=== PATIENT | male | born 1940 | race Caucasian/White ===

== ENCOUNTER 2017-01-19 12:24 | Inpatient (IN) | payer MEDICARE, OTHER ==
[~2017-01-19] VITALS: Ht 180.3 cm; Wt 94.8 kg
[2017-01-19 12:27] VITALS: BP 190/78; PULSE 112; RESP 24; TEMP 97.6; O2SAT 96
[2017-01-19 14:33] LABS: AUTOMATED NEUTROPHIL # 5.9 TH/MM3 (1.8-7.7); BASOPHIL % 0.1 % (0.0-2.0); EOSINOPHIL % 0.1 % (0.0-4.0); HEMATOCRIT 40.2 % (39.0-51.0); LYMPH % 6.2 % (9.0-44.0); LYMPHOCYTE # 0.4 TH/MM3 (1.0-4.8); MEAN CELL VOLUME 90.2 FL (80.0-100.0); MEAN CORPUSCULAR HEMOGLOBIN 30.4 PG (27.0-34.0); MEAN CORPUSCULAR HGB CONC 33.7 % (32.0-36.0); MONO % 5.5 % (0.0-8.0); NEUT % 88.1 % (16.0-70.0); PLATELET COUNT 93 TH/MM3 (150-450); RED BLOOD COUNT 4.45 MIL/MM3 (4.50-5.90); RED CELL DISTRIBUTION WIDTH 16.6 % (11.6-17.2); WHITE BLOOD COUNT 6.7 TH/MM3 (4.0-11.0)
[2017-01-19 14:35] LABS: HEMO FLAGS AUTO DIFF
[2017-01-19 14:37] LABS: INTERNATIONAL NORMALIZED RATIO 1.7 RATIO; PROTHROMBIN TIME - PATIENT 19.4 SEC (9.8-11.6)
[2017-01-19 14:54] LABS: ALT (GPT) 75 U/L (12-78); ANION GAP 11 MEQ/L (5-15); AST (GOT) 18 U/L (15-37); BICARBONATE 23.5 MEQ/L (21.0-32.0); BLOOD UREA NITROGEN 69 MG/DL (7-18); CHLORIDE 105 MEQ/L (98-107); GLOMERULAR FILTRATION RATE 44 ML/MIN (>89); POTASSIUM 4.8 MEQ/L (3.5-5.1); SODIUM (NA) 139 MEQ/L (136-145)
[2017-01-19 14:55] LABS: ALKALINE PHOSPHATASE 88 U/L (45-117); TOTAL BILIRUBIN ADULT 0.3 MG/DL (0.2-1.0)
--- NOTE | 2017-01-19 15:17 | PD ---
HPI Chief Complaint: Skin Problem Time Seen by Provider: 15:01 Travel History International Travel<30 days: No Contact w/Intl Traveler<30days: No Traveled to known affect area: No History of Present Illness HPI H/O COPD/AFIB FOR WHICH HE IS ON COUMADIN. PCP IS DR DALAL. DENIES ANY ALLERGIES. PATIENT WAS SEEN BY DR DALAL AND RECC TO COME TO ED FOR IV ABX AND ADMISSION. PATIENT STATES HE HAS HAD 4-5 DAYS OF DANIEL LE SWELLING, DISCOLORATION TO SKIN REDDISH HUE, WEEPING CLEAR LIQUID WELL, WHICH ENDS SOAKING HIS SOCKS AND PANTS, NOT IMPROVING AND HAS NOT BEEN ON ABX RECENTLY EITHER. PFSH Past Medical History Hx Anticoagulant Therapy: Yes (WARAFIN) Cardiovascular Problems: Yes (A-FIB) Respiratory: Yes (COPD W/02 AT NIGHT) Social History Tobacco Use: Yes Allergies-Medications (Allergen,Severity, Reaction): Coded Allergies: No Known Allergies (Unverified , 01/19/17) Reported Meds & Prescriptions Reported Meds & Active Scripts Active Reported Spiriva Handihaler (Tiotropium Inh) 18 Mcg Cap 18 Mcg INH DAILY 1 capsule = 18 mcg Flomax (Tamsulosin HCl) 0.4 Mg Cap 0.4 Mg PO HS Diltiazem CD 24 HR 120 Mg Caper 120 Mg PO DAILY Amiodarone (Amiodarone HCl) 200 Mg Tab 200 Mg PO DAILY Coumadin (Warfarin) 3 Mg Tab 3 Mg PO DAILY [place] (Hydrocodone-Acetaminophen) 10-325 Mg Tab 1 Tab PO TID PRN Morphine ER (Morphine Sulfate) 30 Mg Tab 30 Mg PO Q8H Dexamethasone 4 Mg Tab 4 Mg PO DAILY Advair Diskus Inh (Fluticasone-Salmeterol Inh) 250-50 Mcg/Blist Aer 1 Puff INH BID Rinse mouth after use. Potassium Chloride ER (Potassium Chloride) 10 Meq Cap 10 Meq PO BID Lasix (Furosemide) 40 Mg Tab 40 Mg PO BID Review of Systems Except as stated in HPI: all other systems reviewed are Neg Cardiovascular: Positive: Edema Skin: Positive Rash Physical Exam Narrative GENERAL: SKIN: Extremities HAVE 3+ PITTING EDEMA, WEEPING CLEAR EXUDATE BELOW THE KNEE, SKIN IS ERYTHEMATOUS W/O BLEBS, NOT WARM TO TOUCH, NO STREAKING, NO LAD PROXIMALLY HEAD: Atraumatic. Normocephalic. EYES: Pupils equal and round. No scleral icterus. No injection or drainage. ENT: No nasal bleeding or discharge. Mucous membranes pink and moist. NECK: Trachea midline. No JVD. CARDIOVASCULAR: Regular rate and rhythm. RESPIRATORY: No accessory muscle use. Clear to auscultation. Breath sounds equal bilaterally. GASTROINTESTINAL: Abdomen soft, non-tender, nondistended. Hepatic and splenic margins not palpable. MUSCULOSKELETAL: .. No obvious deformities. NEUROLOGICAL: Awake and alert. No obvious cranial nerve deficits. Motor grossly within normal limits. Five out of 5 muscle strength in the arms and legs. Normal speech. PSYCHIATRIC: Appropriate mood and affect; insight and judgment normal. Data Data Last Documented VS Vital Signs Date Time Temp Pulse Resp B/P Pulse Ox O2 Delivery O2 Flow Rate FiO2 01/19/17 12:27 97.6 112 24 190/78 96 Room Air Orders Complete Blood Count With Diff (01/19/17 13:29) Comprehensive Metabolic Panel (01/19/17 13:29) Blood Culture (01/19/17 13:29) Prothrombin Time / Inr (Pt) (01/19/17 13:29) Wound Culture And Gram Stain (01/19/17 15:24) Piperacil-Tazo 4.5 Gm Premix (Zosyn 4.5 (01/19/17 15:24) Admit Order (Ed Use Only) (01/19/17 15:39) Labs Laboratory Tests Test 01/19/17 13:02 White Blood Count 6.7 TH/MM3 Red Blood Count 4.45 MIL/MM3 Hemoglobin 13.5 GM/DL Hematocrit 40.2 % Mean Corpuscular Volume 90.2 FL Mean Corpuscular Hemoglobin 30.4 PG Mean Corpuscular Hemoglobin 33.7 % Concent Red Cell Distribution Width 16.6 % Platelet Count 93 TH/MM3 Mean Platelet Volume 8.1 FL Neutrophils (%) (Auto) 88.1 % Lymphocytes (%) (Auto) 6.2 % Monocytes (%) (Auto) 5.5 % Eosinophils (%) (Auto) 0.1 % Basophils (%) (Auto) 0.1 % Neutrophils # (Auto) 5.9 TH/MM3 Lymphocytes # (Auto) 0.4 TH/MM3 Monocytes # (Auto) 0.4 TH/MM3 Eosinophils # (Auto) 0.0 TH/MM3 Basophils # (Auto) 0.0 TH/MM3 CBC Comment AUTO DIFF Differential Total Cells 100 Counted Neutrophils % (Manual) 77 % Band Neutrophils % 7 % Lymphocytes % 8 % Monocytes % 1 % Neutrophils # (Manual) 6.1 TH/MM3 Metamyelocytes 3 % Myelocytes 4 % Nucleated Red Blood Cells 1 /100 WBC Differential Comment FINAL DIFF MANUAL Platelet Estimate LOW Platelet Morphology Comment NORMAL Red Cell Morphology Comment NORMAL Prothrombin Time 19.4 SEC Prothromb Time International 1.7 RATIO Ratio Sodium Level 139 MEQ/L Potassium Level 4.8 MEQ/L Chloride Level 105 MEQ/L Carbon Dioxide Level 23.5 MEQ/L Anion Gap 11 MEQ/L Blood Urea Nitrogen 69 MG/DL Creatinine 1.56 MG/DL Estimat Glomerular Filtration 44 ML/MIN Rate Random Glucose 180 MG/DL Calcium Level 9.4 MG/DL Total Bilirubin 0.3 MG/DL Aspartate Amino Transf 18 U/L (AST/SGOT) Alanine Aminotransferase 75 U/L (ALT/SGPT) Alkaline Phosphatase 88 U/L Total Protein 6.8 GM/DL Albumin 2.0 GM/DL [facility] Medical Decision Making Medical Screen Exam Complete: Yes Emergency Medical Condition: Yes Medical Record Reviewed: Yes Differential Diagnosis CELLULITIS V DVT VS PERIPHERAL EDEMA WITH SUPERIMPOSED CELLULITIS Narrative Course UPON EVALUATION FOUND TO HAVE CELLULITIC CHANGES TO EXTREMITIES WITHOUT OVERT CHF/LIVER CIRRHOSIS HOWEVER RECENT DIABETIC DIAGNOSIS MAKES THIS HIGH RISK FOR WORSENING DEEPER INFECTION Diagnosis Primary Impression: BILATERAL LE PERIPHERAL EDEMA WITH SUPERIMPOSED CELLULITIS Admitting Information Admitting Physician Requests: Observation Gopal Hernandez MD Jan 19, 2017 15:17
[2017-01-19] MEDS ORDERED: VANCOMYCIN INJ 1,000 MG in SODIUM CHLOR 0.9% 250 ML INJ 250 ML IV STA (15:24)
[2017-01-19] MEDS ORDERED: PIPERACIL-TAZO 4.5 GM PREMIX 100 ML IV STA (15:24)
[2017-01-19 15:43] LABS: BANDS 7 % (0-6); CORRECTED NUCLEATED RBC 1 /100 WBC (0-0); METAMYELOCYTES 3 % (0-1); MYELOCYTES 4 % (0-0); NEUTROPHIL # MANUAL DIFF 6.1 TH/MM3 (1.8-7.7); POLYS (SEG NEUTROPHILS) 77 % (16-70); WBC DIFF SAMPLE 100
[2017-01-19 15:44] LABS: PLATELET ESTIMATE SMEAR LOW (NORMAL); PLATELET MORPHOLOGY NORMAL (NORMAL); SCAN/DIFF FINAL DIFF MANUAL
[2017-01-19] MEDS ORDERED: BISACODYL 10 MG SUPP RECTAL PRN (16:15)
[2017-01-19] MEDS ORDERED: ONDANSETRON HCL 4 MG/2 ML VIAL IVP PRN (16:15)
[2017-01-19] MEDS ORDERED: LACTULOSE SYRUP 20 GM/30 ML CUP PO PRN (16:15)
[2017-01-19] MEDS ORDERED: SODIUM CHLORIDE 0.9% FLUSH 10 ML FLUSH IV FLUSH PRN (16:15)
[2017-01-19] MEDS ORDERED: MAGNESIUM HYDROXIDE SUSP 30 ML CUP PO PRN (16:15)
[2017-01-19] MEDS ORDERED: SENNOSIDES 8.6 MG TAB PO PRN (16:15)
[2017-01-19] MEDS ORDERED: NALOXONE HCL 0.4 MG/ML AMP IV PRN (16:15)
[2017-01-19] MEDS ORDERED: ACETAMINOPHEN 325 MG TAB PO PRN (16:15)
[2017-01-19] MEDS ORDERED: LORazepam 0.5 MG TAB PO PRN (16:30)
[2017-01-19] MEDS ORDERED: Vancomycin Consult Pharmacy 1 EA OTHER SCH (16:30)
[2017-01-19] MEDS ORDERED: DEXTROSE 50% IN WATER 50 ML VIAL(D50) IV PRN (16:30)
[2017-01-19] MEDS ORDERED: cloNIDine HCL 0.1 MG TAB PO PRN (16:30)
[2017-01-19] MEDS ORDERED: GLUCAGON 1 MG/ML VIAL OTHER PRN (16:30)
[2017-01-19 17:19] VITALS: BP 141/77; PULSE 94; RESP 18; O2SAT 95
[2017-01-19] MEDS ORDERED: MORP1TAB25 PO (17:51)
[2017-01-19] MEDS ORDERED: POTA10CA PO (17:51)
[2017-01-19] MEDS ORDERED: AMIO200T PO (17:51)
[2017-01-19] MEDS ORDERED: SPIRCAP INH (17:51)
[2017-01-19] MEDS ORDERED: DILT-60 PO (17:51)
[2017-01-19] MEDS ORDERED: FURO1TAB60 PO (17:51)
[2017-01-19] MEDS ORDERED: ADVA250A INH (17:51)
[2017-01-19] MEDS ORDERED: DEXA4TAB PO (17:51)
[2017-01-19] MEDS ORDERED: HYDR-3366 PO (17:51)
[2017-01-19] MEDS ORDERED: COUM3TAB PO (17:51)
[2017-01-19] MEDS ORDERED: TAMS5CAP PO (17:51)
[2017-01-19] MEDS: PANTOPRAZOLE SODIUM 40 MG VIAL IV PUSH SCH (18:00)
[2017-01-19] MEDS: WARFARIN SOD 4 MG TAB PO SCH (18:00)
[2017-01-19] MEDS: ZOLPIDEM TARTRATE 5 MG TAB PO PRN (19:35)
[2017-01-19] MEDS: ACETAMINOPHEN/HYDROcodone 325 MG/5 MG TAB PO PRN (19:35)
[2017-01-19 20:00] VITALS: BP 129/59; PULSE 78; RESP 18; TEMP 96.5
[2017-01-19] MEDS: HEPARIN SODIUM - SQ 10,000 UNITS/ML VIAL SQ SCH (20:45)
[2017-01-19] MEDS: DOCUSATE SODIUM 50 MG/SENNA 8.6 MG TAB PO SCH (20:45)
[2017-01-19] MEDS: SODIUM CHLORIDE 0.9% FLUSH 10 ML FLUSH IV FLUSH SCH (20:46)
[2017-01-19] MEDS: VANCOMYCIN 1,500 MG/NS 500 ML IV SCH ×2 (20:46)
[2017-01-19] MEDS: INSULIN ASPART SUPPLEMENTAL SCALE SQ SCH (20:53)
[2017-01-19 23:02] VITALS: BP 116/60; PULSE 76; RESP 19; TEMP 96.3; O2SAT 94
[2017-01-19] MEDS: PIPERACIL-TAZO 2.25 GM PREMIX 50 ML IV SCH (23:31)
[2017-01-20] MEDS: ACETAMINOPHEN/HYDROcodone 325 MG/5 MG TAB PO PRN ×2 (03:06→10:07)
[2017-01-20] MEDS: PIPERACIL-TAZO 2.25 GM PREMIX 50 ML IV SCH ×3 (04:59→17:54)
[2017-01-20] MEDS: INSULIN ASPART SUPPLEMENTAL SCALE SQ SCH ×4 (06:32→21:00)
[2017-01-20 07:30] LABS: AUTOMATED NEUTROPHIL # 4.8 TH/MM3 (1.8-7.7); BASOPHIL % 0.3 % (0.0-2.0); EOSINOPHIL % 0.6 % (0.0-4.0); LYMPHOCYTE # 0.9 TH/MM3 (1.0-4.8); MEAN CELL VOLUME 90.3 FL (80.0-100.0); MEAN CORPUSCULAR HEMOGLOBIN 29.5 PG (27.0-34.0); MEAN CORPUSCULAR HGB CONC 32.6 % (32.0-36.0); NEUT % 79.1 % (16.0-70.0); PLATELET COUNT 91 TH/MM3 (150-450); RED BLOOD COUNT 3.99 MIL/MM3 (4.50-5.90); RED CELL DISTRIBUTION WIDTH 16.5 % (11.6-17.2); WHITE BLOOD COUNT 6.1 TH/MM3 (4.0-11.0)
[2017-01-20 07:32] LABS: INTERNATIONAL NORMALIZED RATIO 1.7 RATIO; PROTHROMBIN TIME - PATIENT 19.5 SEC (9.8-11.6)
[2017-01-20 07:40] LABS: HEMO FLAGS AUTO DIFF
[2017-01-20 08:26] LABS: BICARBONATE 22.1 MEQ/L (21.0-32.0); POTASSIUM 4.2 MEQ/L (3.5-5.1)
[2017-01-20 09:32] LABS: BANDS 2 % (0-6); METAMYELOCYTES 1 % (0-1); NEUTROPHIL # MANUAL DIFF 5.1 TH/MM3 (1.8-7.7); PLATELET ESTIMATE SMEAR LOW (NORMAL); PLATELET MORPHOLOGY NORMAL (NORMAL); POLYS (SEG NEUTROPHILS) 81 % (16-70); SCAN/DIFF FINAL DIFF MANUAL; WBC DIFF SAMPLE 100
[2017-01-20] MEDS: HEPARIN SODIUM - SQ 10,000 UNITS/ML VIAL SQ SCH ×2 (10:08→21:23)
[2017-01-20] MEDS: SODIUM CHLORIDE 0.9% FLUSH 10 ML FLUSH IV FLUSH SCH ×2 (10:08→21:20)
[2017-01-20] MEDS: DOCUSATE SODIUM 50 MG/SENNA 8.6 MG TAB PO SCH ×2 (10:08→21:00)
[2017-01-20 10:19] VITALS: BP 141/67; PULSE 77; RESP 20; TEMP 97.5; O2SAT 95
[2017-01-20 12:59] VITALS: BP 132/63; PULSE 78; RESP 18; TEMP 97.7; O2SAT 95
[2017-01-20] MEDS: BUDESONIDE-FORMOTEROL 160/4.5 MCG INHALER INH SCH ×2 (15:00→22:00)
[2017-01-20] MEDS: AMIODARONE 200 MG TAB PO SCH (15:27)
[2017-01-20] MEDS: DILTIAZEM-CD 120 MG CAP ER PO SCH (15:27)
--- NOTE | 2017-01-20 15:45 | MH ---
cc: FREDERIC DALAL DATE OF ADMISSION: 01/19/2017 CHIEF COMPLAINT Cellulitis the left lower extremity HISTORY OF PRESENT ILLNESS Frederic Tripathi is a 76-year-old male. Came into my office yesterday for routine follow-up. Came in with his and she pointed out redness and edema in his left lower extremity. He had striking of severe cellulitis in his entire left lower extremity from the knee down. There is weeping and open ulcerations. He had dripage and drainage from some open areas and was unable to wear shoes. He was in the office wearing socks. There is slight stasis changes in the right lower extremity. States he had been feeling ill recently and well. We were monitoring his INRs and he had previously been and floor Hospital last year with cellulitis the legs as well. It is obvious he needed admission and I instructed him to go to [place] emergency room. I was thus called for admission. I spoke with Dr. Carroll de la cruz and he gave him IV Zosyn and IV vancomycin and initiated blood cultures and initial sepsis workup. Wound cultures were obtained. The patient states that he is feeling a bit better. He has paced complained of shortness of breath. He has that he had been very short of breath of the past months and had to sleep in a chair and his legs been dangling at all hours. We recently got him home oxygen use at night but overnight oximetry. PAST MEDICAL HISTORY 1. As atrial fibrillation on warfarin 2. Chronic obstructive pulmonary disease. 3. renal failure. 4. hyperkalemia 5. hypertension. PAST SURGICAL HISTORY None reported. 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 No illicit drug usage, social beverages. 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 Otherwise he lives at home has lots of family caretakers. ALLERGIES NO KNOWN DRUG ALLERGIES HOME MEDICATIONS: 1. Warfarin 2. Flomax 3. Amiodarone 4. Spiriva 5. Diltiazem CD 120 mg daily 6. Advair 250. 7. Lasix 40 b.i.d. 8. [place] 10 mg p.r.n. 9. Morphine ER 30 q.8 h 10. Potassium chloride 10 mEq b.i.d. LABORATORY FINDINGS: Labs hemoglobin 11.7, WBCs normal, platelets are 91, creatinine 1.56 now 1.42, glucose 180, INR 1.7. IMAGING STUDIES None. PHYSICAL EXAMINATION: VITAL SIGNS: Temperature 97.7, pulse 78, respirations 18, blood pressure is 132/68, pulse 95, respirations 18. GENERAL: Looks much older than 76 years of age. She is for L he is laying flat. HEAD, EYES, EARS, NOSE, AND THROAT: Oropharynx is clear. Carotids are clear. No JVD. Normocephalic, atraumatic. CHEST: Slight cough, otherwise clear. Distant breath sounds. No wheezes, rales, crackles or coughing. CARDIOVASCULAR SYSTEM: Regular rate and rhythm. No murmurs, rubs, clicks or gallops. ABDOMEN: Abdomen is obese, nontender, soft, normoactive bowel sounds. EXTREMITIES: He has bilateral venous stasis changes with his ankles and severe cellulitis of the left lower extremity extending from the left patella down to his toes. Pulses are faint bilaterally and DP and PT arteries. There is weakening an open areas in the left lower extremity. There is 3+ edema in the left lower extremity and 2+ in the right lower extremity. ASSESSMENT: 1. Severe cellulitis of left lower extremity. 2. Peripheral arterial disease. 3. Venous stasis dermatitis. 4. Atrial fibrillation. 5. Diabetes. 6. Urgent hypertension. 7. Chronic kidney disease, stage 3. 8. Urgent hypertension. 9. Chronic kidney disease stage III 10. Acute kidney injury 11. Anemia of chronic disease. PLAN 1. IV vancomycin dosed per pharmacy 2. IV Zosyn 3. Warfarin, dose per pharmacy. 4. Follow up INR 5. Heparin 5000 units subcu q.12 h 6. Ativan for severe anxiety. He becomes very agitated. 7. Blood cultures. 8. Wound cultures. 9. Sliding scale insulin 10. Physical therapy. 11. Wound care consult 12. Nasal cannula O2. 13. Restarting the Amiodarone, start Lasix IV. Will monitor for acute kidney injury worsening. 14. Observation admission. Frederic Dalal MD RP/shabbir /1:18 PM 3:11 PM
[2017-01-20 16:33] VITALS: BP 139/64; PULSE 88; RESP 18; TEMP 97.7; O2SAT 95
[2017-01-20] MEDS: WARFARIN SOD 4 MG TAB PO SCH (17:54)
[2017-01-20] MEDS: PANTOPRAZOLE SODIUM 40 MG VIAL IV PUSH SCH (17:55)
[2017-01-20] MEDS: FUROSEMIDE 40 MG/4 ML VIAL IV PUSH SCH (17:55)
[2017-01-20 18:14] LABS: HEMOGLOBIN A1a 1.1 %; HEMOGLOBIN A1b 2.8 %; HEMOGLOBIN Ao 79.4 %; HEMOGLOBIN LA1C 2.6 %; HEMOGLOBIN P3 7.8 %
--- NOTE | 2017-01-20 18:53 | PD.ID.CON ---
History of Present Illness Service ID Consult Requested By Dr Reddy Reason for Consult BLE cellulitis Primary Care Physician Frederic Reddy MD Diagnoses: History of Present Illness 76 yo M with chronic BLE demea and recurrent BLE cellulitis in thelast 2 years, plus recent diagnosis of DM presents with 5 days of worsening redness and tenderness of BLE more prominent on LLE with redness streaks up to the proin He has some weeping from the lower legs denies fever, chills Review of Systems Except as stated in HPI: all other systems reviewed are Neg Past Family Social History Allergies: Coded Allergies: No Known Allergies (Unverified , 01/19/17) Past Medical History afib COPD CKD DM skin CA LLE Past Surgical History skin ca LLE Active Ordered Medications Medications where reviewed in EMR Antibiotics Include: zosyn vancomycin Family History reviewed Non-Contributory. Social History quit Tobacco 2 yrs ago quit ETOH. 15 days ago No Illicit Drugs. Physical Exam Vital Signs Vital Signs Date Time Temp Pulse Resp B/P Pulse Ox O2 Delivery O2 Flow Rate FiO2 01/20/17 16:33 97.7 88 18 139/64 95 01/20/17 12:59 97.7 78 18 132/63 95 01/20/17 10:19 97.5 77 20 141/67 95 01/20/17 10:10 21 01/19/17 23:02 96.3 76 19 116/60 94 01/19/17 20:00 96.5 78 18 129/59 01/19/17 19:31 21 Physical Exam GCONSTITUTIONAL/GENERAL: This is an obese elderly patient, in no apparent distress. TUBES/LINES/DRAINS: SKIN: No jaundice, rashes, or lesions. Ecchymoses on upper extremities. No wounds seen anteriorly. Skin temperature appropriate. Not diaphoretic. HEAD: Atraumatic. Normocephalic. EYES: Pupils equal and round and reactive. Extraocular motions intact. No scleral icterus. No injection or drainage. Fundi not examined. ENT: Hearing grossly normal. Nose without bleeding or purulent drainage. Throat without visible erythema, exudates, masses, or lesions. Edentulous NECK: Trachea midline. Supple, nontender. No palpable thyroid enlargement or nodularity. CARDIOVASCULAR: Regular rate and rhythm without murmurs, gallops, or rubs. No JVD. Peripheral pulses symmetric. RESPIRATORY/CHEST: Symmetric, unlabored respirations. Clear to auscultation. Breath sounds equal bilaterally. No wheezes, rales, or rhonchi. GASTROINTESTINAL: Abdomen soft, non-tender, nondistended. No hepato-splenomegaly , or palpable masses. No guarding. Bowel sounds present. GENITOURINARY: Without palpable bladder distension. MUSCULOSKELETAL: Extremities without clubbing, cyanosis, BLE edema with prominent tree bark fischer + erythema, tenderness + violacios lympahngitic streaks to L thigh + multiple excoriations + actimic keratosis b/l feet onychomycosis athlete feet LYMPHATICS: No palpable cervical inguinal or supraclavicular adenopathy. NEUROLOGICAL: Awake and alert. Motor and sensory grossly within normal limits. Follows commands. Clear speech . Moves all extremities. PSYCHIATRIC: No obvious anxiety/depression. no apparent hallucinations or other psychotic thought process. Laboratory Laboratory Tests Test 01/20/17 06:53 White Blood Count 6.1 Red Blood Count 3.99 Hemoglobin 11.7 Hematocrit 36.0 Mean Corpuscular Volume 90.3 Mean Corpuscular Hemoglobin 29.5 Mean Corpuscular Hemoglobin 32.6 Concent Red Cell Distribution Width 16.5 Platelet Count 91 Mean Platelet Volume 7.6 Neutrophils (%) (Auto) 79.1 Lymphocytes (%) (Auto) 15.0 Monocytes (%) (Auto) 5.0 Eosinophils (%) (Auto) 0.6 Basophils (%) (Auto) 0.3 Neutrophils # (Auto) 4.8 Lymphocytes # (Auto) 0.9 Monocytes # (Auto) 0.3 Eosinophils # (Auto) 0.0 Basophils # (Auto) 0.0 CBC Comment AUTO DIFF Differential Total Cells 100 Counted Neutrophils % (Manual) 81 Band Neutrophils % 2 Lymphocytes % 15 Monocytes % 1 Neutrophils # (Manual) 5.1 Metamyelocytes 1 Differential Comment FINAL DIFF MANUAL Platelet Estimate LOW Platelet Morphology Comment NORMAL Red Cell Morphology Comment NORMAL Prothrombin Time 19.5 Prothromb Time International 1.7 Ratio Sodium Level 139 Potassium Level 4.2 Chloride Level 106 Carbon Dioxide Level 22.1 Anion Gap 11 Blood Urea Nitrogen 68 Creatinine 1.42 Estimat Glomerular Filtration 49 Rate Random Glucose 122 Hemoglobin A1c 7.3 Calcium Level 8.6 Date/Time Procedure Status Source Growth 01/19/17 16:15 Gram Stain - Final Resulted Wound Leg 01/19/17 16:15 Wound Culture - Preliminary Resulted Staphylococcus Aureus Gram Negative Sebastian 01/19/17 13:50 Aerobic Blood Culture - Preliminary Resulted Blood Peripheral NO GROWTH IN 1 DAY 01/19/17 13:50 Anaerobic Blood Culture - Preliminary Resulted Blood Peripheral NO GROWTH IN 1 DAY Result Diagram: 01/20/17 0653 01/20/17 0653 Assessment and Plan Assessment and Plan BLE chronic edema BLE edema, chronic venostasis LLE skin cancer DM Onychomycosis cont curretn abx - fu wound clx anticipate dc soon on oral abx antifungal creams to b/l feet control edema keep BLE elevated Discussed Condition With pt and spouse at b/s Mary Rubi MD Jan 20, 2017 18:53
[2017-01-20 19:59] VITALS: BP 135/63; PULSE 97; RESP 20; TEMP 98.3; O2SAT 94
[2017-01-20 20:00] VITALS: O2SAT 96
[2017-01-20] MEDS: VANCOMYCIN 1,500 MG/NS 500 ML IV SCH ×2 (21:19)
[2017-01-20] MEDS: TAMSULOSIN HCL 0.4 MG CAP PO SCH (21:21)
[2017-01-20] MEDS: POTASSIUM CHLORIDE 10 MEQ CAP PO SCH (21:21)
[2017-01-20] MEDS: CLOTRIMAZOLE 1% CREAM 15 GM TOPICAL SCH (22:00)
[2017-01-21 00:31] VITALS: BP 127/65; PULSE 20; RESP 20; TEMP 99; O2SAT 92
[2017-01-21] MEDS: PIPERACIL-TAZO 2.25 GM PREMIX 50 ML IV SCH ×4 (00:54→16:52)
[2017-01-21] MEDS: ACETAMINOPHEN/HYDROcodone 325 MG/5 MG TAB PO PRN ×3 (01:18→20:52)
[2017-01-21 03:28] VITALS: BP 106/59; PULSE 94; RESP 20; TEMP 99.1; O2SAT 92
[2017-01-21] MEDS: CLOTRIMAZOLE 1% CREAM 15 GM TOPICAL SCH ×3 (05:13→22:23)
[2017-01-21 05:55] LABS: AUTOMATED NEUTROPHIL # 5.6 TH/MM3 (1.8-7.7); BASOPHIL % 0.3 % (0.0-2.0); EOSINOPHIL # 0.1 TH/MM3 (0-0.4); EOSINOPHIL % 0.9 % (0.0-4.0); HEMATOCRIT 37.4 % (39.0-51.0); LYMPH % 14.2 % (9.0-44.0); MEAN CELL VOLUME 89.3 FL (80.0-100.0); MEAN CORPUSCULAR HGB CONC 33.6 % (32.0-36.0); MONO % 2.5 % (0.0-8.0); NEUT % 82.1 % (16.0-70.0); PLATELET COUNT 91 TH/MM3 (150-450); RED BLOOD COUNT 4.19 MIL/MM3 (4.50-5.90); RED CELL DISTRIBUTION WIDTH 16.7 % (11.6-17.2); WHITE BLOOD COUNT 6.8 TH/MM3 (4.0-11.0)
[2017-01-21 05:59] LABS: HEMO FLAGS AUTO DIFF
[2017-01-21 06:03] LABS: INTERNATIONAL NORMALIZED RATIO 1.4 RATIO; PROTHROMBIN TIME - PATIENT 15.4 SEC (9.8-11.6)
[2017-01-21] MEDS: INSULIN ASPART SUPPLEMENTAL SCALE SQ SCH ×4 (06:30→21:00)
[2017-01-21 07:05] LABS: BICARBONATE 23.1 MEQ/L (21.0-32.0); POTASSIUM 3.4 MEQ/L (3.5-5.1)
[2017-01-21 07:45] VITALS: BP 120/59; PULSE 93; RESP 18; TEMP 98.7; O2SAT 93
[2017-01-21 08:24] LABS: BANDS 7 % (0-6); METAMYELOCYTES 5 % (0-1); NEUTROPHIL # MANUAL DIFF 6.2 TH/MM3 (1.8-7.7); POLYS (SEG NEUTROPHILS) 79 % (16-70); WBC DIFF SAMPLE 100
[2017-01-21 08:25] LABS: PLATELET ESTIMATE SMEAR LOW (NORMAL); PLATELET MORPHOLOGY NORMAL (NORMAL)
[2017-01-21 08:26] LABS: SCAN/DIFF FINAL DIFF MANUAL
--- NOTE | 2017-01-21 09:04 | HHI.FPPN ---
Subjective Remarks pt reports unable to sit up or get OOB c/o leg pain c/o weakness lethargic d/w RN Objective Vitals Vital Signs Date Time Temp Pulse Resp B/P Pulse Ox O2 Delivery O2 Flow Rate FiO2 01/21/17 07:45 98.7 93 18 120/59 93 01/21/17 03:28 99.1 94 20 106/59 92 01/21/17 00:31 99.0 20 20 127/65 92 01/20/17 20:00 96 01/20/17 19:59 98.3 97 20 135/63 94 01/20/17 16:33 97.7 88 18 139/64 95 01/20/17 12:59 97.7 78 18 132/63 95 01/20/17 10:19 97.5 77 20 141/67 95 01/20/17 10:10 21 I/O 01/20/17 01/20/17 01/20/17 01/21/17 01/21/17 01/21/17 07:00 15:00 23:00 07:00 15:00 23:00 Intake Total 550 ml Balance 550 ml Intake IV Total 550 ml # Voids 2 # Bowel Movements 1 Result Diagram: 01/21/17 0544 01/21/17 0544 Objective Remarks GENERAL: SKIN: Warm and dry. severe cellulitis and stasis BLE's to upper legs HEAD: Atraumatic. Normocephalic. EYES: Pupils equal and round. No scleral icterus. No injection or drainage. ENT: No nasal bleeding or discharge. Mucous membranes pink and moist. NECK: Trachea midline. No JVD. CARDIOVASCULAR: Regular rate and rhythm. RESPIRATORY: No accessory muscle use. Clear to auscultation. Breath sounds equal bilaterally. GASTROINTESTINAL: Abdomen soft, non-tender, nondistended. Hepatic and splenic margins not palpable. MUSCULOSKELETAL: Extremities without clubbing, cyanosis, or edema. No obvious deformities. NEUROLOGICAL: Awake and alert. No obvious cranial nerve deficits. Motor grossly within normal limits. 2 out of 5 muscle strength in the arms and legs. Normal speech. PSYCHIATRIC: Appropriate mood and affect; insight and judgment normal. Medications and IVs Current Medications Medications (Trade) Dose Ordered Sig/Lucas Route Start Time Stop Time Status Last Admin (NS Flush) 2 ml UNSCH PRN IV FLUSH 01/19/17 16:15 (NS Flush) 2 ml BID IV FLUSH 01/19/17 21:00 01/20/17 21:20 (Tylenol) 650 mg Q4H PRN PO 01/19/17 16:15 (Zofran Inj) 4 mg Q6H PRN IVP 01/19/17 16:15 (Ambien) 5 mg HS PRN PO 01/19/17 16:15 01/19/17 19:35 (Heparin Inj) 5,000 units Q12H SQ 01/19/17 21:00 01/20/17 21:23 (Narcan Inj) 0.4 mg UNSCH PRN IV 01/19/17 16:15 (Maira-Colace) 1 tab BID PO 01/19/17 21:00 01/20/17 10:08 (Milk Of Magnesia Liq) 30 ml Q12H PRN PO 01/19/17 16:15 (Senokot) 17.2 mg Q12H PRN PO 01/19/17 16:15 (Dulcolax Supp) 10 mg DAILY PRN RECTAL 01/19/17 16:15 (Lactulose Liq) 30 ml DAILY PRN PO 01/19/17 16:15 (D50w (Vial) Inj) 50 ml UNSCH PRN IV 01/19/17 16:30 Glucagon 1 mg 1 mg UNSCH PRN OTHER 01/19/17 16:30 (Coumadin Consult Pharmacy) 0 ml @ 0 mls/hr UNSCH OTHER 01/19/17 16:30 ([place] 5-325 Mg) 1 tab Q4H PRN PO 01/19/17 16:30 01/21/17 01:18 (Ativan) 0.5 mg Q8H PRN PO 01/19/17 16:30 (Catapres) 0.1 mg Q6H PRN PO 01/19/17 16:30 Pantoprazole Sodium 40 mg 40 mg Q24H IV PUSH 01/19/17 18:00 01/20/17 17:55 Pharmacy Profile Note 0 ml @ 0 mls/hr UNSCH OTHER 01/19/17 16:30 Piperacillin Sod/ Tazobactam Sod 50 ml @ 100 mls/hr Q6H IV 01/19/17 23:00 01/21/17 05:13 (Vancomycin Inj/ NS 500 ml Inj) 515 ml @ 257.5 mls/ hr Q24H IV 01/19/17 20:00 01/20/17 21:19 Miscellaneous Information SPECIFIC LAB TO BE ... ONCE ONCE .XX 01/22/17 19:45 01/22/17 19:46 (Lasix Inj) 40 mg BID@09,18 IV PUSH 01/20/17 18:00 01/20/17 17:55 (Cordarone) 200 mg DAILY PO 01/20/17 14:30 01/20/17 15:27 (Cardizem Cd) 120 mg DAILY PO 01/20/17 14:30 01/20/17 15:27 (KCl) 10 meq BID PO 01/20/17 21:00 01/20/17 21:21 (Flomax) 0.4 mg HS PO 01/20/17 21:00 01/20/17 21:21 (Spiriva Inh) 18 mcg DAILY INH 01/21/17 09:00 (Symbicort 160-4.5 Inh) 2 puff BID INH 01/20/17 15:00 01/20/17 22:00 (Lotrimin 1% Cream) 1 applic Q8HR TOPICAL 01/20/17 22:00 01/21/17 05:13 (Coumadin) 5 mg DAILY@16 PO 01/22/17 16:00 (Coumadin) 6 mg ONCE PO 01/21/17 16:00 01/21/17 23:59 A/P Assessment and Plan ASSESSMENT: 1. Severe cellulitis of left lower extremity. 2. Peripheral arterial disease. 3. Venous stasis dermatitis. 4. Atrial fibrillation. 5. Diabetes. 6. Urgent hypertension. 7. Hypokalemia 8. Urgent hypertension. 9. Chronic kidney disease stage III 10. Acute kidney injury 11. Anemia of chronic disease. PLAN 1. IV vancomycin dosed per pharmacy 2. IV Zosyn 3. Warfarin, dose per pharmacy. 4. Follow up INR 5. Heparin 5000 units subcu q.12 h 6. Ativan for severe anxiety. He becomes very agitated. 7. Blood cultures. 8. Wound cultures. 9. Sliding scale insulin 10. Physical therapy. 11. Wound care consult 12. Nasal cannula O2. 13. po Amiodarone, 14. Lasix IV. Will monitor for acute kidney injury 15. Start glipizide bid 16. Consult DM educator 17. PT has been obs for two MN, pt requires more iv abx inpt, DM education as new dx, and to get OOB. see orders. Will need HHC. Frederic Reddy MD Jan 21, 2017 09:04
[2017-01-21] MEDS ORDERED: POTASSIUM CHLORIDE 20 MEQ CONTROLLED RELEASE TAB PO ONE (09:30)
[2017-01-21] MEDS: SODIUM CHLORIDE 0.9% FLUSH 10 ML FLUSH IV FLUSH SCH ×2 (10:03→22:17)
[2017-01-21] MEDS: POTASSIUM CHLORIDE 10 MEQ CAP PO SCH ×2 (10:04→21:00)
[2017-01-21] MEDS: AMIODARONE 200 MG TAB PO SCH (10:05)
[2017-01-21] MEDS: DOCUSATE SODIUM 50 MG/SENNA 8.6 MG TAB PO SCH ×2 (10:05→22:16)
[2017-01-21] MEDS: DILTIAZEM-CD 120 MG CAP ER PO SCH (10:05)
[2017-01-21] MEDS: FUROSEMIDE 40 MG/4 ML VIAL IV PUSH SCH ×2 (10:06→16:52)
[2017-01-21] MEDS: TIOTROPIUM BROMIDE 18 MCG INH INH SCH (10:07)
[2017-01-21] MEDS: BUDESONIDE-FORMOTEROL 160/4.5 MCG INHALER INH SCH ×2 (10:07→22:23)
[2017-01-21] MEDS: HEPARIN SODIUM - SQ 10,000 UNITS/ML VIAL SQ SCH ×2 (10:07→22:21)
[2017-01-21 11:18] VITALS: BP 138/73; PULSE 103; RESP 20; TEMP 98.3; O2SAT 92
[2017-01-21 16:00] VITALS: BP 121/60; PULSE 82; RESP 16; TEMP 97.5; O2SAT 92
[2017-01-21] MEDS ORDERED: WARFARIN SOD 6 MG TAB PO SCH (16:00)
--- NOTE | 2017-01-21 16:45 | PD.WCN.NOT ---
Wound Consult Description: Bilateral lower extremities Communicated with: RN Emeli CDU and Doctor Barry Recommendation: Please cleanse wounds to BLE with normal saline or wound cleanser and pat dry and cover wounds with Optifoam AG non adhesive secure dressings with ABD pads, rolled gauze and tape. Please change dressing every 2 days or PRN if saturated or dislodged. Elevate BLE with pillows when patient is sitting or laying in bed. Will need out patient wound care management Additional Information: Patient seen in CDU G pod for evaluation of wounds to L Lower extremity. Patient noted with bilateral lower extremities open to air and on ultasorb pads. Bilateral lower legs noted with hard non pitting edema with hemosiderin staining, erythema, and dry scaly skin. Bilateral pedal pulses are palpable within normal limits.Patient states, "My legs just started swelling and turning red and then the skin opened up"Patient noted with diffuse shallow ulcers to L medial, posterior calf and R posterior calf. Wounds are 100% pink with moderate active serous drainage, that is without odor. Wound culture positive from wound on L leg for Staph and Enterobacter.Cleansed wounds with normal saline and applied Optfoam AG non adhesive over wounds and secured with rolled gauze and tape. Ellie Alcaraz [facility] Jan 21, 2017 16:45
[2017-01-21] MEDS: PANTOPRAZOLE SODIUM 40 MG VIAL IV PUSH SCH (16:52)
[2017-01-21] MEDS: glipiZIDE 5 MG TAB PO SCH (16:52)
[2017-01-21 20:00] VITALS: BP 116/56; PULSE 88; RESP 18; TEMP 97.2; O2SAT 96
[2017-01-21] MEDS: VANCOMYCIN 1,500 MG/NS 500 ML IV SCH ×2 (20:00)
[2017-01-21] MEDS: cefTRIAXone INJ 2,000 MG in SODIUM CHLORIDE 0.9% INJ 100 ML IV SCH (22:15)
[2017-01-21] MEDS: ZOLPIDEM TARTRATE 5 MG TAB PO PRN (22:16)
[2017-01-21] MEDS: TAMSULOSIN HCL 0.4 MG CAP PO SCH (22:16)
[2017-01-22] VITALS: BP_SYST 103; BP_SYST 124; BP_DIAS 58; BP_DIAS 66; PULSE 84; PULSE 96; RESP 16; RESP 18; TEMP 97.7; TEMP 98.4; O2SAT 92; O2SAT 95
[2017-01-22] MEDS: PIPERACIL-TAZO 2.25 GM PREMIX 50 ML IV SCH ×5 (01:27→22:17)
[2017-01-22] MEDS: INSULIN ASPART SUPPLEMENTAL SCALE SQ SCH ×4 (05:40→21:00)
[2017-01-22] MEDS: ACETAMINOPHEN/HYDROcodone 325 MG/5 MG TAB PO PRN ×3 (06:02→22:18)
[2017-01-22] MEDS: CLOTRIMAZOLE 1% CREAM 15 GM TOPICAL SCH ×3 (06:08→20:56)
[2017-01-22 08:00] VITALS: BP 120/59; PULSE 85; RESP 20; TEMP 96.3; O2SAT 91
[2017-01-22] MEDS: AMIODARONE 200 MG TAB PO SCH (09:00)
[2017-01-22] MEDS: DILTIAZEM-CD 120 MG CAP ER PO SCH (10:45)
[2017-01-22] MEDS: FUROSEMIDE 40 MG/4 ML VIAL IV PUSH SCH ×2 (10:46→17:22)
[2017-01-22] MEDS: HEPARIN SODIUM - SQ 10,000 UNITS/ML VIAL SQ SCH ×2 (10:46→20:55)
[2017-01-22] MEDS: glipiZIDE 5 MG TAB PO SCH ×2 (10:47→17:23)
[2017-01-22] MEDS: BUDESONIDE-FORMOTEROL 160/4.5 MCG INHALER INH SCH ×2 (10:48→20:54)
[2017-01-22] MEDS: TIOTROPIUM BROMIDE 18 MCG INH INH SCH (10:48)
[2017-01-22] MEDS: POTASSIUM CHLORIDE 10 MEQ CAP PO SCH ×2 (10:51→20:55)
[2017-01-22] MEDS: DOCUSATE SODIUM 50 MG/SENNA 8.6 MG TAB PO SCH ×2 (10:52→20:55)
[2017-01-22] MEDS: SODIUM CHLORIDE 0.9% FLUSH 10 ML FLUSH IV FLUSH SCH ×2 (10:57→20:55)
--- NOTE | 2017-01-22 11:50 | HHI.PR ---
Subjective Remarks Patient is a history is okay. Denies any chest pain, shortness of breath, nausea or vomiting. at bedside and both state that the redness has much improved since admission. They also state that swelling in the lower extremities has also improved however this is still present. Objective Vitals Vital Signs Date Time Temp Pulse Resp B/P Pulse Ox O2 Delivery O2 Flow Rate FiO2 01/22/17 08:00 96.3 85 20 120/59 91 01/22/17 08:00 96.3 85 20 120/59 91 01/22/17 00:00 97.7 84 18 124/58 92 01/22/17 00:00 98.4 96 16 103/66 95 01/21/17 20:00 97.2 88 18 116/56 96 01/21/17 16:00 97.5 82 16 121/60 92 I/O 01/21/17 01/21/17 01/21/17 01/22/17 01/22/17 01/22/17 06:59 14:59 22:59 06:59 14:59 22:59 Intake Total 550 ml 1220 ml 220 ml Output Total 1150 ml 300 ml Balance 550 ml 70 ml -80 ml Intake Oral 720 ml 120 ml IV Total 550 ml 500 ml 100 ml Output Urine Total 1150 ml 300 ml # Voids 1 Result Diagram: 01/21/1744 01/21/1744 Objective Remarks SKIN: Warm and dry. severe cellulitis and stasis BLE's, erythema now down to the chins bilaterally. HEAD: Atraumatic. Normocephalic. EYES: EOMI ENT: Mucous membranes pink and moist. NECK: Trachea midline. No JVD. CARDIOVASCULAR: Regular rate and rhythm. RESPIRATORY: No accessory muscle use. Clear to auscultation. Breath sounds equal bilaterally. GASTROINTESTINAL: Abdomen soft, non-tender, nondistended. MUSCULOSKELETAL: Extremities trace edema. No obvious deformities. NEUROLOGICAL: Awake and alert. No obvious cranial nerve deficits. able to lift lower extremities against gravity. Normal speech. PSYCHIATRIC: Appropriate mood and affect; insight and judgment normal. A/P Assessment and Plan ASSESSMENT: 1. Severe cellulitis of left lower extremity. 2. Peripheral arterial disease. 3. Venous stasis dermatitis. 4. Atrial fibrillation. 5. Diabetes. 6. Urgent hypertension. 7. Hypokalemia 8. Urgent hypertension. 9. Chronic kidney disease stage III 10. Acute kidney injury 11. Anemia of chronic disease. PLAN 1. continue IV vancomycin dosed per pharmacy and IV zosyn. ID following. Awaiting final recs from ID 2. on Warfarin, dose per pharmacy. Follow up INR 3. on Heparin 5000 units subcu q.12 h, d/c once INR therapeutic 4. Ativan for severe anxiety. He becomes very agitated. 5. Blood cultures neg x 3 days. 6. Wound cultures growing staph aureus and enterobacter cloacae. Wound care following. Recs are to cleanse wounds to BLE with normal saline or wound cleanser and pat dry and cover wounds with Optifoam AG non adhesive secure dressings with ABD pads, rolled gauze and tape. Please change dressing every 2 days or PRN if saturated or dislodged. Elevate BLE with pillows when patient is sitting or laying in bed. Will need out patient wound care management 7. on Sliding scale insulin, monitor BS. was started on glipizide. DM educator consulted. 8. continue Physical therapy. 9. continue po amiodarone. 10.on Lasix IV. Cr. 1.41 yesterday, improving since admission, repeat BMP in AM. Will continue to monitor Cr levels. Discharge Planning still on IV abx. Appreciate recs from ID. Erythema much improved per pt and but still present. Awaiting final recs from ID pt will home health care for wound care and home PT. Jeni Lazo MD Jan 22, 2017 11:50
[2017-01-22 12:00] VITALS: BP 118/56; PULSE 90; RESP 20; TEMP 98.6; O2SAT 92
[2017-01-22 16:00] VITALS: BP 117/55; PULSE 84; RESP 20; TEMP 97; O2SAT 94
[2017-01-22] MEDS: PANTOPRAZOLE SODIUM 40 MG VIAL IV PUSH SCH (17:21)
[2017-01-22] MEDS: WARFARIN SOD 5 MG TAB PO SCH (17:23)
--- NOTE | 2017-01-22 18:22 | HHI.IDPN ---
Subjective Subjective Remarks pt states less BLE edema , less pain no fever tolarates abx OK Antibiotics CFTX Allergies: Coded Allergies: No Known Allergies (Unverified , 01/19/17) Objective . Vital Signs Date Time Temp Pulse Resp B/P Pulse Ox O2 Delivery O2 Flow Rate FiO2 01/22/17 16:00 97.0 84 20 117/55 94 01/22/17 12:00 98.6 90 20 118/56 92 01/22/17 08:00 96.3 85 20 120/59 91 01/22/17 08:00 96.3 85 20 120/59 91 01/22/17 00:00 97.7 84 18 124/58 92 01/22/17 00:00 98.4 96 16 103/66 95 01/21/17 20:00 97.2 88 18 116/56 96 01/21/17 01/21/17 01/22/17 15:00 23:00 07:00 Intake Total 1220 ml 220 ml Output Total 1150 ml 300 ml Balance 70 ml -80 ml Intake Oral 720 ml 120 ml IV Total 500 ml 100 ml Output Urine Total 1150 ml 300 ml # Voids 1 . Laboratory Tests Test 01/21/17 05:44 White Blood Count 6.8 TH/MM3 Red Blood Count 4.19 MIL/MM3 Hemoglobin 12.5 GM/DL Hematocrit 37.4 % Mean Corpuscular Volume 89.3 FL Mean Corpuscular Hemoglobin 30.0 PG Mean Corpuscular Hemoglobin 33.6 % Concent Red Cell Distribution Width 16.7 % Platelet Count 91 TH/MM3 Mean Platelet Volume 8.0 FL Neutrophils (%) (Auto) 82.1 % Lymphocytes (%) (Auto) 14.2 % Monocytes (%) (Auto) 2.5 % Eosinophils (%) (Auto) 0.9 % Basophils (%) (Auto) 0.3 % Neutrophils # (Auto) 5.6 TH/MM3 Lymphocytes # (Auto) 1.0 TH/MM3 Monocytes # (Auto) 0.2 TH/MM3 Eosinophils # (Auto) 0.1 TH/MM3 Basophils # (Auto) 0.0 TH/MM3 CBC Comment AUTO DIFF Differential Total Cells 100 Counted Neutrophils % (Manual) 79 % Band Neutrophils % 7 % Lymphocytes % 7 % Monocytes % 2 % Neutrophils # (Manual) 6.2 TH/MM3 Metamyelocytes 5 % Differential Comment FINAL DIFF MANUAL Platelet Estimate LOW Platelet Morphology Comment NORMAL Laboratory Tests Test 01/21/17 05:44 Sodium Level 141 MEQ/L Potassium Level 3.4 MEQ/L Chloride Level 108 MEQ/L Carbon Dioxide Level 23.1 MEQ/L Anion Gap 10 MEQ/L Blood Urea Nitrogen 52 MG/DL Creatinine 1.41 MG/DL Estimat Glomerular Filtration 49 ML/MIN Rate Random Glucose 97 MG/DL Calcium Level 8.3 MG/DL Physical Exam GCONSTITUTIONAL/GENERAL: This is an obese elderly patient, in no apparent distress. TUBES/LINES/DRAINS: SKIN: No jaundice, rashes, or lesions. CARDIOVASCULAR: Regular rate and rhythm without murmurs, gallops, or rubs. RESPIRATORY/CHEST: Symmetric, unlabored respirations. Clear to auscultation. GASTROINTESTINAL: Abdomen soft, non-tender, nondistended. Bowel sounds present. MUSCULOSKELETAL: Extremities without clubbing, cyanosis, BLE edema with prominent tree bark fischer, nearly compltely resolved edema Dressings in place (were just put on) NEUROLOGICAL: Awake and alert. Non focal PSYCHIATRIC: calm and cooperative Assessment & Plan Remarks BLE chronic edema BLE edema, chronic venostasis LLE skin cancer DM Onychomycosis cont CFTX for now - fu wound clx anticipate dc soon cont antifungal creams to b/l feet control edema keep BLE elevated Mary Rubi MD Jan 22, 2017 18:22
[2017-01-22] MEDS ORDERED: PHARMACY ORDERED LAB ONE (19:45)
[2017-01-22 20:00] VITALS: BP 104/67; PULSE 96; RESP 18; TEMP 99.6; O2SAT 92
[2017-01-22] MEDS: cefTRIAXone INJ 2,000 MG in SODIUM CHLORIDE 0.9% INJ 100 ML IV SCH (20:54)
[2017-01-22] MEDS: TAMSULOSIN HCL 0.4 MG CAP PO SCH (20:55)
[2017-01-22] MEDS: VANCOMYCIN 1,500 MG/NS 500 ML IV SCH ×2 (22:16)
[2017-01-22] MEDS: ZOLPIDEM TARTRATE 5 MG TAB PO PRN (22:18)
[2017-01-23] VITALS (7 sets, daily range): BP systolic 113–140; BP diastolic 57–67; PULSE 71–101; RESP 16–20; TEMP 96.7–100.4; O2SAT 91–96
[2017-01-23] MEDS: CLOTRIMAZOLE 1% CREAM 15 GM TOPICAL SCH ×3 (04:14→09:26)
[2017-01-23] MEDS: PIPERACIL-TAZO 2.25 GM PREMIX 50 ML IV SCH ×2 (04:14→11:04)
[2017-01-23] MEDS: INSULIN ASPART SUPPLEMENTAL SCALE SQ SCH ×4 (05:04→21:00)
[2017-01-23] MEDS: DILTIAZEM-CD 120 MG CAP ER PO SCH (08:57)
[2017-01-23] MEDS: POTASSIUM CHLORIDE 10 MEQ CAP PO SCH ×2 (08:59→21:50)
[2017-01-23] MEDS: DOCUSATE SODIUM 50 MG/SENNA 8.6 MG TAB PO SCH ×2 (09:00→21:00)
[2017-01-23] MEDS: HEPARIN SODIUM - SQ 10,000 UNITS/ML VIAL SQ SCH ×2 (09:01→21:51)
[2017-01-23] MEDS: glipiZIDE 5 MG TAB PO SCH ×2 (09:02→17:00)
[2017-01-23] MEDS: SODIUM CHLORIDE 0.9% FLUSH 10 ML FLUSH IV FLUSH SCH ×3 (09:11→17:22)
[2017-01-23] MEDS: FUROSEMIDE 40 MG/4 ML VIAL IV PUSH SCH ×2 (09:18→17:25)
[2017-01-23] MEDS: TIOTROPIUM BROMIDE 18 MCG INH INH SCH (09:19)
[2017-01-23] MEDS: BUDESONIDE-FORMOTEROL 160/4.5 MCG INHALER INH SCH ×2 (09:19→21:51)
[2017-01-23] MEDS: AMIODARONE 200 MG TAB PO SCH (11:03)
[2017-01-23] MEDS: ACETAMINOPHEN/HYDROcodone 325 MG/5 MG TAB PO PRN ×2 (11:15→21:50)
--- NOTE | 2017-01-23 11:17 | HHI.PR ---
Subjective Remarks Patient tells me that he feels that the redness and swelling on his lower extremities have improved. He complains of some mild shortness of breath post ambulation. Denies any nausea or vomiting or chest pain Objective Vitals Vital Signs Date Time Temp Pulse Resp B/P Pulse Ox O2 Delivery O2 Flow Rate FiO2 01/23/17 08:00 100.4 101 16 140/65 92 01/23/17 00:00 99.6 96 20 116/57 91 01/22/17 20:00 99.6 96 18 104/67 92 01/22/17 16:00 97.0 84 20 117/55 94 01/22/17 12:00 98.6 90 20 118/56 92 I/O 01/22/17 01/22/17 01/22/17 01/23/17 01/23/17 01/23/17 07:00 15:00 23:00 07:00 15:00 23:00 Intake Total 220 ml 50 ml 240 ml 240 ml Output Total 300 ml 400 ml 175 ml Balance -80 ml 50 ml -160 ml 65 ml Intake Oral 120 ml 240 ml 240 ml IV Total 100 ml 50 ml Output Urine Total 300 ml 400 ml 175 ml # Voids 3 Result Diagram: 01/21/17 0544 01/21/1744 Objective Remarks SKIN: Warm and dry. cellulitis and stasis BLE's, however much improved HEAD: Atraumatic. Normocephalic. EYES: EOMI ENT: Mucous membranes pink and moist. NECK: Trachea midline. No JVD. CARDIOVASCULAR: Regular rate and rhythm. RESPIRATORY: No accessory muscle use. Clear to auscultation. Breath sounds equal bilaterally. GASTROINTESTINAL: Abdomen soft, non-tender, nondistended. MUSCULOSKELETAL: Extremities trace edema. No obvious deformities. NEUROLOGICAL: Awake and alert. No obvious cranial nerve deficits. able to lift lower extremities against gravity. Normal speech. PSYCHIATRIC: Appropriate mood and affect; insight and judgment normal. A/P Assessment and Plan ASSESSMENT: 1. Severe cellulitis of left lower extremity. 2. Peripheral arterial disease. 3. Venous stasis dermatitis. 4. Atrial fibrillation. 5. Diabetes. 6. Urgent hypertension. 7. Hypokalemia 8. Urgent hypertension. 9. Chronic kidney disease stage III 10. Acute kidney injury 11. Anemia of chronic disease. PLAN 1. continue IV vancomycin dosed per pharmacy and IV rocephin per ID. cont CFTX for now. fu wound clx. cont antifungal creams to b/l feet. control edema. keep BLE elevated. appreciate input from ID 2. on Warfarin, dose per pharmacy. Follow up INR 3. on Heparin 5000 units subcu q.12 h, d/c once INR therapeutic 4. Ativan for severe anxiety. He becomes very agitated. 5. Blood cultures neg x 3 days. 6. Wound cultures growing staph aureus and enterobacter cloacae. Wound care following. Recs are to cleanse wounds to BLE with normal saline or wound cleanser and pat dry and cover wounds with Optifoam AG non adhesive secure dressings with ABD pads, rolled gauze and tape. Please change dressing every 2 days or PRN if saturated or dislodged. Elevate BLE with pillows when patient is sitting or laying in bed. Will need out patient wound care management 7. on Sliding scale insulin, monitor BS. on glipizide. DM educator consulted. 8. continue Physical therapy. 9. continue po amiodarone. 10.on Lasix IV. Cr. 1.41 yesterday, improving since admission, repeat BMP in AM. Will continue to monitor Cr levels. Discharge Planning still on IV abx. Awaiting final recs from ID pt will home health care for wound care and home PT. Jeni Lazo MD Jan 23, 2017 11:16
[2017-01-23] MEDS: RESP: ALBUTEROL 2.5 MG/IPRATROPIUM 0.5 MG NEB (PRN) NEB ×3 (11:38→21:16)
--- NOTE | 2017-01-23 15:15 | HHI.PR ---
Addendum to Inpatient Note Additional Information dw microlab: Enterobacter isolate is R to Am/clav (Agmentin) and cefuroxim (Ceftin) leaving the pt with no oral options to transition to o/p Only option will be to complete tx with Rocephin 2 gm IV daily thru Feb 02 via midline Mary Rubi MD Jan 23, 2017 15:15
[2017-01-23] MEDS: WARFARIN SOD 5 MG TAB PO SCH (16:10)
[2017-01-23 17:05] LABS: AUTOMATED NEUTROPHIL # 6.1 TH/MM3 (1.8-7.7); BASOPHIL % 0.2 % (0.0-2.0); EOSINOPHIL % 0.4 % (0.0-4.0); HEMATOCRIT 31.4 % (39.0-51.0); LYMPH % 8.9 % (9.0-44.0); LYMPHOCYTE # 0.6 TH/MM3 (1.0-4.8); MEAN CELL VOLUME 88.6 FL (80.0-100.0); MEAN CORPUSCULAR HEMOGLOBIN 30.3 PG (27.0-34.0); MEAN CORPUSCULAR HGB CONC 34.2 % (32.0-36.0); MONO % 1.6 % (0.0-8.0); NEUT % 88.9 % (16.0-70.0); PLATELET COUNT 104 TH/MM3 (150-450); RED BLOOD COUNT 3.55 MIL/MM3 (4.50-5.90); RED CELL DISTRIBUTION WIDTH 16.8 % (11.6-17.2); WHITE BLOOD COUNT 6.9 TH/MM3 (4.0-11.0)
[2017-01-23 17:07] LABS: HEMO FLAGS AUTO DIFF
[2017-01-23] MEDS: PANTOPRAZOLE SODIUM 40 MG VIAL IV PUSH SCH (17:23)
[2017-01-23 17:24] LABS: BICARBONATE 24.9 MEQ/L (21.0-32.0)
[2017-01-23 17:37] LABS: BANDS 7 % (0-6); MYELOCYTES 1 % (0-0); NEUTROPHIL # MANUAL DIFF 6.1 TH/MM3 (1.8-7.7); PLATELET ESTIMATE SMEAR LOW (NORMAL); PLATELET MORPHOLOGY NORMAL (NORMAL); POLYS (SEG NEUTROPHILS) 81 % (16-70); SCAN/DIFF FINAL DIFF MANUAL; WBC DIFF SAMPLE 100
[2017-01-23] MEDS: cefTRIAXone INJ 2,000 MG in SODIUM CHLORIDE 0.9% INJ 100 ML IV SCH (21:50)
[2017-01-23] MEDS: TAMSULOSIN HCL 0.4 MG CAP PO SCH (21:50)
[2017-01-23] MEDS: ZOLPIDEM TARTRATE 5 MG TAB PO PRN (23:09)
[2017-01-24] VITALS (8 sets, daily range): BP systolic 111–122; BP diastolic 56–59; PULSE 91–94; RESP 17–22; TEMP 98.5–100.5; O2SAT 92–94
[2017-01-24 05:06] LABS: BASOPHIL % 0.3 % (0.0-2.0); EOSINOPHIL % 0.7 % (0.0-4.0); HEMATOCRIT 33.7 % (39.0-51.0); LYMPH % 11.8 % (9.0-44.0); LYMPHOCYTE # 0.7 TH/MM3 (1.0-4.8); MEAN CELL VOLUME 89.8 FL (80.0-100.0); MEAN CORPUSCULAR HEMOGLOBIN 29.4 PG (27.0-34.0); MEAN CORPUSCULAR HGB CONC 32.7 % (32.0-36.0); MONO % 1.8 % (0.0-8.0); NEUT % 85.4 % (16.0-70.0); PLATELET COUNT 117 TH/MM3 (150-450); RED BLOOD COUNT 3.75 MIL/MM3 (4.50-5.90); RED CELL DISTRIBUTION WIDTH 16.8 % (11.6-17.2); WHITE BLOOD COUNT 5.8 TH/MM3 (4.0-11.0)
[2017-01-24 05:13] LABS: HEMO FLAGS AUTO DIFF
[2017-01-24 05:20] LABS: INTERNATIONAL NORMALIZED RATIO 1.9 RATIO; PROTHROMBIN TIME - PATIENT 22.1 SEC (9.8-11.6)
[2017-01-24] MEDS: INSULIN ASPART SUPPLEMENTAL SCALE SQ SCH ×4 (05:23→21:00)
[2017-01-24] MEDS: ACETAMINOPHEN/HYDROcodone 325 MG/5 MG TAB PO PRN ×2 (05:24→19:00)
[2017-01-24] MEDS: CLOTRIMAZOLE 1% CREAM 15 GM TOPICAL SCH ×3 (05:24→21:26)
[2017-01-24 05:25] LABS: BICARBONATE 24.6 MEQ/L (21.0-32.0); POTASSIUM 3.2 MEQ/L (3.5-5.1)
--- NOTE | 2017-01-24 07:49 | HHI.FPPN ---
Subjective Remarks SPIKING FEVERS C/O COUGH AND SPUTUM C/O WEAKNESS C/O UNABLE TO GET UP D/W RN Objective Vitals Vital Signs Date Time Temp Pulse Resp B/P Pulse Ox O2 Delivery O2 Flow Rate FiO2 01/24/17 04:00 99.7 01/24/17 00:00 100.2 93 20 111/59 93 01/23/17 21:17 93 Nasal Cannula 3.00 01/23/17 20:00 100.0 96 20 138/67 96 01/23/17 16:00 97.9 71 16 114/57 92 01/23/17 12:00 96.7 85 16 113/65 91 01/23/17 11:40 94 21 01/23/17 08:00 100.4 101 16 140/65 92 I/O 01/23/17 01/23/17 01/23/17 01/24/17 01/24/17 01/24/17 07:00 15:00 23:00 07:00 15:00 23:00 Intake Total 240 ml 450 ml 410 ml 240 ml Output Total 175 ml 1200 ml 1175 ml 250 ml Balance 65 ml -750 ml -765 ml -10 ml Intake Oral 240 ml 400 ml 360 ml 240 ml IV Total 50 ml 50 ml 0 ml Output Urine Total 175 ml 1200 ml 1175 ml 250 ml # Bowel Movements 1 1 Result Diagram: 01/24/1744301/24/17443 Objective Remarks GENERAL: SKIN: Warm and dry. severe cellulitis and stasis BLE's to upper legs HEAD: Atraumatic. Normocephalic. EYES: Pupils equal and round. No scleral icterus. No injection or drainage. ENT: No nasal bleeding or discharge. Mucous membranes pink and moist. NECK: Trachea midline. No JVD. CARDIOVASCULAR: Regular rate and rhythm. RESPIRATORY: No accessory muscle use. Clear to auscultation. Breath sounds equal bilaterally. GASTROINTESTINAL: Abdomen soft, non-tender, nondistended. Hepatic and splenic margins not palpable. MUSCULOSKELETAL: Extremities without clubbing, cyanosis, or edema. No obvious deformities. NEUROLOGICAL: Awake and alert. No obvious cranial nerve deficits. Motor grossly within normal limits. 2 out of 5 muscle strength in the arms and legs. Normal speech. PSYCHIATRIC: Appropriate mood and affect; insight and judgment normal. Medications and IVs Current Medications Medications (Trade) Dose Ordered Sig/Lucas Route Start Time Stop Time Status Last Admin (NS Flush) 2 ml UNSCH PRN IV FLUSH 01/19/17 16:15 (NS Flush) 2 ml BID IV FLUSH 01/19/17 21:00 01/23/17 17:22 (Tylenol) 650 mg Q4H PRN PO 01/19/17 16:15 (Zofran Inj) 4 mg Q6H PRN IVP 01/19/17 16:15 (Ambien) 5 mg HS PRN PO 01/19/17 16:15 01/23/17 23:09 (Heparin Inj) 5,000 units Q12H SQ 01/19/17 21:00 01/24/17 08:21 (Narcan Inj) 0.4 mg UNSCH PRN IV 01/19/17 16:15 (Maira-Colace) 1 tab BID PO 01/19/17 21:00 01/23/17 09:00 (Milk Of Magnesia Liq) 30 ml Q12H PRN PO 01/19/17 16:15 (Senokot) 17.2 mg Q12H PRN PO 01/19/17 16:15 (Dulcolax Supp) 10 mg DAILY PRN RECTAL 01/19/17 16:15 (Lactulose Liq) 30 ml DAILY PRN PO 01/19/17 16:15 (D50w (Vial) Inj) 50 ml UNSCH PRN IV 01/19/17 16:30 Glucagon 1 mg 1 mg UNSCH PRN OTHER 01/19/17 16:30 (Coumadin Consult Pharmacy) 0 ml @ 0 mls/hr UNSCH OTHER 01/19/17 16:30 ([place] 5-325 Mg) 1 tab Q4H PRN PO 01/19/17 16:30 01/24/17 05:24 (Ativan) 0.5 mg Q8H PRN PO 01/19/17 16:30 (Catapres) 0.1 mg Q6H PRN PO 01/19/17 16:30 (Protonix Inj) 40 mg Q24H IV PUSH 01/19/17 18:00 01/23/17 17:23 (Cordarone) 200 mg DAILY PO 01/20/17 14:30 01/24/17 08:21 (Cardizem Cd) 120 mg DAILY PO 01/20/17 14:30 01/24/17 08:21 (KCl) 10 meq BID PO 01/20/17 21:00 01/24/17 08:21 (Flomax) 0.4 mg HS PO 01/20/17 21:00 01/23/17 21:50 (Spiriva Inh) 18 mcg DAILY INH 01/21/17 09:00 01/24/17 08:22 (Symbicort 160-4.5 Inh) 2 puff BID INH 01/20/17 15:00 01/24/17 08:21 (Lotrimin 1% Cream) 1 applic Q8HR TOPICAL 01/20/17 22:00 01/24/17 05:24 (Coumadin) 5 mg DAILY@16 PO 01/22/17 16:00 01/23/17 16:10 Glipizide 5 mg 5 mg BID@08,17 PO 01/21/17 17:00 01/24/17 08:21 (Rocephin Inj/NS Inj) 100 ml @ 200 mls/hr Q24H IV 01/21/17 20:00 01/23/17 21:50 (Lasix Inj) 40 mg DAILY IV PUSH 01/24/17 09:00 01/24/17 08:21 A/P Assessment and Plan ASSESSMENT: 1. Severe cellulitis of left lower extremity. 2. Peripheral arterial disease. Venous stasis dermatitis. 3. PNA, FEVER 4. Atrial fibrillation. 5. Diabetes. 6. Urgent hypertension. 7. Hypokalemia 8. Urgent hypertension. 9. Chronic kidney disease stage III 10. Acute kidney injury 11. Anemia of chronic disease. PLAN- cxr Start IV azithro Rocephin 2 gm IV daily thru Feb 02 via midline INCREASE KCL Warfarin, dose per pharmacy. Follow up INR Heparin 5000 units subcu q.12 h Ativan for severe anxiety. He becomes very agitated. Blood cultures. Wound cultures. Sliding scale insulin Physical therapy. Wound care consult Nasal cannula O2. po Amiodarone, Lasix IV. Will monitor for acute kidney injury glipizide bid Consult DM educator Frederic Reddy MD Jan 24, 2017 07:49
[2017-01-24 07:57] LABS: BANDS 2 % (0-6); METAMYELOCYTES 2 % (0-1); NEUTROPHIL # MANUAL DIFF 5.2 TH/MM3 (1.8-7.7); POLYS (SEG NEUTROPHILS) 86 % (16-70); WBC DIFF SAMPLE 100
[2017-01-24 07:58] LABS: PLATELET ESTIMATE SMEAR LOW (NORMAL); PLATELET MORPHOLOGY NORMAL (NORMAL); SCAN/DIFF FINAL DIFF MANUAL
[2017-01-24] MEDS: DOCUSATE SODIUM 50 MG/SENNA 8.6 MG TAB PO SCH ×2 (08:20→20:31)
[2017-01-24] MEDS: DILTIAZEM-CD 120 MG CAP ER PO SCH (08:21)
[2017-01-24] MEDS: glipiZIDE 5 MG TAB PO SCH ×2 (08:21→16:22)
[2017-01-24] MEDS: POTASSIUM CHLORIDE 10 MEQ CAP PO SCH ×2 (08:21→20:31)
[2017-01-24] MEDS: BUDESONIDE-FORMOTEROL 160/4.5 MCG INHALER INH SCH ×2 (08:21→20:34)
[2017-01-24] MEDS: HEPARIN SODIUM - SQ 10,000 UNITS/ML VIAL SQ SCH ×2 (08:21→20:32)
[2017-01-24] MEDS: AMIODARONE 200 MG TAB PO SCH (08:21)
[2017-01-24] MEDS: FUROSEMIDE 40 MG/4 ML VIAL IV PUSH SCH (08:21)
[2017-01-24] MEDS: TIOTROPIUM BROMIDE 18 MCG INH INH SCH (08:22)
[2017-01-24] MEDS: AZITHROMYCIN INJ 500 MG in SODIUM CHLOR 0.9% 250 ML INJ 250 ML IV SCH (12:16)
[2017-01-24] MEDS: RESP: ALBUTEROL 2.5 MG/IPRATROPIUM 0.5 MG NEB (PRN) NEB ×2 (12:27→20:24)
--- NOTE | 2017-01-24 16:20 | RADRPT ---
EXAM DATE/TIME: 01/24/2017 14:30 [place] COMPARISON: No previous studies available for comparison. INDICATIONS : Cough, short of breath. MEDICAL HISTORY : Chronic obstructive pulmonary disease. diabetes, atrial fibrillation SURGICAL HISTORY : None. ENCOUNTER: Initial ACUITY: 1 day PAIN SCORE: 0/10 LOCATION: Bilateral chest FINDINGS: There is slight cardiomegaly and perivascular pulmonary edema. Focal consolidation is not seen. There are atherosclerotic calcifications of the aorta due to chronic atherosclerotic disease. CONCLUSION: Slight CHF. K. Justus Sifuentes MD on January 24, 2017 at 16:17 Board Certified Radiologist. This report was verified electronically.
[2017-01-24] MEDS: WARFARIN SOD 5 MG TAB PO SCH (16:23)
[2017-01-24] MEDS: PANTOPRAZOLE SODIUM 40 MG VIAL IV PUSH SCH (16:23)
[2017-01-24] MEDS: TAMSULOSIN HCL 0.4 MG CAP PO SCH (20:31)
[2017-01-24] MEDS: ZOLPIDEM TARTRATE 5 MG TAB PO PRN (20:31)
[2017-01-24] MEDS: cefTRIAXone INJ 2,000 MG in SODIUM CHLORIDE 0.9% INJ 100 ML IV SCH (20:32)
[2017-01-24] MEDS: SODIUM CHLORIDE 0.9% FLUSH 10 ML FLUSH IV FLUSH SCH (20:34)
[2017-01-25] VITALS: BP 136/62; PULSE 92; RESP 22; TEMP 99.7; O2SAT 93
[2017-01-25] MEDS: CLOTRIMAZOLE 1% CREAM 15 GM TOPICAL SCH ×2 (04:48→14:00)
[2017-01-25 05:48] LABS: PROTHROMBIN TIME - PATIENT 22.3 SEC (9.8-11.6)
[2017-01-25 06:00] LABS: BICARBONATE 21.7 MEQ/L (21.0-32.0); POTASSIUM 3.3 MEQ/L (3.5-5.1)
[2017-01-25] MEDS: INSULIN ASPART SUPPLEMENTAL SCALE SQ SCH ×3 (06:04→16:00)
[2017-01-25 06:21] LABS: AUTOMATED NEUTROPHIL # 4.2 TH/MM3 (1.8-7.7); BASOPHIL % 0.2 % (0.0-2.0); EOSINOPHIL % 0.6 % (0.0-4.0); HEMATOCRIT 32.3 % (39.0-51.0); LYMPH % 11.2 % (9.0-44.0); LYMPHOCYTE # 0.5 TH/MM3 (1.0-4.8); MEAN CELL VOLUME 89.9 FL (80.0-100.0); MEAN CORPUSCULAR HEMOGLOBIN 29.9 PG (27.0-34.0); MEAN CORPUSCULAR HGB CONC 33.3 % (32.0-36.0); MONO % 2.9 % (0.0-8.0); NEUT % 85.1 % (16.0-70.0); PLATELET COUNT 133 TH/MM3 (150-450); RED BLOOD COUNT 3.59 MIL/MM3 (4.50-5.90); WHITE BLOOD COUNT 4.9 TH/MM3 (4.0-11.0)
[2017-01-25 06:48] LABS: HEMO FLAGS AUTO DIFF
[2017-01-25 07:28] LABS: BANDS 6 % (0-6); NEUTROPHIL # MANUAL DIFF 4.1 TH/MM3 (1.8-7.7); POLYS (SEG NEUTROPHILS) 78 % (16-70); WBC DIFF SAMPLE 100
[2017-01-25 07:29] LABS: OVALOCYTES 1+ (NORMAL); PLATELET ESTIMATE SMEAR LOW (NORMAL); PLATELET MORPHOLOGY NORMAL (NORMAL); SCAN/DIFF FINAL DIFF MANUAL
[2017-01-25 08:00] VITALS: BP 125/62; PULSE 101; RESP 18; TEMP 100.5; O2SAT 93
[2017-01-25] MEDS: glipiZIDE 5 MG TAB PO SCH (08:00)
[2017-01-25] MEDS: FUROSEMIDE 40 MG/4 ML VIAL IV PUSH SCH (08:19)
[2017-01-25] MEDS: ACETAMINOPHEN/HYDROcodone 325 MG/5 MG TAB PO PRN ×2 (08:19→16:40)
[2017-01-25] MEDS: POTASSIUM CHLORIDE 10 MEQ CAP PO SCH (08:19)
[2017-01-25] MEDS: SODIUM CHLORIDE 0.9% FLUSH 10 ML FLUSH IV FLUSH SCH (08:20)
[2017-01-25] MEDS: DOCUSATE SODIUM 50 MG/SENNA 8.6 MG TAB PO SCH (08:20)
[2017-01-25] MEDS: AMIODARONE 200 MG TAB PO SCH (08:20)
[2017-01-25] MEDS: DILTIAZEM-CD 120 MG CAP ER PO SCH (08:20)
[2017-01-25] MEDS: BUDESONIDE-FORMOTEROL 160/4.5 MCG INHALER INH SCH (08:21)
[2017-01-25] MEDS: HEPARIN SODIUM - SQ 10,000 UNITS/ML VIAL SQ SCH (08:21)
[2017-01-25] MEDS: TIOTROPIUM BROMIDE 18 MCG INH INH SCH (08:22)
[2017-01-25] MEDS: RESP: ALBUTEROL 2.5 MG/IPRATROPIUM 0.5 MG NEB (PRN) NEB ×2 (10:12→16:21)
[2017-01-25 10:26] VITALS: O2SAT 92
[2017-01-25] MEDS ORDERED: CEFT2INJ2 IV (10:54)
[2017-01-25] MEDS ORDERED: SPIR25TA PO (10:56)
[2017-01-25] MEDS ORDERED: WARF4TAB51 PO (10:57)
--- NOTE | 2017-01-25 10:59 | HHI.DCPOC ---
Discharge Care Plan Your Health Problems Are: Skin Breakdown Inflammation Leg Swelling Bleeding Tendency Goals to Promote Your Health * To prevent worsening of your condition and complications * To maintain your health at the optimal level Directions to Meet Your Goals Take your medications as prescribed Follow your dietary instruction Follow activity as directed Keep your appointments as scheduled Take your immunizations and boosters as scheduled If your symptoms worsen call your PCP, if no PCP go to Urgent Care Center or Emergency Room Smoking is Dangerous to Your Health. Avoid second hand smoke Call the 24-hour hour crisis hotline for domestic abuse at Frederic Reddy MD Jan 25, 2017 10:59
--- NOTE | 2017-01-25 11:01 | HHI.DS ---
Discharge Summary Admission Date Jan 21, 2017 at 09:08 Discharge Date: Jan 25, 2017 Admitting Diagnosis DANIEL LEG EDEMA WITH SUPERIMPOSED CELLULITIS CBC/BMP: 01/25/17 0525 01/25/17 0525 Significant Findings Laboratory Tests Test 01/23/17 01/24/17 01/25/17 15:56 04:44 05:25 Red Blood Count 3.55 MIL/MM3 3.75 MIL/MM3 3.59 MIL/MM3 (4.50-5.90) (4.50-5.90) (4.50-5.90) Hemoglobin 10.7 GM/DL 11.0 GM/DL 10.7 GM/DL (13.0-17.0) (13.0-17.0) (13.0-17.0) Hematocrit 31.4 % 33.7 % 32.3 % (39.0-51.0) (39.0-51.0) (39.0-51.0) Platelet Count 104 TH/MM3 117 TH/MM3 133 TH/MM3 (150-450) (150-450) (150-450) Neutrophils (%) (Auto) 88.9 % 85.4 % 85.1 % (16.0-70.0) (16.0-70.0) (16.0-70.0) Lymphocytes (%) (Auto) 8.9 % (9.0-44.0) Lymphocytes # (Auto) 0.6 TH/MM3 0.7 TH/MM3 0.5 TH/MM3 (1.0-4.8) (1.0-4.8) (1.0-4.8) Neutrophils % (Manual) 81 % (16-70) 86 % (16-70) 78 % (16-70) Band Neutrophils % 7 % (0-6) Myelocytes 1 % (0-0) Platelet Estimate LOW (NORMAL) LOW (NORMAL) LOW (NORMAL) Potassium Level 3.0 MEQ/L 3.2 MEQ/L 3.3 MEQ/L (3.5-5.1) (3.5-5.1) (3.5-5.1) Blood Urea Nitrogen 32 MG/DL (7-18) 32 MG/DL (7-18) 26 MG/DL (7-18) Creatinine 1.59 MG/DL 1.41 MG/DL 1.31 MG/DL (0.60-1.30) (0.60-1.30) (0.60-1.30) Estimat Glomerular Filtration 43 ML/MIN (>89) 49 ML/MIN (>89) 53 ML/MIN (>89) Rate Calcium Level 7.7 MG/DL 8.0 MG/DL 8.0 MG/DL (8.5-10.1) (8.5-10.1) (8.5-10.1) Metamyelocytes 2 % (0-1) Prothrombin Time 22.1 SEC 22.3 SEC (9.8-11.6) (9.8-11.6) Ovalocytes 1+ (NORMAL) Random Glucose 111 MG/DL (74-106) Imaging Last 72 hours Impressions Chest X-Ray 01/24/17 0000 Signed Impressions: Service Date/Time: Tuesday, January 24, 2017 14:30 - CONCLUSION: Slight CHF. K. Justus Sifuentes MD PE at Discharge GENERAL: SKIN: Warm and dry. HEAD: Atraumatic. Normocephalic. EYES: Pupils equal and round. No scleral icterus. No injection or drainage. ENT: No nasal bleeding or discharge. Mucous membranes pink and moist. NECK: Trachea midline. No JVD. CARDIOVASCULAR: Regular rate and rhythm. RESPIRATORY: No accessory muscle use. Clear to auscultation. Breath sounds equal bilaterally. GASTROINTESTINAL: Abdomen soft, non-tender, nondistended. Hepatic and splenic margins not palpable. MUSCULOSKELETAL: Extremities without clubbing, cyanosis, or edema. No obvious deformities. NEUROLOGICAL: Awake and alert. No obvious cranial nerve deficits. Motor grossly within normal limits. Five out of 5 muscle strength in the arms and legs. Normal speech. PSYCHIATRIC: Appropriate mood and affect; insight and judgment normal. Hospital Course 76 y cm, admit with - 1. Severe cellulitis of left lower extremity. 2. Peripheral arterial disease. Venous stasis dermatitis. 3. PNA, FEVER 4. Atrial fibrillation. 5. Diabetes. 6. Urgent hypertension. 7. Hypokalemia 8. Urgent hypertension. 9. Chronic kidney disease stage III 10. Acute kidney injury 11. Anemia of chronic disease. PLAN- Rocephin 2 gm IV daily thru Feb 02 via midline INCREASE KCL Warfarin, dose per pharmacy. Follow up INR Heparin 5000 units subcu q.12 h Ativan for severe anxiety. He becomes very agitated. Blood cultures. Wound cultures. Sliding scale insulin Physical therapy. Wound care consult Nasal cannula O2. po Amiodarone, Lasix IV. Will monitor for acute kidney injury glipizide bid Consult DM educator dc now if can get iv access Discharge Disposition: Disch w/ Home Health Serv Discharge Instructions DIET: Follow Instructions for: Diabetic Diet Activities you can perform: Regular-No Restrictions Follow up Referrals: PCP Follow-up - 2-3 Days New Medications: Ceftriaxone Inj (Ceftriaxone Inj) 2 Gm/50 Ml Bagp 2 GM IV Q24H Infection Days 7 Ref 0 BAG Spironolactone (Spironolactone) 25 Mg Tab 25 MG PO BIDPC JER[place] Days 90 Ref 5 TAB Warfarin (Warfarin) 2 Mg Tab 2 MG PO DAILY Blood Clot Prevention #30 Ref 11 TAB Continued Medications: Amiodarone (Amiodarone) 200 Mg Tab 200 MG PO DAILY Regulate Heart Beat #30 Ref 0 TAB Diltiazem CD 24 HR (Diltiazem CD 24 HR) 120 Mg Caper 120 MG PO DAILY #30 Ref 0 CAP Fluticasone-Salmeterol Inh (Advair Diskus Inh) 250-50 Mcg/Blist Aer 1 PUFF INH BID Rinse mouth after use. #1 Ref 0 INHALER Furosemide (Lasix) 40 Mg Tab 40 MG PO BID #60 Ref 0 TAB Hydrocodone-Acetaminophen ([place]) 10-325 Mg Tab 1 TAB PO TID PRN PAIN Ref 0 TAB Morphine ER (Morphine ER) 30 Mg Tab 30 MG PO Q8H Pain Management Ref 0 TAB Potassium Chloride ER (Potassium Chloride ER) 10 Meq Cap 10 MEQ PO BID Electrolyte Replacement #60 Ref 0 CAP Tamsulosin (Flomax) 0.4 Mg Cap 0.4 MG PO HS Manage Prostate Problems #30 Ref 0 CAP Tiotropium Inh (Spiriva Handihaler) 18 Mcg Cap 18 MCG INH DAILY 1 capsule = 18 mcg COPD #30 Ref 0 CAP Discontinued Medications: Dexamethasone (Dexamethasone) 4 Mg Tab 4 MG PO DAILY #30 Ref 0 TAB Warfarin (Coumadin) 3 Mg Tab 3 MG PO DAILY Prevent Blood Clot #30 Ref 0 TAB Frederic Reddy MD Jan 25, 2017 11:01
--- NOTE | 2017-01-25 11:07 | HHI.FF ---
Face to Face Verification Diagnosis: (1) Cellulitis and abscess of lower extremity (2) Chronic nonmalignant pain (3) DM (diabetes mellitus) Physical Therapy Order: Evaluate and Treat, Improve ambulation, Strength and gait training Home Health Nursing Order: Medical education Diabetic education CHF education Oxygen administration education Medication education-adverse effect Wound care and dressing changes Nursing assessment with vital signs IV medication administration Telehealth Home Health Aide Order: To Assist In: Bathing and personal care, relationship banker and meal prep Book Shelver Order: To Evaluate: Living conditions/environment, Support services Order: To Provide: Long range planning, Community services I have seen patient Frederic Castle Jr Bhumi on 01/25/17. My clinical findings support the need for the requested home health care services because: Ltd mobility - disease progression Patient has SOB Deconditioned w/ increased weakness Med compliance is questionable Limited ability to care for self Need for psychosocial assistance Impaired cognition/judgement High risk of falls Infection w/ risk of complications Injectable med education/admin I certify that my clinical findings support that this patient is homebound because: Impaired cognitive ability/safety Hx COPD- exertion dyspnea/weakness Unsteady gait/balance Unsafe to leave home unassisted Need for psychosocial assistance [id number] bed/chair Unable to use public transportation Poor cardiac reserve check INR EVERY 3 DAYS WHILE ON ABX Frederic Reddy MD Jan 25, 2017 11:06
[2017-01-25] MEDS: AZITHROMYCIN INJ 500 MG in SODIUM CHLOR 0.9% 250 ML INJ 250 ML IV SCH (11:22)
[2017-01-25 12:00] VITALS: BP 100/55; PULSE 98; RESP 17; TEMP 99.5; O2SAT 92
[2017-01-25] MEDS ORDERED: OXYGENDME NAS.CANULA (12:33)
[2017-01-25] MEDS ORDERED: OXYGENTANK NAS.CANULA (12:34)
--- NOTE | 2017-01-25 13:30 | HHI.FF ---
Infusion Therapy Location of Infusion Therapy: Home Health Care IV Infusion Order Patient Information Patient Weight 94.8 kg Diagnosis: Coded Allergies: No Known Allergies (Unverified , 01/19/17) Administer Medication Ceftriaxone 2 grams IV q 24 hours Stop Treatment: Feb 02, 2017 Additional Information Venous access: Other Additional Instructions [x] Peripheral flush and dressing changes per protocol [x] Implanted port and central line analyst: * Implanted port: 10 ml Normal Saline followed by 5 ml Heparin 100 units/ml Heparin flush after each use and monthly to maintain. [] May leave port accessed during therapy. [] May leave peripheral site accessed for duration of therapy. [x] If patient has SOB or respiratory distress, check oxygen saturation. If less than 90% or clinical signs of respiratory distress, administer oxygen at 2 L/min. via nasal cannula and notify physician. [x] Anaphylaxis/Reaction orders: * Stop infusion. * Keep IV line open with saline flush. * Notify physician. * Monitor vital signs every 15 minutes until symptoms resolve. * Check Oxygen saturation; Oxygen at 2 L/min. via nasal cannula if less than 90% or clinical signs of respiratory distress. * Administer diphenhydramine (Benadryl) 25 mg IV STAT, (unless patient has received as pre-med). May repeat once, if necessary. * Solu-Cortef 250 mg IVP over 30-60 seconds, use 100 mg vials for each dissolution. * Epinephrine (1mg/1 ml) 0.3 mg subcutaneously or IVP now with any signs of respiratory distress. * Check with physician for new additional pre-med orders if patient is re- challenged or re-treated. [x] May remove PICC line when treatment complete, after confirming with Physician. [x] If the patient is admitted to the hospital, the ED, or transferred via [facility] , complete transfer form including medication reconciliation order sheet. Laboratory Tests Weekly Labs: Garry Hutchins MD Jan 25, 2017 13:30
--- NOTE | 2017-01-25 13:40 | HHI.IDPN ---
Note Infectious Disease Note ID coverage for Dr. Rubi. Notes reviewed. patient feels okay. Low grade fever. No complaints. Antibiotics Ceftriaxone. Allergies: Coded Allergies: No Known Allergies (Unverified , 01/19/17) Objective . Vital Signs Date Time Temp Pulse Resp B/P Pulse Ox O2 Delivery O2 Flow Rate FiO2 01/25/17 12:00 99.5 98 17 100/55 92 01/25/17 10:26 92 Venturi Mask 6.00 35 01/25/17 08:00 100.5 101 18 125/62 93 01/25/17 00:00 99.7 92 22 136/62 93 01/24/17 20:25 92 Nasal Cannula 3.00 01/24/17 20:00 98.5 91 22 116/57 93 01/24/17 20:00 22 01/24/17 16:00 100.5 94 17 115/56 92 Laboratory Tests Test 01/23/17 01/24/17 01/25/17 15:56 04:44 05:25 White Blood Count 6.9 TH/MM3 5.8 TH/MM3 4.9 TH/MM3 Red Blood Count 3.55 MIL/MM3 3.75 MIL/MM3 3.59 MIL/MM3 Hemoglobin 10.7 GM/DL 11.0 GM/DL 10.7 GM/DL Hematocrit 31.4 % 33.7 % 32.3 % Mean Corpuscular Volume 88.6 FL 89.8 FL 89.9 FL Mean Corpuscular Hemoglobin 30.3 PG 29.4 PG 29.9 PG Mean Corpuscular Hemoglobin 34.2 % 32.7 % 33.3 % Concent Red Cell Distribution Width 16.8 % 16.8 % 17.0 % Platelet Count 104 TH/MM3 117 TH/MM3 133 TH/MM3 Mean Platelet Volume 7.5 FL 7.0 FL 7.0 FL Neutrophils (%) (Auto) 88.9 % 85.4 % 85.1 % Lymphocytes (%) (Auto) 8.9 % 11.8 % 11.2 % Monocytes (%) (Auto) 1.6 % 1.8 % 2.9 % Eosinophils (%) (Auto) 0.4 % 0.7 % 0.6 % Basophils (%) (Auto) 0.2 % 0.3 % 0.2 % Neutrophils # (Auto) 6.1 TH/MM3 5.0 TH/MM3 4.2 TH/MM3 Lymphocytes # (Auto) 0.6 TH/MM3 0.7 TH/MM3 0.5 TH/MM3 Monocytes # (Auto) 0.1 TH/MM3 0.1 TH/MM3 0.1 TH/MM3 Eosinophils # (Auto) 0.0 TH/MM3 0.0 TH/MM3 0.0 TH/MM3 Basophils # (Auto) 0.0 TH/MM3 0.0 TH/MM3 0.0 TH/MM3 CBC Comment AUTO DIFF AUTO DIFF AUTO DIFF Differential Total Cells 100 100 100 Counted Neutrophils % (Manual) 81 % 86 % 78 % Band Neutrophils % 7 % 2 % 6 % Lymphocytes % 10 % 10 % 13 % Monocytes % 1 % 3 % Neutrophils # (Manual) 6.1 TH/MM3 5.2 TH/MM3 4.1 TH/MM3 Myelocytes 1 % Differential Comment FINAL DIFF FINAL DIFF FINAL DIFF MANUAL MANUAL MANUAL Platelet Estimate LOW LOW LOW Platelet Morphology Comment NORMAL NORMAL NORMAL Metamyelocytes 2 % Red Cell Morphology Comment NORMAL Ovalocytes 1+ Laboratory Tests Test 01/23/17 01/24/17 01/25/17 15:56 04:44 05:25 Sodium Level 140 MEQ/L 140 MEQ/L 136 MEQ/L Potassium Level 3.0 MEQ/L 3.2 MEQ/L 3.3 MEQ/L Chloride Level 106 MEQ/L 104 MEQ/L 102 MEQ/L Carbon Dioxide Level 24.9 MEQ/L 24.6 MEQ/L 21.7 MEQ/L Anion Gap 9 MEQ/L 11 MEQ/L 12 MEQ/L Blood Urea Nitrogen 32 MG/DL 32 MG/DL 26 MG/DL Creatinine 1.59 MG/DL 1.41 MG/DL 1.31 MG/DL Estimat Glomerular Filtration 43 ML/MIN 49 ML/MIN 53 ML/MIN Rate Random Glucose 81 MG/DL 74 MG/DL 111 MG/DL Calcium Level 7.7 MG/DL 8.0 MG/DL 8.0 MG/DL Microbiology Date/Time Procedure Status Source Growth 01/23/17 15:56 Aerobic Blood Culture - Preliminary Resulted Blood Peripheral NO GROWTH IN 2 DAYS 01/23/17 15:56 Anaerobic Blood Culture - Preliminary Resulted Blood Peripheral NO GROWTH IN 2 DAYS 01/23/17 16:10 Aerobic Blood Culture - Preliminary Resulted Blood Peripheral NO GROWTH IN 2 DAYS 01/23/17 16:10 Anaerobic Blood Culture - Preliminary Resulted Blood Peripheral NO GROWTH IN 2 DAYS GENERAL: Alert and oriented. SKIN: No diffuse rash. HEENT: No icterus. LUNGS: Clear. CARDIAC: Nl S1S2. No murmur. EXTREMITIES: Bilateral tibia erythema and edema. Flaky skin. Assessment & Plan Remarks BLE cellulitis. BLE edema, chronic venostasis LLE skin cancer DM Onychomycosis Continue IV Ceftriaxone until 02/02/[address] Rubi's previous note. Orders written for discharge. Midline ordered for antibiotic. Okay to discharge from ID standpoint. Garry Trujillo MD Jan 25, 2017 13:40
[2017-01-25] MEDS ORDERED: BLOO-54 (14:35)
[2017-01-25] MEDS ORDERED: BLOOD GLUCOSE T1 TES ×2 (14:36→14:37)
[2017-01-25] MEDS ORDERED: LANCETS1 MI1 (14:41)
[2017-01-25 16:00] VITALS: BP 125/65; PULSE 98; RESP 20; TEMP 100.2; O2SAT 92
[2017-01-25] MEDS: PANTOPRAZOLE SODIUM 40 MG VIAL IV PUSH SCH (16:40)
[2017-01-25] MEDS: WARFARIN SOD 5 MG TAB PO SCH (16:40)
[2017-01-25] MEDS ORDERED: PHARMACY ORDERED LAB ONE (19:45)
== END 2017-01-25 18:48 | disposition home health service (06) | DRG 602 ==
LOC: NEPC 12:24 → NEDA 15:43 → NEPGCP 19:07 → OBSVTOIN 01-21 09:08 → N07B 01-21 15:09 → UNDODISIN 01-21 15:44
PROVIDERS: ADMIT Family Medicine; ATTEND Family Medicine
PROC: 05H533Z Insertion of Infusion Device into Right Subclavian Vein, Percutaneous Approach (ICD-10-PCS; principal; 2017-01-25)
PROC: B546ZZA Ultrasonography of Right Subclavian Vein, Guidance (ICD-10-PCS; 2017-01-25)
DX: L03.116 Cellulitis of left lower limb (principal); B95.61 Methicillin susceptible Staphylococcus aureus infection as the cause of diseases classified elsewhere; B96.89 Other specified bacterial agents as the cause of diseases classified elsewhere; J18.9 Pneumonia, unspecified organism; N17.9 Acute kidney failure, unspecified; E11.22 Type 2 diabetes mellitus with diabetic chronic kidney disease; I48.91 Unspecified atrial fibrillation; J44.0 Chronic obstructive pulmonary disease with (acute) lower respiratory infection; I87.2 Venous insufficiency (chronic) (peripheral); I73.9 Peripheral vascular disease, unspecified; D63.8 Anemia in other chronic diseases classified elsewhere; I12.9 Hypertensive chronic kidney disease with stage 1 through stage 4 chronic kidney disease, or unspecified chronic kidney disease; N18.3 Chronic kidney disease, stage 3 (moderate); B35.1 Tinea unguium; E87.6 Hypokalemia; Z79.01 Long term (current) use of anticoagulants; Z87.891 Personal history of nicotine dependence; Z77.22 Contact with and (suspected) exposure to environmental tobacco smoke (acute) (chronic); F41.9 Anxiety disorder, unspecified; R60.0 Localized edema; C44.90 Unspecified malignant neoplasm of skin, unspecified
CPT/HCPCS: 36569; 71020; 76937; 80048; 80053; 80202; 82948; 83036; 85007; 85027; 85610; 86403; 87040; 87070; 87077; 87147; 87186; 87205; 94620; 94640; 94664; C9113; G0378; G8987-GP; G8988-GP; J0456; J0696; J1644; J1815; J1940; J2543; J3370; J7040; J7050

== ENCOUNTER 2017-02-16 11:21 | Inpatient (IN) | payer MEDICARE, OTHER ==
[2017-02-16] VITALS (7 sets, daily range): BP systolic 115–157; BP diastolic 62–87; PULSE 82–124; RESP 18–22; TEMP 97.6–98.2; O2SAT 4–96
[~2017-02-16 11:21] MED LIST: ADVA250A INH; AMIO200T PO; BLOO-54; BLOOD GLUCOSE T1 TES; CEFT2INJ2 IV; DILT-60 PO; FURO1TAB60 PO; HYDR-3366 PO; LANCETS1 MI1; MORP1TAB25 PO; OXYGENDME NAS.CANULA; OXYGENTANK NAS.CANULA; POTA10CA PO; SPIR25TA PO; SPIRCAP INH; TAMS5CAP PO; WARF4TAB51 PO
[2017-02-16] MEDS ORDERED: SODIUM CHLORID 0.9% 500 ML INJ 500 ML IV ONE (12:15)
[2017-02-16] MEDS ORDERED: SODIUM CHLORIDE 0.9% FLUSH 10 ML FLUSH IVF PRN (12:15)
--- NOTE | 2017-02-16 12:16 | PD ---
HPI Chief Complaint: Respiratory Symptoms Time Seen by Provider: 11:50 Travel History International Travel<30 days: No Contact w/Intl Traveler<30days: No History of Present Illness HPI 76-year-old male presents to the emergency department for evaluation of generalized weakness, shortness of breath. Patient states he has been weak since being discharged here on January 25, 2017. He states however, this has been worsening over the past week. He states he has fallen at least 6 times. He denies hitting his head, but is not completely sure. He has been on warfarin. 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 fib, diabetes, hypertension, hypokalemia, CKD, anemia. He also reports thrush that he is currently being treated with nystatin for. He states he is unable to hear drink for several days. He denies any headache. He reports shortness of breath, no chest pain. No abdominal pain. No nausea, vomiting, diarrhea. No blood in his stool. Patient is on 2.5 liters O2 nasal cannula at home. PFSH Past Medical History Hx Anticoagulant Therapy: Yes (WARAFIN) Asthma: No Autoimmune Disease: No Blood Disorders: No Heart Rhythm Problems: No Cancer: Yes (skin cancer) Cardiovascular Problems: Yes High Cholesterol: No Chemotherapy: No Chest Pain: No Congestive Heart Failure: No COPD: Yes (wears O2 at home) Diabetes: Yes Diminished Hearing: No Endocrine: Yes Genitourinary: No Immune Disorder: No Musculoskeletal: No Neurologic: No Psychiatric: No Reproductive: No Respiratory: Yes (COPD W/02 AT NIGHT) Radiation Therapy: No Sleep Apnea: Yes Thyroid Disease: No Past Surgical History Abdominal Surgery: No AICD: No Arteriovenous Shunt: No Cardiac Surgery: No Ear Surgery: No Endocrine Surgery: No Eye Surgery: No Genitourinary Surgery: No Gynecologic Surgery: No Insulin Pump: No Joint Replacement: No Oral Surgery: No Pacemaker: No Social History Alcohol Use: No Tobacco Use: Yes Substance Use: No Allergies-Medications (Allergen,Severity, Reaction): Coded Allergies: No Known Allergies (Unverified , 01/19/17) Reported Meds & Prescriptions Reported Meds & Active Scripts Active Lancets 1 Mis Mis 1 Ea .ROUTE DIRECTED Blood Glucose Test Strips Strips Strip 1 Ea .ROUTE DIRECTED Blood Glucose Test Strips Strips Strip 1 Ea .ROUTE DIRECTED Blood Glucose Monitor (Blood-Glucose Meter) 1 Each Kit Bottle Oxygen tank (Oxygen) 1 Ea Tank 2 Liter LITA.CANULA CONTINUOUS Oxygen Concentrator Portable Gaseous 2 L/min via Nasal Cannula Continuous For 99 months Oxygen (O2) Device 2 Liter LITA.CANULA CONTINUOUS Oxygen Concentrator Portable Gaseous 2 L/min via Nasal Canula Continuous For 99 months Warfarin 2 Mg Tab 2 Mg PO DAILY Spironolactone 25 Mg Tab 25 Mg PO BIDPC 90 Days Ceftriaxone Inj (Ceftriaxone Sodium/Dextrose) 2 Gm/50 Ml Bagp 2 Gm IV Q24H 7 Days Reported Spiriva Handihaler (Tiotropium Inh) 18 Mcg Cap 18 Mcg INH DAILY 1 capsule = 18 mcg Flomax (Tamsulosin HCl) 0.4 Mg Cap 0.4 Mg PO HS Diltiazem CD 24 HR 120 Mg Caper 120 Mg PO DAILY Amiodarone (Amiodarone HCl) 200 Mg Tab 200 Mg PO DAILY Grover (Hydrocodone-Acetaminophen) 10-325 Mg Tab 1 Tab PO TID PRN Morphine ER (Morphine Sulfate) 30 Mg Tab 30 Mg PO Q8H Advair Diskus Inh (Fluticasone-Salmeterol Inh) 250-50 Mcg/Blist Aer 1 Puff INH BID Rinse mouth after use. Potassium Chloride ER (Potassium Chloride) 10 Meq Cap 10 Meq PO BID Lasix (Furosemide) 40 Mg Tab 40 Mg PO BID Review of Systems Except as stated in HPI: all other systems reviewed are Neg Physical Exam Narrative GENERAL: Well-nourished, well-developed male patient, afebrile. SKIN: Focused skin assessment warm/dry. HEAD: Normocephalic. Atraumatic. EYES: No scleral icterus. No injection or drainage. NECK: Supple, trachea midline. No JVD or lymphadenopathy. CARDIOVASCULAR: Regular rate and rhythm without murmurs, gallops, or rubs. RESPIRATORY: Breath sounds equal bilaterally. No accessory muscle use. Lungs sounds with diffuse rhonchi and wheezing throughout. GASTROINTESTINAL: Abdomen soft, non-tender, nondistended. MUSCULOSKELETAL: No cyanosis, or edema. BACK: Nontender without obvious deformity. No CVA tenderness. Data Data Last Documented VS Vital Signs Date Time Temp Pulse Resp B/P (MAP) Pulse Ox O2 Delivery O2 Flow Rate FiO2 02/16/17 13:40 92 18 115/84 (94) 93 Nasal Cannula 3.00 02/16/17 12:26 98.2 Orders Orders Electrocardiogram (02/16/17 ) Electrocardiogram (02/16/17 12:06) Complete Blood Count With Diff (02/16/17 12:06) Comprehensive Metabolic Panel (02/16/17 12:06) Magnesium (Mg) (02/16/17 12:06) B-Type Natriuretic Peptide (02/16/17 12:06) Ckmb (Isoenzyme) Profile (02/16/17 12:06) Troponin I (02/16/17 12:06) Act Partial Throm Time (Ptt) (02/16/17 12:06) Prothrombin Time / Inr (Pt) (02/16/17 12:06) Urinalysis - C+S If Indicated (02/16/17 12:06) Chest, Single Ap (02/16/17 12:06) Ct Brain W/O Iv Contrast(Rout) (02/16/17 12:06) Ecg Monitoring (02/16/17 12:06) Iv Access Insert/Monitor (02/16/17 12:06) Oximetry (02/16/17 12:06) Sodium Chloride 0.9% Flush (Ns Flush) (02/16/17 12:15) Sodium Chlorid 0.9% 500 Ml Inj (Ns 500 M (02/16/17 12:15) Albuterol-Ipratropium Neb (Duoneb Neb) (02/16/17 12:15) Blood Culture (02/16/17 13:56) Lactic Acid Sepsis Protocol (02/16/17 13:56) Ceftriaxone Inj (Rocephin Inj) (02/16/17 14:00) Azithromycin Inj (Zithromax Inj) (02/16/17 14:00) Insulin Human Regular Inj (Novolin R Inj (02/16/17 14:30) Dextrose 50% In Vanesa (Vial) Inj (D50w (Vi (02/16/17 14:30) Sodium Bicarbonate 8.4% Inj (Sodium Bica (02/16/17 14:30) Calcium Gluconate Inj (Calcium Gluconate (02/16/17 14:30) Admit Order (Ed Use Only) (02/16/17 14:52) Labs Laboratory Tests Test 02/16/17 12:05 02/16/17 13:20 White Blood Count 12.8 TH/MM3 Red Blood Count 4.83 MIL/MM3 Hemoglobin 14.0 GM/DL Hematocrit 43.6 % Mean Corpuscular Volume 90.3 FL Mean Corpuscular Hemoglobin 29.0 PG Mean Corpuscular Hemoglobin Concent 32.1 % Red Cell Distribution Width 18.4 % Platelet Count 152 TH/MM3 Mean Platelet Volume 8.4 FL Neutrophils (%) (Auto) 90.2 % Lymphocytes (%) (Auto) 5.2 % Monocytes (%) (Auto) 4.4 % Eosinophils (%) (Auto) 0.0 % Basophils (%) (Auto) 0.2 % Neutrophils # (Auto) 11.5 TH/MM3 Lymphocytes # (Auto) 0.7 TH/MM3 Monocytes # (Auto) 0.6 TH/MM3 Eosinophils # (Auto) 0.0 TH/MM3 Basophils # (Auto) 0.0 TH/MM3 CBC Comment AUTO DIFF Differential Total Cells Counted 100 Neutrophils % (Manual) 78 % Band Neutrophils % 10 % Lymphocytes % 5 % Monocytes % 4 % Neutrophils # (Manual) 11.6 TH/MM3 Myelocytes 3 % Differential Comment FINAL DIFF MANUAL Toxic Granulation 1+ Platelet Estimate NORMAL Platelet Morphology Comment NORMAL Prothrombin Time 34.2 SEC Prothromb Time International Ratio 3.0 RATIO Activated Partial Thromboplast Time 46.0 SEC Blood Urea Nitrogen 120 MG/DL Creatinine 2.24 MG/DL Random Glucose 138 MG/DL Total Protein 7.2 GM/DL Albumin 2.6 GM/DL Calcium Level 9.6 MG/DL Magnesium Level 3.1 MG/DL Alkaline Phosphatase 80 U/L Aspartate Amino Transf (AST/SGOT) 23 U/L Alanine Aminotransferase (ALT/SGPT) 48 U/L Total Bilirubin 0.9 MG/DL Sodium Level 133 MEQ/L Potassium Level 6.0 MEQ/L Chloride Level 99 MEQ/L Carbon Dioxide Level 18.5 MEQ/L Anion Gap 16 MEQ/L Estimat Glomerular Filtration Rate 29 ML/MIN Total Creatine Kinase 47 U/L Troponin I 0.02 NG/ML B-Type Natriuretic Peptide 60 PG/ML Urine Color YELLOW Urine Turbidity CLEAR Urine pH 5.0 Urine Specific [place] 1.016 Urine Protein NEG mg/dL Urine Glucose (UA) NEG mg/dL Urine Ketones NEG mg/dL Urine Occult Blood NEG Urine Nitrite NEG Urine Bilirubin NEG Urine Urobilinogen LESS THAN 2.0 MG/DL Urine Leukocyte Esterase NEG Urine RBC LESS THAN 1 /hpf Urine WBC LESS THAN 1 /hpf Urine Mucus FEW /lpf Microscopic Urinalysis Comment CULT NOT INDICATED MDM Medical Decision Making Medical Screen Exam Complete: Yes Emergency Medical Condition: Yes Medical Record Reviewed: Yes Interpretation(s) Last Impressions Head CT 02/16/17 1206 Signed Impressions: Service Date/Time: Thursday, February 16, 2017 12:57 - CONCLUSION: 1. Atrophy and white matter disease. 2. Right mastoid opacification. Jimbo Hays MD Chest X-Ray 02/16/17 1206 Signed Impressions: Service Date/Time: Thursday, February 16, 2017 12:44 - CONCLUSION: Left basilar atelectasis versus mild airspace disease. Jimbo Hays MD Differential Diagnosis Electrolyte abnormality versus dehydration versus pneumonia versus sepsis versus COPD exacerbation Narrative Course 76-year-old male presents to the emergency department for evaluation of worsening weakness, shortness of breath. He states he has fallen over 6 times in the past 3 weeks. EKG, CBC, CMP, magnesium, BNP, CK, troponin, PTT, PT/INR, UA are ordered and pending. Chest x-ray, CT of the brain are ordered and pending. Patient is given normal saline 500 mL bolus, DuoNeb 3. EKG shows sinus rhythm, heart rate 92. CBC shows leukocytosis 12.8, neutrophilia 90.2, band neutrophils of 10. CMP shows hyper-kalemia 6.0, anion gap of 16, BUN 120, creatinine 2.24, glucose 138. Magnesium is 3.1. BNP is 60. CK is 47. Troponin is 0.02. PTT is 46.0. PT/INR is 34.2/3.0. UA is negative for acute infection. Chest x-ray shows left basilar atelectasis versus mild airspace disease. CT of the brain shows atrophy and white matter disease, right mastoid opacification. Blood cultures 2 lactic acid are ordered and pending. Patient is given Rocephin 1 g IV, azithromycin 500 mg IV. Patient is given calcium gluconate 1 g IV, sodium bicarbonate 50 mEq IV, dextrose 50 ML's IV, 10 units of regular insulin IV for hyperkalemia. Dr. Reddy is paged for admission. Dr. Reddy accepted admission. Diagnosis Primary Impression: Pneumonia Qualified Codes: J18.1 - Lobar pneumonia, unspecified organism Additional Impressions: Acute kidney injury Hyperkalemia Admitting Information Admitting Physician Requests: Admit Melodie Neri Feb 16, 2017 12:15
--- NOTE | 2017-02-16 13:15 | RADRPT ---
EXAM DATE/TIME: 02/16/2017 12:44 [facility] COMPARISON: CHEST PA & LAT, January 24, 2017, 14:30. INDICATIONS : Short of breath and weak for two weeks. MEDICAL HISTORY : Chronic obstructive pulmonary disease. diabetes, atrial fibrillation SURGICAL HISTORY : None. ENCOUNTER: Initial ACUITY: 2 weeks PAIN SCORE: 0/10 LOCATION: Bilateral chest FINDINGS: There is atelectasis versus patchy left lower lobe airspace disease. Mild hyperinflation, cardiomegal y and aortic calcification. Osseous structures are intact. CONCLUSION: Left basilar atelectasis versus mild airspace disease. Jimbo Hays MD on February 16, 2017 at 13:13 Board Certified Radiologist. This report was verified electronically.
--- NOTE | 2017-02-16 13:16 | RADRPT ---
EXAM DATE/TIME: 02/16/2017 12:57 [facility] COMPARISON: No previous studies available for comparison. INDICATIONS : Weakness RADIATION DOSE: 69.25 CTDIvol (mGy) MEDICAL HISTORY : Hypertension. Chronic obstructive pulmonary disease. Diabetes mellitus type 1. SURGICAL HISTORY : None. ENCOUNTER: Initial ACUITY: 1 day PAIN SCALE: 0/10 LOCATION: cranial TECHNIQUE: Multiple contiguous axial images were obtained of the head. Using automated exposure control and adj ustment of the mA and/or kV according to patient size, radiation dose was kept as low as reasonably a chievable to obtain optimal diagnostic quality images. DICOM format image data is available electro nically for review and comparison. FINDINGS: There is opacification of the right mastoid air cells. Prominent internal carotid artery calcificatio ns are noted bilaterally. No fractures are seen. No signs of intracranial hemorrhage or mass. There i s mild atrophy and aren't confluent decreased density in the bilateral periventricular white matter a nd centrum semiovale, most likely on the basis of chronic microvascular ischemic disease. CONCLUSION: 1. Atrophy and white matter disease. 2. Right mastoid opacification. Jimbo Hays MD on February 16, 2017 at 13:14 Board Certified Radiologist. This report was verified electronically.
[2017-02-16 13:19] LABS: AUTOMATED NEUTROPHIL # 11.5 TH/MM3 (1.8-7.7); BASOPHIL % 0.2 % (0.0-2.0); HEMATOCRIT 43.6 % (39.0-51.0); LYMPH % 5.2 % (9.0-44.0); LYMPHOCYTE # 0.7 TH/MM3 (1.0-4.8); MEAN CELL VOLUME 90.3 FL (80.0-100.0); MEAN CORPUSCULAR HGB CONC 32.1 % (32.0-36.0); MONO % 4.4 % (0.0-8.0); NEUT % 90.2 % (16.0-70.0); PLATELET COUNT 152 TH/MM3 (150-450); RED BLOOD COUNT 4.83 MIL/MM3 (4.50-5.90); RED CELL DISTRIBUTION WIDTH 18.4 % (11.6-17.2); WHITE BLOOD COUNT 12.8 TH/MM3 (4.0-11.0)
[2017-02-16] MEDS: RESP: ALBUTEROL 2.5 MG/IPRATROPIUM 0.5 MG NEB (SCH) INH ×2 (13:20→13:21)
[2017-02-16 13:21] LABS: HEMO FLAGS AUTO DIFF
[2017-02-16 13:23] LABS: PROTHROMBIN TIME - PATIENT 34.2 SEC (9.8-11.6)
[2017-02-16 13:51] LABS: ALKALINE PHOSPHATASE 80 U/L (45-117); ALT (GPT) 48 U/L (12-78); ANION GAP 16 MEQ/L (5-15); AST (GOT) 23 U/L (15-37); BICARBONATE 18.5 MEQ/L (21.0-32.0); CHLORIDE 99 MEQ/L (98-107); GLOMERULAR FILTRATION RATE 29 ML/MIN (>89); MAGNESIUM 3.1 MG/DL (1.5-2.5); SODIUM (NA) 133 MEQ/L (136-145); TOTAL BILIRUBIN ADULT 0.9 MG/DL (0.2-1.0)
[2017-02-16 13:52] LABS: BLOOD UREA NITROGEN 120 MG/DL (7-18); CREATINE KINASE 47 U/L (39-308)
[2017-02-16 13:55] LABS: BANDS 10 % (0-6); MYELOCYTES 3 % (0-0); NEUTROPHIL # MANUAL DIFF 11.6 TH/MM3 (1.8-7.7); PLATELET ESTIMATE SMEAR NORMAL (NORMAL); PLATELET MORPHOLOGY NORMAL (NORMAL); POLYS (SEG NEUTROPHILS) 78 % (16-70); SCAN/DIFF FINAL DIFF MANUAL; TOXIC GRANULATION 1+ (NORMAL); WBC DIFF SAMPLE 100
[2017-02-16] MEDS ORDERED: cefTRIAXone INJ 1,000 MG in SODIUM CHLORIDE 0.9% INJ 100 ML IV ONE (14:00)
[2017-02-16] MEDS ORDERED: AZITHROMYCIN INJ 500 MG in SODIUM CHLOR 0.9% 250 ML INJ 250 ML IV ONE (14:00)
[2017-02-16 14:08] LABS: BLOOD, URINE NEG (NEG); COMMENT (UR) CULT NOT INDICATED; CULTURE IF INDICATED CULT NOT INDICATED; GLUCOSE,URINE NEG (NEG); KETONE, URINE NEG (NEG); MUCUS URINE FEW /lpf (OCC); NITRITE,URINE NEG (NEG); URINE COLOR YELLOW (YELLW/STRAW)
[2017-02-16] MEDS ORDERED: DEXTROSE 50% IN WATER 50 ML VIAL(D50) IV PUSH ONE (14:30)
[2017-02-16] MEDS ORDERED: INSULIN HUMAN REGULAR 1,000 UNITS/10 ML VIAL IV PUSH ONE (14:30)
[2017-02-16] MEDS ORDERED: CALCIUM GLUCONATE INJ 1 GM in SODIUM CHLORIDE 0.9% INJ 100 ML IV ONE (14:30)
[2017-02-16] MEDS ORDERED: SODIUM BICARBONATE 8.4% SOLN 50 MEQ/50 ML VIAL SLOW IVP ONE (14:30)
[2017-02-16] MEDS ORDERED: BISACODYL 10 MG SUPP RECTAL PRN (16:15)
[2017-02-16] MEDS ORDERED: ONDANSETRON HCL 4 MG/2 ML VIAL IVP PRN (16:15)
[2017-02-16] MEDS ORDERED: SODIUM CHLORIDE 0.9% FLUSH 10 ML FLUSH IV FLUSH PRN (16:15)
[2017-02-16] MEDS ORDERED: ZOLPIDEM TARTRATE 5 MG TAB PO PRN (16:15)
[2017-02-16] MEDS ORDERED: MAGNESIUM HYDROXIDE SUSP 30 ML CUP PO PRN (16:15)
[2017-02-16] MEDS ORDERED: NALOXONE HCL 0.4 MG/ML AMP IV PRN (16:15)
[2017-02-16] MEDS ORDERED: ACETAMINOPHEN 325 MG TAB PO PRN (16:15)
[2017-02-16] MEDS ORDERED: LACTULOSE SYRUP 20 GM/30 ML CUP PO PRN (16:15)
[2017-02-16] MEDS ORDERED: SENNOSIDES 8.6 MG TAB PO PRN (16:15)
[2017-02-16] MEDS ORDERED: cefTRIAXone INJ 1,000 MG in SODIUM CHLORIDE 0.9% INJ 100 ML IV SCH (16:30)
[2017-02-16] MEDS ORDERED: LORazepam 0.5 MG TAB PO PRN (16:30)
[2017-02-16] MEDS ORDERED: cloNIDine HCL 0.1 MG TAB PO PRN (16:30)
[2017-02-16] MEDS ORDERED: AZITHROMYCIN INJ 500 MG in SODIUM CHLOR 0.9% 250 ML INJ 250 ML IV SCH (16:30)
[2017-02-16] MEDS ORDERED: SODIUM BICARBONATE 8.4% INJ 50 MEQ/50 ML SYR IV PUSH ONE (17:00)
[2017-02-16] MEDS ORDERED: DEXTROSE 50% IN WATER 50 ML SYRINGE IV ONE (17:00)
[2017-02-16 17:51] LABS: LACTIC ACID GHOST NOT REPORTABLE
[2017-02-16] MEDS ORDERED: RESP: ALBUTEROL 2.5 MG/3 ML NEB (PRN) NEB (18:15)
[2017-02-16] MEDS ORDERED: LEVOFLOXACIN 250 MG PREMIX INJ 50 ML IV SCH (18:15)
[2017-02-16] MEDS ORDERED: LEVOFLOXACIN 500 MG PREMIX INJ 100 ML IV ONE (20:00)
[2017-02-16] MEDS: RESP: ALBUTEROL 2.5 MG/IPRATROPIUM 0.5 MG NEB (SCH) NEB (20:32)
[2017-02-16] MEDS: DOCUSATE SODIUM 50 MG/SENNA 8.6 MG TAB PO SCH (21:15)
[2017-02-16] MEDS: TAMSULOSIN HCL 0.4 MG CAP PO SCH (21:16)
[2017-02-16] MEDS: ACETAMINOPHEN/HYDROcodone 325 MG/5 MG TAB PO PRN (21:17)
[2017-02-16] MEDS: BUDESONIDE-FORMOTEROL 160/4.5 MCG INHALER INH SCH (21:18)
[2017-02-16] MEDS: SODIUM CHLORIDE 0.9% FLUSH 10 ML FLUSH IV FLUSH SCH (21:18)
[2017-02-16] MEDS: SODIUM CHLOR 0.9% 1000 ML INJ 1,000 ML IV SCH (21:22)
[2017-02-16] MEDS ORDERED: Vancomycin Consult Pharmacy 1 EA OTHER SCH (21:45)
[2017-02-16] MEDS ORDERED: SODIUM CHLOR 0.9% 250 ML INJ 250 ML IV ONE (22:00)
[2017-02-16] MEDS: PANTOPRAZOLE SODIUM 40 MG VIAL IV PUSH SCH (22:11)
[2017-02-16] MEDS: methylPREDNISolone SOD SUCC 40 MG/1 ML VIAL IV PUSH SCH (22:11)
[2017-02-16] MEDS ORDERED: VANCOMYCIN INJ 2,300 MG in SODIUM CHLORID 0.9% 500 ML INJ 500 ML IV ONE (22:30)
[2017-02-17] VITALS (8 sets, daily range): BP systolic 122–131; BP diastolic 63–74; PULSE 82–88; RESP 17–22; TEMP 97.2–97.9; O2SAT 3–95
[2017-02-17] MEDS: SODIUM CHLOR 0.9% 1000 ML INJ 1,000 ML IV SCH ×2 (06:03→12:54)
[2017-02-17 07:46] LABS: AUTOMATED NEUTROPHIL # 6.8 TH/MM3 (1.8-7.7); BASOPHIL % 0.1 % (0.0-2.0); HEMATOCRIT 34.8 % (39.0-51.0); LYMPH % 4.4 % (9.0-44.0); LYMPHOCYTE # 0.3 TH/MM3 (1.0-4.8); MEAN CELL VOLUME 89.7 FL (80.0-100.0); MEAN CORPUSCULAR HEMOGLOBIN 29.8 PG (27.0-34.0); MEAN CORPUSCULAR HGB CONC 33.3 % (32.0-36.0); MONO % 2.6 % (0.0-8.0); NEUT % 92.9 % (16.0-70.0); PLATELET COUNT 77 TH/MM3 (150-450); RED BLOOD COUNT 3.88 MIL/MM3 (4.50-5.90); WHITE BLOOD COUNT 7.3 TH/MM3 (4.0-11.0)
[2017-02-17 07:49] LABS: INTERNATIONAL NORMALIZED RATIO 3.1 RATIO; PROTHROMBIN TIME - PATIENT 35.6 SEC (9.8-11.6)
--- NOTE | 2017-02-17 07:55 | MB ---
cc: Lorenzo DURAN DATE OF CONSULTATION 02/16/2017 HISTORY Mr. Tripathi is a 76-year-old white male with multiple chronic lung problems including COPD oxygen-dependent, diabetes, hypertension, renal insufficiency, atrial fibrillation, peripheral vascular disease who was here in December and discharged early January with similar problems. Cellulitis has been an ongoing problem. He is followed by Dr. Reddy as an outpatient, but lives at home with his grandson and basically tries to manage his own affairs. 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 Apparently has not been taking food or fluids well either. The patient's chief complaint is weakness. He is basically chair or bed bound, fallen several times when he tries to ambulate since his discharge two weeks ago. PAST MEDICAL HISTORY Extensive past medical history includin. Atrial fibrillation 2. COPD 3. Chronic renal insufficiency 4. Hypertension 5. No known history of ischemic heart disease. PAST SURGICAL HISTORY No significant prior surgeries. HABITS He did smoke for 50 years, although he quit two or three years ago. Also used to drink fairly heavily, has not drunk any alcohol in 15 years. SOCIAL HISTORY He lives with his grandson. Continues to frequent his bar although no longer drinking or smoking himself. REVIEW OF SYSTEMS Other than that noted above, he has had no hemoptysis. No purulent sputum. No chest pain, chronic problem with edema in his legs. No vomiting or change in bowel habits. PHYSICAL EXAMINATION An elderly white male, comfortable at rest on nasal cannula at 3 liters sat 93-95%. He is afebrile. His pulse is 90 irregular, respirations are 18-22, blood pressure 115/84. NECK: Neck veins are flat. No adenopathy in the neck. CHEST: Some minimal scattered congestion. No wheezing, irregular rhythm. No harsh murmur. ABDOMEN: Soft. Minimal edema in the legs, but chronic stasis changes with mild erythema. Chest x-ray reveals a patchy medial left basilar infiltrate. Blood cultures are pending. White counts 12.8, hemoglobin is 14, INR is 3, BUN is 120 with a creatinine of 2.24. Mr. Tripathi has known underlying obstructive lung disease, also generally debilitated and obviously with significant renal insufficiency and a prerenal component at this point, probably accounts for his weakness and falls. New patchy infiltrate at the left base could certainly be pneumonia. He has been in the hospital within the last month, so this would certainly be considered possibly hospital-acquired. We will continue him on cefepime and Levaquin for broad-spectrum coverage, try to collect a sputum culture and await the cultures of his blood. Place him on aerosol therapy and give him a short course of IV corticosteroids for the known underlying COPD. Continue his oxygen, monitor his saturations. In light of the readmission, the patient might benefit from consideration of halfway facility on discharge. Further diagnostic and/or therapeutic intervention will depend on his ongoing clinical course. R. MD GITA Costa/CHAMP /6:04 PM /7:46 AM
[2017-02-17] MEDS: RESP: ALBUTEROL 2.5 MG/IPRATROPIUM 0.5 MG NEB (SCH) NEB ×3 (08:15→16:22)
[2017-02-17 08:19] LABS: POTASSIUM 4.9 MEQ/L (3.5-5.1)
--- NOTE | 2017-02-17 08:42 | EKG ---
Date Performed: 02/16/2017 Time Performed: 11:34:43 PTAGE: 76 years EKG: NORMAL Sinus rhythm POSSIBLE LEFT ATRIAL ENLARGEMENT LEFT ANTERIOR FASCICULAR BLOCK NONSPECIFIC T-WAVE ABNORMALITY ABNOR MAL ECG NO PREVIOUS TRACING DOCTOR: Pieter Wong Interpretating Date/Time 02/17/2017 08:40:50
[2017-02-17] MEDS: DILTIAZEM-CD 120 MG CAP ER PO SCH (08:43)
[2017-02-17] MEDS: AMIODARONE 200 MG TAB PO SCH (08:43)
[2017-02-17] MEDS: DOCUSATE SODIUM 50 MG/SENNA 8.6 MG TAB PO SCH ×2 (08:43→22:30)
[2017-02-17] MEDS: CEFEPIME INJ 1,000 MG in SODIUM CHLORIDE 0.9% INJ 100 ML IV SCH (08:44)
[2017-02-17] MEDS: BUDESONIDE-FORMOTEROL 160/4.5 MCG INHALER INH SCH ×2 (08:44→22:31)
[2017-02-17] MEDS: methylPREDNISolone SOD SUCC 40 MG/1 ML VIAL IV PUSH SCH (08:44)
[2017-02-17] MEDS: SODIUM CHLORIDE 0.9% FLUSH 10 ML FLUSH IV FLUSH SCH ×2 (08:45→22:31)
[2017-02-17] MEDS: ACETAMINOPHEN/HYDROcodone 325 MG/5 MG TAB PO PRN ×4 (08:47→22:24)
[2017-02-17 08:57] LABS: HEMO FLAGS AUTO DIFF
[2017-02-17 09:00] LABS: BANDS 4 % (0-6); METAMYELOCYTES 1 % (0-1); NEUTROPHIL # MANUAL DIFF 7.1 TH/MM3 (1.8-7.7); POLYS (SEG NEUTROPHILS) 92 % (16-70); WBC DIFF SAMPLE 100
[2017-02-17] MEDS ORDERED: WARFARIN SOD 2 MG TAB PO SCH (09:00)
[2017-02-17 09:01] LABS: PLATELET ESTIMATE SMEAR LOW (NORMAL); PLATELET MORPHOLOGY NORMAL (NORMAL); SCAN/DIFF FINAL DIFF MANUAL
--- NOTE | 2017-02-17 10:23 | MH ---
cc: FREDERIC DALAL MD DATE OF ADMISSION 02/16/2017 CHIEF COMPLAINT Weakness HISTORY OF PRESENT ILLNESS Frederic Tripathi is a 76-year-old male who has had a generalized decline over the past six months. He recently had been admitted here with cellulitis of the legs and severe edema. He went home with physical therapy. He had been participating at home, however, just became generally weak. He states he was trying to stay hydrated. He presented to the emergency room after calling my office with complaints of weakness and skin tears. We instructed him to go to [facility] emergency room. In the emergency room, it was felt that he may have pneumonia or sepsis. Sepsis workup was initiated. In the emergency room, he was given Rocephin and azithromycin for his pneumonia and suspected sepsis. He was given calcium gluconate and sodium bicarbonate, dextrose and insulin for hyperkalemia. He was subsequently admitted to the medical floor. His lactic acid level has subsequently come back high. The patient states that he is feeling a little bit better with the IV fluids. He states he was confused and now he is doing better. PAST MEDICAL HISTORY 1. Coronary artery disease 2. COPD 3. Sleep apnea 4. Cellulitis of the legs 5. Peripheral joule disease 6. Atrial fibrillation 7. Diabetes 8. Hypertension 9. Hypokalemia 10. Chronic kidney disease stage III 11. Anemia of chronic disease PAST SURGICAL HISTORY None FAMILY HISTORY States his mother and father had no significant illnesses. He thinks his father had heart disease. REVIEW OF SYSTEMS Weakness, shortness of breath, cough and cellulitis of the legs. Negative 14-point review of systems otherwise. HOME MEDICATIONS 1. Diltiazem 2. Advair 3. Lasix 4. Elma 5. Morphine ER 30 q8h 6. Potassium chloride 10 b.i.d. 7. Tiotropium 8. Flomax 9. Warfarin 2 mg 10. Spironolactone 25 mg 11. Rocephin for 7 days after discharge last 23 days ago. PHYSICAL EXAMINATION VITAL SIGNS: Temperature 97.6, pulse 88, respirations 22, blood pressure 127/74, pulse 93, respirations 18. GENERAL: He is an alert elder male. He is frail and cachectic he looks much weaker than usual. HEENT: Oropharynx is clear. NECK: Carotids are clear. No JVD. Neck is supple. No lymphadenopathy. CHEST: A slight basilar rhonchi, dry weak cough. CARDIOVASCULAR: Regular rate and rhythm. No murmurs, rubs, clicks or gallops. ABDOMEN: Soft and nontender. No rebound or guarding. Normoactive bowel sounds. EXTREMITIES: Trace edema in the feet, has less edema than usual. He has venostasis changes bilaterally and old skin tears on the leg since and cellulitis on the bilateral ankles circumferentially. ASSESSMENT 1. Sepsis 2. Pneumonia 3. COPD 4. Bilateral cellulitis of the legs. 5. Hyperkalemia with a history of hypokalemia 6. Acute kidney injury 7. Diabetes with recent A1c of 7.3 8. Hypermagnesemia 9. A. Fib 10. Hypertension 11. Chronic pain syndrome 12. Anemia of chronic disease PLAN 1. Blood cultures x2 2. Repeat lactic acid level this morning. 3. IV fluids with monitoring for fluid overload. 4. Hold spironolactone 5. Hold potassium 6. Hold Lasix 7. INR daily with pharmacy to help manage Coumadin. 8. Azithromycin IV 9. Cefepime 1000 mg IV daily 10. Flomax 11. Protonix 40 IV for GI prophylaxis 12. A.m. CBC and BMP 13. Inpatient admission for sepsis, IV fluids and IV antibiotics. The patient would obviously without inpatient admission. He wants to get stronger and go to rehab center in [facility]. 14. Physical therapy 15. Telemetry Frederic Dalal MD RP/CHAMP /7:39 AM /10:05 AM
[2017-02-17] MEDS ORDERED: WARFARIN SOD 1 MG TAB PO SCH (16:00)
[2017-02-17] MEDS: PANTOPRAZOLE SODIUM 40 MG VIAL IV PUSH SCH (18:01)
[2017-02-17] MEDS: TAMSULOSIN HCL 0.4 MG CAP PO SCH ×2 (22:24→22:30)
[2017-02-17] MEDS: LEVOFLOXACIN/DEXTROSE 250 MG/50 ML IV SCH ×2 (22:24→22:30)
[2017-02-18] VITALS (8 sets, daily range): BP systolic 127–149; BP diastolic 64–74; PULSE 77–90; RESP 17–20; TEMP 97.2–98.6; O2SAT 86–95
[2017-02-18] MEDS: VANCOMYCIN 1,500 MG/NS 500 ML IV SCH ×4 (01:38→18:39)
[2017-02-18] MEDS: ACETAMINOPHEN/HYDROcodone 325 MG/5 MG TAB PO PRN ×2 (03:48→20:32)
--- NOTE | 2017-02-18 08:38 | HHI.FPPN ---
Subjective Remarks C/O COUGH C/O WEAKNESS C/O UNABLE TO SIT UP D/W RN Objective Vitals Vital Signs Date Time Temp Pulse Resp B/P (MAP) Pulse Ox O2 Delivery O2 Flow Rate FiO2 02/18/17 05:05 97.3 81 20 143/70 (94) 90 02/18/17 00:15 97.2 83 18 148/65 (92) 91 02/17/17 20:52 97.6 83 18 129/65 (86) 93 02/17/17 16:51 97.5 82 17 131/63 (85) 92 02/17/17 12:48 97.2 85 17 125/67 (86) 93 02/17/17 08:41 97.4 85 17 128/65 (86) 92 I/O 02/17/17 02/17/17 02/17/17 02/18/17 02/18/17 02/18/17 07:00 15:00 23:00 07:00 15:00 23:00 Intake Total 773 ml 761 ml Output Total 300 ml 400 ml Balance 773 ml -300 ml 761 ml -400 ml Intake IV Total 773 ml 761 ml Output Urine Total 300 ml 400 ml Result Diagram: 02/17/1771902/17/17719 Objective Remarks GENERAL: SKIN: Warm and dry. HEAD: Atraumatic. Normocephalic. EYES: Pupils equal and round. No scleral icterus. No injection or drainage. ENT: No nasal bleeding or discharge. Mucous membranes pink and moist. NECK: Trachea midline. No JVD. CARDIOVASCULAR: Regular rate and rhythm. RESPIRATORY: B R/R. Breath sounds equal bilaterally. GASTROINTESTINAL: Abdomen soft, non-tender, nondistended. Hepatic and splenic margins not palpable. MUSCULOSKELETAL: Extremities without clubbing, cyanosis, or edema. No obvious deformities. NEUROLOGICAL: Awake and alert. No obvious cranial nerve deficits. Motor grossly within normal limits. Five out of 5 muscle strength in the arms and legs. Normal speech. PSYCHIATRIC: Appropriate mood and affect; insight and judgment normal. Medications and IVs Current Medications Medications (Trade) Dose Ordered Sig/Lucas Route Start Time Stop Time Status Last Admin (Cordarone) 200 mg DAILY PO 02/17/17 09:00 02/17/17 08:43 (Cardizem Cd) 120 mg DAILY PO 02/17/17 09:00 02/17/17 08:43 (Flomax) 0.4 mg HS PO 02/16/17 21:00 02/17/17 22:30 (Symbicort 160-4.5 Inh) 2 puff BID INH 02/16/17 21:00 02/17/17 22:31 Sodium Chloride 1,000 ml @ 42 mls/hr [id number] IV 02/16/17 18:00 02/17/17 12:54 (NS Flush) 2 ml UNSCH PRN IV FLUSH 02/16/17 16:15 (NS Flush) 2 ml BID IV FLUSH 02/16/17 21:00 02/17/17 22:31 (Tylenol) 650 mg Q4H PRN PO 02/16/17 16:15 (Zofran Inj) 4 mg Q6H PRN IVP 02/16/17 16:15 (Ambien) 5 mg HS PRN PO 02/16/17 16:15 (Narcan Inj) 0.4 mg UNSCH PRN IV 02/16/17 16:15 (Maira-Colace) 1 tab BID PO 02/16/17 21:00 02/17/17 22:30 (Milk Of Magnesia Liq) 30 ml Q12H PRN PO 02/16/17 16:15 (Senokot) 17.2 mg Q12H PRN PO 02/16/17 16:15 (Dulcolax Supp) 10 mg DAILY PRN RECTAL 02/16/17 16:15 (Lactulose Liq) 30 ml DAILY PRN PO 02/16/17 16:15 ([place] 5-325 Mg) 1 tab Q4H PRN PO 02/16/17 16:30 02/18/17 03:48 (Duoneb Neb) 1 ampule QID NEB NEB 02/16/17 20:00 02/17/17 16:22 (Ativan) 0.5 mg Q8H PRN PO 02/16/17 16:30 (Catapres) 0.1 mg Q6H PRN PO 02/16/17 16:30 Pharmacy Profile Note 0 ml @ 0 mls/hr UNSCH OTHER 02/16/17 16:30 (Protonix Inj) 40 mg Q24H IV PUSH 02/16/17 18:00 02/17/17 18:01 Cefepime HCl 1000 mg/Sodium Chloride 100 ml @ 200 mls/hr DAILY IV 02/17/17 09:00 02/17/17 08:44 (SoluMEDROL INJ) 40 mg DAILY IV PUSH 02/16/17 19:15 02/17/17 08:44 (Albuterol Neb) 2.5 mg Q6HR NEB PRN NEB 02/16/17 18:15 Levofloxacin/ Dextrose 50 ml @ 50 mls/hr Q24H IV 02/17/17 20:00 02/17/17 22:30 Pharmacy Profile Note ml @ 0 mls/hr UNSCH OTHER 02/16/17 21:45 Vancomycin HCl 1500 mg/Sodium Chloride 515 ml @ 257.5 mls/ hr Q18H IV 02/18/17 00:00 02/18/17 01:38 Miscellaneous Information SPECIFIC LAB TO BE DRAWN:VANCOMYCIN TROUGH DATE TO... ONCE ONCE .XX 02/19/17 11:45 02/19/17 11:46 A/P Assessment and Plan ASSESSMENT 1. Sepsis 2. Pneumonia 3. COPD 4. Bilateral cellulitis of the legs. 5. Hyperkalemia with a history of hypokalemia 6. Acute kidney injury 7. Diabetes with recent A1c of 7.3 8. Hypermagnesemia 9. A. Fib 10. Hypertension 11. Chronic pain syndrome 12. Anemia of chronic disease PLAN- iv ABX. Blood cultures x2 IV fluids with monitoring for fluid overload. Hold spironolactone Hold potassium Hold Lasix INR daily with pharmacy to help manage Coumadin. Protonix 40 IV for GI prophylaxis A.m. CBC and BMP Physical therapy Telemetry Discharge planning: DC to [facility] when stable. Frederic Reddy MD Feb 18, 2017 08:38
[2017-02-18] MEDS ORDERED: DEXTROSE 50% IN WATER 50 ML VIAL(D50) IV PRN (08:45)
[2017-02-18] MEDS ORDERED: GLUCAGON 1 MG/ML VIAL OTHER PRN (08:45)
[2017-02-18] MEDS: SODIUM CHLORIDE 0.9% FLUSH 10 ML FLUSH IV FLUSH SCH ×2 (09:00→21:00)
[2017-02-18] MEDS: DOCUSATE SODIUM 50 MG/SENNA 8.6 MG TAB PO SCH ×2 (09:00→21:00)
[2017-02-18] MEDS: RESP: ALBUTEROL 2.5 MG/IPRATROPIUM 0.5 MG NEB (SCH) NEB ×4 (09:51→22:19)
[2017-02-18 10:04] LABS: INTERNATIONAL NORMALIZED RATIO 2.5 RATIO; PROTHROMBIN TIME - PATIENT 28.4 SEC (9.8-11.6)
[2017-02-18] MEDS: BUDESONIDE-FORMOTEROL 160/4.5 MCG INHALER INH SCH ×2 (10:06→20:33)
[2017-02-18] MEDS: CEFEPIME INJ 1,000 MG in SODIUM CHLORIDE 0.9% INJ 100 ML IV SCH (10:07)
[2017-02-18 10:08] LABS: AUTOMATED NEUTROPHIL # 9.7 TH/MM3 (1.8-7.7); BASOPHIL % 0.1 % (0.0-2.0); HEMATOCRIT 34.4 % (39.0-51.0); LYMPH % 5.1 % (9.0-44.0); LYMPHOCYTE # 0.5 TH/MM3 (1.0-4.8); MEAN CELL VOLUME 90.4 FL (80.0-100.0); MEAN CORPUSCULAR HEMOGLOBIN 29.1 PG (27.0-34.0); MEAN CORPUSCULAR HGB CONC 32.2 % (32.0-36.0); MONO % 3.8 % (0.0-8.0); PLATELET COUNT 84 TH/MM3 (150-450); RED CELL DISTRIBUTION WIDTH 18.8 % (11.6-17.2); WHITE BLOOD COUNT 10.7 TH/MM3 (4.0-11.0)
[2017-02-18] MEDS: methylPREDNISolone SOD SUCC 40 MG/1 ML VIAL IV PUSH SCH ×3 (10:13→22:46)
[2017-02-18] MEDS: AMIODARONE 200 MG TAB PO SCH (10:19)
[2017-02-18] MEDS: DILTIAZEM-CD 120 MG CAP ER PO SCH (10:19)
[2017-02-18] MEDS: SODIUM CHLOR 0.9% 1000 ML INJ 1,000 ML IV SCH (10:22)
[2017-02-18 10:24] LABS: HEMO FLAGS AUTO DIFF
[2017-02-18 10:46] LABS: POTASSIUM 4.5 MEQ/L (3.5-5.1)
[2017-02-18] MEDS: INSULIN ASPART SUPPLEMENTAL SCALE SQ SCH ×3 (11:00→22:48)
[2017-02-18 11:49] LABS: BANDS 5 % (0-6); METAMYELOCYTES 3 % (0-1); MYELOCYTES 1 % (0-0); NEUTROPHIL # MANUAL DIFF 10.2 TH/MM3 (1.8-7.7); POLYS (SEG NEUTROPHILS) 85 % (16-70); PROMYELOCYTES 1 % (0-0); WBC DIFF SAMPLE 100
[2017-02-18 11:51] LABS: PLATELET ESTIMATE SMEAR LOW (NORMAL); PLATELET MORPHOLOGY NORMAL (NORMAL); SCAN/DIFF FINAL DIFF MANUAL
--- NOTE | 2017-02-18 15:55 | RADRPT ---
EXAM DATE/TIME: 02/18/2017 15:19 [facility] COMPARISON: CHEST SINGLE AP, February 16, 2017, 12:44. INDICATIONS : Shortness of breath. MEDICAL HISTORY : Hypertension. Chronic obstructive pulmonary disease. Diabetes mellitus type I. SURGICAL HISTORY : None. ENCOUNTER: Subsequent ACUITY: 1 year PAIN SCORE: 0/10 LOCATION: Bilateral chest FINDINGS: Portable AP view of the chest demonstrates a normal-sized cardiac silhouette with calcification of th e aorta. There is stable interstitial prominence. No effusion, consolidation, or pneumothorax identif ied. Bones and soft tissues demonstrate no acute finding. CONCLUSION: No acute cardiopulmonary abnormality is identified. Vickey Vuong MD on February 18, 2017 at 15:53 Board Certified Radiologist. This report was verified electronically.
[2017-02-18] MEDS: WARFARIN SOD 1 MG TAB PO SCH ×2 (16:00→18:46)
[2017-02-18] MEDS: DEXT 5%-NACL 0.45% 1000 ML INJ 1,000 ML IV SCH (18:37)
[2017-02-18] MEDS: PANTOPRAZOLE SODIUM 40 MG VIAL IV PUSH SCH (18:40)
[2017-02-18 18:47] LABS: BLOOD GAS BASE EXCESS -5.1 mmol/L (-2-2); BLOOD GAS CARBOXYHEMOGLOBIN 1.1 % (0-4); BLOOD GAS HCO3 18 mmol/L (22-26); BLOOD GAS METHEMOGLOBIN 0.7 % (0-2); BLOOD GAS O2 HGB SATURATION 92 % (90-100); BLOOD GAS OXYGEN CONTENT 14.8 Vol % (12.0-20.0); BLOOD GAS PCO2 26 mmHg (38-42); BLOOD GAS PO2 65 mmHG (61-120); BLOOD GAS TOTAL HGB 11.5 G/DL (12.0-16.0); TEMP CORR TO 98.6
[2017-02-18 18:48] LABS: CRITICAL VALUE NO; DRAW SITE RT RADIAL; FIO2 50 %; LITER FLOW 10 L/M; NUMBER OF ARTERIAL PUNCTURES 1; OXYGEN DEVICE SIMPLE MASK; STAT YES; ULNAR PULSE PRESENT
[2017-02-18] MEDS: TAMSULOSIN HCL 0.4 MG CAP PO SCH (20:32)
[2017-02-18] MEDS: LEVOFLOXACIN/DEXTROSE 250 MG/50 ML IV SCH (20:36)
[2017-02-19] VITALS (10 sets, daily range): BP systolic 126–144; BP diastolic 63–74; PULSE 72–90; RESP 17–18; TEMP 97.5–98.4; O2SAT 87–93
[2017-02-19] MEDS: ACETAMINOPHEN/HYDROcodone 325 MG/5 MG TAB PO PRN ×4 (03:05→20:12)
[2017-02-19] MEDS: methylPREDNISolone SOD SUCC 40 MG/1 ML VIAL IV PUSH SCH ×3 (06:47→22:24)
[2017-02-19] MEDS: INSULIN ASPART SUPPLEMENTAL SCALE SQ SCH ×4 (06:48→22:33)
[2017-02-19 08:37] LABS: INTERNATIONAL NORMALIZED RATIO 1.7 RATIO; PROTHROMBIN TIME - PATIENT 19.4 SEC (9.8-11.6)
[2017-02-19 08:50] LABS: AUTOMATED NEUTROPHIL # 10.9 TH/MM3 (1.8-7.7); BASOPHIL % 0.1 % (0.0-2.0); HEMATOCRIT 34.1 % (39.0-51.0); LYMPH % 3.6 % (9.0-44.0); LYMPHOCYTE # 0.4 TH/MM3 (1.0-4.8); MEAN CELL VOLUME 90.4 FL (80.0-100.0); MEAN CORPUSCULAR HEMOGLOBIN 29.5 PG (27.0-34.0); MEAN CORPUSCULAR HGB CONC 32.7 % (32.0-36.0); MONO % 2.9 % (0.0-8.0); NEUT % 93.4 % (16.0-70.0); PLATELET COUNT 71 TH/MM3 (150-450); RED BLOOD COUNT 3.77 MIL/MM3 (4.50-5.90); RED CELL DISTRIBUTION WIDTH 18.7 % (11.6-17.2); WHITE BLOOD COUNT 11.6 TH/MM3 (4.0-11.0)
[2017-02-19 08:53] LABS: HEMO FLAGS AUTO DIFF
[2017-02-19 08:57] LABS: BICARBONATE 19.3 MEQ/L (21.0-32.0); POTASSIUM 4.3 MEQ/L (3.5-5.1)
[2017-02-19] MEDS: DOCUSATE SODIUM 50 MG/SENNA 8.6 MG TAB PO SCH ×2 (09:00→22:24)
[2017-02-19] MEDS: BUDESONIDE-FORMOTEROL 160/4.5 MCG INHALER INH SCH ×2 (09:00→22:23)
[2017-02-19] MEDS: SODIUM CHLORIDE 0.9% FLUSH 10 ML FLUSH IV FLUSH SCH ×2 (09:00→22:23)
[2017-02-19] MEDS: RESP: ALBUTEROL 2.5 MG/IPRATROPIUM 0.5 MG NEB (SCH) NEB ×4 (09:40→22:58)
[2017-02-19] MEDS: DILTIAZEM-CD 120 MG CAP ER PO SCH (10:19)
[2017-02-19] MEDS: AMIODARONE 200 MG TAB PO SCH (10:19)
[2017-02-19] MEDS: CEFEPIME INJ 1,000 MG in SODIUM CHLORIDE 0.9% INJ 100 ML IV SCH (10:26)
[2017-02-19 10:44] LABS: BANDS 13 % (0-6); MYELOCYTES 4 % (0-0); NEUTROPHIL # MANUAL DIFF 10.3 TH/MM3 (1.8-7.7); POLYS (SEG NEUTROPHILS) 72 % (16-70); WBC DIFF SAMPLE 100
[2017-02-19 10:45] LABS: PLATELET ESTIMATE SMEAR LOW (NORMAL); PLATELET MORPHOLOGY NORMAL (NORMAL); SCAN/DIFF FINAL DIFF MANUAL
[2017-02-19] MEDS ORDERED: PHARMACY ORDERED LAB ONE (11:45)
[2017-02-19] MEDS: VANCOMYCIN 1,500 MG/NS 500 ML IV SCH ×2 (13:31)
[2017-02-19] MEDS: DEXT 5%-NACL 0.45% 1000 ML INJ 1,000 ML IV SCH (16:00)
[2017-02-19] MEDS ORDERED: WARFARIN SOD 2 MG TAB PO SCH (16:00)
--- NOTE | 2017-02-19 16:54 | HHI.PR ---
Subjective Remarks patient feeling better no difficulty expectorating- minimal sputum no nausea or vomiting or diarrhea Objective Vitals Vital Signs Date Time Temp Pulse Resp B/P (MAP) Pulse Ox O2 Delivery O2 Flow Rate FiO2 02/19/17 16:00 97.7 74 17 142/74 (96) 87 02/19/17 12:00 97.9 81 17 134/63 (86) 90 02/19/17 09:42 92 Simple Mask 6.00 02/19/17 08:00 97.5 80 17 126/71 (89) 93 02/19/17 05:55 98.3 90 18 144/71 (95) 92 02/19/17 01:27 98.4 90 18 129/69 (89) 92 02/18/17 23:00 92 Venturi Mask 6.00 02/18/17 22:20 93 Simple Mask 8.00 02/18/17 20:56 98.6 90 19 129/74 (92) 95 I/O 02/18/17 02/18/17 02/18/17 02/19/17 02/19/17 02/19/17 07:00 15:00 23:00 07:00 15:00 23:00 Output Total 400 ml 825 ml 200 ml Balance -400 ml -825 ml -200 ml Output Urine Total 400 ml 200 ml Stool Total 825 ml # Voids 2 # Bowel Movements 0 0 Result Diagram: 02/19/17 0741 02/19/17 0741 Imaging Last Impressions Chest X-Ray 02/18/17 0000 Signed Impressions: Service Date/Time: Saturday, February 18, 2017 15:19 - CONCLUSION: No acute cardiopulmonary abnormality is identified. Vickey Vuong MD Head CT 02/16/17 1206 Signed Impressions: Service Date/Time: Thursday, February 16, 2017 12:57 - CONCLUSION: 1. Atrophy and white matter disease. 2. Right mastoid opacification. Jimbo Hays MD Objective Remarks awake and alert, on 2 LNC anicteric no rales or wheezes, decreased breath sounds regular rhythm abdomen soft, nontender, ecchymoses from heparin shots lower extremities erythema improved right more than left neuro exam- non focal A/P Assessment and Plan 76 years old male with known history of COPD- 02 requiring admitted for Sepsis secondary to Pneumonia/ Cellulitis both LE - on IV antibitoics- on Vancomycin + po Levaquin today 02/19 Acute respiratory failure on top of chronic -background of COPd 02 dependent - on steroids- decreased to IV q 8- gradual taper Hyperkalemia- resolved Acute kidney injury- resolved. BMP normal. on gentle hydration Diabetes with recent A1c of 7.3 -good readings- on Solumedrol. FF BS Hypermagnesemia- corrected history of A. Fib- in sinus on telemetry. continue on Cordarone, CCB, Coumadin. FF INR Hypertension- good readings Chronic pain syndrome History of Anemia of chronic disease- H and H good Acute Thrombocytopenia- platelet trending down. Monitor. for signs of bleeding. recheck CBC Physical therapy Telemetry Discharge planning: SNF when stable Dilma Lambert MD Feb 19, 2017 16:54
[2017-02-19] MEDS: PANTOPRAZOLE SODIUM 40 MG VIAL IV PUSH SCH (17:16)
[2017-02-19] MEDS: TAMSULOSIN HCL 0.4 MG CAP PO SCH (22:24)
[2017-02-20] VITALS (10 sets, daily range): BP systolic 134–174; BP diastolic 60–79; PULSE 75–94; RESP 16–20; TEMP 97–97.8; O2SAT 80–92
[2017-02-20] MEDS: methylPREDNISolone SOD SUCC 40 MG/1 ML VIAL IV PUSH SCH ×3 (06:02→22:00)
[2017-02-20] MEDS: VANCOMYCIN INJ 1,250 MG in SODIUM CHLOR 0.9% 250 ML INJ 250 ML IV SCH (06:02)
[2017-02-20] MEDS: ACETAMINOPHEN/HYDROcodone 325 MG/5 MG TAB PO PRN ×3 (06:03→20:53)
[2017-02-20] MEDS: INSULIN ASPART SUPPLEMENTAL SCALE SQ SCH ×4 (06:17→21:30)
[2017-02-20] MEDS: BUDESONIDE-FORMOTEROL 160/4.5 MCG INHALER INH SCH ×2 (09:00→20:52)
[2017-02-20] MEDS: SODIUM CHLORIDE 0.9% FLUSH 10 ML FLUSH IV FLUSH SCH ×2 (09:00→20:53)
[2017-02-20] MEDS: DOCUSATE SODIUM 50 MG/SENNA 8.6 MG TAB PO SCH ×2 (10:05→20:53)
[2017-02-20] MEDS: LEVOFLOXACIN 500 MG TAB PO SCH (10:05)
[2017-02-20] MEDS: AMIODARONE 200 MG TAB PO SCH (10:05)
[2017-02-20] MEDS: DILTIAZEM-CD 120 MG CAP ER PO SCH (10:05)
[2017-02-20] MEDS: RESP: ALBUTEROL 2.5 MG/IPRATROPIUM 0.5 MG NEB (SCH) NEB ×3 (10:12→17:28)
--- NOTE | 2017-02-20 10:28 | HHI.PR ---
Subjective Remarks clinically doing "great" no diarrhea, no cough Sats better on lower NC Objective Vitals Vital Signs Date Time Temp Pulse Resp B/P (MAP) Pulse Ox O2 Delivery O2 Flow Rate FiO2 02/20/17 10:13 80 Nasal Cannula 3.00 02/20/17 08:00 97.6 75 16 174/79 (110) 91 02/20/17 04:00 97.8 76 18 143/71 (95) 90 02/20/17 00:00 97.5 78 18 134/60 (84) 92 02/19/17 22:59 92 Nasal Cannula 4.00 02/19/17 22:00 78 02/19/17 20:00 92 Nasal Cannula 3.00 02/19/17 20:00 97.5 72 18 138/65 (89) 91 02/19/17 16:00 97.7 74 17 142/74 (96) 87 02/19/17 12:00 97.9 81 17 134/63 (86) 90 I/O 02/19/17 02/19/17 02/19/17 02/20/17 02/20/17 02/20/17 07:00 15:00 23:00 07:00 15:00 23:00 Output Total 225 ml Balance -225 ml Output Urine Total 225 ml # Voids 2 # Bowel Movements 0 Result Diagram: 02/19/17 0741 02/19/17 0741 Imaging Last Impressions Chest X-Ray 02/18/17 0000 Signed Impressions: Service Date/Time: Saturday, February 18, 2017 15:19 - CONCLUSION: No acute cardiopulmonary abnormality is identified. Vickey Vuong MD Head CT 02/16/17 1206 Signed Impressions: Service Date/Time: Thursday, February 16, 2017 12:57 - CONCLUSION: 1. Atrophy and white matter disease. 2. Right mastoid opacification. Jimbo Hays MD Objective Remarks awake and alert, on 2 LNC anicteric no rales or wheezes, decreased breath sounds regular rhythm abdomen soft, nontender, ecchymoses from heparin shots extremities right LE- mild erythema, dry superficial open wound medial aspect of the leg- improved left lower leg0 erythema resolved neuro exam- non focal A/P Assessment and Plan 76 years old male with known history of COPD- 02 requiring admitted for Sepsis secondary to Pneumonia/ Cellulitis both LE - on IV antibitoics- on Vancomycin + po Levaquin today 02/19 Acute respiratory failure on top of chronic -background of COPd 02 dependent - on steroids- decreased to IV q 8- gradual taper/ Dr. Belkys thomas Hyperkalemia- resolved Acute kidney injury- resolved. BMP normal. on gentle hydration Diabetes Mellitus with recent A1c of 7.3 -good readings- on Solumedrol. FF BS Hypermagnesemia- corrected history of A. Fib- in sinus on telemetry. continue on Cordarone, CCB, Coumadin. FF INR. check today Hypertension- good readings Chronic pain syndrome History of Anemia of chronic disease- H and H good Acute Thrombocytopenia- platelet trending down. Monitor. for signs of bleeding. recheck CBC today Physical therapy daily Discharge planning: SNF Dilma Capps MD Feb 20, 2017 10:28
[2017-02-20 11:42] LABS: AUTOMATED NEUTROPHIL # 10.6 TH/MM3 (1.8-7.7); BASOPHIL % 0.1 % (0.0-2.0); HEMATOCRIT 33.8 % (39.0-51.0); LYMPH % 4.1 % (9.0-44.0); LYMPHOCYTE # 0.5 TH/MM3 (1.0-4.8); MEAN CORPUSCULAR HEMOGLOBIN 29.6 PG (27.0-34.0); MEAN CORPUSCULAR HGB CONC 32.6 % (32.0-36.0); NEUT % 93.8 % (16.0-70.0); PLATELET COUNT 63 TH/MM3 (150-450); RED BLOOD COUNT 3.71 MIL/MM3 (4.50-5.90); RED CELL DISTRIBUTION WIDTH 18.9 % (11.6-17.2); WHITE BLOOD COUNT 11.3 TH/MM3 (4.0-11.0)
[2017-02-20 11:45] LABS: INTERNATIONAL NORMALIZED RATIO 1.5 RATIO; PROTHROMBIN TIME - PATIENT 17.3 SEC (9.8-11.6)
[2017-02-20 12:03] LABS: HEMO FLAGS AUTO DIFF
[2017-02-20 12:12] LABS: BICARBONATE 17.6 MEQ/L (21.0-32.0); POTASSIUM 4.2 MEQ/L (3.5-5.1)
[2017-02-20 13:12] LABS: BANDS 3 % (0-6); METAMYELOCYTES 3 % (0-1); POLYS (SEG NEUTROPHILS) 81 % (16-70); WBC DIFF SAMPLE 100
[2017-02-20 13:13] LABS: MYELOCYTES 4 % (0-0); NEUTROPHIL # MANUAL DIFF 10.4 TH/MM3 (1.8-7.7); PROMYELOCYTES 1 % (0-0)
[2017-02-20 13:14] LABS: SCAN/DIFF FINAL DIFF MANUAL
[2017-02-20] MEDS ORDERED: WARFARIN SOD 5 MG TAB PO ONE (16:00)
[2017-02-20] MEDS: PANTOPRAZOLE SODIUM 40 MG VIAL IV PUSH SCH (17:24)
[2017-02-20] MEDS: DEXT 5%-NACL 0.45% 1000 ML INJ 1,000 ML IV SCH (20:52)
[2017-02-20] MEDS: TAMSULOSIN HCL 0.4 MG CAP PO SCH (20:53)
[2017-02-21] VITALS: BP 135/71; PULSE 83; RESP 20; TEMP 97.2; O2SAT 91
[2017-02-21] MEDS: VANCOMYCIN INJ 1,250 MG in SODIUM CHLOR 0.9% 250 ML INJ 250 ML IV SCH (00:08)
[2017-02-21 04:00] VITALS: BP 135/74; PULSE 87; RESP 20; TEMP 99.5; O2SAT 90
[2017-02-21] MEDS: ACETAMINOPHEN/HYDROcodone 325 MG/5 MG TAB PO PRN ×3 (05:15→16:37)
[2017-02-21] MEDS: methylPREDNISolone SOD SUCC 40 MG/1 ML VIAL IV PUSH SCH ×2 (05:16→13:26)
[2017-02-21] MEDS: INSULIN ASPART SUPPLEMENTAL SCALE SQ SCH ×2 (06:18→11:00)
--- NOTE | 2017-02-21 07:10 | HHI.FPPN ---
Objective Vitals Vital Signs Date Time Temp Pulse Resp B/P (MAP) Pulse Ox O2 Delivery O2 Flow Rate FiO2 02/20/17 21:08 92 Nasal Cannula 5.00 02/20/17 20:18 97.5 80 20 135/65 (88) 91 02/20/17 20:00 80 02/20/17 20:00 91 Nasal Cannula 4.00 02/20/17 16:00 97.0 88 17 141/74 (96) 91 02/20/17 16:00 91 Nasal Cannula 4.00 02/20/17 12:00 97.8 94 17 149/64 (92) 89 02/20/17 10:13 80 Nasal Cannula 3.00 02/20/17 08:00 97.6 75 16 174/79 (110) 91 I/O 02/20/17 02/20/17 02/20/17 02/21/17 02/21/17 02/21/17 07:00 15:00 23:00 07:00 15:00 23:00 Output Total 225 ml Balance -225 ml Output Urine Total 225 ml # Voids 2 # Bowel Movements 0 Result Diagram: 02/20/17 1030 02/20/17 1039 Objective Remarks GENERAL: SKIN: Warm and dry. HEAD: Atraumatic. Normocephalic. EYES: Pupils equal and round. No scleral icterus. No injection or drainage. ENT: No nasal bleeding or discharge. Mucous membranes pink and moist. NECK: Trachea midline. No JVD. CARDIOVASCULAR: Regular rate and rhythm. RESPIRATORY: B R/R. Breath sounds equal bilaterally. GASTROINTESTINAL: Abdomen soft, non-tender, nondistended. Hepatic and splenic margins not palpable. MUSCULOSKELETAL: Extremities without clubbing, cyanosis, or edema. No obvious deformities. NEUROLOGICAL: Awake and alert. No obvious cranial nerve deficits. Motor grossly within normal limits. Five out of 5 muscle strength in the arms and legs. Normal speech. PSYCHIATRIC: Appropriate mood and affect; insight and judgment normal. A/P Assessment and Plan ASSESSMENT 1. Sepsis 2. Pneumonia 3. COPD 4. Bilateral cellulitis of the legs. 5. Hyperkalemia with a history of hypokalemia 6. Acute kidney injury 7. Diabetes with recent A1c of 7.3 8. Hypermagnesemia 9. A. Fib 10. Hypertension 11. Chronic pain syndrome 12. Anemia of chronic disease PLAN- iv ABX. Blood cultures x2 IV fluids with monitoring for fluid overload. Hold spironolactone Hold potassium Hold Lasix INR daily with pharmacy to help manage Coumadin. Protonix 40 IV for GI prophylaxis A.m. CBC and BMP Physical therapy Telemetry Discharge planning: DC to [facility] when stable. Frederic Reddy MD Feb 21, 2017 07:10
--- NOTE | 2017-02-21 08:22 | HHI.DS ---
Discharge Summary Admission Date Feb 16, 2017 at 14:54 Discharge Date: Feb 21, 2017 Admitting Diagnosis hyperkalemia, pneumonia Procedures Current Medications Medications (Trade) Dose Ordered Sig/Lucas Route Start Time Stop Time Status Last Admin (Cordarone) 200 mg DAILY PO 02/17/17 09:00 02/20/17 10:05 (Cardizem Cd) 120 mg DAILY PO 02/17/17 09:00 02/20/17 10:05 (Flomax) 0.4 mg HS PO 02/16/17 21:00 02/20/17 20:53 (Symbicort 160-4.5 Inh) 2 puff BID INH 02/16/17 21:00 02/20/17 20:52 (NS Flush) 2 ml UNSCH PRN IV FLUSH 02/16/17 16:15 02/19/17 06:48 (NS Flush) 2 ml BID IV FLUSH 02/16/17 21:00 02/20/17 20:53 (Tylenol) 650 mg Q4H PRN PO 02/16/17 16:15 (Zofran Inj) 4 mg Q6H PRN IVP 02/16/17 16:15 (Ambien) 5 mg HS PRN PO 02/16/17 16:15 (Narcan Inj) 0.4 mg UNSCH PRN IV 02/16/17 16:15 (Maira-Colace) 1 tab BID PO 02/16/17 21:00 02/20/17 20:53 (Milk Of Magnesia Liq) 30 ml Q12H PRN PO 02/16/17 16:15 (Senokot) 17.2 mg Q12H PRN PO 02/16/17 16:15 (Dulcolax Supp) 10 mg DAILY PRN RECTAL 02/16/17 16:15 (Lactulose Liq) 30 ml DAILY PRN PO 02/16/17 16:15 ([place] 5-325 Mg) 1 tab Q4H PRN PO 02/16/17 16:30 02/21/17 05:15 (Ativan) 0.5 mg Q8H PRN PO 02/16/17 16:30 02/19/17 22:24 (Catapres) 0.1 mg Q6H PRN PO 02/16/17 16:30 Pharmacy Profile Note 0 ml @ 0 mls/hr UNSCH OTHER 8/23/17 16:30 (Protonix Inj) 40 mg Q24H IV PUSH 02/16/17 18:00 02/20/17 17:24 (Albuterol Neb) 2.5 mg Q6HR NEB PRN NEB 02/16/17 18:15 02/20/17 21:06 Pharmacy Profile Note ml @ 0 mls/hr UNSCH OTHER 02/16/17 21:45 (D50w (Vial) Inj) 50 ml UNSCH PRN IV 02/18/17 08:45 (Glucagon Inj) 1 mg UNSCH PRN OTHER 02/18/17 08:45 (NovoLOG SUPPLEMENTAL SCALE) 1 ACHS SLIDING SCALE SQ 02/18/17 11:00 02/21/17 06:18 (SoluMEDROL INJ) 40 mg Q8HR IV PUSH 02/18/17 15:15 02/21/17 05:16 Dextrose/Sodium Chloride 1,000 ml @ 30 mls/hr Q24H IV 02/18/17 16:00 02/20/17 20:52 (Levaquin) 500 mg DAILY PO 02/20/17 09:00 02/20/17 10:05 Vancomycin HCl 1250 mg/Sodium Chloride 262.5 ml @ 250 mls/hr Q18H IV 02/20/17 06:00 02/21/17 00:08 Miscellaneous Information SPECIFIC LAB TO BE MARLENY... ONCE ONCE .XX 02/21/17 17:45 02/21/17 17:46 CBC/BMP: 02/20/17 1030 02/20/17 1039 Significant Findings Laboratory Tests Test 02/18/17 08:56 02/18/17 17:02 02/19/17 07:41 02/19/17 13:10 Red Blood Count 3.80 MIL/MM3 (4.50-5.90) 3.77 MIL/MM3 (4.50-5.90) Hemoglobin 11.1 GM/DL (13.0-17.0) 11.1 GM/DL (13.0-17.0) Hematocrit 34.4 % (39.0-51.0) 34.1 % (39.0-51.0) Red Cell Distribution Width 18.8 % (11.6-17.2) 18.7 % (11.6-17.2) Platelet Count 84 TH/MM3 (150-450) 71 TH/MM3 (150-450) Neutrophils (%) (Auto) 91.0 % (16.0-70.0) 93.4 % (16.0-70.0) Lymphocytes (%) (Auto) 5.1 % (9.0-44.0) 3.6 % (9.0-44.0) Neutrophils # (Auto) 9.7 TH/MM3 (1.8-7.7) 10.9 TH/MM3 (1.8-7.7) Lymphocytes # (Auto) 0.5 TH/MM3 (1.0-4.8) 0.4 TH/MM3 (1.0-4.8) Neutrophils % (Manual) 85 % (16-70) 72 % (16-70) Lymphocytes % 1 % (9-44) 6 % (9-44) Neutrophils # (Manual) 10.2 TH/MM3 (1.8-7.7) 10.3 TH/MM3 (1.8-7.7) Metamyelocytes 3 % (0-1) Myelocytes 1 % (0-0) 4 % (0-0) Promyelocytes 1 % (0-0) Platelet Estimate LOW (NORMAL) LOW (NORMAL) Prothrombin Time 28.4 SEC (9.8-11.6) 19.4 SEC (9.8-11.6) Blood Urea Nitrogen 50 MG/DL (7-18) 39 MG/DL (7-18) Random Glucose 125 MG/DL (74-106) 171 MG/DL (74-106) Calcium Level 8.4 MG/DL (8.5-10.1) 8.0 MG/DL (8.5-10.1) Chloride Level 109 MEQ/L (98-107) 112 MEQ/L (98-107) Carbon Dioxide Level 20.0 MEQ/L (21.0-32.0) 19.3 MEQ/L (21.0-32.0) Estimat Glomerular Filtration Rate 65 ML/MIN (>89) 88 ML/MIN (>89) Blood Gas HCO3 18 mmol/L (22-26) Blood Gas Base Excess -5.1 mmol/L (-2-2) Arterial Blood pH 7.46 (7.380-7.420) Arterial Blood Partial Pressure CO2 26 mmHg (38-42) Blood Gas Hemoglobin 11.5 G/DL (12.0-16.0) White Blood Count 11.6 TH/MM3 (4.0-11.0) Band Neutrophils % 13 % (0-6) Vancomycin Level Trough 21.5 MCG/ML (5.0-10.0) Test 02/20/17 10:30 02/20/17 10:39 White Blood Count 11.3 TH/MM3 (4.0-11.0) Red Blood Count 3.71 MIL/MM3 (4.50-5.90) Hemoglobin 11.0 GM/DL (13.0-17.0) Hematocrit 33.8 % (39.0-51.0) Red Cell Distribution Width 18.9 % (11.6-17.2) Platelet Count 63 TH/MM3 (150-450) Neutrophils (%) (Auto) 93.8 % (16.0-70.0) Lymphocytes (%) (Auto) 4.1 % (9.0-44.0) Neutrophils # (Auto) 10.6 TH/MM3 (1.8-7.7) Lymphocytes # (Auto) 0.5 TH/MM3 (1.0-4.8) Neutrophils % (Manual) 81 % (16-70) Lymphocytes % 5 % (9-44) Neutrophils # (Manual) 10.4 TH/MM3 (1.8-7.7) Metamyelocytes 3 % (0-1) Myelocytes 4 % (0-0) Promyelocytes 1 % (0-0) Prothrombin Time 17.3 SEC (9.8-11.6) Blood Urea Nitrogen 31 MG/DL (7-18) Random Glucose 312 MG/DL (74-106) Calcium Level 8.0 MG/DL (8.5-10.1) Chloride Level 108 MEQ/L (98-107) Carbon Dioxide Level 17.6 MEQ/L (21.0-32.0) PE at Discharge GENERAL: SKIN: Warm and dry. HEAD: Atraumatic. Normocephalic. EYES: Pupils equal and round. No scleral icterus. No injection or drainage. ENT: No nasal bleeding or discharge. Mucous membranes pink and moist. NECK: Trachea midline. No JVD. CARDIOVASCULAR: Regular rate and rhythm. RESPIRATORY: No accessory muscle use. Clear to auscultation. Breath sounds equal bilaterally. GASTROINTESTINAL: Abdomen soft, non-tender, nondistended. Hepatic and splenic margins not palpable. MUSCULOSKELETAL: Extremities without clubbing, cyanosis, or edema. No obvious deformities. NEUROLOGICAL: Awake and alert. No obvious cranial nerve deficits. Motor grossly within normal limits. Five out of 5 muscle strength in the arms and legs. Normal speech. PSYCHIATRIC: Appropriate mood and affect; insight and judgment normal. Hospital Course 76 years old male with known history of COPD- 02 requiring admitted for Sepsis secondary to Pneumonia/ Cellulitis both LE - on IV antibitoics- on Vancomycin + po Levaquin Acute respiratory failure on top of chronic -background of COPd 02 dependent - on steroids Hyperkalemia- resolved Acute kidney injury- resolved. BMP normal. Diabetes Mellitus with recent A1c of 7.3 -good readings- on Solumedrol. FF BS Hypermagnesemia- corrected history of A. Fib- in sinus on telemetry. continue on Cordarone, CCB, Coumadin. FF INR. Hypertension- good readings Chronic pain syndrome History of Anemia of chronic disease- H and H good Acute Thrombocytopenia- platelet trending down. Monitor. for signs of bleeding. recheck CBC today Physical therapy daily Discharge planning: SNF Discharge Disposition: Discharge to SNF Discharge Instructions DIET: Follow Instructions for: Diabetic Diet Activities you can perform: Regular-No Restrictions Follow up Referrals: PCP Follow-up - 2-[address] DALAL New Medications: Acetaminophen (Eq Acetaminophen) 325 Mg Tab 650 MG PO Q4H PRN for TEMP > 100.4 for 30 Days, TAB Albuterol Neb (Albuterol Neb) 2.5 Mg/3 Ml Neb 2.5 MG NEB Q6HR NEB PRN for SHORTNESS OF BREATH for 60 Days, NEBULE Hydrocodone-Acetaminophen (Hydrocodone-Acetaminophen) 5-325 mg Tab 1 TAB PO Q4H PRN for PAIN GREATER THAN 5, #120 TAB Levofloxacin (Levaquin) 500 Mg Tablet 500 MG PO DAILY for pna for 3 Days, TAB Lorazepam (Ativan) 0.5 Mg Tab 0.5 MG PO Q8H PRN for SEVERE ANXIETY OR AGITATION, #20 TAB 5 Refills Zolpidem (Ambien) 5 Mg Tab 5 MG PO HS PRN for INSOMNIA, #30 TAB 5 Refills Continued Medications: Amiodarone (Amiodarone) 200 Mg Tab 200 MG PO DAILY for Regulate Heart Beat, #30 TAB 0 Refills Diltiazem CD 24 HR (Diltiazem CD 24 HR) 120 Mg Caper 120 MG PO DAILY, #30 CAP 0 Refills Fluticasone-Salmeterol Inh (Advair Diskus Inh) 250-50 Mcg/Blist Aer 1 PUFF INH BID, #1 INHALER 0 Refills Rinse mouth after use. Tamsulosin (Flomax) 0.4 Mg Cap 0.4 MG PO HS for Manage Prostate Problems, #30 CAP 0 Refills Tiotropium Inh (Spiriva Handihaler) 18 Mcg Cap 18 MCG INH DAILY for COPD, #30 CAP 0 Refills 1 capsule = 18 mcg Warfarin (Warfarin) 2 Mg Tab 2 MG PO DAILY for Blood Clot Prevention, #30 TAB 11 Refills Discontinued Medications: Ceftriaxone Inj (Ceftriaxone Inj) 2 Gm/50 Ml Bagp 2 GM IV Q24H for Infection for 7 Days, BAG 0 Refills Furosemide (Lasix) 40 Mg Tab 40 MG PO BID, #60 TAB 0 Refills Hydrocodone-Acetaminophen ([place]) 10-325 Mg Tab 1 TAB PO TID PRN for PAIN, TAB 0 Refills Morphine ER (Morphine ER) 30 Mg Tab 30 MG PO Q8H for Pain Management, TAB 0 Refills Potassium Chloride ER (Potassium Chloride ER) 10 Meq Cap 10 MEQ PO BID for Electrolyte Replacement, #60 CAP 0 Refills Spironolactone (Spironolactone) 25 Mg Tab 25 MG PO BIDPC for JERMAIN for 90 Days, TAB 5 Refills Frederic Dalal MD Feb 21, 2017 08:22
[2017-02-21] MEDS ORDERED: LORA-392 PO (08:30)
[2017-02-21] MEDS ORDERED: LEVA500T20 PO (08:30)
[2017-02-21] MEDS ORDERED: HYDR-3516 PO (08:30)
[2017-02-21] MEDS ORDERED: AMBI5TAB PO (08:30)
[2017-02-21] MEDS ORDERED: ACET1TAB86 PO (08:30)
[2017-02-21] MEDS ORDERED: ALBU0.08 NEB (08:30)
--- NOTE | 2017-02-21 08:32 | HHI.DCPOC ---
Discharge Care Plan Diagnosis: (1) Cellulitis and abscess of lower extremity (2) COPD (chronic obstructive pulmonary disease) (3) DM (diabetes mellitus) (4) Hyperkalemia (5) Pneumonia (6) Acute kidney injury Goals to Promote Your Health * To prevent worsening of your condition and complications * To maintain your health at the optimal level Directions to Meet Your Goals Take your medications as prescribed Follow your dietary instruction Follow activity as directed Keep your appointments as scheduled Take your immunizations and boosters as scheduled If your symptoms worsen call your PCP, if no PCP go to Urgent Care Center or Emergency Room Smoking is Dangerous to Your Health. Avoid second hand smoke Call the 24-hour hour crisis hotline for domestic abuse at Frederic Reddy MD Feb 21, 2017 08:32
[2017-02-21 08:45] VITALS: BP 139/74; PULSE 91; RESP 18; TEMP 97.3; O2SAT 91
[2017-02-21] MEDS: DOCUSATE SODIUM 50 MG/SENNA 8.6 MG TAB PO SCH (10:02)
[2017-02-21] MEDS: LEVOFLOXACIN 500 MG TAB PO SCH (10:02)
[2017-02-21] MEDS: DILTIAZEM-CD 120 MG CAP ER PO SCH (10:02)
[2017-02-21] MEDS: AMIODARONE 200 MG TAB PO SCH (10:02)
[2017-02-21] MEDS: SODIUM CHLORIDE 0.9% FLUSH 10 ML FLUSH IV FLUSH SCH (10:03)
[2017-02-21] MEDS: BUDESONIDE-FORMOTEROL 160/4.5 MCG INHALER INH SCH (10:05)
[2017-02-21 10:16] VITALS: O2SAT 89
[2017-02-21 12:22] VITALS: BP 126/78; PULSE 94; RESP 18; TEMP 97.2; O2SAT 91
[2017-02-21 16:36] VITALS: BP 140/84; PULSE 104; RESP 20; TEMP 97.3; O2SAT 90
[2017-02-21] MEDS ORDERED: PHARMACY ORDERED LAB ONE (17:45)
== END 2017-02-21 17:24 | DRG 871 ==
LOC: NEPE 11:21 → NEDA 14:54 → N05B 18:35
PROVIDERS: ADMIT Family Medicine; ATTEND Family Medicine
DX: A41.9 Sepsis, unspecified organism (principal); J44.0 Chronic obstructive pulmonary disease with (acute) lower respiratory infection; J18.9 Pneumonia, unspecified organism; J96.20 Acute and chronic respiratory failure, unspecified whether with hypoxia or hypercapnia; N17.9 Acute kidney failure, unspecified; D69.6 Thrombocytopenia, unspecified; Z99.81 Dependence on supplemental oxygen; L03.115 Cellulitis of right lower limb; L03.116 Cellulitis of left lower limb; E87.5 Hyperkalemia; E83.41 Hypermagnesemia; I48.91 Unspecified atrial fibrillation; D63.8 Anemia in other chronic diseases classified elsewhere; G89.4 Chronic pain syndrome; B37.9 Candidiasis, unspecified; I25.10 Atherosclerotic heart disease of native coronary artery without angina pectoris; G47.30 Sleep apnea, unspecified; I12.9 Hypertensive chronic kidney disease with stage 1 through stage 4 chronic kidney disease, or unspecified chronic kidney disease; N18.3 Chronic kidney disease, stage 3 (moderate); E11.9 Type 2 diabetes mellitus without complications; I73.9 Peripheral vascular disease, unspecified; Z87.891 Personal history of nicotine dependence
CPT/HCPCS: 36600; 70450; 71010; 76937; 80048; 80053; 80202; 81001; 82550; 82805; 82948; 83605; 83735; 83880; 84132; 84484; 85007; 85027; 85610; 85730; 87040; 93005; 94640; 94664; 96360; C9113; J0456; J0610; J0692; J0696; J1815; J1956; J2920; J3370; J7030; J7040; J7050; J7613

== ENCOUNTER 2017-02-25 07:15 | Inpatient (IN) | payer MEDICARE, OTHER ==
[~2017-02-25] VITALS: Ht 180.3 cm; Wt 90.2 kg
[2017-02-25] VITALS (23 sets, daily range): BP systolic 103–133; BP diastolic 58–78; PULSE 83–140; RESP 15–36; TEMP 97.4–98.3; O2SAT 75–100
[~2017-02-25 07:15] MED LIST changes: +ACET1TAB86 PO; +ALBU0.08 NEB; +AMBI5TAB PO; -CEFT2INJ2 IV; -FURO1TAB60 PO; -HYDR-3366 PO; +HYDR-3516 PO; +LEVA500T20 PO; +LORA-392 PO; -MORP1TAB25 PO; -POTA10CA PO; -SPIR25TA PO
[2017-02-25] MEDS ORDERED: IOHEXOL 350 MG/ML 10 ML VIAL (for RAD DIAG) IVCONTRAST ONE (07:16)
--- NOTE | 2017-02-25 07:31 | PD ---
HPI Chief Complaint: SOB Time Seen by Provider: 07:19 Travel History International Travel<30 days: No Contact w/Intl Traveler<30days: No Traveled to known affect area: No History of Present Illness HPI 2 day h/o sob, not alleviated by home nebs. pt is unable to give much hx due to resp distress....BROUGHT IN BY EMS WITH ALBUTEROL NEBS ONLY NO STEROIDS AND FOUND TO BE 70'S PULSE OX ON ARRIVAL PER EMS... per REVIEW OF CHART pcp: dr shelley oconnor pmhx: PER FAMILY AT BEDSIDE ALSO H/O "CANCER BEHIND LEFT EYE" BUT LACKED ANY FURTHER HISTORY 1. Coronary artery disease 2. COPD 3. Sleep apnea 4. Cellulitis of the legs 5. PVD?? 6. Atrial fibrillation 7. Diabetes 8. Hypertension 9. Hypokalemia 10. Chronic kidney disease stage III 11. Anemia of chronic disease PFSH Past Medical History Hx Anticoagulant Therapy: Yes (WARAFIN) Asthma: No Autoimmune Disease: No Blood Disorders: No Heart Rhythm Problems: No Cancer: Yes (skin cancer) Cardiovascular Problems: Yes High Cholesterol: No Chemotherapy: No Chest Pain: No Congestive Heart Failure: No COPD: Yes (wears O2 at home) Diabetes: Yes Diminished Hearing: No Endocrine: Yes Gastrointestinal Disorders: No Genitourinary: No Hypertension: Yes Immune Disorder: No Implanted Vascular Access Dvce: No Musculoskeletal: No Neurologic: No Psychiatric: No Reproductive: No Respiratory: Yes (COPD W/02 AT NIGHT) Radiation Therapy: No Sleep Apnea: Yes Thyroid Disease: No Past Surgical History Abdominal Surgery: No AICD: No Arteriovenous Shunt: No Cardiac Surgery: No Ear Surgery: No Endocrine Surgery: No Eye Surgery: No Genitourinary Surgery: No Gynecologic Surgery: No Insulin Pump: No Joint Replacement: No Neurologic Surgery: No Oral Surgery: No Pacemaker: No Other Surgery: Yes Social History Alcohol Use: No Tobacco Use: Yes Substance Use: No Allergies-Medications (Allergen,Severity, Reaction): Coded Allergies: No Known Allergies (Unverified , 01/19/17) Reported Meds & Prescriptions Reported Meds & Active Scripts Active Ambien (Zolpidem Tartrate) 5 Mg Tab 5 Mg PO HS PRN Ativan (Lorazepam) 0.5 Mg Tab 0.5 Mg PO Q8H PRN Eq Acetaminophen (Acetaminophen) 325 Mg Tab 650 Mg PO Q4H PRN 30 Days Hydrocodone-Acetaminophen 5-325 mg Tab 1 Tab PO Q4H PRN Albuterol Neb (Albuterol Sulfate) 2.5 Mg/3 Ml Neb 2.5 Mg NEB Q6HR NEB PRN 60 Days Levaquin (Levofloxacin) 500 Mg Tablet 500 Mg PO DAILY 3 Days Lancets 1 Mis Mis 1 Ea .ROUTE DIRECTED Blood Glucose Test Strips Strips Strip 1 Ea .ROUTE DIRECTED Blood Glucose Test Strips Strips Strip 1 Ea .ROUTE DIRECTED Blood Glucose Monitor (Blood-Glucose Meter) 1 Each Kit Bottle Oxygen tank (Oxygen) 1 Ea Tank 2 Liter LITA.CANULA CONTINUOUS Oxygen Concentrator Portable Gaseous 2 L/min via Nasal Cannula Continuous For 99 months Oxygen (O2) Device 2 Liter LITA.CANULA CONTINUOUS Oxygen Concentrator Portable Gaseous 2 L/min via Nasal Canula Continuous For 99 months Warfarin 2 Mg Tab 2 Mg PO DAILY Reported Spiriva Handihaler (Tiotropium Inh) 18 Mcg Cap 18 Mcg INH DAILY 1 capsule = 18 mcg Flomax (Tamsulosin HCl) 0.4 Mg Cap 0.4 Mg PO HS Diltiazem CD 24 HR 120 Mg Caper 120 Mg PO DAILY Amiodarone (Amiodarone HCl) 200 Mg Tab 200 Mg PO DAILY Advair Diskus Inh (Fluticasone-Salmeterol Inh) 250-50 Mcg/Blist Aer 1 Puff INH BID Rinse mouth after use. Review of Systems Except as stated in HPI: all other systems reviewed are Neg Respiratory: Positive: Cough, Shortness of Breath Physical Exam Narrative GENERAL: RESP DISTRESS WITH ZERO WORD DYSPNEA, TRIPOD, 80 PULSE OX ON NC ( UPGRADED TO BIPAP), HOWEVER IS ABLE TO FOLLOW COMMANDS SKIN: Warm and dry. HEAD: Atraumatic. Normocephalic. EYES: Pupils equal and round. No scleral icterus. No injection or drainage. ENT: No nasal bleeding or discharge. Mucous membranes pink and moist. NECK: Trachea midline. No JVD. CARDIOVASCULAR: TACHY HR AROUND 120'S AND IRRegular rhythm. RESPIRATORY: accessory muscle use (ABD AND NECK STRAP MUSCLES). DECREASED VOLUME DANIEL, WHEEZING DANIEL GASTROINTESTINAL: Abdomen soft, non-tender, nondistended. Hepatic and splenic margins not palpable. MUSCULOSKELETAL: Extremities without clubbing, cyanosis, or edema. No obvious deformities. NEUROLOGICAL: Awake and alert. No obvious cranial nerve deficits. Motor grossly within normal limits. Five out of 5 muscle strength in the arms and legs. Normal speech. PSYCHIATRIC: Appropriate mood and affect; insight and judgment normal. Data Data Last Documented VS Vital Signs Date Time Temp Pulse Resp B/P (MAP) Pulse Ox O2 Delivery O2 Flow Rate FiO2 02/25/17 09:00 106 25 115/65 (82) 98 BiPAP 50 02/25/17 08:06 15.00 02/25/17 07:20 97.7 Orders Orders Electrocardiogram (02/25/17 07:31) Complete Blood Count With Diff (02/25/17 07:31) Comprehensive Metabolic Panel (02/25/17 07:31) Chest, Single Ap (02/25/17 07:31) Ecg Monitoring (02/25/17 07:31) Iv Access Insert/Monitor (02/25/17 07:31) Oximetry (02/25/17 07:31) Oxygen Administration (02/25/17 07:31) Methylprednisolone So Succ Inj (Solumedr (02/25/17 07:45) Albuterol Neb (Albuterol Neb) (02/25/17 07:45) Magnesium Sulfate 1 Gm Premix (Magnesium (02/25/17 07:45) B-Type Natriuretic Peptide (02/25/17 07:31) Act Partial Throm Time (Ptt) (02/25/17 07:31) Prothrombin Time / Inr (Pt) (02/25/17 07:31) Ckmb (Isoenzyme) Profile (02/25/17 07:31) Troponin I (02/25/17 07:31) Arterial Blood Gas (Abg) (02/25/17 07:31) Urinalysis - C+S If Indicated (02/25/17 07:31) Influenzae A/B Antigen (02/25/17 07:31) Blood Culture (02/25/17 07:31) Ct Pulmonary Angiogram (02/25/17 07:31) Urinary Catheter Insert/Apply (02/25/17 07:31) Resp Bipap / Cpap Non Invas Vt (02/25/17 07:31) Lactic Acid Sepsis Protocol (02/25/17 07:41) Piperacil-Tazo 4.5 Gm Premix (Zosyn 4.5 (02/25/17 07:40) Azithromycin Inj (Zithromax Inj) (02/25/17 07:40) Tobramycin Inj (Nebcin Inj) (02/25/17 07:40) Iohexol 350 Inj (Omnipaque 350 Inj) (02/25/17 07:16) Urine Culture (02/25/17 07:44) Admit To Inpatient (02/25/17 ) Vital Signs (Adult) Q4H (02/25/17 09:02) Activity Oob With Assistance (02/25/17 09:02) Bedside Glucose BENNY.AC&HS (02/25/17 09:02) Biochemistry Professor / Telemetry .CONTINUOUS (02/25/17 09:02) Sodium Chloride 0.9% Flush (Ns Flush) (02/25/17 09:15) Sodium Chloride 0.9% Flush (Ns Flush) (02/25/17 21:00) Acetaminophen (Tylenol) (02/25/17 09:15) Ondansetron Inj (Zofran Inj) (02/25/17 09:15) Basic Metabolic Panel (Bmp) (02/26/17 06:00) Complete Blood Count With Diff (02/26/17 06:00) Resp Oxygen Lita C Titrat 1-4 L (02/25/17 ) Pt Request For Service (02/25/17 09:02) Ot Request For Service (02/25/17 09:02) Speech Therapy Consult-Eval/Tx (02/25/17 09:02) Case Management Consult (02/25/17 09:02) Zolpidem (Ambien) (02/25/17 09:15) Heparin Inj (Heparin Inj) (02/25/17 09:15) Scd Bilateral/Knee High BENNY.BID (02/25/17 09:02) Armin Bilateral/Knee High BENNY.QSHIFT (02/25/17 09:09) Naloxone Inj (Narcan Inj) (02/25/17 09:15) Docusate Sodium-Senna (Maira-Colace) (02/25/17 21:00) Magnesium Hydroxide Liq (Milk Of Magnesi (02/25/17 09:15) Sennosides (Senokot) (02/25/17 09:15) Bisacodyl Supp (Dulcolax Supp) (02/25/17 09:15) Lactulose Liq (Lactulose Liq) (02/25/17 09:15) Inpatient Certification (02/25/17 ) Albuterol Neb (Albuterol Neb) (02/25/17 09:15) Amiodarone (Cordarone) (02/26/17 09:00) Diltiazem Cd (Cardizem Cd) (02/26/17 09:00) Acetamin-Hydrocod 325-5 Mg ([place] 5-325 (02/25/17 09:15) Lorazepam (Ativan) (02/25/17 09:15) Tamsulosin (Flomax) (02/25/17 21:00) Warfarin (Coumadin) (02/26/17 16:00) Admit Order (Ed Use Only) (02/25/17 09:08) Labs Laboratory Tests Test 02/25/17 07:35 02/25/17 07:41 02/25/17 07:44 02/25/17 08:45 Blood Urea Nitrogen 44 MG/DL Creatinine 1.26 MG/DL Random Glucose 186 MG/DL Total Protein 6.5 GM/DL Albumin 1.9 GM/DL Calcium Level 9.1 MG/DL Alkaline Phosphatase 104 U/L Aspartate Amino Transf (AST/SGOT) 17 U/L Alanine Aminotransferase (ALT/SGPT) 47 U/L Total Bilirubin 0.6 MG/DL Sodium Level 141 MEQ/L Potassium Level 4.3 MEQ/L Chloride Level 107 MEQ/L Carbon Dioxide Level 19.5 MEQ/L Anion Gap 15 MEQ/L Estimat Glomerular Filtration Rate 56 ML/MIN Total Creatine Kinase 48 U/L Troponin I 0.03 NG/ML B-Type Natriuretic Peptide 34 PG/ML White Blood Count 12.8 TH/MM3 Red Blood Count 4.38 MIL/MM3 Hemoglobin 13.1 GM/DL Hematocrit 39.9 % Mean Corpuscular Volume 90.9 FL Mean Corpuscular Hemoglobin 29.9 PG Mean Corpuscular Hemoglobin Concent 32.8 % Red Cell Distribution Width 20.6 % Platelet Count 87 TH/MM3 Mean Platelet Volume 8.3 FL Neutrophils (%) (Auto) 95.9 % Lymphocytes (%) (Auto) 2.6 % Monocytes (%) (Auto) 1.4 % Eosinophils (%) (Auto) 0.0 % Basophils (%) (Auto) 0.1 % Neutrophils # (Auto) 12.3 TH/MM3 Lymphocytes # (Auto) 0.3 TH/MM3 Monocytes # (Auto) 0.2 TH/MM3 Eosinophils # (Auto) 0.0 TH/MM3 Basophils # (Auto) 0.0 TH/MM3 CBC Comment AUTO DIFF Differential Comment AUTO DIFF CONFIRMED Platelet Estimate LOW Platelet Morphology Comment NORMAL Prothrombin Time 39.3 SEC Prothromb Time International Ratio 3.4 RATIO Activated Partial Thromboplast Time 49.5 SEC Urine Color YELLOW Urine Turbidity HAZY Urine pH 5.5 Urine Specific [place] 1.020 Urine Protein 30 mg/dL Urine Glucose (UA) NEG mg/dL Urine Ketones NEG mg/dL Urine Occult Blood LARGE Urine Nitrite NEG Urine Bilirubin NEG Urine Urobilinogen LESS THAN 2.0 MG/DL Urine Leukocyte Esterase SMALL Urine RBC /hpf Urine WBC 17 /hpf Urine Squamous Epithelial Cells <1 /hpf Urine Bacteria OCC /hpf Urine Hyaline Casts 6 /lpf Urine Granular Casts 4 /lpf Urine Mucus FEW /lpf Microscopic Urinalysis Comment CULTURE INDICATED Lactic Acid Level 3.7 mmol/L Blood Gas Puncture Site RT RADIAL Blood Gas Patient Temperature 98.6 Blood Gas HCO3 16 mmol/L Blood Gas Base Excess -6.8 mmol/L Blood Gas Oxygen Saturation 95 % Arterial Blood pH 7.48 Arterial Blood Partial Pressure CO2 22 mmHg Arterial Blood Partial Pressure O2 85 mmHG Arterial Blood Oxygen Content 19.0 Vol % Arterial Blood Carboxyhemoglobin 1.1 % Arterial Blood Methemoglobin 0.8 % Blood Gas Hemoglobin 14.2 G/DL Oxygen Delivery Device BIPAP Blood Gas Ventilator Setting EPAP 5 IPAP 12 Blood Gas Inspired Oxygen 50 % [facility] Medical Decision Making Medical Screen Exam Complete: Yes Emergency Medical Condition: Yes Medical Record Reviewed: Yes Interpretation(s) HEAVY MOTION ARTIFACT...SINUS TACH 118, NO STEMI PATTERN, NONSPEC STT CHANGES NOTED Differential Diagnosis PNA V COPD EXAC V HYPOXEMIA V SEPSIS Narrative Course patient recieved aggressive respiratory assistance with bipap, which greatly improved hypoxemia, additionally based on new infiltrate finding, iv abx for hcap was given since recent d/c and return from [place]. steroids and nebs given as well. patient stabilized and will admit to dr rosa Critical Care Narrative CRITICAL CARE NOTE: With evaluation of the patient, labs, EKG, receipt of radiologic studies, administration of medications, reevaluation the patient and discussion of the patient with the admitting physicians, the total critical care time was [60] minutes. Time to perform other separately billable procedures was not included in the critical care time. Diagnosis Primary Impression: Acute respiratory failure with hypoxemia Admitting Information Admitting Physician Requests: Admit Gopal Hernandez MD Feb 25, 2017 07:31
[2017-02-25] MEDS ORDERED: TOBRAMYCIN INJ 100 MG in SODIUM CHLORIDE 0.9% INJ 100 ML IV STA (07:40)
[2017-02-25] MEDS ORDERED: PIPERACIL-TAZO 4.5 GM PREMIX 100 ML IV STA (07:40)
[2017-02-25] MEDS ORDERED: AZITHROMYCIN INJ 500 MG in SODIUM CHLOR 0.9% 250 ML INJ 250 ML IV STA (07:40)
[2017-02-25] MEDS ORDERED: methylPREDNISolone SOD SUCC 125 MG/2 ML VIAL IVP ONE (07:45)
[2017-02-25] MEDS ORDERED: MAGNESIUM SULFATE 1 GM PREMIX 100 ML IV ONE (07:45)
[2017-02-25 07:56] LABS: AUTOMATED NEUTROPHIL # 12.3 TH/MM3 (1.8-7.7); BASOPHIL % 0.1 % (0.0-2.0); HEMATOCRIT 39.9 % (39.0-51.0); LYMPH % 2.6 % (9.0-44.0); LYMPHOCYTE # 0.3 TH/MM3 (1.0-4.8); MEAN CELL VOLUME 90.9 FL (80.0-100.0); MEAN CORPUSCULAR HEMOGLOBIN 29.9 PG (27.0-34.0); MEAN CORPUSCULAR HGB CONC 32.8 % (32.0-36.0); MONO % 1.4 % (0.0-8.0); NEUT % 95.9 % (16.0-70.0); PLATELET COUNT 87 TH/MM3 (150-450); RED BLOOD COUNT 4.38 MIL/MM3 (4.50-5.90); RED CELL DISTRIBUTION WIDTH 20.6 % (11.6-17.2); WHITE BLOOD COUNT 12.8 TH/MM3 (4.0-11.0)
[2017-02-25 08:00] LABS: HEMO FLAGS AUTO DIFF
[2017-02-25] MEDS: RESP: ALBUTEROL 2.5 MG/3 ML NEB (SCH) INH ×3 (08:00→08:27)
--- NOTE | 2017-02-25 08:07 | RADRPT ---
EXAM DATE/TIME: 02/25/2017 07:41 [facility] COMPARISON: CHEST SINGLE AP, February 18, 2017, 15:19. INDICATIONS : Chest pain and shortness of breath. MEDICAL HISTORY : Hypertension. Chronic obstructive pulmonary disease. Diabetes mellitus type SURGICAL HISTORY : ENCOUNTER: Initial ACUITY: 1 day PAIN SCORE: 6/10 LOCATION: Bilateral upper chest FINDINGS: A single portable frontal view the chest shows mild interstitial prominence to the right upper lobe n ear the apex. This is a new finding. Remaining lungs are clear. No intra-alveolar infiltrates. No eff usions. The heart is normal in size. Aorta is calcified and somewhat tortuous. CONCLUSION: Mild interstitial prominence to the right apex which is a new finding. Exact etiology is uncertain. T his would be an atypical appearance for pulmonary edema. A localized interstitial pneumonitis could h ave this appearance. Dennis Gupta Jr., MD on February 25, 2017 at 7:58 Board Certified Radiologist. This report was verified electronically.
[2017-02-25 08:08] LABS: APTT (PATIENT) 49.5 SEC (24.3-30.1); INTERNATIONAL NORMALIZED RATIO 3.4 RATIO; PROTHROMBIN TIME - PATIENT 39.3 SEC (9.8-11.6)
[2017-02-25 08:10] LABS: BACTERIA, URINE OCC /hpf; BLOOD, URINE LARGE (NEG); GLUCOSE,URINE NEG (NEG); GRANULAR CAST, URINE 4 /lpf; HYALINE CAST, URINE 6 /lpf (RARE); KETONE, URINE NEG (NEG); MUCUS URINE FEW /lpf (OCC); NITRITE,URINE NEG (NEG); PH, URINE 5.5 (5.0-8.5); SQUAMOUS EPITHELIAL CELL URINE <1 /hpf (0-5); URINE COLOR YELLOW (YELLW/STRAW)
[2017-02-25 08:13] LABS: COMMENT (UR) CULTURE INDICATED; CULTURE IF INDICATED CULTURE INDICATED
[2017-02-25 08:15] LABS: ALT (GPT) 47 U/L (12-78); AST (GOT) 17 U/L (15-37); BICARBONATE 19.5 MEQ/L (21.0-32.0); BLOOD UREA NITROGEN 44 MG/DL (7-18); GLOMERULAR FILTRATION RATE 56 ML/MIN (>89)
--- NOTE | 2017-02-25 08:27 | RADRPT ---
EXAM DATE/TIME: 02/25/2017 08:08 [facility] COMPARISON: CHEST SINGLE AP, February 18, 2017, 15:19. INDICATIONS : Short of breath IV CONTRAST: 73 cc Omnipaque 350 (iohexol) IV RADIATION DOSE: 23.21 CTDIvol (mGy) MEDICAL HISTORY : Hypertension. Chronic obstructive pulmonary disease. Diabetes mellitus type 2. SURGICAL HISTORY : None. ENCOUNTER: Initial ACUITY: 2 days PAIN SCALE: 0/10 LOCATION: n/a TECHNIQUE: Volumetric scanning of the chest was performed using a pulmonary embolism protocol MIP images were re constructed. Using automated exposure control and adjustment of the mA and/or kV according to patien t size, radiation dose was kept as low as reasonably achievable to obtain optimal diagnostic quality images. DICOM format image data is available electronically for review and comparison. Follow-up recommendations for detected pulmonary nodules are based at a minimum on nodule size and pa tient risk factors according to Fleischner Society Guidelines. FINDINGS: The study is degraded by breathing motion artifact. PULMONARY ARTERIES: The central pulmonary emboli are without filling defects. No pulmonary embolus appreciated. The more peripheral branches are limited in their evaluation due to the motion artifact. LUNGS: Diffuse interstitial infiltrates are observed throughout the lungs bilaterally but more pronounced wi thin the upper lobes. No intra-alveolar opacities are seen. No appreciable bronchiectasis. PLEURAE: There is no pleural thickening or pleural effusion. MEDIASTINUM: The heart is mildly enlarged with tiny pericardial effusion. Coronary artery atherosclerotic calcific ations noted. Aorta is normal in caliber although with calcified atherosclerotic plaque. Pulmonary ar teries are normal in caliber. No adenopathy. MUSCULOSKELETAL: Within normal limits for patient age. MISCELLANEOUS: The visualized upper abdominal organs demonstrate no acute abnormality. CONCLUSION: 1. Study degraded by breathing motion artifact. These were the best obtainable images. 2. No pulmonary embolus observed within the more central pulmonary arteries. Peripheral pulmonary art eries are limited in their evaluation due to the breathing motion artifact. 3. Diffuse interstitial infiltrates more pronounced within the upper lobes. Differential diagnostic c onsiderations are quite broad at this point. The more common etiologies include usual interstitial pn eumonitis as well as hypersensitivity pneumonitis. Dennis Gupta Jr., MD on February 25, 2017 at 8:15 Board Certified Radiologist. This report was verified electronically.
[2017-02-25 08:52] LABS: PLATELET ESTIMATE SMEAR LOW (NORMAL); PLATELET MORPHOLOGY NORMAL (NORMAL); SCAN/DIFF AUTO DIFF CONFIRMED
[2017-02-25 08:53] LABS: ALKALINE PHOSPHATASE 104 U/L (45-117); ANION GAP 15 MEQ/L (5-15); TOTAL BILIRUBIN ADULT 0.6 MG/DL (0.2-1.0)
[2017-02-25 08:57] LABS: CHLORIDE 107 MEQ/L (98-107); POTASSIUM 4.3 MEQ/L (3.5-5.1); SODIUM (NA) 141 MEQ/L (136-145)
[2017-02-25 08:58] LABS: BLOOD GAS BASE EXCESS -6.8 mmol/L (-2-2); BLOOD GAS CARBOXYHEMOGLOBIN 1.1 % (0-4); BLOOD GAS HCO3 16 mmol/L (22-26); BLOOD GAS METHEMOGLOBIN 0.8 % (0-2); BLOOD GAS O2 HGB SATURATION 95 % (90-100); BLOOD GAS PCO2 22 mmHg (38-42); BLOOD GAS PO2 85 mmHG (61-120); BLOOD GAS TOTAL HGB 14.2 G/DL (12.0-16.0); TEMP CORR TO 98.6
[2017-02-25 08:59] LABS: DRAW SITE RT RADIAL; FIO2 50 %; NUMBER OF ARTERIAL PUNCTURES 1; OXYGEN DEVICE BIPAP; STAT YES; ULNAR PULSE PRESENT; VENT SETTINGS EPAP 5 IPAP 12
[2017-02-25 09:01] LABS: CREATINE KINASE 48 U/L (39-308)
[2017-02-25] MEDS ORDERED: Vancomycin Consult Pharmacy 1 EA OTHER SCH (09:15)
[2017-02-25] MEDS ORDERED: BISACODYL 10 MG SUPP RECTAL PRN (09:15)
[2017-02-25] MEDS ORDERED: NALOXONE HCL 0.4 MG/ML AMP IV PRN (09:15)
[2017-02-25] MEDS ORDERED: MAGNESIUM HYDROXIDE SUSP 30 ML CUP PO PRN (09:15)
[2017-02-25] MEDS ORDERED: LACTULOSE SYRUP 20 GM/30 ML CUP PO PRN (09:15)
[2017-02-25] MEDS ORDERED: SENNOSIDES 8.6 MG TAB PO PRN (09:15)
[2017-02-25] MEDS ORDERED: HEPARIN SODIUM - SQ 10,000 UNITS/ML VIAL SQ SCH (09:15)
[2017-02-25] MEDS ORDERED: ONDANSETRON HCL 4 MG/2 ML VIAL IVP PRN (09:15)
[2017-02-25] MEDS ORDERED: ACETAMINOPHEN 325 MG TAB PO PRN (09:15)
[2017-02-25] MEDS ORDERED: hydrALAZINE HCL 20 MG/ML VIAL IV PUSH PRN (09:15)
[2017-02-25 09:48] LABS: LACTIC ACID GHOST NOT REPORTABLE
[2017-02-25] MEDS: DEXT 5%-NACL 0.45% 1000 ML INJ 1,000 ML IV SCH (10:45)
[2017-02-25] MEDS: ACETAMINOPHEN/HYDROcodone 325 MG/5 MG TAB PO PRN ×2 (10:46→15:44)
[2017-02-25] MEDS: PANTOPRAZOLE SODIUM 40 MG VIAL IV PUSH SCH (10:46)
[2017-02-25] MEDS ORDERED: VANCOMYCIN INJ 2,000 MG in SODIUM CHLORID 0.9% 500 ML INJ 500 ML IV ONE (11:00)
[2017-02-25] MEDS: RESP: ALBUTEROL 2.5 MG/IPRATROPIUM 0.5 MG NEB (SCH) NEB ×3 (12:04→22:38)
--- NOTE | 2017-02-25 13:26 | OTSOAPIP ---
ATTEMPTED OCCUPATIONAL THERAPY EVALUATION, HOWEVER PATIENT JUST ADMITTED AND ON BIPAP. NURSING REQUESTS TO DEFER. PATIENT BEING TRANSFERRED TO INTENSIVE MEDICAL UNIT. WILL FOLLOW UP WITH PATIENT NEXT DAY. Therapist: Kylee Santana, OTR/L Signature on file
--- NOTE | 2017-02-25 13:44 | MH ---
cc: FREDERIC DALAL MD DATE OF ADMISSION: 02/25/2017 CHIEF COMPLAINT Respiratory failure. HISTORY OF PRESENT ILLNESS Frederic Tripathi is a 77-year-old male recently discharged to [facility] nursing [facility]. He had recently been discharged here from [facility] post successful treatment of pneumonia, congestive heart failure and chronic obstructive pulmonary disease. He presented to the nursing home [facility] and began experiencing shortness of breath and coughing. An IV was placed. The nurse practitioner from another doctor there evaluated the patient and started him on IV with steroid treatment Lasix and am unsure if they started him on antibiotics. The medical artist began seen the patient. Dr. Mendes evaluated it was on his way to evaluate the patient last night. I was called this morning by the nursing home admissions director there for an update and they subsequently send the patient back to [facility] emergency room. The patient was seen in the emergency room and I have discussed it with Dr. Carroll de la cruz in the emergency room physician. He send the patient for a CT scan of the chest was started and does not. There is motion artifact no PE, however, diffuse interstitial infiltrates more pronounced within the upper lobes, likely interstitial pneumonitis or hypersensitivity pneumonitis. The chest x-ray Shows a new findings of the right apex might appears to be localized interstitial pneumonitis. The patient was given Zosyn and azithromycin in the emergency room. He was started on BiPap as his O2 was reported to be in the 70s. O2 is come up nicely on BiPap to 100%. He is then placed on a non-rebreather. His pulses remained elevated. Conference with the patient and his family. They are wanting aggressive treatment. The patient states he is feeling a bit better. LABORATORY DATA WBCs 12.8, platelets 87, INR 3.4, creatinine 1.26, glucose 186, lactic acid 3.7, albumin 1.9. Urinalysis shows large blood, occasional bacteria. On ABG bicarb is low, pH 7.48, pCO2 is 22. PAST MEDICAL HISTORY: 1. Coronary artery disease. 2. Chronic obstructive pulmonary disease 3. Hyperkalemia 4. Sepsis. 5. Recurrent cellulitis the legs including venostasis dermatitis of the legs. 6. Respiratory failure. 7. Home O2 usage. 8. Diabetes. 9. Atrial fibrillation 10. Hypertension 11. Chronic pain syndrome 12. Anemia of chronic disease. 13. Thrombocytopenia. PAST SURGICAL HISTORY None. FAMILY HISTORY Mother and father with no significant illnesses. He recalls. REVIEW OF SYSTEMS Review of systems, shortness of breath, weakness, hypoxia. Negative 14-point review of systems except as above. MEDICATIONS 1. Coumadin 2 mg daily next is. 2. Amiodarone 200 mg daily next is. 3. Albuterol p.r.n. 4. Diltiazem CD 5. Lasix. 6. Flomax 7. Ambien. 8. Ativan as needed 9. Levaquin 10. 17/01. 11. Spiriva 12. Advair 250 b.i.d. PHYSICAL EXAMINATION: VITAL SIGNS: Temperature 97.7, pulse 119, respirations 27, blood pressure 120/76, pulse ox 94% on non-rebreather. IN GENERAL: He is an alert male in obvious distress he is on BiPap. Speaks in two to three word sentences at best. CHEST: Distant breath sounds. He is tachypneic and has rhonchi to the apices and a congested cough. CARDIOVASCULAR SYSTEM: He is tachycardiac and regular. No murmurs. ABDOMEN: Abdomen is obese, distended. Normoactive bowel sounds. Nontender. EXTREMITIES: Trace edema in the feet and stasis changes in the legs. There is no is active cellulitis. NEUROLOGIC: A and O times three. He is in distress and moves all his extremities, 2/5 weakness in all extremities. Cranial nerves are grossly intact. Sensation is intact bilaterally. ASSESSMENT: Respiratory failure. Sepsis Health care associated pneumonia, likely due to aspiration and COPD. Lactic acidosis COPD Sleep apnea Atrial fibrillation Chronic kidney disease stage III Diabetes Hypertension. History of hyperkalemia and hypokalemia recurrently. Chronic pain syndrome. Anemia of chronic disease Thrombocytopenia PLAN: 1. BiPap 2. Check EKG 3. IV Zosyn 4. IV vancomycin 5. D5 one half-normal saline at 70 mls per hour and monitor for fluid overload. 6. Amiodarone 200 mg p.o. daily 7. Lasix 40 IV b.i.d. 8. Coumadin dose per pharmacy and I will currently hold as he is coumadin toxic. 9. Ativan by mouth as needed. 10. Solu-Medrol 125 mg IV q.6 h 11. Protonix 40 mg IV daily for GI prophylaxis 12. Blood cultures 13. Urine culture 14. Telemetry 15. SCDs 16. TEDs 17. Physical therapy 18. Occupational therapy 19. Speech therapy 20. Inpatient admission for respiratory failure and sepsis with lactic acidosis. 21. The patient would have if he stayed in the nursing home facility much longer. 22. The patient will need to return to nursing home facility upon discharge or appears he would need palliative care with possible Hospice. Frederic Dalal MD RP/shabbir /9:18 AM /1:06 PM
[2017-02-25] MEDS ORDERED: methylPREDNISolone SOD SUCC 125 MG/2 ML VIAL IV PUSH SCH (14:00)
[2017-02-25] MEDS ORDERED: PIPERACIL-TAZO 3.375 GM PREMIX 50 ML IV SCH (15:00)
[2017-02-25] MEDS ORDERED: CHLORHEXIDINE GLUCONATE 2 % 1 PACK (2 CLOTHS)(extra cloths) TOPICAL PRN (17:00)
[2017-02-25] MEDS: FUROSEMIDE 40 MG/4 ML VIAL IV PUSH SCH (18:13)
--- NOTE | 2017-02-25 20:26 | EKG ---
Date Performed: 02/25/2017 Time Performed: 07:29:42 PTAGE: 77 years EKG: SIGNIFICANT BASELINE ARTIFACT PROBABLE SINUS TACHYCARDIA VS AFIB PREMATURE COMPLEXES BORDER LINE LEFT AXIS DEVIATION NONSPECIFIC T-WAVE ABNORMALITY ABNORMAL RHYTHM ECG Compared to the PREVIOUS TRACING , previously normal Sinus rhythm DOCTOR: Mart Mckeon Interpretating Date/Time 02/25/2017 20:25:05
--- NOTE | 2017-02-25 20:38 | PD.ID.CON ---
History of Present Illness Service ID Consult Requested By Reason for Consult Evaluation and Mment of Sepsis possible HCAP pneumonia. Primary Care Physician Frederic Reddy MD Diagnoses: History of Present Illness Mr. Tripathi is a 76 y/o CM with past medical history significant for diabetes type 2, COPD, pneumonia with recent admission for PNA and discharged to a detention facility [facility]. Patient's past medical history is also significant for recurrent cellulitis and has been seen by infectious disease as recently as in December 2016 and was discharged with a PICC line and ceftriaxone IV. Thereafter, the patient was admitted to the hospital for pneumonia and congestive heart failure and possibly COPD exacerbation. He presented to the detention facility and began experiencing shortness of breath and coughing. Patient was started on IV antibiotics as well as steroid treatments and Lasix while at the residential and many continued to deteriorate he was sent to the [facility] emergency department. In the emergency department chest x-ray was done which showed possible pneumonitis and therefore a CT scan was done which did not show any PE but there were diffuse interstitial pneumonitis or hypersensitivity pneumonitis on CT scan. Sepsis workup initiated and empiric antibiotics after blood cultures were obtained. At the time of my evaluation patient is in the [facility] appears to be very sick and is currently on BiPAP mode. He is unable to take his BiPAP off as he gets really short of breath. No fevers. He is currently not on any vasopressors. His urine output is okay. WBCs 12.8, platelets 87, INR 3.4, creatinine 1.26, glucose 186, lactic acid 3.7, albumin 1.9. Urinalysis shows large blood, occasional bacteria. On ABG bicarb is low, pH 7.48, pCO2 is 22. Infectious disease were consulted for evaluation and management of sepsis possible healthcare associated pneumonia. Review of Systems ROS Limitations: Clinical Condition, Poor Historian Constitutional: DENIES: Diaphoretic episodes, Fatigue, Fever, Weight gain, Weight loss, Chills, Dizziness, Change in appetite, Night Sweats Endocrine: DENIES: Heat/cold intolerance, Polydipsia, Polyuria, Polyphagia Eyes: DENIES: Blurred vision, Diplopia, Eye inflammation, Eye pain, Vision loss , Photosensitivity, Double Vision Ears, nose, mouth, throat: DENIES: Tinnitus, Hearing loss, Vertigo, Nasal discharge, Oral lesions, Throat pain, Hoarseness, Ear Pain, Running Nose, Epistaxis, Sinus Pain, Toothache, Odynophagia Respiratory: COMPLAINS OF: Cough, Shortness of breath, DENIES: Apneas, Snoring , Wheezing, Hemoptysis, Sputum production Cardiovascular: DENIES: Chest pain, Palpitations, Syncope, Dyspnea on Exertion , PND, Lower Extremity Edema, Orthopnea, Claudication Gastrointestinal: DENIES: Abdominal pain, Black stools, Bloody stools, Constipation, Diarrhea, Nausea, Vomiting, Difficulty Swallowing, Anorexia Genitourinary: DENIES: Sexual dysfunction, Urinary frequency, Urinary incontinence, Urgency, Hematuria, Dysuria, Nocturia, Penile Discharge, Testicular Pain, Testicular Swelling Musculoskeletal: DENIES: Joint pain, Muscle aches, Stiffness, Joint Swelling, Back pain, Neck pain Integumentary: DENIES: Abnormal pigmentation, Nail changes, Pruritus, Rash Hematologic/lymphatic: DENIES: Bruising, Lymphadenopathy Immunologic/allergic: DENIES: Eczema, Urticaria Neurologic: DENIES: Abnormal gait, Headache, Localized weakness, Paresthesias, Seizures, Speech Problems, Tremor, Poor Balance Psychiatric: DENIES: Anxiety, Confusion, Mood changes, Depression, Hallucinations, Agitation, Suicidal Ideation, Homicidal Ideation, Delusions Except as stated in HPI: all other systems reviewed are Neg Past Family Social History Allergies: Coded Allergies: No Known Allergies (Unverified , 01/19/17) Past Medical History afib COPD CKD DM skin CA LLE Past Surgical History skin ca LLE Reported Medications Reported Meds & Active Scripts Active Ambien (Zolpidem Tartrate) 5 Mg Tab 5 Mg PO HS PRN Ativan (Lorazepam) 0.5 Mg Tab 0.5 Mg PO Q8H PRN Eq Acetaminophen (Acetaminophen) 325 Mg Tab 650 Mg PO Q4H PRN 30 Days Hydrocodone-Acetaminophen 5-325 mg Tab 1 Tab PO Q4H PRN Albuterol Neb (Albuterol Sulfate) 2.5 Mg/3 Ml Neb 2.5 Mg NEB Q6HR NEB PRN 60 Days Levaquin (Levofloxacin) 500 Mg Tablet 500 Mg PO DAILY 3 Days Lancets 1 Mis Mis 1 Ea .ROUTE DIRECTED Blood Glucose Test Strips Strips Strip 1 Ea .ROUTE DIRECTED Blood Glucose Test Strips Strips Strip 1 Ea .ROUTE DIRECTED Blood Glucose Monitor (Blood-Glucose Meter) 1 Each Kit Bottle Oxygen tank (Oxygen) 1 Ea Tank 2 Liter LITA.CANULA CONTINUOUS Oxygen Concentrator Portable Gaseous 2 L/min via Nasal Cannula Continuous For 99 months Oxygen (O2) Device 2 Liter LITA.CANULA CONTINUOUS Oxygen Concentrator Portable Gaseous 2 L/min via Nasal Canula Continuous For 99 months Warfarin 2 Mg Tab 2 Mg PO DAILY Reported Spiriva Handihaler (Tiotropium Inh) 18 Mcg Cap 18 Mcg INH DAILY 1 capsule = 18 mcg Flomax (Tamsulosin HCl) 0.4 Mg Cap 0.4 Mg PO HS Diltiazem CD 24 HR 120 Mg Caper 120 Mg PO DAILY Amiodarone (Amiodarone HCl) 200 Mg Tab 200 Mg PO DAILY Advair Diskus Inh (Fluticasone-Salmeterol Inh) 250-50 Mcg/Blist Aer 1 Puff INH BID Rinse mouth after use. Active Ordered Medications Current Medications Medications (Trade) Dose Ordered Sig/Lucas Route Start Time Stop Time Status Last Admin (NS Flush) 2 ml UNSCH PRN IV FLUSH 02/25/17 09:15 (NS Flush) 2 ml BID IV FLUSH 02/25/17 21:00 (Tylenol) 650 mg Q4H PRN PO 02/25/17 09:15 (Zofran Inj) 4 mg Q6H PRN IVP 02/25/17 09:15 (Ambien) 5 mg HS PRN PO 02/25/17 09:15 (Narcan Inj) 0.4 mg UNSCH PRN IV 02/25/17 09:15 (Maira-Colace) 1 tab BID PO 02/25/17 21:00 (Milk Of Magnesia Liq) 30 ml Q12H PRN PO 02/25/17 09:15 (Senokot) 17.2 mg Q12H PRN PO 02/25/17 09:15 (Dulcolax Supp) 10 mg DAILY PRN RECTAL 02/25/17 09:15 (Lactulose Liq) 30 ml DAILY PRN PO 02/25/17 09:15 (Albuterol Neb) 2.5 mg Q6HR NEB PRN NEB 02/25/17 09:15 (Cordarone) 200 mg DAILY PO 02/26/17 09:00 (Cardizem Cd) 120 mg DAILY PO 02/26/17 09:00 ([place] 5-325 Mg) 1 tab Q4H PRN PO 02/25/17 09:15 02/25/17 15:44 (Ativan) 0.5 mg Q8H PRN PO 02/25/17 09:15 (Flomax) 0.4 mg HS PO 02/25/17 21:00 (Coumadin) 2 mg DAILY@1600 PO 02/26/17 16:00 Future Hold (Apresoline Inj) 20 mg Q4H PRN IV PUSH 02/25/17 09:15 Pharmacy Profile Note 0 ml @ 0 mls/hr UNSCH OTHER 02/25/17 09:15 (Lasix Inj) 40 mg BID@,18 IV PUSH 02/25/17 18:00 02/25/17 18:13 (Protonix Inj) 40 mg Q24H IV PUSH 02/25/17 10:00 02/25/17 10:46 Piperacillin Sod/ Tazobactam Sod 50 ml @ 100 mls/hr Q6H IV 02/25/17 15:00 02/25/17 15:39 Pharmacy Profile Note 0 ml @ 0 mls/hr UNSCH OTHER 02/25/17 09:15 (Duoneb Neb) 1 ampule QID NEB NEB 02/25/17 12:00 02/25/17 17:35 Dextrose/Sodium Chloride 1,000 ml @ 70 mls/hr Q14K37H IV 02/25/17 10:00 02/25/17 10:45 (Coumadin Booklet) 1 ONCE ONCE OTHER 02/26/17 16:00 02/26/17 16:01 Vancomycin HCl 1000 mg/Sodium Chloride 250 ml @ 250 mls/hr Q12H IV 02/26/17 01:00 Miscellaneous Information SPECIFIC LAB TO BE [facility]LEN[facility]... ONCE ONCE .XX 02/27/17 00:45 02/27/17 00:46 Miscellaneous Information Patient in critical care unit? Ass... Q361D .XX 02/25/17 17:00 (Chlorhexidine 2% Cloth) 3 pack DAILY@04 TOPICAL 02/26/17 04:00 03/02/17 04:01 (Chlorhexidine 2% Cloth) 3 pack UNSCH PRN TOPICAL 02/25/17 17:00 03/02/17 16:52 (SoluMEDROL INJ) 60 mg Q6H IV PUSH 02/25/17 20:00 (Symbicort 160-4.5 Inh) 1 puff Q12HR INH 02/25/17 21:00 (Zithromax) 500 mg DAILY PO 02/26/17 09:00 UNV Family History Non contributory. Patient on BiPAP difficult to obtain details. Social History quit Tobacco 2 yrs ago quit ETOH. 15 days ago No Illicit Drugs Physical Exam Vital Signs Vital Signs Date Time Temp Pulse Resp B/P (MAP) Pulse Ox O2 Delivery O2 Flow Rate FiO2 02/25/17 18:04 92 50 02/25/17 18:00 91 02/25/17 17:06 98.3 83 36 110/64 (79) 95 02/25/17 13:15 100 02/25/17 13:10 99 15 130/78 (95) 98 02/25/17 13:08 98.0 93 33 103/64 (77) 98 02/25/17 12:05 96 50 02/25/17 12:00 106 25 116/72 (87) 98 BiPAP 50 02/25/17 11:46 15 02/25/17 11:30 100 25 110/65 (80) 98 BiPAP 50 02/25/17 11:00 100 23 110/65 (80) 98 BiPAP 50 02/25/17 10:30 102 23 117/69 (85) 98 BiPAP 50 02/25/17 10:00 102 26 132/72 (92) 98 BiPAP 50 02/25/17 09:30 110 24 133/77 (95) 98 BiPAP 50 02/25/17 09:00 106 25 115/65 (82) 98 BiPAP 50 02/25/17 08:30 110 22 127/65 (85) 98 BiPAP 50 02/25/17 08:06 119 27 120/76 (91) 94 Non-Rebreather 15.00 02/25/17 08:00 100 Non-Rebreather 15.00 02/25/17 07:31 140 28 132/72 (92) 99 BiPAP 02/25/17 07:25 99 BiPAP 02/25/17 07:25 82 100 02/25/17 07:20 97.7 112 15 119/67 (84) 75 02/25/17 07:20 112 28 75 Nasal Cannula 5.00 Physical Exam GENERAL: This is a well-nourished, well-developed patient, in no apparent distress. SKIN: No rashes, ecchymoses or lesions. Cool and dry. HEAD: Atraumatic. Normocephalic. No temporal or scalp tenderness. EYES: Pupils equal round and reactive. No scleral icterus. No injection or drainage. ENT: Nose without bleeding, purulent drainage or septal hematoma. Throat without erythema, tonsillar hypertrophy or exudate. Uvula midline. Airway patent. NECK: Trachea midline. Supple, nontender, no meningeal signs. CARDIOVASCULAR: Regular rate and rhythm without murmurs, gallops, or rubs. RESPIRATORY: Clear to auscultation. Breath sounds equal bilaterally but decreased in the bases. GASTROINTESTINAL: Abdomen soft, non-tender, nondistended. No hepato-splenomegaly , or palpable masses. No guarding. MUSCULOSKELETAL: Extremities without clubbing, cyanosis, or edema. No joint tenderness, effusion, or edema noted. No calf tenderness. Negative Homans sign bilaterally. Chronic skin changes, stasis related discoloration. NEUROLOGICAL: Awake and alert. Grossly non focal Psych: cooperative IV line sites with no e.o infection. Laboratory Laboratory Tests Test 02/25/17 07:35 02/25/17 07:41 02/25/17 07:44 02/25/17 08:45 Blood Urea Nitrogen 44 Creatinine 1.26 Random Glucose 186 Total Protein 6.5 Albumin 1.9 Calcium Level 9.1 Alkaline Phosphatase 104 Aspartate Amino Transf (AST/SGOT) 17 Alanine Aminotransferase (ALT/SGPT) 47 Total Bilirubin 0.6 Sodium Level 141 Potassium Level 4.3 Chloride Level 107 Carbon Dioxide Level 19.5 Anion Gap 15 Estimat Glomerular Filtration Rate 56 Total Creatine Kinase 48 Troponin I 0.03 B-Type Natriuretic Peptide 34 White Blood Count 12.8 Red Blood Count 4.38 Hemoglobin 13.1 Hematocrit 39.9 Mean Corpuscular Volume 90.9 Mean Corpuscular Hemoglobin 29.9 Mean Corpuscular Hemoglobin Concent 32.8 Red Cell Distribution Width 20.6 Platelet Count 87 Mean Platelet Volume 8.3 Neutrophils (%) (Auto) 95.9 Lymphocytes (%) (Auto) 2.6 Monocytes (%) (Auto) 1.4 Eosinophils (%) (Auto) 0.0 Basophils (%) (Auto) 0.1 Neutrophils # (Auto) 12.3 Lymphocytes # (Auto) 0.3 Monocytes # (Auto) 0.2 Eosinophils # (Auto) 0.0 Basophils # (Auto) 0.0 CBC Comment AUTO DIFF Differential Comment AUTO DIFF CONFIRMED Platelet Estimate LOW Platelet Morphology Comment NORMAL Prothrombin Time 39.3 Prothromb Time International Ratio 3.4 Activated Partial Thromboplast Time 49.5 Urine Color YELLOW Urine Turbidity HAZY Urine pH 5.5 Urine Specific [place] 1.020 Urine Protein 30 Urine Glucose (UA) NEG Urine Ketones NEG Urine Occult Blood LARGE Urine Nitrite NEG Urine Bilirubin NEG Urine Urobilinogen LESS THAN 2.0 Urine Leukocyte Esterase SMALL Urine RBC Urine WBC 17 Urine Squamous Epithelial Cells <1 Urine Bacteria OCC Urine Hyaline Casts 6 Urine Granular Casts 4 Urine Mucus FEW Microscopic Urinalysis Comment CULTURE INDICATED Lactic Acid Level 3.7 Blood Gas Puncture Site RT RADIAL Blood Gas Patient Temperature 98.6 Blood Gas HCO3 16 Blood Gas Base Excess -6.8 Blood Gas Oxygen Saturation 95 Arterial Blood pH 7.48 Arterial Blood Partial Pressure CO2 22 Arterial Blood Partial Pressure O2 85 Arterial Blood Oxygen Content 19.0 Arterial Blood Carboxyhemoglobin 1.1 Arterial Blood Methemoglobin 0.8 Blood Gas Hemoglobin 14.2 Oxygen Delivery Device BIPAP Blood Gas Ventilator Setting EPAP 5 IPAP 12 Blood Gas Inspired Oxygen 50 Test 02/25/17 12:05 02/25/17 13:30 Lactic Acid Level 2.3 Date/Time Source Procedure Growth Status 02/25/17 07:41 Blood Peripheral Aerobic Blood Culture Pending Received 02/25/17 07:41 Blood Peripheral Anaerobic Blood Culture Pending Received 02/25/17 08:00 Nasal Washing Influenza Types A,B Antigen ([facility]IL[facility]) - Final NEGATIVE FOR FLU A AND B ANTIGEN.... Complete 02/25/17 07:44 Urine Clean Catch Urine Culture Pending Received Result Diagram: 02/25/17 0741 02/25/17 0735 Imaging Last Impressions Chest X-Ray 02/25/17730 Signed Impressions: Service Date/Time: Saturday, February 25, 2017 07:41 - CONCLUSION: Mild interstitial prominence to the right apex which is a new finding. Exact etiology is uncertain. This would be an atypical appearance for pulmonary edema. A localized interstitial pneumonitis could have this appearance. Dennis Gupta Jr., MD CT Angiography 02/25/17730 Signed Impressions: Service Date/Time: Saturday, February 25, 2017 08:08 - CONCLUSION: 1. Study degraded by breathing motion artifact. These were the best obtainable images. 2. No pulmonary embolus observed within the more central pulmonary arteries. Peripheral pulmonary arteries are limited in their evaluation due to the breathing motion artifact. 3. Diffuse interstitial infiltrates more pronounced within the upper lobes. Differential diagnostic considerations are quite broad at this point. The more common etiologies include usual interstitial pneumonitis as well as hypersensitivity pneumonitis. Dennis Gupta Jr., MD Assessment and Plan Assessment and Plan Pneumonia: CAP vs HCAP (recent admission to hospital) Rule out Sepsis. Leucocytosis and elevated lactic acid. Acute COPD exacerbation Acute resp failure: on BiPAP. DM2 uncontrolled. CKD stage III Recs Continue Zosyn increase dose to PSAE doses. Continue Vanco IV (target 15-20) Start Azithro for atypical PNA. Check Urine legionella antigen Check Pneumococcal antigen. Follow cultures Follow clinically. covering for me this weekend. Darline Gallardo MD Feb 25, 2017 20:38
[2017-02-25] MEDS: TAMSULOSIN HCL 0.4 MG CAP PO SCH (21:00)
[2017-02-25] MEDS: BUDESONIDE-FORMOTEROL 160/4.5 MCG INHALER INH SCH (21:00)
[2017-02-25] MEDS: DOCUSATE SODIUM 50 MG/SENNA 8.6 MG TAB PO SCH (21:00)
[2017-02-25] MEDS: SODIUM CHLORIDE 0.9% FLUSH 10 ML FLUSH IV FLUSH SCH (21:08)
[2017-02-25] MEDS: methylPREDNISolone SOD SUCC 125 MG/2 ML VIAL IV PUSH SCH (21:10)
[2017-02-25] MEDS: PIPERACIL-TAZO 4.5 GM PREMIX 100 ML IV SCH (21:32)
[2017-02-25 22:31] LABS: BLOOD GAS BASE EXCESS -6.4 mmol/L (-2-2); BLOOD GAS CARBOXYHEMOGLOBIN 1.6 % (0-4); BLOOD GAS HCO3 17 mmol/L (22-26); BLOOD GAS METHEMOGLOBIN 1.3 % (0-2); BLOOD GAS O2 HGB SATURATION 90 % (90-100); BLOOD GAS OXYGEN CONTENT 14.3 Vol % (12.0-20.0); BLOOD GAS PCO2 25 mmHg (38-42); BLOOD GAS PO2 65 mmHg (61-120); BLOOD GAS TOTAL HGB 11.3 G/DL (12.0-16.0); CRITICAL VALUE NO; OXYGEN DEVICE BIPAP; TEMP CORR TO 98.6
[2017-02-25 22:32] LABS: DRAW SITE RT RADIAL; FIO2 40 %; NUMBER OF ARTERIAL PUNCTURES 1; STAT NO; ULNAR PULSE PRESENT; VENT SETTINGS 12IPAP/5EPAP/40%
[2017-02-25] MEDS ORDERED: GLUCAGON 1 MG/ML VIAL OTHER PRN (22:45)
[2017-02-25] MEDS ORDERED: DEXTROSE 50% IN WATER 50 ML VIAL(D50) IV PUSH PRN (22:45)
--- NOTE | 2017-02-25 22:48 | MB ---
cc: Corinne ROSS M.D. DATE OF CONSULTATION 02/25/17 REASON FOR CONSULTATION Respiratory failure and pulmonary fibrosis. HISTORY OF PRESENT ILLNESS This is a [id number] white male who recently was in the hospital being treated for pneumonia and CHF, was transferred to [facility]. The patient apparently was having significant shortness breath, cough, wheezing and was hypoxic and thus was brought to the emergency room. The patient was seen at the emergency room where a CT chest was done which showed evidence of extensive interstitial disease and no evidence of pulmonary emboli. He has been started on antibiotic therapy including vancomycin and Zosyn and now admitted and placed on a BiPap mask since his O2 sats were only in the 70s. The patient is awake. He is responsive and cooperative. He wants the mask off and he wants to take some liquids by mouth. There was some question of aspiration during his admission and thus he is being kept n.p.o. and further swallow evaluation is pending. Denies chest pains. No hemoptysis and not running any fevers or chills. He has had no nausea or vomiting or aspiration since admission. PAST MEDICAL HISTORY Includes history of COPD, history of interstitial lung disease, history of hypertension, history of atrial fibrillation. He has diabetes mellitus type 2, history of sepsis in the past and recurrent cellulitis of the legs and history of chronic pain and anemia and also has had coronary artery disease. HABITS The patient was a prior smoker for over 30 years. Alcohol use minimal. FAMILY HISTORY No significant family history of lung disease. MEDICATIONS Included: 1. Lasix. 2. Flomax. 3. Nebulized albuterol. 4. Amiodarone. 5. Coumadin. 6. Levaquin. 7. Spiriva. 8. Advair disk. 9. Oxygen continuous at 3 liters. REVIEW OF SYSTEMS The patient is unable to provide any details. He is on a BiPap mask and seems to be in moderate distress. ALLERGIES None were listed. PHYSICAL EXAMINATION GENERAL: This moderately obese elderly man who is laying flat. He is on a BiPap mask. VITAL SIGNS: He is tachypneic. His blood pressure was 138/70, pulse is 112, respirations 24, temperature 97.5. HEENT: Head normocephalic. Pupils are reactive and equal. Tongue is moist. Throat is injected. Nasal mucosae masses. NECK: No bruits or thyroid enlargement or lymphadenopathy. CHEST: Distant breath sounds with expiratory wheezes bilaterally, prolonged expirations with crackles at the lung bases. HEART: The heart sounds irregular S1-S2 with no murmur or S3. ABDOMEN: Obese, protuberant without masses. No organomegaly or tenderness. Bowel sounds are active. EXTREMITIES: Minimal edema and decreased peripheral pulses. No calf tenderness or swelling. Reflexes 1+ with no gross motor deficits. The patient does move all his extremities well. NEURO: Cranial nerves grossly intact. RECTAL: Exam is deferred. IMPRESSION 1. Acute respiratory failure. 2. Probable aspiration pneumonia. 3. Sepsis. 4. Chronic bronchitis and emphysema. 5. Interstitial lung disease. 6. Atrial fibrillation. 7. Hypertension and diabetes. 8. Anemia of chronic disease. PLAN The patient has been placed on BiPap mask 12/5 and 40% FIO2. This will be weaned to a Venti mask at 40% in the a.m. Continue with IV Zosyn 3.375 grams q. 6 hours and IV vancomycin 1 gram daily and the patient will be placed on Solu-Medrol 60 milligrams IV q. 6 hours. Nebulized DuoNeb solution q. 6 hours and he will have a blood gas study done. Symbicort 160/4.5 2 puffs twice daily will be added as well and if he is clinically stable we will wean him back to a nasal cannula at [address]. [address] Reddy for this consultation. MD ROGER Johnson/ALEXANDRU /8:13 PM /10:33 PM
[2017-02-26] VITALS (17 sets, daily range): BP systolic 121–137; BP diastolic 61–79; PULSE 75–92; RESP 21–26; TEMP 97.5–98.9; O2SAT 87–100
[2017-02-26] MEDS: DEXT 5%-NACL 0.45% 1000 ML INJ 1,000 ML IV SCH ×2 (01:00→14:36)
[2017-02-26] MEDS: VANCOMYCIN 1,000 MG/NS 250 ML IV SCH ×4 (01:03→13:00)
[2017-02-26] MEDS: methylPREDNISolone SOD SUCC 125 MG/2 ML VIAL IV PUSH SCH ×4 (02:00→20:00)
[2017-02-26] MEDS: CHLORHEXIDINE GLUCONATE 2 % 1 PACK (2 CLOTHS)(taper/protocol) TOPICAL SCH (04:00)
[2017-02-26 05:05] LABS: AUTOMATED NEUTROPHIL # 7.8 TH/MM3 (1.8-7.7); BASOPHIL % 0.1 % (0.0-2.0); EOSINOPHIL % 0.1 % (0.0-4.0); LYMPH % 2.2 % (9.0-44.0); LYMPHOCYTE # 0.2 TH/MM3 (1.0-4.8); MEAN CORPUSCULAR HEMOGLOBIN 30.6 PG (27.0-34.0); MEAN CORPUSCULAR HGB CONC 32.9 % (32.0-36.0); MONO % 1.2 % (0.0-8.0); NEUT % 96.4 % (16.0-70.0); PLATELET COUNT 69 TH/MM3 (150-450); RED BLOOD COUNT 3.44 MIL/MM3 (4.50-5.90); RED CELL DISTRIBUTION WIDTH 20.1 % (11.6-17.2); WHITE BLOOD COUNT 8.1 TH/MM3 (4.0-11.0)
[2017-02-26 05:11] LABS: HEMO FLAGS AUTO DIFF
[2017-02-26 05:15] LABS: POTASSIUM 3.8 MEQ/L (3.5-5.1)
[2017-02-26] MEDS: PIPERACIL-TAZO 4.5 GM PREMIX 100 ML IV SCH ×3 (05:22→20:36)
[2017-02-26 05:38] LABS: INTERNATIONAL NORMALIZED RATIO 4.2 RATIO; PROTHROMBIN TIME - PATIENT 49.9 SEC (9.8-11.6)
[2017-02-26] MEDS: INSULIN ASPART SUPPLEMENTAL SCALE SQ SCH ×4 (06:55→21:47)
[2017-02-26 07:40] LABS: PLATELET ESTIMATE SMEAR LOW (NORMAL); PLATELET MORPHOLOGY NORMAL (NORMAL); SCAN/DIFF AUTO DIFF CONFIRMED
[2017-02-26] MEDS: RESP: ALBUTEROL 2.5 MG/IPRATROPIUM 0.5 MG NEB (SCH) NEB ×4 (07:59→20:10)
[2017-02-26] MEDS: DILTIAZEM-CD 120 MG CAP ER PO SCH (08:29)
[2017-02-26] MEDS: AMIODARONE 200 MG TAB PO SCH (08:29)
[2017-02-26] MEDS: AZITHROMYCIN 250 MG TAB PO SCH (08:29)
[2017-02-26] MEDS: DOCUSATE SODIUM 50 MG/SENNA 8.6 MG TAB PO SCH ×2 (08:29→20:34)
[2017-02-26] MEDS: FUROSEMIDE 40 MG/4 ML VIAL IV PUSH SCH ×2 (08:30→16:38)
[2017-02-26] MEDS: SODIUM CHLORIDE 0.9% FLUSH 10 ML FLUSH IV FLUSH SCH ×2 (08:31→20:37)
--- NOTE | 2017-02-26 09:05 | HHI.IDPN ---
Subjective Subjective Remarks ID COVERAGE Chart reviewed Patient is a 77-year-old male, has had recurrent admissions and treated for COPD exacerbation, pneumonia, and cellulitis, readmitted again for possible pneumonia, and sepsis. Afebrile BP okay, not on pressors On 6 L O2 NC States breathing is better Not bringing up any phlegm No abdominal pain No nausea or vomiting Legionella and pneumococcal antigen pending UA with 17 WBC WBC down to normal Cultures are pending CTA with no pulmonary embolism, has some interstitial infiltrates Antibiotics Zithromax Zosyn Vancomycin Lines PIV Past Medical History afib COPD CKD DM skin CA LLE Past Surgical History skin ca LLE Allergies: Coded Allergies: No Known Allergies (Unverified , 01/19/17) Objective . Vital Signs Date Time Temp Pulse Resp B/P (MAP) Pulse Ox O2 Delivery O2 Flow Rate FiO2 02/26/17 08:00 92 Nasal Cannula 6.00 02/26/17 08:00 98.4 83 21 121/61 (81) 100 02/26/17 08:00 91 02/26/17 06:00 80 02/26/17 04:20 98 50 02/26/17 04:00 75 02/26/17 04:00 97.9 75 21 137/66 (89) 100 02/26/17 02:00 80 02/26/17 00:49 98 50 02/26/17 00:00 84 02/26/17 00:00 97.5 84 26 126/79 (95) 98 02/25/17 22:24 90 40 02/25/17 22:00 83 02/25/17 20:00 97.4 84 22 126/58 (80) 91 02/25/17 20:00 84 02/25/17 18:04 92 50 02/25/17 18:00 91 02/25/17 17:06 98.3 83 36 110/64 (79) 95 02/25/17 13:15 100 02/25/17 13:10 99 15 130/78 (95) 98 02/25/17 13:08 98.0 93 33 103/64 (77) 98 02/25/17 12:05 96 50 02/25/17 12:00 106 25 116/72 (87) 98 BiPAP 50 02/25/17 11:46 15 02/25/17 11:30 100 25 110/65 (80) 98 BiPAP 50 02/25/17 11:00 100 23 110/65 (80) 98 BiPAP 50 02/25/17 10:30 102 23 117/69 (85) 98 BiPAP 50 02/25/17 10:00 102 26 132/72 (92) 98 BiPAP 50 02/25/17 09:30 110 24 133/77 (95) 98 BiPAP 50 02/25/17 09:00 106 25 115/65 (82) 98 BiPAP 50 . Laboratory Tests Test 02/25/17 07:41 02/26/17 04:28 White Blood Count 12.8 TH/MM3 8.1 TH/MM3 Red Blood Count 4.38 MIL/MM3 3.44 MIL/MM3 Hemoglobin 13.1 GM/DL 10.5 GM/DL Hematocrit 39.9 % 32.0 % Mean Corpuscular Volume 90.9 FL 93.0 FL Mean Corpuscular Hemoglobin 29.9 PG 30.6 PG Mean Corpuscular Hemoglobin Concent 32.8 % 32.9 % Red Cell Distribution Width 20.6 % 20.1 % Platelet Count 87 TH/MM3 69 TH/MM3 Mean Platelet Volume 8.3 FL 8.4 FL Neutrophils (%) (Auto) 95.9 % 96.4 % Lymphocytes (%) (Auto) 2.6 % 2.2 % Monocytes (%) (Auto) 1.4 % 1.2 % Eosinophils (%) (Auto) 0.0 % 0.1 % Basophils (%) (Auto) 0.1 % 0.1 % Neutrophils # (Auto) 12.3 TH/MM3 7.8 TH/MM3 Lymphocytes # (Auto) 0.3 TH/MM3 0.2 TH/MM3 Monocytes # (Auto) 0.2 TH/MM3 0.1 TH/MM3 Eosinophils # (Auto) 0.0 TH/MM3 0.0 TH/MM3 Basophils # (Auto) 0.0 TH/MM3 0.0 TH/MM3 CBC Comment AUTO DIFF AUTO DIFF Differential Comment AUTO DIFF CONFIRMED AUTO DIFF CONFIRMED Platelet Estimate LOW LOW Platelet Morphology Comment NORMAL NORMAL Laboratory Tests Test 02/25/17 07:35 02/25/17 07:44 02/25/17 12:05 02/26/17 04:28 Blood Urea Nitrogen 44 MG/DL 41 MG/DL Creatinine 1.26 MG/DL 1.12 MG/DL Random Glucose 186 MG/DL 265 MG/DL Total Protein 6.5 GM/DL Albumin 1.9 GM/DL Calcium Level 9.1 MG/DL 8.2 MG/DL Alkaline Phosphatase 104 U/L Aspartate Amino Transf (AST/SGOT) 17 U/L Alanine Aminotransferase (ALT/SGPT) 47 U/L Total Bilirubin 0.6 MG/DL Sodium Level 141 MEQ/L 142 MEQ/L Potassium Level 4.3 MEQ/L 3.8 MEQ/L Chloride Level 107 MEQ/L 110 MEQ/L Carbon Dioxide Level 19.5 MEQ/L 17.0 MEQ/L Anion Gap 15 MEQ/L 15 MEQ/L Estimat Glomerular Filtration Rate 56 ML/MIN 64 ML/MIN Total Creatine Kinase 48 U/L Troponin I 0.03 NG/ML B-Type Natriuretic Peptide 34 PG/ML Lactic Acid Level 3.7 mmol/L 2.3 mmol/L Microbiology Date/Time Source Procedure Growth Status 02/25/17 07:41 Blood Peripheral Aerobic Blood Culture Pending Received 02/25/17 07:41 Blood Peripheral Anaerobic Blood Culture Pending Received 02/25/17 07:35 Blood Peripheral Aerobic Blood Culture Pending Received 02/25/17 07:35 Blood Peripheral Anaerobic Blood Culture Pending Received 02/25/17 08:00 Nasal Washing Influenza Types A,B Antigen (EDILSON) - Final NEGATIVE FOR FLU A AND B ANTIGEN.... Complete 02/25/17 07:44 Urine Random Urine Legionella Antigen Pending Received 02/25/17 07:44 Urine Random Urine Streptococcus pneumoniae Antigen (M Pending Received 02/25/17 07:44 Urine Clean Catch Urine Culture Pending Received Imaging Last Impressions Chest X-Ray 02/25/17730 Signed Impressions: Service Date/Time: Saturday, February 25, 2017 07:41 - CONCLUSION: Mild interstitial prominence to the right apex which is a new finding. Exact etiology is uncertain. This would be an atypical appearance for pulmonary edema. A localized interstitial pneumonitis could have this appearance. Dennis Gupta Jr., MD CT Angiography 02/25/17730 Signed Impressions: Service Date/Time: Saturday, February 25, 2017 08:08 - CONCLUSION: 1. Study degraded by breathing motion artifact. These were the best obtainable images. 2. No pulmonary embolus observed within the more central pulmonary arteries. Peripheral pulmonary arteries are limited in their evaluation due to the breathing motion artifact. 3. Diffuse interstitial infiltrates more pronounced within the upper lobes. Differential diagnostic considerations are quite broad at this point. The more common etiologies include usual interstitial pneumonitis as well as hypersensitivity pneumonitis. Dennis Gupta Jr., MD Physical Exam GENERAL: Awake and alert, in no apparent distress. SKIN: No rashes, ecchymoses or lesions. Cool and dry. HEAD: Atraumatic. Normocephalic. No temporal or scalp tenderness. EYES: Pupils equal round and reactive. No scleral icterus. No injection or drainage. ENT: Nose without bleeding, purulent drainage. Very oral mucosa, with some ulcers on his tongue NECK: Trachea midline. Supple, nontender, no meningeal signs. CARDIOVASCULAR: Regular rate and rhythm without murmurs, gallops, or rubs. RESPIRATORY: Clear to auscultation. Breath sounds equal bilaterally but decreased in the bases. GASTROINTESTINAL: Abdomen soft, non-tender, nondistended. No hepato-splenomegaly , or palpable masses. No guarding. MUSCULOSKELETAL: Extremities without clubbing, cyanosis, or edema. No calf tenderness. Chronic skin changes, stasis related discoloration. NEUROLOGICAL: Awake and alert. Grossly non focal Psych: cooperative IV line sites with no evidence of infection. Assessment & Plan Remarks Assessment and Plan Pneumonia: CAP vs HCAP (recent admission to hospital) Rule out Sepsis. Leucocytosis and elevated lactic acid. Acute COPD exacerbation Acute resp failure: on BiPAP. DM2 uncontrolled. CKD stage III Recs Continue Zosyn increase dose to PSAE doses. Continue Vanco IV (target 15-20) Continue Azithro for atypical PNA. Follow cultures Monitor progress Will adjust Abx once C/S available Tamera Rose MD Feb 26, 2017 09:05
[2017-02-26] MEDS: PANTOPRAZOLE SODIUM 40 MG VIAL IV PUSH SCH (10:00)
--- NOTE | 2017-02-26 11:45 | HHI.PR ---
Subjective Remarks Pt states that he is feel a bit better. SOB about the same. No CP/N/V Discussed w daughter over the phone. She states that she would like her father to get boost, also some magic mouthwash. Objective Vitals Vital Signs Date Time Temp Pulse Resp B/P (MAP) Pulse Ox O2 Delivery O2 Flow Rate FiO2 02/26/17 10:00 91 02/26/17 08:00 92 Nasal Cannula 6.00 02/26/17 08:00 98.4 83 21 121/61 (81) 100 02/26/17 08:00 91 02/26/17 06:00 80 02/26/17 04:20 98 50 02/26/17 04:00 75 02/26/17 04:00 97.9 75 21 137/66 (89) 100 02/26/17 02:00 80 02/26/17 00:49 98 50 02/26/17 00:00 84 02/26/17 00:00 97.5 84 26 126/79 (95) 98 02/25/17 22:24 90 40 02/25/17 22:00 83 02/25/17 20:00 97.4 84 22 126/58 (80) 91 02/25/17 20:00 84 02/25/17 18:04 92 50 02/25/17 18:00 91 02/25/17 17:06 98.3 83 36 110/64 (79) 95 02/25/17 13:15 100 02/25/17 13:10 99 15 130/78 (95) 98 02/25/17 13:08 98.0 93 33 103/64 (77) 98 02/25/17 12:05 96 50 02/25/17 12:00 106 25 116/72 (87) 98 BiPAP 50 02/25/17 11:46 15 I/O 02/25/17 02/25/17 02/25/17 02/26/17 02/26/17 02/26/17 07:00 15:00 23:00 07:00 15:00 23:00 Intake Total 450 ml 1594.5 ml 1000 ml Output Total 550 ml 900 ml Balance 450 ml 1044.5 ml 100 ml Intake IV Total 450 ml 1594.5 ml 1000 ml Output Urine Total 550 ml 900 ml Result Diagram: 02/26/17 0428 02/26/17 0428 Imaging Last Impressions Chest X-Ray 02/25/1731 Signed Impressions: Service Date/Time: Saturday, February 25, 2017 07:41 - CONCLUSION: Mild interstitial prominence to the right apex which is a new finding. Exact etiology is uncertain. This would be an atypical appearance for pulmonary edema. A localized interstitial pneumonitis could have this appearance. Dennis Gupta Jr., MD CT Angiography 02/25/1731 Signed Impressions: Service Date/Time: Saturday, February 25, 2017 08:08 - CONCLUSION: 1. Study degraded by breathing motion artifact. These were the best obtainable images. 2. No pulmonary embolus observed within the more central pulmonary arteries. Peripheral pulmonary arteries are limited in their evaluation due to the breathing motion artifact. 3. Diffuse interstitial infiltrates more pronounced within the upper lobes. Differential diagnostic considerations are quite broad at this point. The more common etiologies include usual interstitial pneumonitis as well as hypersensitivity pneumonitis. Dennis Gupta Jr., MD Objective Remarks IN GENERAL: getting breathing treatment but able to answer my questions CHEST: Distant breath sounds. He is tachypneic and sounds congested but no wheezing CARDIOVASCULAR SYSTEM: He is tachycardiac and regular. No murmurs. ABDOMEN: Abdomen is obese, distended. Normoactive bowel sounds. Nontender. EXTREMITIES: Trace edema in the feet and stasis changes in the legs. There is no is active cellulitis. NEUROLOGIC: Cranial nerves are grossly intact. Sensation is intact bilaterally. able to moves his extremities but is weak A/P Assessment and Plan Respiratory failureSepsis/Health care associated pneumonia/Lactic acidosis, likely due to aspiration and COPD. continue BiPap as needed and florecita pulm following and recommends adding symbicort. Pt on IV abx, zosyn, vanc and azithro. ID following as well. so far blood cx neg to date. Per RN, pt did do well w bedside swallow eval. ok to continue diabetic diet w glucerna supplementation. COPD exacerbation: continue breathing treatments. on solu-medrol IV, pulm following Sleep apnea: bipap Atrial fibrillation: on amiodarone/cardizem/on coumadin. monitor INR which is 4.3 today. pharmacy has been consulted for coumadin management. Chronic kidney disease stage III- monitor. Diabetes: diabetic diet. ISS, monitor BS. caution as pt is on steroids. may need long acting steroids. Hypertension. stable, prn hydralazine available History of hyperkalemia and hypokalemia recurrently. replace as needed Chronic pain syndrome. stable PT/OT/ST consulted. Jeni Lazo MD Feb 26, 2017 11:44
[2017-02-26] MEDS: NYSTAT/DIPHENHY/LIDO MOUTHWASH (Adult) 120ML SWISH-SWAL SCH ×3 (13:00→20:35)
[2017-02-26] MEDS: ACETAMINOPHEN/HYDROcodone 325 MG/5 MG TAB PO PRN (13:24)
[2017-02-26] MEDS: LORazepam 0.5 MG TAB PO PRN (13:25)
--- NOTE | 2017-02-26 14:54 | HHI.PR ---
Subjective Remarks He is better. On O2 at 4L. Good output . No fever. Has some wheezing Objective Vital Signs Date Time Temp Pulse Resp B/P (MAP) Pulse Ox O2 Delivery O2 Flow Rate FiO2 02/26/17 12:00 91 02/26/17 12:00 98.8 89 22 122/69 (86) 100 02/26/17 10:00 91 02/26/17 08:00 92 Nasal Cannula 6.00 02/26/17 08:00 98.4 83 21 121/61 (81) 100 02/26/17 08:00 91 02/26/17 06:00 80 02/26/17 04:20 98 50 02/26/17 04:00 75 02/26/17 04:00 97.9 75 21 137/66 (89) 100 02/26/17 02:00 80 02/26/17 00:49 98 50 02/26/17 00:00 84 02/26/17 00:00 97.5 84 26 126/79 (95) 98 02/25/17 22:24 90 40 02/25/17 22:00 83 02/25/17 20:00 97.4 84 22 126/58 (80) 91 02/25/17 20:00 84 02/25/17 18:04 92 50 02/25/17 18:00 91 02/25/17 17:06 98.3 83 36 110/64 (79) 95 I/O 02/25/17 02/25/17 02/25/17 02/26/17 02/26/17 02/26/17 07:00 15:00 23:00 07:00 15:00 23:00 Intake Total 450 ml 1594.5 ml 1000 ml Output Total 550 ml 900 ml Balance 450 ml 1044.5 ml 100 ml Intake IV Total 450 ml 1594.5 ml 1000 ml Output Urine Total 550 ml 900 ml Result Diagram: 02/26/17 0428 02/26/17 0428 Objective Remarks GENERAL: This moderately obese elderly man who is laying flat. No distress HEENT: Head normocephalic. Pupils are reactive and equal. Tongue is moist. Throat is injected. Nasal mucosae clear. NECK: No bruits or thyroid enlargement or lymphadenopathy. CHEST: Distant breath sounds with expiratory wheezes bilaterally, prolonged expirations with crackles at the lung bases. HEART: The heart sounds irregular S1-S2 with no murmur or S3. ABDOMEN: Obese, protuberant without masses. No organomegaly or tenderness. Bowel sounds are active. EXTREMITIES: Minimal edema and decreased peripheral pulses. No calf tenderness or swelling. Reflexes 1+ with no gross motor deficits. The patient does move all his extremities well. NEURO: Cranial nerves grossly intact. RECTAL: Exam is deferred. Assessment and Plan Assessment and Plan IMPRESSION 1. Acute respiratory failure. 2. Probable aspiration pneumonia. 3. Sepsis. 4. Chronic bronchitis and emphysema. 5. Interstitial lung disease. 6. Atrial fibrillation. 7. Hypertension and diabetes. 8. Anemia of chronic disease. Plan : 1. Cont Antibiotics per ID 2. Wean O2 to 4L 3. Taper solumedrol to 40 Mg q8h. 4. CBC,BMP ,CXR in am 5. Duonebs qid. 6. Continue Lasix 20 mg bid. 7. Bipap 12/5 cm at Corinne Vieyra MD Feb 26, 2017 14:54
[2017-02-26] MEDS ORDERED: WARFARIN SOD 2 MG TAB PO SCH (16:00)
[2017-02-26] MEDS: TAMSULOSIN HCL 0.4 MG CAP PO SCH (20:35)
[2017-02-26] MEDS: BUDESONIDE-FORMOTEROL 160/4.5 MCG INHALER INH SCH (21:48)
[2017-02-27] VITALS (14 sets, daily range): BP systolic 116–144; BP diastolic 56–80; PULSE 85–98; RESP 21–28; TEMP 98–98.9; O2SAT 91–95
[2017-02-27] MEDS ORDERED: PHARMACY ORDERED LAB ONE (00:45)
[2017-02-27] MEDS: VANCOMYCIN 1,000 MG/NS 250 ML IV SCH ×2 (01:00)
[2017-02-27] MEDS: methylPREDNISolone SOD SUCC 125 MG/2 ML VIAL IV PUSH SCH ×4 (02:00→20:22)
[2017-02-27 02:18] LABS: BICARBONATE 16.5 MEQ/L (21.0-32.0); POTASSIUM 4.3 MEQ/L (3.5-5.1)
[2017-02-27] MEDS: CHLORHEXIDINE GLUCONATE 2 % 1 PACK (2 CLOTHS)(taper/protocol) TOPICAL SCH (04:00)
[2017-02-27] MEDS: DEXT 5%-NACL 0.45% 1000 ML INJ 1,000 ML IV SCH ×2 (04:54→19:12)
[2017-02-27] MEDS: PIPERACIL-TAZO 4.5 GM PREMIX 100 ML IV SCH ×3 (05:00→20:22)
--- NOTE | 2017-02-27 05:32 | RADRPT ---
EXAM DATE/TIME: 02/27/2017 03:45 [facility] COMPARISON: CT PULMONARY ANGIOGRAM, February 25, 2017, 8:08. CHEST SINGLE AP, February 25, 2017, 7:41. INDICATIONS : Evaluate for infiltrate MEDICAL HISTORY : Hypertension. Chronic obstructive pulmonary disease. Diabetes mellitus SURGICAL HISTORY : None. ENCOUNTER: Subsequent ACUITY: 2 days PAIN SCORE: Non-responsive. LOCATION: Bilateral chest FINDINGS: Heart size enlarged. Tortuous aorta. No new consolidation. Stable underlying emphysema and interstiti al prominence in the lungs. CONCLUSION: 1. Cardiomegaly without consolidation. Stable interstitial changes and underlying emphysema. Abhilash Stover MD on February 27, 2017 at 5:29 Board Certified Radiologist. This report was verified electronically.
[2017-02-27 05:47] LABS: AUTOMATED NEUTROPHIL # 6.8 TH/MM3 (1.8-7.7); BASOPHIL % 0.1 % (0.0-2.0); EOSINOPHIL % 0.1 % (0.0-4.0); HEMATOCRIT 33.8 % (39.0-51.0); LYMPH % 1.9 % (9.0-44.0); LYMPHOCYTE # 0.1 TH/MM3 (1.0-4.8); MEAN CELL VOLUME 91.4 FL (80.0-100.0); MEAN CORPUSCULAR HEMOGLOBIN 29.4 PG (27.0-34.0); MEAN CORPUSCULAR HGB CONC 32.1 % (32.0-36.0); MONO % 1.9 % (0.0-8.0); PLATELET COUNT 71 TH/MM3 (150-450); RED CELL DISTRIBUTION WIDTH 19.8 % (11.6-17.2); WHITE BLOOD COUNT 7.1 TH/MM3 (4.0-11.0)
[2017-02-27 05:51] LABS: HEMO FLAGS AUTO DIFF
[2017-02-27 06:07] LABS: INTERNATIONAL NORMALIZED RATIO 4.8 RATIO; PROTHROMBIN TIME - PATIENT 57.3 SEC (9.8-11.6)
[2017-02-27] MEDS: INSULIN ASPART SUPPLEMENTAL SCALE SQ SCH ×4 (06:32→20:47)
[2017-02-27] MEDS: DILTIAZEM-CD 120 MG CAP ER PO SCH (08:06)
[2017-02-27] MEDS: ACETAMINOPHEN/HYDROcodone 325 MG/5 MG TAB PO PRN ×2 (08:06→15:15)
[2017-02-27 08:07] LABS: PLATELET ESTIMATE SMEAR LOW (NORMAL); PLATELET MORPHOLOGY NORMAL (NORMAL); SCAN/DIFF AUTO DIFF CONFIRMED
[2017-02-27] MEDS: AMIODARONE 200 MG TAB PO SCH (08:07)
[2017-02-27] MEDS: DOCUSATE SODIUM 50 MG/SENNA 8.6 MG TAB PO SCH ×2 (08:07→20:21)
[2017-02-27] MEDS: NYSTAT/DIPHENHY/LIDO MOUTHWASH (Adult) 120ML SWISH-SWAL SCH ×4 (08:07→20:22)
[2017-02-27] MEDS: FUROSEMIDE 40 MG/4 ML VIAL IV PUSH SCH ×2 (08:07→16:46)
[2017-02-27] MEDS: AZITHROMYCIN 250 MG TAB PO SCH (08:07)
[2017-02-27] MEDS: BUDESONIDE-FORMOTEROL 160/4.5 MCG INHALER INH SCH ×2 (08:08→20:22)
[2017-02-27] MEDS: RESP: ALBUTEROL 2.5 MG/IPRATROPIUM 0.5 MG NEB (SCH) NEB ×4 (08:22→19:41)
--- NOTE | 2017-02-27 08:48 | HHI.IDPN ---
Subjective Subjective Remarks ID COVERAGE Chart reviewed Patient is a 77-year-old male, has had recurrent admissions and treated for COPD exacerbation, pneumonia, and cellulitis, readmitted again for possible pneumonia, and sepsis. Afebrile BP okay, not on pressors On 6 L O2 NC Looks dyspneic Sats 90% Not bringing up any phlegm No abdominal pain No nausea or vomiting Legionella and pneumococcal antigen negative UA with 17 WBC WBC down to normal BC negative UC negative Influenza negative No sputum C/S - patient not bringing up phegm CXR stable interstitial infiltrates CTA with no pulmonary embolism, has some interstitial infiltrates Antibiotics Zithromax Zosyn Vancomycin Lines PIV Past Medical History afib COPD CKD DM skin CA LLE Past Surgical History skin ca LLE Allergies: Coded Allergies: No Known Allergies (Unverified , 01/19/17) Objective . Vital Signs Date Time Temp Pulse Resp B/P (MAP) Pulse Ox O2 Delivery O2 Flow Rate FiO2 02/27/17 08:23 93 Simple Mask 10.00 02/27/17 06:00 89 02/27/17 04:00 98.9 86 22 144/80 (101) 92 02/27/17 04:00 86 02/27/17 02:00 85 02/27/17 00:00 93 02/27/17 00:00 98.6 86 21 140/77 (98) 91 02/26/17 22:19 93 Simple Mask 10.00 02/26/17 22:19 93 Simple Mask 10.00 02/26/17 22:00 92 02/26/17 20:13 90 Nasal Cannula 6.00 02/26/17 20:00 85 02/26/17 20:00 98.9 85 24 134/62 (86) 87 02/26/17 18:00 91 02/26/17 17:09 98 40 02/26/17 16:00 91 02/26/17 16:00 98.5 89 22 122/67 (85) 100 02/26/17 16:00 91 02/26/17 14:00 91 02/26/17 12:00 91 02/26/17 12:00 98.8 89 22 122/69 (86) 100 02/26/17 10:00 91 . Laboratory Tests Test 02/26/17 04:28 02/27/17 04:12 White Blood Count 8.1 TH/MM3 7.1 TH/MM3 Red Blood Count 3.44 MIL/MM3 3.70 MIL/MM3 Hemoglobin 10.5 GM/DL 10.9 GM/DL Hematocrit 32.0 % 33.8 % Mean Corpuscular Volume 93.0 FL 91.4 FL Mean Corpuscular Hemoglobin 30.6 PG 29.4 PG Mean Corpuscular Hemoglobin Concent 32.9 % 32.1 % Red Cell Distribution Width 20.1 % 19.8 % Platelet Count 69 TH/MM3 71 TH/MM3 Mean Platelet Volume 8.4 FL 7.8 FL Neutrophils (%) (Auto) 96.4 % 96.0 % Lymphocytes (%) (Auto) 2.2 % 1.9 % Monocytes (%) (Auto) 1.2 % 1.9 % Eosinophils (%) (Auto) 0.1 % 0.1 % Basophils (%) (Auto) 0.1 % 0.1 % Neutrophils # (Auto) 7.8 TH/MM3 6.8 TH/MM3 Lymphocytes # (Auto) 0.2 TH/MM3 0.1 TH/MM3 Monocytes # (Auto) 0.1 TH/MM3 0.1 TH/MM3 Eosinophils # (Auto) 0.0 TH/MM3 0.0 TH/MM3 Basophils # (Auto) 0.0 TH/MM3 0.0 TH/MM3 CBC Comment AUTO DIFF AUTO DIFF Differential Comment AUTO DIFF CONFIRMED AUTO DIFF CONFIRMED Platelet Estimate LOW LOW Platelet Morphology Comment NORMAL NORMAL Laboratory Tests Test 02/25/17 12:05 02/26/17 04:28 02/27/17 01:14 Lactic Acid Level 2.3 mmol/L Blood Urea Nitrogen 41 MG/DL 39 MG/DL Creatinine 1.12 MG/DL 1.12 MG/DL Random Glucose 265 MG/DL 227 MG/DL Calcium Level 8.2 MG/DL 8.3 MG/DL Sodium Level 142 MEQ/L 140 MEQ/L Potassium Level 3.8 MEQ/L 4.3 MEQ/L Chloride Level 110 MEQ/L 111 MEQ/L Carbon Dioxide Level 17.0 MEQ/L 16.5 MEQ/L Anion Gap 15 MEQ/L 13 MEQ/L Estimat Glomerular Filtration Rate 64 ML/MIN 64 ML/MIN Microbiology Date/Time Source Procedure Growth Status 02/25/17 07:41 Blood Peripheral Aerobic Blood Culture - Preliminary NO GROWTH IN 1 DAY Resulted 02/25/17 07:41 Blood Peripheral Anaerobic Blood Culture - Preliminary NO GROWTH IN 1 DAY Resulted 02/25/17 07:35 Blood Peripheral Aerobic Blood Culture - Preliminary NO GROWTH IN 1 DAY Resulted 02/25/17 07:35 Blood Peripheral Anaerobic Blood Culture - Preliminary NO GROWTH IN 1 DAY Resulted 02/25/17 08:00 Nasal Washing Influenza Types A,B Antigen (EDILSON) - Final NEGATIVE FOR FLU A AND B ANTIGEN.... Complete 02/25/17 07:44 Urine Random Urine Legionella Antigen - Final PRESUMPTIVE NEGATIVE FOR LEGIONELLA P... Complete 02/25/17 07:44 Urine Random Urine Streptococcus pneumoniae Antigen (M - Final PRESUMPTIVE NEGATIVE FOR STREPTOCOCCU... Complete 02/25/17 07:44 Urine Clean Catch Urine Culture - Preliminary NO GROWTH IN 24 HOURS. Resulted Imaging Chest X-Ray 02/27/17 0600 Signed Impressions: Service Date/Time: Monday, February 27, 2017 03:45 - CONCLUSION: 1. Cardiomegaly without consolidation. Stable interstitial changes and underlying emphysema. Abhilash Stover MD Chest X-Ray 02/25/17730 Signed Impressions: Service Date/Time: Saturday, February 25, 2017 07:41 - CONCLUSION: Mild interstitial prominence to the right apex which is a new finding. Exact etiology is uncertain. This would be an atypical appearance for pulmonary edema. A localized interstitial pneumonitis could have this appearance. Dennis Gupta Jr., MD CT Angiography 02/25/17730 Signed Impressions: Service Date/Time: Saturday, February 25, 2017 08:08 - CONCLUSION: 1. Study degraded by breathing motion artifact. These were the best obtainable images. 2. No pulmonary embolus observed within the more central pulmonary arteries. Peripheral pulmonary arteries are limited in their evaluation due to the breathing motion artifact. 3. Diffuse interstitial infiltrates more pronounced within the upper lobes. Differential diagnostic considerations are quite broad at this point. The more common etiologies include usual interstitial pneumonitis as well as hypersensitivity pneumonitis. Dennis Gupta Jr., MD Physical Exam GENERAL: Awakens easily and alert, looks dyspneic at rest on nasal O2 SKIN: No rashes, ecchymoses or lesions. Cool and dry. HEAD: Atraumatic. Normocephalic. No temporal or scalp tenderness. EYES: Pupils equal round and reactive. No scleral icterus. No injection or drainage. ENT: Nose without bleeding, purulent drainage. Very oral mucosa, with some ulcers on his tongue NECK: Trachea midline. Supple, nontender, no meningeal signs. CARDIOVASCULAR: Regular rate and rhythm without murmurs, gallops, or rubs. RESPIRATORY: Decreased BS nash GASTROINTESTINAL: Abdomen soft, non-tender, nondistended. No guarding. MUSCULOSKELETAL: Extremities without clubbing, cyanosis, or edema. No calf tenderness. Chronic skin changes, stasis related discoloration. NEUROLOGICAL: Awake and alert. Grossly non focal Psych: cooperative IV line sites with no evidence of infection. Assessment & Plan Remarks Assessment and Plan Pneumonia: CAP vs HCAP (recent admission to hospital) Rule out Sepsis. Leucocytosis and elevated lactic acid. Acute COPD exacerbation Acute resp failure. DM2 uncontrolled. CKD stage III Recs Continue Zosyn increase dose to PSAE doses. Continue Vanco IV (target 15-20) Continue Azithro for atypical PNA. Also on steroids ?possible that SOB due to his severe COPD Follow cultures Monitor progress Will adjust Abx once C/S available Tamera Rose MD Feb 27, 2017 08:48
[2017-02-27] MEDS: SODIUM CHLORIDE 0.9% FLUSH 10 ML FLUSH IV FLUSH SCH ×2 (09:00→20:24)
--- NOTE | 2017-02-27 09:15 | HHI.PR ---
Subjective Remarks Pt states he had a bad night, they woke him up because they needed his room and had to transfer him to another room. Has chronic pain, back and knees. SOB about the same and not worsened, trying to cough up phlegm but cannot. no nausea or vomiting and not CP discussed w RN, no concerns at this time. Objective Vitals Vital Signs Date Time Temp Pulse Resp B/P (MAP) Pulse Ox O2 Delivery O2 Flow Rate FiO2 02/27/17 08:23 93 Simple Mask 10.00 02/27/17 08:00 87 02/27/17 08:00 98.8 87 24 120/62 (81) 92 02/27/17 06:00 89 02/27/17 04:00 98.9 86 22 144/80 (101) 92 02/27/17 04:00 86 02/27/17 02:00 85 02/27/17 00:00 93 02/27/17 00:00 98.6 86 21 140/77 (98) 91 02/26/17 22:19 93 Simple Mask 10.00 02/26/17 22:19 93 Simple Mask 10.00 02/26/17 22:00 92 02/26/17 20:13 90 Nasal Cannula 6.00 02/26/17 20:00 85 02/26/17 20:00 98.9 85 24 134/62 (86) 87 02/26/17 18:00 91 02/26/17 17:09 98 40 02/26/17 16:00 91 02/26/17 16:00 98.5 89 22 122/67 (85) 100 02/26/17 16:00 91 02/26/17 14:00 91 02/26/17 12:00 91 02/26/17 12:00 98.8 89 22 122/69 (86) 100 02/26/17 10:00 91 I/O 02/26/17 02/26/17 02/26/17 02/27/17 02/27/17 02/27/17 07:00 15:00 23:00 07:00 15:00 23:00 Intake Total 1000 ml 350 ml 1966 ml 793 ml Output Total 900 ml 550 ml 900 ml Balance 100 ml 350 ml 1416 ml -107 ml Intake IV Total 1000 ml 350 ml 1966 ml 793 ml Output Urine Total 900 ml 550 ml 900 ml # Bowel Movements 2 0 Result Diagram: 02/27/17 0412 02/27/17 0114 Imaging Last Impressions Chest X-Ray 02/27/17 0600 Signed Impressions: Service Date/Time: Monday, February 27, 2017 03:45 - CONCLUSION: 1. Cardiomegaly without consolidation. Stable interstitial changes and underlying emphysema. Abhilash Stover MD CT Angiography 02/25/17 0731 Signed Impressions: Service Date/Time: Saturday, February 25, 2017 08:08 - CONCLUSION: 1. Study degraded by breathing motion artifact. These were the best obtainable images. 2. No pulmonary embolus observed within the more central pulmonary arteries. Peripheral pulmonary arteries are limited in their evaluation due to the breathing motion artifact. 3. Diffuse interstitial infiltrates more pronounced within the upper lobes. Differential diagnostic considerations are quite broad at this point. The more common etiologies include usual interstitial pneumonitis as well as hypersensitivity pneumonitis. Dennis Gupta Jr., MD Objective Remarks IN GENERAL: asleep but easily arousable. CHEST: Distant breath sounds. sounds congested but no wheezing CARDIOVASCULAR SYSTEM: RRR. No murmurs. ABDOMEN: Abdomen is obese, distended. Normoactive bowel sounds. Nontender. EXTREMITIES: Trace edema in the feet and stasis changes in the legs. There is no is active cellulitis. NEUROLOGIC: Cranial nerves are grossly intact. Sensation is intact bilaterally. able to moves his extremities but is weak A/P Assessment and Plan Respiratory failureSepsis/Health care associated pneumonia/Lactic acidosis, likely due to aspiration and COPD. continue BiPap as needed and duonebs, pulm following, on symbicort. Pt on IV abx, zosyn, vanc and azithro. ID following as well. so far blood cx neg to date. Per RN, pt did do well w bedside swallow eval. ok to continue diabetic diet w glucerna supplementation. COPD exacerbation: continue breathing treatments. on solu-medrol IV taper, pulm following. Lasix IV. added acapella and IS. Encouraged use Sleep apnea: bipap Atrial fibrillation: on amiodarone/cardizem/on coumadin. monitor INR which is 4.8 today. pharmacy has been consulted for coumadin management. off coumadin at this time. Monitor closely. Chronic kidney disease stage III- monitor. Diabetes: diabetic diet. ISS, monitor BS. caution as pt is on steroids. may need long acting steroids. Hypertension. stable, prn hydralazine available History of hyperkalemia and hypokalemia recurrently. replace as needed Chronic pain syndrome. stable PT/OT/ST following. Discharge Planning transfer to floor where BiPAP can be done. Jeni Lazo MD Feb 27, 2017 09:15
[2017-02-27] MEDS: PANTOPRAZOLE SODIUM 40 MG VIAL IV PUSH SCH (10:00)
[2017-02-27] MEDS ORDERED: VANCOMYCIN INJ 1,500 MG in SODIUM CHLORID 0.9% 500 ML INJ 500 ML IV ONE (13:00)
[2017-02-27] MEDS ORDERED: VANCOMYCIN 1,000 MG/NS 250 ML IV SCH ×2 (18:00)
[2017-02-27] MEDS: TAMSULOSIN HCL 0.4 MG CAP PO SCH (20:21)
[2017-02-28] VITALS (14 sets, daily range): BP systolic 100–144; BP diastolic 52–89; PULSE 76–95; RESP 18–24; TEMP 97.3–98.2; O2SAT 90–94
[2017-02-28] MEDS: methylPREDNISolone SOD SUCC 125 MG/2 ML VIAL IV PUSH SCH ×4 (00:54→20:43)
[2017-02-28] MEDS: ACETAMINOPHEN/HYDROcodone 325 MG/5 MG TAB PO PRN ×5 (00:55→20:51)
[2017-02-28] MEDS: CHLORHEXIDINE GLUCONATE 2 % 1 PACK (2 CLOTHS)(taper/protocol) TOPICAL SCH (04:00)
[2017-02-28] MEDS: PIPERACIL-TAZO 4.5 GM PREMIX 100 ML IV SCH (06:09)
[2017-02-28] MEDS: DEXT 5%-NACL 0.45% 1000 ML INJ 1,000 ML IV SCH ×2 (06:13→22:01)
[2017-02-28] MEDS: INSULIN ASPART SUPPLEMENTAL SCALE SQ SCH ×4 (06:17→20:48)
[2017-02-28] MEDS: RESP: ALBUTEROL 2.5 MG/IPRATROPIUM 0.5 MG NEB (SCH) NEB ×4 (08:29→21:09)
[2017-02-28] MEDS: PANTOPRAZOLE SODIUM 40 MG VIAL IV PUSH SCH (08:43)
[2017-02-28] MEDS: FUROSEMIDE 40 MG/4 ML VIAL IV PUSH SCH ×2 (08:44→16:49)
[2017-02-28] MEDS: DOCUSATE SODIUM 50 MG/SENNA 8.6 MG TAB PO SCH ×2 (08:44→20:44)
[2017-02-28] MEDS: AZITHROMYCIN 250 MG TAB PO SCH (08:44)
[2017-02-28] MEDS: DILTIAZEM-CD 120 MG CAP ER PO SCH (08:44)
[2017-02-28] MEDS: AMIODARONE 200 MG TAB PO SCH (08:44)
[2017-02-28] MEDS: SODIUM CHLORIDE 0.9% FLUSH 10 ML FLUSH IV FLUSH SCH ×2 (08:45→20:48)
[2017-02-28] MEDS: NYSTAT/DIPHENHY/LIDO MOUTHWASH (Adult) 120ML SWISH-SWAL SCH ×4 (08:57→20:51)
[2017-02-28] MEDS: BUDESONIDE-FORMOTEROL 160/4.5 MCG INHALER INH SCH ×2 (09:41→20:45)
[2017-02-28 10:13] LABS: AUTOMATED NEUTROPHIL # 3.9 TH/MM3 (1.8-7.7); BASOPHIL % 0.1 % (0.0-2.0); HEMATOCRIT 30.5 % (39.0-51.0); LYMPH % 2.8 % (9.0-44.0); LYMPHOCYTE # 0.1 TH/MM3 (1.0-4.8); MEAN CELL VOLUME 89.8 FL (80.0-100.0); MEAN CORPUSCULAR HEMOGLOBIN 30.3 PG (27.0-34.0); MEAN CORPUSCULAR HGB CONC 33.8 % (32.0-36.0); MONO % 2.1 % (0.0-8.0); PLATELET COUNT 55 TH/MM3 (150-450); RED CELL DISTRIBUTION WIDTH 19.4 % (11.6-17.2); WHITE BLOOD COUNT 4.2 TH/MM3 (4.0-11.0)
[2017-02-28 10:19] LABS: HEMO FLAGS AUTO DIFF
[2017-02-28 10:23] LABS: INTERNATIONAL NORMALIZED RATIO 3.7 RATIO; PROTHROMBIN TIME - PATIENT 42.7 SEC (9.8-11.6)
[2017-02-28 10:41] LABS: BICARBONATE 21.9 MEQ/L (21.0-32.0); POTASSIUM 3.1 MEQ/L (3.5-5.1)
[2017-02-28 10:56] LABS: SCAN/DIFF AUTO DIFF CONFIRMED
--- NOTE | 2017-02-28 14:51 | HHI.PR ---
Subjective Remarks Pt feels tired. Would like to sleep. Denies any CP/worsening SOB/n/v Objective Vitals Vital Signs Date Time Temp Pulse Resp B/P (MAP) Pulse Ox O2 Delivery O2 Flow Rate FiO2 02/28/17 12:00 97.8 95 20 109/63 (78) 91 02/28/17 11:48 92 Simple Mask 10.00 02/28/17 08:31 93 Simple Mask 8.00 02/28/17 08:00 97.3 92 18 113/53 (73) 92 02/28/17 07:43 91 02/28/17 04:00 97.9 92 24 117/66 (83) 93 02/28/17 01:01 94 Simple Mask 10.00 02/28/17 01:00 86 02/28/17 00:00 98.2 76 22 144/89 (107) 90 02/27/17 22:00 98 02/27/17 20:00 98.7 96 28 121/59 (79) 95 02/27/17 20:00 96 02/27/17 19:43 95 Simple Mask 10.00 02/27/17 18:00 87 02/27/17 16:00 98.0 88 24 120/56 (77) 92 02/27/17 16:00 87 I/O 02/27/17 02/27/17 02/27/17 02/28/17 02/28/17 02/28/17 07:00 15:00 23:00 07:00 15:00 23:00 Intake Total 793 ml 2421 ml 280 ml Output Total 900 ml 1650 ml 450 ml Balance -107 ml 771 ml -170 ml Intake Oral 100 ml 280 ml IV Total 793 ml 2321 ml Output Urine Total 900 ml 1650 ml 450 ml # Bowel Movements 0 0 1 Result Diagram: 02/28/17 0935 02/28/17 0935 Imaging Last Impressions Chest X-Ray 02/27/17 0600 Signed Impressions: Service Date/Time: Monday, February 27, 2017 03:45 - CONCLUSION: 1. Cardiomegaly without consolidation. Stable interstitial changes and underlying emphysema. Abhilash Stover MD CT Angiography 02/25/17 0731 Signed Impressions: Service Date/Time: Saturday, February 25, 2017 08:08 - CONCLUSION: 1. Study degraded by breathing motion artifact. These were the best obtainable images. 2. No pulmonary embolus observed within the more central pulmonary arteries. Peripheral pulmonary arteries are limited in their evaluation due to the breathing motion artifact. 3. Diffuse interstitial infiltrates more pronounced within the upper lobes. Differential diagnostic considerations are quite broad at this point. The more common etiologies include usual interstitial pneumonitis as well as hypersensitivity pneumonitis. Dennis Gupta Jr., MD Objective Remarks IN GENERAL: asleep but easily arousable. CHEST: Distant breath sounds. sounds congested but no wheezing CARDIOVASCULAR SYSTEM: RRR. No murmurs. ABDOMEN: Abdomen is obese, distended. Normoactive bowel sounds. Nontender. EXTREMITIES: Trace edema in the feet and stasis changes in the legs. There is no is active cellulitis. NEUROLOGIC: Cranial nerves are grossly intact. Sensation is intact bilaterally. able to moves his extremities but is weak A/P Assessment and Plan Respiratory failureSepsis/Health care associated pneumonia/Lactic acidosis, likely due to aspiration and COPD. continue BiPap as needed and charly bernabe following, on symbicort. Pt on IV abx, zosyn, vanc and azithro. ID following as well. so far blood cx neg to date. Continue diabetic diet w glucerna supplementation. COPD exacerbation: continue breathing treatments. on solu-medrol IV taper, pulm following. Lasix IV. has been using acapella and IS. continue to encouraged use Sleep apnea: bipap Atrial fibrillation: on amiodarone/cardizem/on coumadin. monitor INR which is 3.7 today. pharmacy following for coumadin management. off coumadin at this time. Monitor closely. Chronic kidney disease stage III- monitor. Diabetes: diabetic diet. ISS, monitor BS. caution as pt is on steroids. will start levemir 5 units at bedtime, slowly titrate up as needed. Hypertension. stable, prn hydralazine available History of hyperkalemia and hypokalemia recurrently. replace as needed Chronic pain syndrome. stable PT/OT/ST following. Discharge Planning Encourage pt to continue working w therapy, encourage use of IS and acapella. Pt still requiring 8-10L simple mask but is stable, bipap as needed. pulm following. Jeni Lazo MD Feb 28, 2017 14:51
[2017-02-28] MEDS ORDERED: POTASSIUM CHLORIDE 20 MEQ CONTROLLED RELEASE TAB PO ONE (15:00)
--- NOTE | 2017-02-28 17:58 | HHI.IDPN ---
Subjective Subjective Remarks Chart reviewed Patient is a 77-year-old male, has had recurrent admissions and treated for COPD exacerbation, pneumonia, and cellulitis, readmitted again for possible pneumonia, and sepsis. Afebrile BP okay, not on pressors On 6 L O2 NC Looks dyspneic Sats 90% Not bringing up any phlegm No abdominal pain No nausea or vomiting Legionella and pneumococcal antigen negative UA with 17 WBC WBC down to normal BC negative UC negative Influenza negative No sputum C/S - patient not bringing up phlegm CXR stable interstitial infiltrates CTA with no pulmonary embolism, has some interstitial infiltrates Antibiotics Zithromax Zosyn Vancomycin Lines PIV Past Medical History afib COPD CKD DM skin CA LLE Past Surgical History skin ca LLE Allergies: Coded Allergies: No Known Allergies (Unverified , 01/19/17) Objective . Vital Signs Date Time Temp Pulse Resp B/P (MAP) Pulse Ox O2 Delivery O2 Flow Rate FiO2 02/28/17 16:03 92 Simple Mask 8.00 02/28/17 12:00 97.8 95 20 109/63 (78) 91 02/28/17 11:48 92 Simple Mask 10.00 02/28/17 08:31 93 Simple Mask 8.00 02/28/17 08:00 97.3 92 18 113/53 (73) 92 02/28/17 07:43 91 02/28/17 04:00 97.9 92 24 117/66 (83) 93 02/28/17 01:01 94 Simple Mask 10.00 02/28/17 01:00 86 02/28/17 00:00 98.2 76 22 144/89 (107) 90 02/27/17 22:00 98 02/27/17 20:00 98.7 96 28 121/59 (79) 95 02/27/17 20:00 96 02/27/17 19:43 95 Simple Mask 10.00 02/27/17 18:00 87 . Laboratory Tests Test 02/27/17 04:12 02/28/17 09:35 White Blood Count 7.1 TH/MM3 4.2 TH/MM3 Red Blood Count 3.70 MIL/MM3 3.40 MIL/MM3 Hemoglobin 10.9 GM/DL 10.3 GM/DL Hematocrit 33.8 % 30.5 % Mean Corpuscular Volume 91.4 FL 89.8 FL Mean Corpuscular Hemoglobin 29.4 PG 30.3 PG Mean Corpuscular Hemoglobin Concent 32.1 % 33.8 % Red Cell Distribution Width 19.8 % 19.4 % Platelet Count 71 TH/MM3 55 TH/MM3 Mean Platelet Volume 7.8 FL 7.5 FL Neutrophils (%) (Auto) 96.0 % 95.0 % Lymphocytes (%) (Auto) 1.9 % 2.8 % Monocytes (%) (Auto) 1.9 % 2.1 % Eosinophils (%) (Auto) 0.1 % 0.0 % Basophils (%) (Auto) 0.1 % 0.1 % Neutrophils # (Auto) 6.8 TH/MM3 3.9 TH/MM3 Lymphocytes # (Auto) 0.1 TH/MM3 0.1 TH/MM3 Monocytes # (Auto) 0.1 TH/MM3 0.1 TH/MM3 Eosinophils # (Auto) 0.0 TH/MM3 0.0 TH/MM3 Basophils # (Auto) 0.0 TH/MM3 0.0 TH/MM3 CBC Comment AUTO DIFF AUTO DIFF Differential Comment AUTO DIFF CONFIRMED AUTO DIFF CONFIRMED Platelet Estimate LOW Platelet Morphology Comment NORMAL Laboratory Tests Test 02/27/17 01:14 02/28/17 09:35 Blood Urea Nitrogen 39 MG/DL 36 MG/DL Creatinine 1.12 MG/DL 0.88 MG/DL Random Glucose 227 MG/DL 244 MG/DL Calcium Level 8.3 MG/DL 8.2 MG/DL Sodium Level 140 MEQ/L 142 MEQ/L Potassium Level 4.3 MEQ/L 3.1 MEQ/L Chloride Level 111 MEQ/L 110 MEQ/L Carbon Dioxide Level 16.5 MEQ/L 21.9 MEQ/L Anion Gap 13 MEQ/L 10 MEQ/L Estimat Glomerular Filtration Rate 64 ML/MIN 84 ML/MIN Imaging Chest X-Ray 02/27/17 0600 Signed Impressions: Service Date/Time: Monday, February 27, 2017 03:45 - CONCLUSION: 1. Cardiomegaly without consolidation. Stable interstitial changes and underlying emphysema. Abhilash Stover MD Chest X-Ray 02/25/17 0731 Signed Impressions: Service Date/Time: Saturday, February 25, 2017 07:41 - CONCLUSION: Mild interstitial prominence to the right apex which is a new finding. Exact etiology is uncertain. This would be an atypical appearance for pulmonary edema. A localized interstitial pneumonitis could have this appearance. Dennis Gupta Jr., MD CT Angiography 02/25/17 0731 Signed Impressions: Service Date/Time: Saturday, February 25, 2017 08:08 - CONCLUSION: 1. Study degraded by breathing motion artifact. These were the best obtainable images. 2. No pulmonary embolus observed within the more central pulmonary arteries. Peripheral pulmonary arteries are limited in their evaluation due to the breathing motion artifact. 3. Diffuse interstitial infiltrates more pronounced within the upper lobes. Differential diagnostic considerations are quite broad at this point. The more common etiologies include usual interstitial pneumonitis as well as hypersensitivity pneumonitis. Dennis Gupta Jr., MD Physical Exam GENERAL: Awakens easily and alert, looks dyspneic at rest on nasal O2 SKIN: No rashes, ecchymoses or lesions. Cool and dry. HEAD: Atraumatic. Normocephalic. No temporal or scalp tenderness. EYES: Pupils equal round and reactive. No scleral icterus. No injection or drainage. ENT: Nose without bleeding, purulent drainage. Very oral mucosa, with some ulcers on his tongue NECK: Trachea midline. Supple, nontender, no meningeal signs. CARDIOVASCULAR: Regular rate and rhythm without murmurs, gallops, or rubs. RESPIRATORY: Decreased BS nash GASTROINTESTINAL: Abdomen soft, non-tender, nondistended. No guarding. MUSCULOSKELETAL: Extremities without clubbing, cyanosis, or edema. No calf tenderness. Chronic skin changes, stasis related discoloration. NEUROLOGICAL: Awake and alert. Grossly non focal Psych: cooperative IV line sites with no evidence of infection. Assessment & Plan Remarks Assessment and Plan Pneumonia: CAP vs HCAP (recent admission to hospital) Rule out Sepsis. Leucocytosis and elevated lactic acid. Acute COPD exacerbation Acute resp failure. DM2 uncontrolled. CKD stage III Recs DC Zosyn DC Vanco IV (target 15-20) Continue Azithro for atypical PNA. Check procalcitonin. If normal will discontinue antibiotics or deescalate. Also on steroids ?possible that SOB due to his severe COPD Follow cultures Monitor progress Will adjust Abx once C/S available Darline Gallardo MD Feb 28, 2017 17:58
[2017-02-28] MEDS: TAMSULOSIN HCL 0.4 MG CAP PO SCH (20:43)
[2017-02-28] MEDS ORDERED: INSULIN DETEMIR 100 UNITS/ML VIAL SQ SCH (21:00)
[2017-03-01] VITALS (9 sets, daily range): BP systolic 108–142; BP diastolic 60–76; PULSE 80–90; RESP 18–22; TEMP 97–97.9; O2SAT 90–97
[2017-03-01] MEDS: methylPREDNISolone SOD SUCC 125 MG/2 ML VIAL IV PUSH SCH ×3 (01:48→14:12)
[2017-03-01] MEDS: ACETAMINOPHEN/HYDROcodone 325 MG/5 MG TAB PO PRN ×5 (01:48→21:50)
[2017-03-01] MEDS: CHLORHEXIDINE GLUCONATE 2 % 1 PACK (2 CLOTHS)(taper/protocol) TOPICAL SCH (03:35)
[2017-03-01] MEDS: INSULIN ASPART SUPPLEMENTAL SCALE SQ SCH ×4 (06:08→22:01)
[2017-03-01] MEDS: RESP: ALBUTEROL 2.5 MG/IPRATROPIUM 0.5 MG NEB (SCH) NEB (07:55)
[2017-03-01] MEDS: DOCUSATE SODIUM 50 MG/SENNA 8.6 MG TAB PO SCH ×2 (09:00→21:00)
[2017-03-01] MEDS: NYSTAT/DIPHENHY/LIDO MOUTHWASH (Adult) 120ML SWISH-SWAL SCH ×4 (09:00→21:52)
[2017-03-01 10:07] LABS: BICARBONATE 18.3 MEQ/L (21.0-32.0); MAGNESIUM 2.1 MG/DL (1.5-2.5); POTASSIUM 3.4 MEQ/L (3.5-5.1)
[2017-03-01] MEDS: FUROSEMIDE 40 MG/4 ML VIAL IV PUSH SCH ×2 (10:28→17:55)
[2017-03-01] MEDS: DILTIAZEM-CD 120 MG CAP ER PO SCH (10:29)
[2017-03-01] MEDS: PANTOPRAZOLE SODIUM 40 MG VIAL IV PUSH SCH (10:29)
[2017-03-01] MEDS: AZITHROMYCIN 250 MG TAB PO SCH (10:29)
[2017-03-01] MEDS: AMIODARONE 200 MG TAB PO SCH (10:31)
[2017-03-01] MEDS: SODIUM CHLORIDE 0.9% FLUSH 10 ML FLUSH IV FLUSH SCH ×2 (10:32→21:45)
[2017-03-01] MEDS: BUDESONIDE-FORMOTEROL 160/4.5 MCG INHALER INH SCH ×2 (10:32→21:44)
[2017-03-01] MEDS: DEXT 5%-NACL 0.45% 1000 ML INJ 1,000 ML IV SCH (12:40)
[2017-03-01 16:31] LABS: INTERNATIONAL NORMALIZED RATIO 2.8 RATIO; PROTHROMBIN TIME - PATIENT 32.7 SEC (9.8-11.6)
[2017-03-01] MEDS: WARFARIN SOD 1 MG TAB PO SCH (17:58)
--- NOTE | 2017-03-01 17:59 | HHI.PR ---
Subjective Remarks pt himself thinks he is breathing okay and doesn't think lungs are his problem. Chart review shows that he still at 8-10 L for the last 2 days. Nursing reports worsening sugars in the 300s, bedside sugar today in AM was 290s w/ 5 units of levemir last night. Objective Vital Signs Date Time Temp Pulse Resp B/P (MAP) Pulse Ox O2 Delivery O2 Flow Rate FiO2 03/01/17 12:13 97 Simple Mask 8.00 03/01/17 12:00 97.2 90 20 126/65 (85) 93 03/01/17 10:30 93 Simple Mask 8.00 40 03/01/17 10:30 88 03/01/17 08:00 97.0 88 18 142/76 (98) 93 03/01/17 07:58 96 Simple Mask 8.00 03/01/17 06:07 97.3 80 22 108/60 (76) 96 03/01/17 01:12 97.6 85 22 108/69 (82) 94 02/28/17 22:15 97.5 90 22 100/56 (71) 94 02/28/17 21:12 92 Simple Mask 15.00 02/28/17 20:00 93 02/28/17 19:30 Simple Mask 15.00 I/O 02/28/17 02/28/17 02/28/17 03/01/17 03/01/17 03/01/17 07:00 15:00 23:00 07:00 15:00 23:00 Intake Total 380 ml 2104 ml 480 ml 1000 ml Output Total 450 ml 1000 ml 1050 ml Balance -70 ml 1104 ml -570 ml 1000 ml Intake Oral 280 ml 480 ml 480 ml IV Total 100 ml 1624 ml 1000 ml Output Urine Total 450 ml 1000 ml 1050 ml # Bowel Movements 1 0 0 Result Diagram: 02/28/17 0935 03/01/17 0915 Objective Remarks Gen.: Moderate respiratory distress, awake Respiratory: Relatively clear to mild coarse bilateral breath sounds with somewhat good air movement but breaths are otherwise shallow, on Ventimask A/P Assessment and Plan Respiratory failureSepsis/Health care associated pneumonia/Lactic acidosis, likely due to aspiration and COPD. continue BiPap as needed and charly bernabe following, on symbicort. Appreciate ID recommendations, patient has been swapped over to azithromycin or likely atypical pneumonia.) We reviewed the chest x-ray which shows no effusions but rather chronically scarred bilateral parenchymal lung mcbride COPD exacerbation: continue breathing treatments. on solu-medrol IV taper, pulm following. Lasix IV. has been using acapella and IS. continue to encouraged use Hypoxia: Likely secondary to COPD exacerbation- discuss case with pulmonology, patient is a risky candidate for bronchial alveolar lavage for further deterioration, continue current medical management and observe for treatment Sleep apnea: bipap Atrial fibrillation: on amiodarone/cardizem/on coumadin. Close monitoring with INR Chronic kidney disease stage III- monitor. Diabetes: diabetic diet. worsened w/ steroids, increasing Levemir from 5-10 units, upgrading sliding scale for medium dose to high-dose Hypertension. stable, prn hydralazine available History of hyperkalemia and hypokalemia monitor, replace as needed Chronic pain syndrome. stable Carmelo Fischer MD Mar 01, 2017 17:59
--- NOTE | 2017-03-01 18:19 | HHI.PR ---
Subjective Remarks He feels better. On O2 at 12L. Via mask. . No fever. Has some wheezing still.On IV's Objective Vital Signs Date Time Temp Pulse Resp B/P (MAP) Pulse Ox O2 Delivery O2 Flow Rate FiO2 03/01/17 16:00 97.9 89 20 134/63 (86) 91 03/01/17 12:13 97 Simple Mask 8.00 03/01/17 12:00 97.2 90 20 126/65 (85) 93 03/01/17 10:30 93 Simple Mask 8.00 40 03/01/17 10:30 88 03/01/17 08:00 97.0 88 18 142/76 (98) 93 03/01/17 07:58 96 Simple Mask 8.00 03/01/17 06:07 97.3 80 22 108/60 (76) 96 03/01/17 01:12 97.6 85 22 108/69 (82) 94 02/28/17 22:15 97.5 90 22 100/56 (71) 94 02/28/17 21:12 92 Simple Mask 15.00 02/28/17 20:00 93 02/28/17 19:30 Simple Mask 15.00 I/O 02/28/17 02/28/17 02/28/17 03/01/17 03/01/17 03/01/17 06:59 14:59 22:59 06:59 14:59 22:59 Intake Total 380 ml 2104 ml 480 ml 1000 ml Output Total 450 ml 1000 ml 1050 ml Balance -70 ml 1104 ml -570 ml 1000 ml Intake Oral 280 ml 480 ml 480 ml IV Total 100 ml 1624 ml 1000 ml Output Urine Total 450 ml 1000 ml 1050 ml # Bowel Movements 1 0 0 Result Diagram: 02/28/17 0935 03/01/17 0915 Objective Remarks GENERAL: This moderately obese elderly man who is laying flat. No distress HEENT: Head normocephalic. Pupils are reactive and equal. Tongue is moist. Throat is injected. Nasal mucosae clear. NECK: No bruits or thyroid enlargement or lymphadenopathy. CHEST: Distant breath sounds with expiratory wheezes bilaterally, prolonged expirations with crackles at the lung bases. HEART: The heart sounds irregular S1-S2 with no murmur or S3. ABDOMEN: Obese, protuberant without masses. No organomegaly or tenderness. Bowel sounds are active. EXTREMITIES: Minimal edema and decreased peripheral pulses. No calf tenderness or swelling. Reflexes 1+ with no gross motor deficits. The patient does move all his extremities well. NEURO: Cranial nerves grossly intact. RECTAL: Exam is deferred. Assessment and Plan Assessment and Plan IMPRESSION 1. Acute respiratory failure. 2. Probable aspiration pneumonia. 3. Sepsis. 4. Chronic bronchitis and emphysema. 5. Interstitial lung disease. 6. Atrial fibrillation. 7. Hypertension and diabetes. 8. Anemia of chronic disease. Plan : 1. Cont Antibiotics per ID 2. Wean O2 to 4L 3. Taper solumedrol to 40 Mg q8h. 4. CBC,BMP ,CXR in am 5. Duonebs qid. 6. Continue Lasix 20 mg daily. 7. Bipap 12/5 cm at HS if he agrees 8. Pt does not want any Procedures done Corinne Vieyra MD Mar 01, 2017 18:19
[2017-03-01] MEDS: TAMSULOSIN HCL 0.4 MG CAP PO SCH (21:49)
[2017-03-01] MEDS: methylPREDNISolone SOD SUCC 40 MG/1 ML VIAL IV PUSH SCH (21:53)
[2017-03-01] MEDS: INSULIN DETEMIR 100 UNITS/ML VIAL SQ SCH (21:59)
[2017-03-02] VITALS (7 sets, daily range): BP systolic 65–132; BP diastolic 64–70; PULSE 83–91; RESP 19–20; TEMP 97.3–98.3; O2SAT 88–92
[2017-03-02] MEDS: ACETAMINOPHEN/HYDROcodone 325 MG/5 MG TAB PO PRN ×5 (02:27→21:59)
[2017-03-02] MEDS: CHLORHEXIDINE GLUCONATE 2 % 1 PACK (2 CLOTHS)(taper/protocol) TOPICAL SCH (04:00)
[2017-03-02] MEDS: INSULIN ASPART SUPPLEMENTAL SCALE SQ SCH ×4 (05:59→21:00)
[2017-03-02] MEDS: methylPREDNISolone SOD SUCC 40 MG/1 ML VIAL IV PUSH SCH ×3 (06:03→21:57)
--- NOTE | 2017-03-02 06:40 | RADRPT ---
EXAM DATE/TIME: 03/02/2017 06:02 [facility] COMPARISON: CHEST SINGLE AP, February 27, 2017, 3:45. INDICATIONS : Infiltrate. MEDICAL HISTORY : Hypertension. Chronic obstructive pulmonary disease. Diabetes. SURGICAL HISTORY : None. ENCOUNTER: Subsequent ACUITY: 1 week PAIN SCORE: 0/10 LOCATION: Bilateral chest FINDINGS: Mild diffuse interstitial prominence unchanged from previous exam. Elevation of the left hemidiaphrag m stable. Cardiac silhouette is enlarged. Remainder of exam is unchanged. CONCLUSION: 1. Cardiomegaly with minimal positive fluid balance. 2. No new focal consolidation or significant interval change. Greg Moore MD on March 02, 2017 at 6:37 Board Certified Radiologist. This report was verified electronically.
[2017-03-02 07:45] LABS: INTERNATIONAL NORMALIZED RATIO 2.5 RATIO; PROTHROMBIN TIME - PATIENT 28.4 SEC (9.8-11.6)
[2017-03-02] MEDS: FUROSEMIDE 20 MG/2 ML VIAL IV PUSH SCH ×2 (08:14→17:58)
[2017-03-02] MEDS: DILTIAZEM-CD 120 MG CAP ER PO SCH (08:14)
[2017-03-02] MEDS: AZITHROMYCIN 250 MG TAB PO SCH (08:15)
[2017-03-02] MEDS: AMIODARONE 200 MG TAB PO SCH (08:15)
[2017-03-02] MEDS: SODIUM CHLORIDE 0.9% FLUSH 10 ML FLUSH IV FLUSH SCH ×2 (08:15→21:59)
[2017-03-02] MEDS: BUDESONIDE-FORMOTEROL 160/4.5 MCG INHALER INH SCH ×2 (08:17→22:00)
[2017-03-02] MEDS: DOCUSATE SODIUM 50 MG/SENNA 8.6 MG TAB PO SCH ×2 (08:21→21:00)
[2017-03-02] MEDS: NYSTAT/DIPHENHY/LIDO MOUTHWASH (Adult) 120ML SWISH-SWAL SCH ×4 (08:22→22:18)
[2017-03-02] MEDS: PANTOPRAZOLE SODIUM 40 MG VIAL IV PUSH SCH (12:51)
--- NOTE | 2017-03-02 13:25 | PD.WCN.NOT ---
Wound Consult Description: Received consult for wound management of sacrum and bilateral buttock wounds from Doctor Hossein Communicated with: CHARISSE Cunha and call placed to Doctor Amado Recommendation: Please cleanse bilateral upper buttock and sacral area with soap and water and apply Calazime barrier cream BID and PRN Cleanse wounds to bilateral ischium with normal saline and apply single layer Xeroform just over wound beds. Cover with dry cover dressing Please apply skin prep before applying adhesives to skin Additional Information: Patient seen on for evaluation of sacral and bilateral buttock wounds. Patient turned to R side to reveal blanchable erythema and diffuse small areas of partial thickness skin loss to gluteal cleft and bilateral upper buttocks. Diffuse partial thickness wounds to upper bilateral buttock and gluteal cleft present as incontinence associated dermatitis.Removed dressings in place over R and L ischial areas to reveal partial thickness skin loss. L ischium wound measures ~3cm x ~2cm x~<0.1cm. R ischium wound measures ~1 cm x ~2cm x ~<0.1cm. Partial thickness skin loss over bony prominence indicates stage 2 pressure injury.Patient is unable to remember how or when wounds occurred. Applied Calazime barrier cream to upper buttocks and gluteal cleft areas. Cleansed bilateral ischial wounds with normal saline and applied single layer Xeroform just over wound bed. Applied skin prep before applying dry cover dressing.Patient repositioned to R side with [facility] Mar 02, 2017 13:25
--- NOTE | 2017-03-02 13:37 | HHI.PR ---
Subjective Remarks pt says he is breathing better today. Nursing reports no acute events overnight. titrated down from 10 to 6 L. Objective Vital Signs Date Time Temp Pulse Resp B/P (MAP) Pulse Ox O2 Delivery O2 Flow Rate FiO2 03/02/17 12:00 97.4 89 20 65/ 90 03/02/17 08:00 97.4 88 19 109/65 (80) 90 03/02/17 04:00 97.3 86 20 114/64 (81) 92 03/02/17 00:00 98.3 91 20 120/64 (82) 90 03/01/17 20:00 97.5 89 20 135/70 (91) 90 03/01/17 20:00 Nasal Cannula 6.00 Humidified 03/01/17 17:30 90 Nasal Cannula 6.00 Humidified 03/01/17 16:00 97.9 89 20 134/63 (86) 91 I/O 03/01/17 03/01/17 03/01/17 03/02/17 03/02/17 03/02/17 07:00 15:00 23:00 07:00 15:00 23:00 Intake Total 480 ml 1000 ml 960 ml 2540 ml Output Total 1050 ml 1400 ml Balance -570 ml 1000 ml 960 ml 1140 ml Intake Oral 480 ml 2540 ml IV Total 1000 ml 960 ml Output Urine Total 1050 ml 1400 ml # Bowel Movements 0 2 Result Diagram: 02/28/17 0935 03/01/17 0915 Objective Remarks Gen.: mild resp distress, able to speak in complete sentences Respiratory: Relatively clear to mild coarse bilateral breath sounds with somewhat good air movement, on nc today A/P Assessment and Plan Respiratory failureSepsis/Health care associated pneumonia/Lactic acidosis, likely due to aspiration and COPD. continue BiPap as needed and duonebs, pulm following, on symbicort. Appreciate ID recommendations, patient has been swapped over to azithromycin or likely atypical pneumonia.) We reviewed the chest x-ray which shows no effusions but rather chronically scarred bilateral parenchymal lung mcbride COPD exacerbation: continue breathing treatments. on solu-medrol IV taper, pulm following. Lasix IV. has been using acapella and IS. continue to encouraged use - improving Hypoxia: Likely secondary to COPD exacerbation- discuss case with pulmonology, patient is a risky candidate for bronchial alveolar lavage for further deterioration, continue current medical management and observe for treatment - improving hypoxia Sleep apnea: bipap Atrial fibrillation: on amiodarone/cardizem/on coumadin. Close monitoring with INR Chronic kidney disease stage III- monitor. Diabetes: diabetic diet. worsened w/ steroids, Levemir 10 units, - high-dose - improved sugars, monitor and de-escalate insulin Hypertension. stable, prn hydralazine available History of hyperkalemia and hypokalemia monitor, replace as needed Chronic pain syndrome. stable Carmelo Fischer MD Mar 02, 2017 13:37
--- NOTE | 2017-03-02 16:42 | HHI.IDPN ---
Subjective Subjective Remarks Chart reviewed Patient is a 77-year-old male, has had recurrent admissions and treated for COPD exacerbation, pneumonia, and cellulitis, readmitted again for possible pneumonia, and sepsis. Afebrile Feels better on 7L NC Receiving Lasix Sitting up in bed. Not bringing up any phlegm No abdominal pain No nausea or vomiting CTA with no pulmonary embolism, has some interstitial infiltrates Antibiotics Zithromax Lines PIV Past Medical History afib COPD CKD DM skin CA LLE Past Surgical History skin ca LLE Allergies: Coded Allergies: No Known Allergies (Unverified , 01/19/17) Objective . Vital Signs Date Time Temp Pulse Resp B/P (MAP) Pulse Ox O2 Delivery O2 Flow Rate FiO2 03/02/17 12:00 97.4 89 20 65/ 90 03/02/17 08:00 88 03/02/17 08:00 Nasal Cannula 7.00 Humidified 03/02/17 08:00 97.4 88 19 109/65 (80) 90 03/02/17 04:00 97.3 86 20 114/64 (81) 92 03/02/17 00:00 98.3 91 20 120/64 (82) 90 03/01/17 20:00 97.5 89 20 135/70 (91) 90 03/01/17 20:00 Nasal Cannula 6.00 Humidified 03/01/17 17:30 90 Nasal Cannula 6.00 Humidified . Laboratory Tests Test 03/01/17 09:15 Blood Urea Nitrogen 38 MG/DL Creatinine 0.95 MG/DL Random Glucose 282 MG/DL Calcium Level 7.5 MG/DL Magnesium Level 2.1 MG/DL Sodium Level 141 MEQ/L Potassium Level 3.4 MEQ/L Chloride Level 110 MEQ/L Carbon Dioxide Level 18.3 MEQ/L Anion Gap 13 MEQ/L Estimat Glomerular Filtration Rate 77 ML/MIN Imaging Chest X-Ray 02/27/17 0600 Signed Impressions: Service Date/Time: Monday, February 27, 2017 03:45 - CONCLUSION: 1. Cardiomegaly without consolidation. Stable interstitial changes and underlying emphysema. Abhilash Stover MD Chest X-Ray 02/25/17 0731 Signed Impressions: Service Date/Time: Saturday, February 25, 2017 07:41 - CONCLUSION: Mild interstitial prominence to the right apex which is a new finding. Exact etiology is uncertain. This would be an atypical appearance for pulmonary edema. A localized interstitial pneumonitis could have this appearance. Dennis Gupta Jr., MD CT Angiography 02/25/17 0731 Signed Impressions: Service Date/Time: Saturday, February 25, 2017 08:08 - CONCLUSION: 1. Study degraded by breathing motion artifact. These were the best obtainable images. 2. No pulmonary embolus observed within the more central pulmonary arteries. Peripheral pulmonary arteries are limited in their evaluation due to the breathing motion artifact. 3. Diffuse interstitial infiltrates more pronounced within the upper lobes. Differential diagnostic considerations are quite broad at this point. The more common etiologies include usual interstitial pneumonitis as well as hypersensitivity pneumonitis. Dennis Gupta Jr., MD Physical Exam GENERAL: Awakens easily and alert, looks dyspneic at rest on nasal O2 SKIN: No rashes, ecchymoses or lesions. Cool and dry. HEAD: Atraumatic. Normocephalic. No temporal or scalp tenderness. EYES: Pupils equal round and reactive. No scleral icterus. No injection or drainage. ENT: Nose without bleeding, purulent drainage. Very oral mucosa, with some ulcers on his tongue NECK: Trachea midline. Supple, nontender, no meningeal signs. CARDIOVASCULAR: Regular rate and rhythm without murmurs, gallops, or rubs. RESPIRATORY: Decreased BS nash GASTROINTESTINAL: Abdomen soft, non-tender, nondistended. No guarding. MUSCULOSKELETAL: Extremities without clubbing, cyanosis, or edema. No calf tenderness. Chronic skin changes, stasis related discoloration. NEUROLOGICAL: Awake and alert. Grossly non focal Psych: cooperative IV line sites with no evidence of infection. Assessment & Plan Remarks Assessment and Plan Pneumonia: CAP vs HCAP (recent admission to hospital) Rule out Sepsis. Leucocytosis and elevated lactic acid. Acute COPD exacerbation Acute resp failure. DM2 uncontrolled. CKD stage III Recs Discontinue antibiotics. Observe off antibiotics. Normal procalcitonin. Likely fluid overload and COPD exacerbation related. Will sign off please call back if any change in clinical condition or questions. Darline Gallardo MD Mar 02, 2017 16:42
[2017-03-02] MEDS: WARFARIN SOD 1 MG TAB PO SCH (17:59)
[2017-03-02 19:00] LABS: BICARBONATE 24.4 MEQ/L (21.0-32.0)
[2017-03-02 19:54] LABS: POTASSIUM 2.8 MEQ/L (3.5-5.1)
[2017-03-02] MEDS ORDERED: SODIUM CHLORID 0.9% 500 ML INJ 500 ML IV SCH (20:15)
[2017-03-02] MEDS ORDERED: POTASSIUM CHLORIDE 25 MEQ EFFERVESCENT TAB PO ONE (20:15)
[2017-03-02] MEDS: TAMSULOSIN HCL 0.4 MG CAP PO SCH (21:59)
[2017-03-02] MEDS: POTASSIUM CHLOR 10 MEQ PREMIX 100 ML IV SCH (22:02)
[2017-03-02] MEDS: INSULIN DETEMIR 100 UNITS/ML VIAL SQ SCH (22:16)
[2017-03-02] MEDS: ZOLPIDEM TARTRATE 5 MG TAB PO PRN (23:50)
[2017-03-03] VITALS (8 sets, daily range): BP systolic 113–153; BP diastolic 63–78; PULSE 64–95; RESP 18–22; TEMP 97.2–98.2; O2SAT 90–96
[2017-03-03] MEDS: POTASSIUM CHLOR 10 MEQ PREMIX 100 ML IV SCH ×2 (02:36→05:06)
[2017-03-03] MEDS: methylPREDNISolone SOD SUCC 40 MG/1 ML VIAL IV PUSH SCH ×3 (06:38→20:54)
[2017-03-03] MEDS: ACETAMINOPHEN/HYDROcodone 325 MG/5 MG TAB PO PRN ×2 (06:38→20:51)
[2017-03-03] MEDS: INSULIN ASPART SUPPLEMENTAL SCALE SQ SCH ×4 (07:00→21:00)
[2017-03-03] MEDS: DOCUSATE SODIUM 50 MG/SENNA 8.6 MG TAB PO SCH ×2 (09:00→20:55)
[2017-03-03] MEDS: BUDESONIDE-FORMOTEROL 160/4.5 MCG INHALER INH SCH ×2 (09:13→20:49)
[2017-03-03] MEDS: FUROSEMIDE 20 MG/2 ML VIAL IV PUSH SCH ×2 (09:14→16:33)
[2017-03-03] MEDS: SODIUM CHLORIDE 0.9% FLUSH 10 ML FLUSH IV FLUSH SCH ×2 (09:14→20:55)
[2017-03-03] MEDS: AMIODARONE 200 MG TAB PO SCH (09:15)
[2017-03-03] MEDS: DILTIAZEM-CD 120 MG CAP ER PO SCH (09:15)
[2017-03-03] MEDS: NYSTAT/DIPHENHY/LIDO MOUTHWASH (Adult) 120ML SWISH-SWAL SCH ×4 (09:16→20:56)
[2017-03-03] MEDS: PANTOPRAZOLE SODIUM 40 MG VIAL IV PUSH SCH (09:16)
--- NOTE | 2017-03-03 13:08 | HHI.PR ---
Subjective Remarks He is better. On O2 at 5 L N/C . K+ level was low. On IV lasix . No fever. Has some wheezing still. Objective Vital Signs Date Time Temp Pulse Resp B/P (MAP) Pulse Ox O2 Delivery O2 Flow Rate FiO2 03/03/17 12:00 97.7 95 20 142/72 (95) 91 03/03/17 09:12 18 03/03/17 08:00 97.4 94 20 121/67 (85) 91 03/03/17 04:00 97.3 94 18 134/78 (96) 90 03/03/17 04:00 97.2 64 18 153/76 (101) 96 03/03/17 00:00 97.2 87 18 122/69 (86) 90 03/02/17 20:00 97.3 89 20 132/70 (90) 92 03/02/17 20:00 Nasal Cannula 5.00 Humidified 03/02/17 17:50 90 Nasal Cannula 6.00 03/02/17 16:00 97.4 83 20 115/70 (85) 88 I/O 03/02/17 03/02/17 03/02/17 03/03/17 03/03/17 03/03/17 07:00 15:00 23:00 07:00 15:00 23:00 Intake Total 2540 ml 620 ml 100 ml 100 ml Output Total 1400 ml 500 ml Balance 1140 ml 120 ml 100 ml 100 ml Intake Oral 2540 ml 620 ml IV Total 100 ml 100 ml Output Urine Total 1400 ml 500 ml # Bowel Movements 2 2 Result Diagram: 02/28/17 0935 03/02/17 5330 Objective Remarks GENERAL: This moderately obese elderly man who is laying flat. No distress HEENT: Head normocephalic. Pupils are reactive and equal. Tongue is moist. Throat is injected. Nasal mucosae clear. NECK: No bruits or thyroid enlargement or lymphadenopathy. CHEST: Distant breath sounds with expiratory wheezes bilaterally, prolonged expirations with Occ crackles at the lung bases. HEART: The heart sounds irregular S1-S2 with no murmur or S3. ABDOMEN: Obese, protuberant without masses. No organomegaly or tenderness. Bowel sounds are active. EXTREMITIES: Minimal edema and decreased peripheral pulses. No calf tenderness or swelling. Reflexes 1+ with no gross motor deficits. The patient does move all his extremities well. NEURO: Cranial nerves grossly intact. RECTAL: Exam is deferred. Assessment and Plan Assessment and Plan IMPRESSION 1. Acute respiratory failure. 2. Probable aspiration pneumonia. 3. Pulmonary edema 4. Chronic bronchitis and emphysema. 5. Interstitial lung disease. 6. Atrial fibrillation. 7. Hypertension and diabetes. 8. Anemia of chronic disease. Plan : 1. Cont Antibiotics per ID 2. Wean O2 to 4L 3. Taper solumedrol to 40 Mg q12h. 4. CBC,BMP ,in am 5. Duonebs Neb qid. 6. Continue Lasix 20 mg IV daily. 7. Replace potassium 8. Pt does not want any Procedures done Corinne Vieyra MD Mar 03, 2017 13:08
--- NOTE | 2017-03-03 14:14 | HHI.PR ---
Subjective Remarks PATIENT REMAINS ON 5LITERS BY NASAL CANNULA NEEDS TO MOVE NEEDS PT AND OT LESS SOB CONTINUE TO DIURESE AM LABS Objective Vitals Vital Signs Date Time Temp Pulse Resp B/P (MAP) Pulse Ox O2 Delivery O2 Flow Rate FiO2 03/03/17 12:00 97.7 95 20 142/72 (95) 91 03/03/17 09:12 18 03/03/17 08:00 97.4 94 20 121/67 (85) 91 03/03/17 04:00 97.3 94 18 134/78 (96) 90 03/03/17 04:00 97.2 64 18 153/76 (101) 96 03/03/17 00:00 97.2 87 18 122/69 (86) 90 03/02/17 20:00 97.3 89 20 132/70 (90) 92 03/02/17 20:00 Nasal Cannula 5.00 Humidified 03/02/17 17:50 90 Nasal Cannula 6.00 03/02/17 16:00 97.4 83 20 115/70 (85) 88 I/O 03/02/17 03/02/17 03/02/17 03/03/17 03/03/17 03/03/17 06:59 14:59 22:59 06:59 14:59 22:59 Intake Total 2540 ml 620 ml 200 ml Output Total 1400 ml 500 ml Balance 1140 ml 120 ml 200 ml Intake Oral 2540 ml 620 ml IV Total 200 ml Output Urine Total 1400 ml 500 ml # Bowel Movements 2 2 Result Diagram: 02/28/17 0935 03/02/17 0190 Other Results Laboratory Tests Test 03/01/17 09:15 03/01/17 15:35 03/02/17 06:50 03/02/17 17:30 Blood Urea Nitrogen 38 MG/DL 48 MG/DL Creatinine 0.95 MG/DL 0.85 MG/DL Random Glucose 282 MG/DL 157 MG/DL Calcium Level 7.5 MG/DL 8.0 MG/DL Magnesium Level 2.1 MG/DL Sodium Level 141 MEQ/L 141 MEQ/L Potassium Level 3.4 MEQ/L 2.8 MEQ/L Chloride Level 110 MEQ/L 107 MEQ/L Carbon Dioxide Level 18.3 MEQ/L 24.4 MEQ/L Anion Gap 13 MEQ/L 10 MEQ/L Estimat Glomerular Filtration Rate 77 ML/MIN 88 ML/MIN Prothrombin Time 32.7 SEC 28.4 SEC Prothromb Time International Ratio 2.8 RATIO 2.5 RATIO Imaging Last Impressions Chest X-Ray 03/02/17 0600 Signed Impressions: Service Date/Time: Thursday, March 02, 2017 06:02 - CONCLUSION: 1. Cardiomegaly with minimal positive fluid balance. 2. No new focal consolidation or significant interval change. Greg Moore MD CT Angiography 02/25/17 0731 Signed Impressions: Service Date/Time: Saturday, February 25, 2017 08:08 - CONCLUSION: 1. Study degraded by breathing motion artifact. These were the best obtainable images. 2. No pulmonary embolus observed within the more central pulmonary arteries. Peripheral pulmonary arteries are limited in their evaluation due to the breathing motion artifact. 3. Diffuse interstitial infiltrates more pronounced within the upper lobes. Differential diagnostic considerations are quite broad at this point. The more common etiologies include usual interstitial pneumonitis as well as hypersensitivity pneumonitis. Dennis Gupta Jr., MD Objective Remarks GENERAL: Awake alert oriented talkative and cooperative SKIN: Warm and dry. HEAD: Atraumatic. Normocephalic. EYES: Pupils equal and round. No scleral icterus. No injection or drainage. Extraocular muscles intact ENT: No nasal bleeding or discharge. Mucous membranes pink and moist. Tongue is midline NECK: Trachea midline. No JVD. Neck is supple CARDIOVASCULAR: Regular rate and rhythm. S1-S2 no S3 or S4 no heave or thrill or rub or gallop RESPIRATORY: No accessory muscle use. Some rhonchi and some wheezes bilaterally. Breath sounds equal bilaterally. GASTROINTESTINAL: Abdomen soft, non-tender, nondistended. Hepatic and splenic margins not palpable. Obese MUSCULOSKELETAL: Extremities without clubbing, cyanosis. No obvious deformities. +1 lower extremity edema NEUROLOGICAL: Awake and alert. No obvious cranial nerve deficits. Motor grossly within normal limits. Five out of 5 muscle strength in the arms and legs. Normal speech. PSYCHIATRIC: Appropriate mood and affect; insight and judgment normal. Medications and IVs Current Medications Methylprednisolone Sodium Succinate (SoluMEDROL INJ) 125 mg ONCE ONCE IVP Last administered on 02/25/17t 08:06; Start 02/25/17 at 07:45; Stop 02/25/17 at 07: 46; Status DC Albuterol Sulfate (Albuterol Neb) 2.5 mg Q15M INH Last administered on 08:15; Start 02/25/17 at 07:45; Stop 02/25/17 at 08:16; Status DC Magnesium Sulfate/ Dextrose 100 ml @ 100 mls/hr ONCE ONCE IV Last administered on 02/25/17 08:06; Start 02/25/17 at 07:45; Stop 02/25/17 at 08:44; Status DC Piperacillin Sod/ Tazobactam Sod 100 ml @ 200 mls/hr ONCE STAT IV Last administered on 02/25/17 08:28; Start 02/25/17 at 07:40; Stop 02/25/17 at 08:12; Status DC Azithromycin 500 mg/Sodium Chloride 250 ml @ 250 mls/hr ONCE STAT IV Last administered on 02/25/17 09:41; Start 02/25/17 at 07:40; Stop 02/25/17 at 08:39; Status DC Tobramycin Sulfate 100 mg/ Sodium Chloride 102.5 ml @ 100 mls/hr ONCE STAT IV Last administered on 02/25/17 12:09; Start 02/25/17 at 07:40; Stop 02/25/17 at 08:41; Status DC Iohexol (Omnipaque 350 Inj) 73 ml STK-MED ONCE IVCONTRAST Last administered on 02/25/17 07:16; Start 02/25/17 at 07:16; Stop 02/25/17 at 08:12; Status DC Sodium Chloride (NS Flush) 2 ml UNSCH PRN IV FLUSH FLUSH AFTER USING IV ACCESS ; Start 02/25/17 at 09:15 Sodium Chloride (NS Flush) 2 ml BID IV FLUSH Last administered on 03/03/17 09: 14; Start 02/25/17 at 21:00 Acetaminophen (Tylenol) 650 mg Q4H PRN PO TEMP > 100.4; Start 02/25/17 at 09:15 Ondansetron HCl (Zofran Inj) 4 mg Q6H PRN IVP NAUSEA OR VOMITING; Start at 09:15 Zolpidem Tartrate (Ambien) 5 mg HS PRN PO INSOMNIA Last administered on 23:50; Start 9/1/17 at 09:15 Heparin Sodium (Porcine) (Heparin Inj) 5,000 units Q12H SQ ; Start 02/25/17 at 09 :15; Stop 02/25/17 at 09:15; Status DC Naloxone HCl (Narcan Inj) 0.4 mg UNSCH PRN IV SEE LABEL COMMENTS; Start at 09:15 Senna/Docusate Sodium (Maira-Colace) 1 tab BID PO Last administered on 03/01/17 09:00; Start 02/25/17 at 21:00 Magnesium Hydroxide (Milk Of Magnesia Liq) 30 ml Q12H PRN PO MILD - MODERATE CONSTIPATION; Start 02/25/17 at 09:15 Sennosides (Senokot) 17.2 mg Q12H PRN PO MODERATE - SEVERE CONSTIPATION; Start 02/25/17 at 09:15 Bisacodyl (Dulcolax Supp) 10 mg DAILY PRN RECTAL SEVERE CONSITIPATION; Start at 09:15 Lactulose (Lactulose Liq) 30 ml DAILY PRN PO SEVERE CONSITIPATION; Start at 09:15 Albuterol Sulfate (Albuterol Neb) 2.5 mg Q6HR NEB PRN NEB SHORTNESS OF BREATH; Start 02/25/17 at 09:15 Amiodarone HCl (Cordarone) 200 mg DAILY PO Last administered on 03/03/17 09:15 ; Start 02/26/17 at 09:00 Diltiazem HCl (Cardizem Cd) 120 mg DAILY PO Last administered on 03/03/17 09:15 ; Start 02/26/17 at 09:00 Acetaminophen/ Hydrocodone Bitart ([place] 5-325 Mg) 1 tab Q4H PRN PO PAIN GREATER THAN 5 Last administered on 03/03/17 06:38; Start 02/25/17 at 09:15 Lorazepam (Ativan) 0.5 mg Q8H PRN PO SEVERE ANXIETY OR AGITATION Last administered on 02/26/17 13:25; Start 02/25/17 at 09:15 Tamsulosin HCl (Flomax) 0.4 mg HS PO Last administered on 03/02/17 21:59; Start 02/25/17 at 21:00 Warfarin Sodium (Coumadin) 2 mg DAILY@1600 PO ; Start 02/26/17 at 16:00; Stop 03/01/17 at 16:52; Status DC Hydralazine HCl (Apresoline Inj) 20 mg Q4H PRN IV PUSH SYS BP GREATER THAN 180 MMHG; Start 02/25/17 at 09:15 Pharmacy Profile Note 0 ml @ 0 mls/hr UNSCH OTHER ; Start 02/25/17 at 09:15 Furosemide (Lasix Inj) 40 mg BID@09,18 IV PUSH Last administered on 03/01/17 17 :55; Start 02/25/17 at 18:00; Stop 03/01/17 at 18:30; Status DC Methylprednisolone Sodium Succinate (SoluMEDROL INJ) 125 mg Q6H IV PUSH Last administered on 02/25/17 14:06; Start 02/25/17 at 14:00; Stop 02/25/17 at 19:22; Status DC Pantoprazole Sodium (Protonix Inj) 40 mg Q24H IV PUSH Last administered on 09:16; Start 02/25/17 at 10:00 Piperacillin Sod/ Tazobactam Sod 50 ml @ 100 mls/hr Q6H IV Last administered on 02/25/17 15:39; Start 02/25/17 at 15:00; Stop 02/25/17 at 20:55; Status DC Pharmacy Profile Note 0 ml @ 0 mls/hr UNSCH OTHER ; Start 02/25/17 at 09:15; Stop 02/28/17 at 12:07; Status DC Albuterol/ Ipratropium (Duoneb Neb) 1 ampule QID NEB NEB Last administered on 03/01/17 07:55; Start 02/25/17 at 12:00; Stop 03/01/17 at 11:59; Status DC Dextrose/Sodium Chloride 1,000 ml @ 70 mls/hr [id number] IV Last administered on 03/01/17 12:40; Start 02/25/17 at 10:00; Stop 03/01/17 at 18:21; Status DC Vancomycin HCl 2000 mg/Sodium Chloride 520 ml @ 250 mls/hr ONCE ONCE IV Last administered on 02/25/17 13:30; Start 02/25/17 at 11:00; Stop 02/25/17 at 13:04; Status DC Patient Medication Teaching (Coumadin Booklet) 1 ONCE ONCE OTHER ; Start at 16:00; Stop 02/26/17 at 16:01; Status DC Vancomycin HCl 1000 mg/Sodium Chloride 250 ml @ 250 mls/hr Q12H IV Last administered on 02/26/17 13:00; Start 02/26/17 at 01:00; Stop 02/27/17 at 09:40; Status DC Miscellaneous Information SPECIFIC LAB TO BE MARLENY... ONCE ONCE .XX ; Start at 00:45; Stop 02/27/17 at 00:46; Status DC Miscellaneous Information Patient in critical care unit? Ass... [id number] .XX ; Start 02/25/17 at 17:00 Chlorhexidine Gluconate (Chlorhexidine 2% Cloth) 3 pack DAILY@04 TOPICAL Last administered on 03/01/17 03:35; Start 02/26/17 at 04:00; Stop 03/02/17 at 04:01; Status DC Chlorhexidine Gluconate (Chlorhexidine 2% Cloth) 3 pack UNSCH PRN TOPICAL HYGIENIC CARE; Start 02/25/17 at 17:00; Stop 03/02/17 at 16:52; Status DC Methylprednisolone Sodium Succinate (SoluMEDROL INJ) 60 mg Q6H IV PUSH Last administered on 02/26/17 13:24; Start 02/25/17 at 20:00; Stop 02/26/17 at 14:51; Status DC Budesonide/ Formoterol Fumarate (Symbicort 160-4.5 Inh) 1 puff Q12HR INH Last administered on 03/03/17 09:13; Start 02/25/17 at 21:00 Azithromycin (Zithromax) 500 mg DAILY PO Last administered on 03/02/17 08:15; Start 02/26/17 at 09:00; Stop 03/02/17 at 16:43; Status DC Piperacillin Sod/ Tazobactam Sod 100 ml @ 200 mls/hr Q8H IV Last administered on 02/28/17 06:09; Start 02/25/17 at 21:00; Stop 02/28/17 at 12:08; Status DC Insulin Aspart (NovoLOG SUPPLEMENTAL SCALE) 1 ACHS SLIDING SCALE SQ Last administered on 03/01/17 17:53; Start 02/26/17 at 07:00; Stop 03/01/17 at 18:31; Status DC Dextrose (D50w (Vial) Inj) 50 ml UNSCH PRN IV PUSH HYPOGLYCEMIA - SEE COMMENTS ; Start 02/25/17 at 22:45 Glucagon (Glucagon Inj) 1 mg UNSCH PRN OTHER HYPOGLYCEMIA-SEE COMMENTS; Start 02/25/17 at 22:45 Multi-Ingredient Mouthwash/Gargle (Magic Mouthwash Adult Liq) 10 ml QID SWISH- SWAL Last administered on 03/03/17 13:00; Start 02/26/17 at 13:00 Methylprednisolone Sodium Succinate (SoluMEDROL INJ) 40 mg Q6H IV PUSH Last administered on 03/01/17 14:12; Start 02/26/17 at 20:00; Stop 03/01/17 at 18:21; Status DC Vancomycin HCl 1000 mg/Sodium Chloride 250 ml @ 250 mls/hr Q18H IV ; Start 02/27 at 18:00; Status Cancel Vancomycin HCl 1500 mg/Sodium Chloride 515 ml @ 250 mls/hr ONCE ONCE IV Last administered on 02/27/17 12:10; Start 02/27/17 at 13:00; Stop 02/28/17 at 12:07; Status DC Insulin Detemir (Levemir Inj) 5 units HS SQ Last administered on 02/28/17 20:47 ; Start 02/28/17 at 21:00; Stop 03/01/17 at 18:31; Status DC Potassium Chloride (KCl) 40 meq ONCE ONCE PO Last administered on 02/28/17 16: 13; Start 02/28/17 at 15:00; Stop 02/28/17 at 15:01; Status DC Warfarin Sodium (Coumadin) 1 mg DAILY@1600 PO Last administered on 03/02/17 17: 59; Start 03/01/17 at 17:00 Methylprednisolone Sodium Succinate (SoluMEDROL INJ) 40 mg Q8HR IV PUSH Last administered on 03/03/17 12:56; Start 03/01/17 at 22:00; Stop 03/03/17 at 13:10; Status DC Furosemide (Lasix Inj) 20 mg BID@0900,1800 IV PUSH Last administered on 09:14; Start 03/02/17 at 09:00 Insulin Detemir (Levemir Inj) 10 units HS SQ Last administered on 03/02/17 22: 16; Start 03/01/17 at 21:00 Insulin Aspart (NovoLOG SUPPLEMENTAL SCALE) 1 ACHS SLIDING SCALE SQ Last administered on 03/03/17 11:00; Start 03/01/17 at 21:00 Potassium Chloride 100 ml @ 100 mls/hr Q1H IV Last administered on 03/03/17 05 :06; Start 03/02/17 at 20:15; Stop 03/02/17 at 23:14; Status DC Potassium Bicarb/ Potassium Chloride (K-Lyte Cl Eff) 50 meq ONCE ONCE PO Last administered on 03/02/17 21:57; Start 03/02/17 at 20:15; Stop 03/02/17 at 20: 22; Status DC Sodium Chloride 500 ml @ 20 mls/hr Q24H IV Last administered on 03/02/17 22:03 ; Start 03/02/17 at 20:15; Stop 03/03/17 at 20:14 Potassium Chloride (KCl) 30 meq Q12HR PO ; Start 03/03/17 at 21:00 Methylprednisolone Sodium Succinate (SoluMEDROL INJ) 40 mg BID IV PUSH ; Start 03/03/17 at 21:00; Stop 03/05/17 at 20:59 A/P Assessment and Plan Respiratory failureSepsis/Health care associated pneumonia/Lactic acidosis, likely due to aspiration and COPD. continue BiPap as needed and duonebs, pulm following, on symbicort. Appreciate ID recommendations, patient has been swapped over to azithromycin or likely atypical pneumonia.) We reviewed the chest x-ray which shows no effusions but rather chronically scarred bilateral parenchymal lung [place] COPD exacerbation: continue breathing treatments. on solu-medrol IV taper, pulm following. Lasix IV. has been using acapella and IS. continue to encouraged use - improving Hypoxia: Likely secondary to COPD exacerbation- discuss case with pulmonology, patient is a risky candidate for bronchial alveolar lavage for further deterioration, continue current medical management and observe for treatment - improving hypoxia-- patient does not wish any procedures anyways Sleep apnea: bipap Atrial fibrillation: on amiodarone/cardizem/on coumadin. Close monitoring with INR Chronic kidney disease stage III- monitor. Diabetes: diabetic diet. worsened w/ steroids, Levemir 10 units, - high-dose - improved sugars, monitor and de-escalate insulin Hypertension. stable, prn hydralazine available History of hyperkalemia and hypokalemia monitor, replace as needed Chronic pain syndrome. stable Needs aggressive physical therapy and occupational therapy Discharge Planning INCREASE ACTIVITY PT OT REH[facility] VS [facility] Mateo Muir DO Mar 03, 2017 14:14
[2017-03-03] MEDS: WARFARIN SOD 1 MG TAB PO SCH (16:33)
[2017-03-03 17:15] LABS: AUTOMATED NEUTROPHIL # 6.2 TH/MM3 (1.8-7.7); BASOPHIL % 0.2 % (0.0-2.0); HEMATOCRIT 34.7 % (39.0-51.0); LYMPHOCYTE # 0.3 TH/MM3 (1.0-4.8); MEAN CORPUSCULAR HEMOGLOBIN 30.1 PG (27.0-34.0); MEAN CORPUSCULAR HGB CONC 33.4 % (32.0-36.0); MONO % 1.4 % (0.0-8.0); NEUT % 94.4 % (16.0-70.0); PLATELET COUNT 72 TH/MM3 (150-450); RED BLOOD COUNT 3.86 MIL/MM3 (4.50-5.90); RED CELL DISTRIBUTION WIDTH 19.6 % (11.6-17.2); WHITE BLOOD COUNT 6.6 TH/MM3 (4.0-11.0)
[2017-03-03 17:19] LABS: INTERNATIONAL NORMALIZED RATIO 1.7 RATIO; PROTHROMBIN TIME - PATIENT 19.5 SEC (9.8-11.6)
[2017-03-03 17:20] LABS: HEMO FLAGS AUTO DIFF
[2017-03-03 17:44] LABS: ALT (GPT) 41 U/L (12-78); ANION GAP 9 MEQ/L (5-15); AST (GOT) 18 U/L (15-37); BICARBONATE 23.9 MEQ/L (21.0-32.0); BLOOD UREA NITROGEN 43 MG/DL (7-18); CHLORIDE 109 MEQ/L (98-107); GLOMERULAR FILTRATION RATE 93 ML/MIN (>89); MAGNESIUM 2.1 MG/DL (1.5-2.5); POTASSIUM 3.7 MEQ/L (3.5-5.1); SODIUM (NA) 142 MEQ/L (136-145)
[2017-03-03 17:46] LABS: ALKALINE PHOSPHATASE 89 U/L (45-117); FREE T4 0.85 NG/DL (0.76-1.46); TOTAL BILIRUBIN ADULT 0.4 MG/DL (0.2-1.0)
[2017-03-03 17:57] LABS: BANDS 2 % (0-6); METAMYELOCYTES 2 % (0-1); MYELOCYTES 1 % (0-0); NEUTROPHIL # MANUAL DIFF 6.4 TH/MM3 (1.8-7.7); POLYS (SEG NEUTROPHILS) 92 % (16-70); WBC DIFF SAMPLE 100
[2017-03-03 17:59] LABS: PLATELET ESTIMATE SMEAR LOW (NORMAL); PLATELET MORPHOLOGY NORMAL (NORMAL); SCAN/DIFF FINAL DIFF MANUAL
[2017-03-03] MEDS: POTASSIUM CHLORIDE 10 MEQ CONTROLLED RELEASE TAB PO SCH (20:49)
[2017-03-03] MEDS: TAMSULOSIN HCL 0.4 MG CAP PO SCH (20:50)
[2017-03-03] MEDS ORDERED: POTASSIUM CHLORIDE 10 MEQ CONTROLLED RELEASE TAB PO SCH (21:00)
[2017-03-03] MEDS: INSULIN DETEMIR 100 UNITS/ML VIAL SQ SCH (21:02)
[2017-03-03] MEDS: ZOLPIDEM TARTRATE 5 MG TAB PO PRN (21:03)
[2017-03-04] VITALS (9 sets, daily range): BP systolic 110–127; BP diastolic 57–78; PULSE 76–102; RESP 16–24; TEMP 95.9–98.3; O2SAT 86–94
[2017-03-04] MEDS: ACETAMINOPHEN/HYDROcodone 325 MG/5 MG TAB PO PRN ×2 (02:41→20:06)
[2017-03-04] MEDS: POTASSIUM CHLORIDE 10 MEQ CONTROLLED RELEASE TAB PO SCH ×3 (04:20→20:05)
[2017-03-04] MEDS: INSULIN ASPART SUPPLEMENTAL SCALE SQ SCH ×4 (06:20→20:20)
[2017-03-04 07:46] LABS: INTERNATIONAL NORMALIZED RATIO 1.7 RATIO; PROTHROMBIN TIME - PATIENT 19.4 SEC (9.8-11.6)
[2017-03-04 07:51] LABS: AUTOMATED NEUTROPHIL # 5.1 TH/MM3 (1.8-7.7); HEMATOCRIT 33.5 % (39.0-51.0); LYMPHOCYTE # 0.2 TH/MM3 (1.0-4.8); MEAN CELL VOLUME 89.8 FL (80.0-100.0); MEAN CORPUSCULAR HEMOGLOBIN 30.4 PG (27.0-34.0); MEAN CORPUSCULAR HGB CONC 33.9 % (32.0-36.0); MONO % 1.5 % (0.0-8.0); NEUT % 95.5 % (16.0-70.0); PLATELET COUNT 66 TH/MM3 (150-450); RED BLOOD COUNT 3.73 MIL/MM3 (4.50-5.90); RED CELL DISTRIBUTION WIDTH 20.3 % (11.6-17.2); WHITE BLOOD COUNT 5.3 TH/MM3 (4.0-11.0)
[2017-03-04 08:06] LABS: HEMO FLAGS AUTO DIFF
[2017-03-04 08:22] LABS: ALKALINE PHOSPHATASE 88 U/L (45-117); ALT (GPT) 41 U/L (12-78); ANION GAP 9 MEQ/L (5-15); AST (GOT) 20 U/L (15-37); BICARBONATE 24.8 MEQ/L (21.0-32.0); BLOOD UREA NITROGEN 46 MG/DL (7-18); CHLORIDE 108 MEQ/L (98-107); FREE T4 0.94 NG/DL (0.76-1.46); GLOMERULAR FILTRATION RATE 94 ML/MIN (>89); MAGNESIUM 2.2 MG/DL (1.5-2.5); POTASSIUM 4.7 MEQ/L (3.5-5.1); SODIUM (NA) 142 MEQ/L (136-145); TOTAL BILIRUBIN ADULT 0.5 MG/DL (0.2-1.0)
[2017-03-04] MEDS: BUDESONIDE-FORMOTEROL 160/4.5 MCG INHALER INH SCH ×2 (08:43→20:11)
[2017-03-04] MEDS: SODIUM CHLORIDE 0.9% FLUSH 10 ML FLUSH IV FLUSH SCH ×2 (08:44→20:16)
[2017-03-04] MEDS: FUROSEMIDE 20 MG/2 ML VIAL IV PUSH SCH (08:45)
[2017-03-04] MEDS: methylPREDNISolone SOD SUCC 40 MG/1 ML VIAL IV PUSH SCH ×2 (08:46→20:10)
[2017-03-04] MEDS: AMIODARONE 200 MG TAB PO SCH (08:47)
[2017-03-04] MEDS: DILTIAZEM-CD 120 MG CAP ER PO SCH (08:47)
[2017-03-04] MEDS: DOCUSATE SODIUM 50 MG/SENNA 8.6 MG TAB PO SCH ×2 (08:47→20:16)
[2017-03-04] MEDS: NYSTAT/DIPHENHY/LIDO MOUTHWASH (Adult) 120ML SWISH-SWAL SCH ×4 (08:48→20:20)
[2017-03-04] MEDS: PANTOPRAZOLE SODIUM 40 MG VIAL IV PUSH SCH (08:48)
[2017-03-04 09:39] LABS: PLATELET ESTIMATE SMEAR LOW (NORMAL); PLATELET MORPHOLOGY ENLARGED (NORMAL); SCAN/DIFF AUTO DIFF CONFIRMED
--- NOTE | 2017-03-04 13:58 | HHI.PR ---
Subjective Remarks PATIENT REMAINS ON 5LITERS BY NASAL CANNULA NEEDS TO MOVE NEEDS PT AND OT LESS SOB CONTINUE TO DIURESE AM LABS 9- STILL REMAINS ON 5 LITERS DW RN AND PT AND FAMILY NEEDS SNF AT DC VS INPT REHAB PT, OT Objective Vitals Vital Signs Date Time Temp Pulse Resp B/P (MAP) Pulse Ox O2 Delivery O2 Flow Rate FiO2 03/04/17 11:36 97.6 90 21 111/57 (75) 90 03/04/17 11:00 91 Nasal Cannula 5.00 Humidified 03/04/17 07:52 97.9 76 21 121/78 (92) 91 03/04/17 04:00 97.6 94 21 127/71 (89) 93 03/04/17 03:36 22 03/04/17 00:00 98.1 102 24 117/61 (79) 94 03/03/17 20:50 90 Nasal Cannula 5.00 Humidified 03/03/17 20:13 86 03/03/17 20:00 97.5 88 22 113/63 (80) 90 03/03/17 18:07 91 Simple Mask 6.00 03/03/17 16:00 98.2 93 22 122/65 (84) 91 03/03/17 15:19 91 Nasal Cannula 5.00 Humidified I/O 03/03/17 03/03/17 03/03/17 03/04/17 03/04/17 03/04/17 07:00 15:00 23:00 07:00 15:00 23:00 Intake Total 100 ml 1312 ml 620 ml Output Total 1275 ml 1150 ml Balance 100 ml 37 ml -530 ml Intake Oral 720 ml 620 ml IV Total 100 ml 592 ml Output Urine Total 1275 ml 1150 ml # Bowel Movements 1 Result Diagram: 03/04/17 0638 03/04/17 0638 Other Results Laboratory Tests Test 03/01/17 15:35 03/02/17 06:50 03/02/17 17:30 03/03/17 16:55 Prothrombin Time 32.7 SEC 28.4 SEC 19.5 SEC Prothromb Time International Ratio 2.8 RATIO 2.5 RATIO 1.7 RATIO Blood Urea Nitrogen 48 MG/DL 43 MG/DL Creatinine 0.85 MG/DL 0.81 MG/DL Random Glucose 157 MG/DL 135 MG/DL Calcium Level 8.0 MG/DL 8.0 MG/DL Sodium Level 141 MEQ/L 142 MEQ/L Potassium Level 2.8 MEQ/L 3.7 MEQ/L Chloride Level 107 MEQ/L 109 MEQ/L Carbon Dioxide Level 24.4 MEQ/L 23.9 MEQ/L Anion Gap 10 MEQ/L 9 MEQ/L Estimat Glomerular Filtration Rate 88 ML/MIN 93 ML/MIN White Blood Count 6.6 TH/MM3 Red Blood Count 3.86 MIL/MM3 Hemoglobin 11.6 GM/DL Hematocrit 34.7 % Mean Corpuscular Volume 90.0 FL Mean Corpuscular Hemoglobin 30.1 PG Mean Corpuscular Hemoglobin Concent 33.4 % Red Cell Distribution Width 19.6 % Platelet Count 72 TH/MM3 Mean Platelet Volume 7.7 FL Neutrophils (%) (Auto) 94.4 % Lymphocytes (%) (Auto) 4.0 % Monocytes (%) (Auto) 1.4 % Eosinophils (%) (Auto) 0.0 % Basophils (%) (Auto) 0.2 % Neutrophils # (Auto) 6.2 TH/MM3 Lymphocytes # (Auto) 0.3 TH/MM3 Monocytes # (Auto) 0.1 TH/MM3 Eosinophils # (Auto) 0.0 TH/MM3 Basophils # (Auto) 0.0 TH/MM3 CBC Comment AUTO DIFF Differential Total Cells Counted 100 Neutrophils % (Manual) 92 % Band Neutrophils % 2 % Lymphocytes % 2 % Monocytes % 1 % Neutrophils # (Manual) 6.4 TH/MM3 Metamyelocytes 2 % Myelocytes 1 % Differential Comment FINAL DIFF MANUAL Platelet Estimate LOW Platelet Morphology Comment NORMAL Total Protein 5.1 GM/DL Albumin 1.7 GM/DL Phosphorus Level 2.2 MG/DL Magnesium Level 2.1 MG/DL Alkaline Phosphatase 89 U/L Aspartate Amino Transf (AST/SGOT) 18 U/L Alanine Aminotransferase (ALT/SGPT) 41 U/L Total Bilirubin 0.4 MG/DL Free Thyroxine 0.85 NG/DL Thyroid Stimulating Hormone 3rd Gen 10.600 uIU/ML Test 03/04/17 06:30 03/04/17 06:38 Prothrombin Time 19.4 SEC Prothromb Time International Ratio 1.7 RATIO White Blood Count 5.3 TH/MM3 Red Blood Count 3.73 MIL/MM3 Hemoglobin 11.3 GM/DL Hematocrit 33.5 % Mean Corpuscular Volume 89.8 FL Mean Corpuscular Hemoglobin 30.4 PG Mean Corpuscular Hemoglobin Concent 33.9 % Red Cell Distribution Width 20.3 % Platelet Count 66 TH/MM3 Mean Platelet Volume 8.0 FL Neutrophils (%) (Auto) 95.5 % Lymphocytes (%) (Auto) 3.0 % Monocytes (%) (Auto) 1.5 % Eosinophils (%) (Auto) 0.0 % Basophils (%) (Auto) 0.0 % Neutrophils # (Auto) 5.1 TH/MM3 Lymphocytes # (Auto) 0.2 TH/MM3 Monocytes # (Auto) 0.1 TH/MM3 Eosinophils # (Auto) 0.0 TH/MM3 Basophils # (Auto) 0.0 TH/MM3 CBC Comment AUTO DIFF Differential Comment AUTO DIFF CONFIRMED Platelet Estimate LOW Platelet Morphology Comment ENLARGED Blood Urea Nitrogen 46 MG/DL Creatinine 0.80 MG/DL Random Glucose 136 MG/DL Total Protein 5.1 GM/DL Albumin 1.7 GM/DL Calcium Level 8.2 MG/DL Phosphorus Level 2.3 MG/DL Magnesium Level 2.2 MG/DL Alkaline Phosphatase 88 U/L Aspartate Amino Transf (AST/SGOT) 20 U/L Alanine Aminotransferase (ALT/SGPT) 41 U/L Total Bilirubin 0.5 MG/DL Sodium Level 142 MEQ/L Potassium Level 4.7 MEQ/L Chloride Level 108 MEQ/L Carbon Dioxide Level 24.8 MEQ/L Anion Gap 9 MEQ/L Estimat Glomerular Filtration Rate 94 ML/MIN Free Thyroxine 0.94 NG/DL Thyroid Stimulating Hormone 3rd Gen 5.910 uIU/ML Imaging Last Impressions Chest X-Ray 03/02/17 0600 Signed Impressions: Service Date/Time: Thursday, March 02, 2017 06:02 - CONCLUSION: 1. Cardiomegaly with minimal positive fluid balance. 2. No new focal consolidation or significant interval change. Greg Moore MD CT Angiography 02/25/17 0731 Signed Impressions: Service Date/Time: Saturday, February 25, 2017 08:08 - CONCLUSION: 1. Study degraded by breathing motion artifact. These were the best obtainable images. 2. No pulmonary embolus observed within the more central pulmonary arteries. Peripheral pulmonary arteries are limited in their evaluation due to the breathing motion artifact. 3. Diffuse interstitial infiltrates more pronounced within the upper lobes. Differential diagnostic considerations are quite broad at this point. The more common etiologies include usual interstitial pneumonitis as well as hypersensitivity pneumonitis. Dennis Gupta Jr., MD Objective Remarks GENERAL: Awake alert oriented talkative and cooperative SKIN: Warm and dry. HEAD: Atraumatic. Normocephalic. EYES: Pupils equal and round. No scleral icterus. No injection or drainage. Extraocular muscles intact ENT: No nasal bleeding or discharge. Mucous membranes pink and moist. Tongue is midline NECK: Trachea midline. No JVD. Neck is supple CARDIOVASCULAR: Regular rate and rhythm. S1-S2 no S3 or S4 no heave or thrill or rub or gallop RESPIRATORY: No accessory muscle use. Some rhonchi and some wheezes bilaterally. Breath sounds equal bilaterally. GASTROINTESTINAL: Abdomen soft, non-tender, nondistended. Hepatic and splenic margins not palpable. Obese MUSCULOSKELETAL: Extremities without clubbing, cyanosis. No obvious deformities. +1 lower extremity edema NEUROLOGICAL: Awake and alert. No obvious cranial nerve deficits. Motor grossly within normal limits. Five out of 5 muscle strength in the arms and legs. Normal speech. PSYCHIATRIC: Appropriate mood and affect; insight and judgment normal. Medications and IVs Current Medications Methylprednisolone Sodium Succinate (SoluMEDROL INJ) 125 mg ONCE ONCE IVP Last administered on 02/25/17 08:06; Start 02/25/17 at 07:45; Stop 02/25/17 at 07: 46; Status DC Albuterol Sulfate (Albuterol Neb) 2.5 mg Q15M INH Last administered on 08:15; Start 02/25/17 at 07:45; Stop 02/25/17 at 08:16; Status DC Magnesium Sulfate/ Dextrose 100 ml @ 100 mls/hr ONCE ONCE IV Last administered on 02/25/17 08:06; Start 02/25/17 at 07:45; Stop 02/25/17 at 08:44; Status DC Piperacillin Sod/ Tazobactam Sod 100 ml @ 200 mls/hr ONCE STAT IV Last administered on 02/25/17 08:28; Start 02/25/17 at 07:40; Stop 02/25/17 at 08:12; Status DC Azithromycin 500 mg/Sodium Chloride 250 ml @ 250 mls/hr ONCE STAT IV Last administered on 02/25/17 09:41; Start 02/25/17 at 07:40; Stop 02/25/17 at 08:39; Status DC Tobramycin Sulfate 100 mg/ Sodium Chloride 102.5 ml @ 100 mls/hr ONCE STAT IV Last administered on 02/25/17 12:09; Start 02/25/17 at 07:40; Stop 02/25/17 at 08:41; Status DC Iohexol (Omnipaque 350 Inj) 73 ml STK-MED ONCE IVCONTRAST Last administered on 02/25/17 07:16; Start 02/25/17 at 07:16; Stop 02/25/17 at 08:12; Status DC Sodium Chloride (NS Flush) 2 ml UNSCH PRN IV FLUSH FLUSH AFTER USING IV ACCESS ; Start 02/25/17 at 09:15 Sodium Chloride (NS Flush) 2 ml BID IV FLUSH Last administered on 03/04/17 08: 44; Start 02/25/17 at 21:00 Acetaminophen (Tylenol) 650 mg Q4H PRN PO TEMP > 100.4; Start 02/25/17 at 09:15 Ondansetron HCl (Zofran Inj) 4 mg Q6H PRN IVP NAUSEA OR VOMITING; Start at 09:15 Zolpidem Tartrate (Ambien) 5 mg HS PRN PO INSOMNIA Last administered on 21:03; Start 02/25/17 at 09:15 Heparin Sodium (Porcine) (Heparin Inj) 5,000 units Q12H SQ ; Start 02/25/17 at 09 :15; Stop 02/25/17 at 09:15; Status DC Naloxone HCl (Narcan Inj) 0.4 mg UNSCH PRN IV SEE LABEL COMMENTS; Start at 09:15 Senna/Docusate Sodium (Maira-Colace) 1 tab BID PO Last administered on 03/01/17 09:00; Start 02/25/17 at 21:00 Magnesium Hydroxide (Milk Of Magnesia Liq) 30 ml Q12H PRN PO MILD - MODERATE CONSTIPATION; Start 02/25/17 at 09:15 Sennosides (Senokot) 17.2 mg Q12H PRN PO MODERATE - SEVERE CONSTIPATION; Start 02/25/17 at 09:15 Bisacodyl (Dulcolax Supp) 10 mg DAILY PRN RECTAL SEVERE CONSITIPATION; Start at 09:15 Lactulose (Lactulose Liq) 30 ml DAILY PRN PO SEVERE CONSITIPATION; Start at 09:15 Albuterol Sulfate (Albuterol Neb) 2.5 mg Q6HR NEB PRN NEB SHORTNESS OF BREATH; Start 02/25/17 at 09:15 Amiodarone HCl (Cordarone) 200 mg DAILY PO Last administered on 03/04/17 08:47 ; Start 02/26/17 at 09:00 Diltiazem HCl (Cardizem Cd) 120 mg DAILY PO Last administered on 03/04/17 08:47 ; Start 02/26/17 at 09:00 Acetaminophen/ Hydrocodone Bitart (Edgar 5-325 Mg) 1 tab Q4H PRN PO PAIN GREATER THAN 5 Last administered on 03/04/17 02:41; Start 02/25/17 at 09:15 Lorazepam (Ativan) 0.5 mg Q8H PRN PO SEVERE ANXIETY OR AGITATION Last administered on 02/26/17 13:25; Start 02/25/17 at 09:15 Tamsulosin HCl (Flomax) 0.4 mg HS PO Last administered on 03/03/17 20:50; Start 02/25/17 at 21:00 Warfarin Sodium (Coumadin) 2 mg DAILY@1600 PO ; Start 02/26/17 at 16:00; Stop 03/01/17 at 16:52; Status DC Hydralazine HCl (Apresoline Inj) 20 mg Q4H PRN IV PUSH SYS BP GREATER THAN 180 MMHG; Start 02/25/17 at 09:15 Pharmacy Profile Note 0 ml @ 0 mls/hr UNSCH OTHER ; Start 02/25/17 at 09:15 Furosemide (Lasix Inj) 40 mg BID@09,18 IV PUSH Last administered on 03/01/17 17 :55; Start 02/25/17 at 18:00; Stop 03/01/17 at 18:30; Status DC Methylprednisolone Sodium Succinate (SoluMEDROL INJ) 125 mg Q6H IV PUSH Last administered on 02/25/17 14:06; Start 02/25/17 at 14:00; Stop 02/25/17 at 19:22; Status DC Pantoprazole Sodium (Protonix Inj) 40 mg Q24H IV PUSH Last administered on 08:48; Start 02/25/17 at 10:00 Piperacillin Sod/ Tazobactam Sod 50 ml @ 100 mls/hr Q6H IV Last administered on 02/25/17 15:39; Start 02/25/17 at 15:00; Stop 02/25/17 at 20:55; Status DC Pharmacy Profile Note 0 ml @ 0 mls/hr UNSCH OTHER ; Start 02/25/17 at 09:15; Stop 02/28/17 at 12:07; Status DC Albuterol/ Ipratropium (Duoneb Neb) 1 ampule QID NEB NEB Last administered on 03/01/17 07:55; Start 02/25/17 at 12:00; Stop 03/01/17 at 11:59; Status DC Dextrose/Sodium Chloride 1,000 ml @ 70 mls/hr [id number] IV Last administered on 03/01/17 12:40; Start 02/25/17 at 10:00; Stop 03/01/17 at 18:21; Status DC Vancomycin HCl 2000 mg/Sodium Chloride 520 ml @ 250 mls/hr ONCE ONCE IV Last administered on 02/25/17 13:30; Start 02/25/17 at 11:00; Stop 02/25/17 at 13:04; Status DC Patient Medication Teaching (Coumadin Booklet) 1 ONCE ONCE OTHER ; Start at 16:00; Stop 02/26/17 at 16:01; Status DC Vancomycin HCl 1000 mg/Sodium Chloride 250 ml @ 250 mls/hr Q12H IV Last administered on 02/26/17 13:00; Start 02/26/17 at 01:00; Stop 02/27/17 at 09:40; Status DC Miscellaneous Information SPECIFIC LAB TO BE MARLENY... ONCE ONCE .XX ; Start at 00:45; Stop 02/27/17 at 00:46; Status DC Miscellaneous Information Patient in critical care unit? Ass... [id number] .XX ; Start 02/25/17 at 17:00 Chlorhexidine Gluconate (Chlorhexidine 2% Cloth) 3 pack DAILY@04 TOPICAL Last administered on 03/01/17 03:35; Start 02/26/17 at 04:00; Stop 03/02/17 at 04:01; Status DC Chlorhexidine Gluconate (Chlorhexidine 2% Cloth) 3 pack UNSCH PRN TOPICAL HYGIENIC CARE; Start 02/25/17 at 17:00; Stop 03/02/17 at 16:52; Status DC Methylprednisolone Sodium Succinate (SoluMEDROL INJ) 60 mg Q6H IV PUSH Last administered on 02/26/17 13:24; Start 02/25/17 at 20:00; Stop 02/26/17 at 14:51; Status DC Budesonide/ Formoterol Fumarate (Symbicort 160-4.5 Inh) 1 puff Q12HR INH Last administered on 03/04/17 08:43; Start 02/25/17 at 21:00 Azithromycin (Zithromax) 500 mg DAILY PO Last administered on 03/02/17 08:15; Start 02/26/17 at 09:00; Stop 03/02/17 at 16:43; Status DC Piperacillin Sod/ Tazobactam Sod 100 ml @ 200 mls/hr Q8H IV Last administered on 02/28/17 06:09; Start 02/25/17 at 21:00; Stop 02/28/17 at 12:08; Status DC Insulin Aspart (NovoLOG SUPPLEMENTAL SCALE) 1 ACHS SLIDING SCALE SQ Last administered on 03/01/17 17:53; Start 02/26/17 at 07:00; Stop 03/01/17 at 18:31; Status DC Dextrose (D50w (Vial) Inj) 50 ml UNSCH PRN IV PUSH HYPOGLYCEMIA - SEE COMMENTS ; Start 02/25/17 at 22:45 Glucagon (Glucagon Inj) 1 mg UNSCH PRN OTHER HYPOGLYCEMIA-SEE COMMENTS; Start 02/25/17 at 22:45 Multi-Ingredient Mouthwash/Gargle (Magic Mouthwash Adult Liq) 10 ml QID SWISH- SWAL Last administered on 03/04/17 12:38; Start 02/26/17 at 13:00 Methylprednisolone Sodium Succinate (SoluMEDROL INJ) 40 mg Q6H IV PUSH Last administered on 03/01/17 14:12; Start 02/26/17 at 20:00; Stop 03/01/17 at 18:21; Status DC Vancomycin HCl 1000 mg/Sodium Chloride 250 ml @ 250 mls/hr Q18H IV ; Start 02/27 at 18:00; Status Cancel Vancomycin HCl 1500 mg/Sodium Chloride 515 ml @ 250 mls/hr ONCE ONCE IV Last administered on 02/27/17 12:10; Start 02/27/17 at 13:00; Stop 02/28/17 at 12:07; Status DC Insulin Detemir (Levemir Inj) 5 units HS SQ Last administered on 02/28/17 20:47 ; Start 02/28/17 at 21:00; Stop 03/01/17 at 18:31; Status DC Potassium Chloride (KCl) 40 meq ONCE ONCE PO Last administered on 02/28/17 16: 13; Start 02/28/17 at 15:00; Stop 02/28/17 at 15:01; Status DC Warfarin Sodium (Coumadin) 1 mg DAILY@1600 PO Last administered on 03/03/17 16: 33; Start 03/01/17 at 17:00; Stop 03/04/17 at 09:33; Status DC Methylprednisolone Sodium Succinate (SoluMEDROL INJ) 40 mg Q8HR IV PUSH Last administered on 03/03/17 12:56; Start 03/01/17 at 22:00; Stop 03/03/17 at 13:10; Status DC Furosemide (Lasix Inj) 20 mg BID@0900,1800 IV PUSH Last administered on 08:45; Start 03/02/17 at 09:00 Insulin Detemir (Levemir Inj) 10 units HS SQ Last administered on 03/03/17 21: 02; Start 03/01/17 at 21:00 Insulin Aspart (NovoLOG SUPPLEMENTAL SCALE) 1 ACHS SLIDING SCALE SQ Last administered on 03/04/17 11:00; Start 03/01/17 at 21:00 Potassium Chloride 100 ml @ 100 mls/hr Q1H IV Last administered on 03/03/17 05 :06; Start 03/02/17 at 20:15; Stop 03/02/17 at 23:14; Status DC Potassium Bicarb/ Potassium Chloride (K-Lyte Cl Eff) 50 meq ONCE ONCE PO Last administered on 03/02/17 21:57; Start 03/02/17 at 20:15; Stop 03/02/17 at 20: 22; Status DC Sodium Chloride 500 ml @ 20 mls/hr Q24H IV Last administered on 03/02/17 22:03 ; Start 03/02/17 at 20:15; Stop 03/03/17 at 20:14; Status DC Potassium Chloride (KCl) 30 meq Q12HR PO ; Start 03/03/17 at 21:00; Stop 03/03/17 at 21:00; Status DC Methylprednisolone Sodium Succinate (SoluMEDROL INJ) 40 mg BID IV PUSH Last administered on 03/04/17 08:46; Start 03/03/17 at 21:00; Stop 03/05/17 at 20:59 Potassium Chloride (KCl) 40 meq Q8H PO Last administered on 03/04/17 12:36; Start 03/03/17 at 21:00 Warfarin Sodium (Coumadin) 2 mg DAILY@1600 PO ; Start 03/04/17 at 16:00 A/P Assessment and Plan Respiratory failureSepsis/Health care associated pneumonia/Lactic acidosis, likely due to aspiration and COPD. continue BiPap as needed and charly bernabe following, on symbicort. Appreciate ID recommendations, patient has been swapped over to azithromycin or likely atypical pneumonia.) We reviewed the chest x-ray which shows no effusions but rather chronically scarred bilateral parenchymal lung mcbride COPD exacerbation: continue breathing treatments. on solu-medrol IV taper, pulm following. Lasix IV. has been using acapella and IS. continue to encouraged use - improving Hypoxia: Likely secondary to COPD exacerbation- discuss case with pulmonology, patient is a risky candidate for bronchial alveolar lavage for further deterioration, continue current medical management and observe for treatment - improving hypoxia-- patient does not wish any procedures anyways Sleep apnea: bipap Atrial fibrillation: on amiodarone/cardizem/on coumadin. Close monitoring with INR Chronic kidney disease stage III- monitor. Diabetes: diabetic diet. worsened w/ steroids, Levemir 10 units, - high-dose - improved sugars, monitor and de-escalate insulin Hypertension. stable, prn hydralazine available History of hyperkalemia and hypokalemia monitor, replace as needed Chronic pain syndrome. stable Needs aggressive physical therapy and occupational therapy WEAN OFF OXYGEN TOLERATED Discharge Planning INCREASE ACTIVITY PT OT REHAB VS SNF AT [place] Mateo Muir DO Mar 04, 2017 13:58
--- NOTE | 2017-03-04 15:17 | HHI.PR ---
Subjective Remarks He is better. On O2 at 5 L N/C . K+ level was low. On IV lasix . No fever. Has less wheezing . Needs PT Has refused Bronchoscopy. Objective Vital Signs Date Time Temp Pulse Resp B/P (MAP) Pulse Ox O2 Delivery O2 Flow Rate FiO2 03/04/17 11:36 97.6 90 21 111/57 (75) 90 03/04/17 11:00 91 Nasal Cannula 5.00 Humidified 03/04/17 07:52 97.9 76 21 121/78 (92) 91 03/04/17 04:00 97.6 94 21 127/71 (89) 93 03/04/17 03:36 22 03/04/17 00:00 98.1 102 24 117/61 (79) 94 03/03/17 20:50 90 Nasal Cannula 5.00 Humidified 03/03/17 20:13 86 03/03/17 20:00 97.5 88 22 113/63 (80) 90 03/03/17 18:07 91 Simple Mask 6.00 03/03/17 16:00 98.2 93 22 122/65 (84) 91 03/03/17 15:19 91 Nasal Cannula 5.00 Humidified I/O 03/03/17 03/03/17 03/03/17 03/04/17 03/04/17 03/04/17 07:00 15:00 23:00 07:00 15:00 23:00 Intake Total 100 ml 1312 ml 620 ml 1000 ml Output Total 1275 ml 1150 ml 1300 ml Balance 100 ml 37 ml -530 ml -300 ml Intake Oral 720 ml 620 ml 1000 ml IV Total 100 ml 592 ml Output Urine Total 1275 ml 1150 ml 1300 ml # Bowel Movements 1 Result Diagram: 03/04/17 0638 03/04/17 0638 Objective Remarks GENERAL: This moderately obese elderly man who is laying flat. No distress HEENT: Head normocephalic. Pupils are reactive and equal. Tongue is moist. Throat is injected. Nasal mucosae clear. NECK: No bruits or thyroid enlargement or lymphadenopathy. CHEST: Distant breath sounds with expiratory wheezes bilaterally, prolonged expirations with Occ crackles at the lung bases. HEART: The heart sounds irregular S1-S2 with no murmur or S3. ABDOMEN: Obese, protuberant without masses. No organomegaly or tenderness. Bowel sounds are active. EXTREMITIES: Minimal edema and decreased peripheral pulses. No calf tenderness or swelling. Reflexes 1+ with no gross motor deficits. The patient does move all his extremities well. NEURO: Cranial nerves grossly intact. RECTAL: Exam is deferred. Assessment and Plan Assessment and Plan IMPRESSION 1. Acute respiratory failure. 2. Probable aspiration pneumonia. 3. Pulmonary edema 4. Chronic bronchitis and emphysema. 5. Interstitial lung disease. 6. Atrial fibrillation. 7. Hypertension and diabetes. 8. Anemia of chronic disease. Plan : 1. Cont Antibiotics per ID 2. Wean O2 to 4L 3. D/C solumedrol in am 4. CBC,BMP ,in am 5. Duonebs Neb qid. 6. Continue Lasix 20 mg daily. 7. Replace potassium 8. Pt does not want any Procedures done Corinne Vieyra MD Mar 04, 2017 15:17
[2017-03-04 15:56] LABS: HEMOGLOBIN A1a 1.2 %; HEMOGLOBIN A1b 3.2 %; HEMOGLOBIN LA1C 2.9 %; HEMOGLOBIN P3 8.4 %
[2017-03-04] MEDS ORDERED: WARFARIN SOD 2 MG TAB PO SCH (16:00)
[2017-03-04] MEDS: TAMSULOSIN HCL 0.4 MG CAP PO SCH (20:05)
[2017-03-04] MEDS: INSULIN DETEMIR 100 UNITS/ML VIAL SQ SCH (20:18)
[2017-03-05] VITALS (7 sets, daily range): BP systolic 109–142; BP diastolic 56–66; PULSE 87–101; RESP 16–20; TEMP 97.3–97.6; O2SAT 86–90
[2017-03-05] MEDS: ZOLPIDEM TARTRATE 5 MG TAB PO PRN (00:17)
[2017-03-05] MEDS: ACETAMINOPHEN/HYDROcodone 325 MG/5 MG TAB PO PRN ×5 (00:17→21:33)
[2017-03-05] MEDS: POTASSIUM CHLORIDE 10 MEQ CONTROLLED RELEASE TAB PO SCH ×3 (05:38→21:26)
[2017-03-05] MEDS: INSULIN ASPART SUPPLEMENTAL SCALE SQ SCH ×4 (06:23→21:43)
[2017-03-05 07:03] LABS: AUTOMATED NEUTROPHIL # 5.6 TH/MM3 (1.8-7.7); BASOPHIL % 0.1 % (0.0-2.0); EOSINOPHIL % 0.2 % (0.0-4.0); HEMATOCRIT 33.7 % (39.0-51.0); LYMPH % 3.7 % (9.0-44.0); LYMPHOCYTE # 0.2 TH/MM3 (1.0-4.8); MEAN CELL VOLUME 90.1 FL (80.0-100.0); MEAN CORPUSCULAR HEMOGLOBIN 29.9 PG (27.0-34.0); MEAN CORPUSCULAR HGB CONC 33.2 % (32.0-36.0); MONO % 1.4 % (0.0-8.0); NEUT % 94.6 % (16.0-70.0); PLATELET COUNT 69 TH/MM3 (150-450); RED BLOOD COUNT 3.74 MIL/MM3 (4.50-5.90); RED CELL DISTRIBUTION WIDTH 20.5 % (11.6-17.2)
[2017-03-05 07:07] LABS: ALT (GPT) 36 U/L (12-78); ANION GAP 10 MEQ/L (5-15); AST (GOT) 19 U/L (15-37); CHLORIDE 109 MEQ/L (98-107); GLOMERULAR FILTRATION RATE 124 ML/MIN (>89); MAGNESIUM 2.2 MG/DL (1.5-2.5); POTASSIUM 4.5 MEQ/L (3.5-5.1); SODIUM (NA) 143 MEQ/L (136-145)
[2017-03-05 07:10] LABS: ALKALINE PHOSPHATASE 84 U/L (45-117); INTERNATIONAL NORMALIZED RATIO 1.6 RATIO; PROTHROMBIN TIME - PATIENT 17.8 SEC (9.8-11.6); TOTAL BILIRUBIN ADULT 0.5 MG/DL (0.2-1.0)
[2017-03-05 07:31] LABS: HEMO FLAGS AUTO DIFF
[2017-03-05 07:42] LABS: BLOOD UREA NITROGEN 47 MG/DL (7-18)
[2017-03-05] MEDS: BUDESONIDE-FORMOTEROL 160/4.5 MCG INHALER INH SCH ×2 (08:17→21:34)
[2017-03-05] MEDS: methylPREDNISolone SOD SUCC 40 MG/1 ML VIAL IV PUSH SCH (08:19)
[2017-03-05] MEDS: DOCUSATE SODIUM 50 MG/SENNA 8.6 MG TAB PO SCH ×2 (08:19→21:00)
[2017-03-05] MEDS: SODIUM CHLORIDE 0.9% FLUSH 10 ML FLUSH IV FLUSH SCH ×2 (08:19→21:28)
[2017-03-05] MEDS: FUROSEMIDE 20 MG/2 ML VIAL IV PUSH SCH (08:19)
[2017-03-05] MEDS: AMIODARONE 200 MG TAB PO SCH (08:19)
[2017-03-05] MEDS: DILTIAZEM-CD 120 MG CAP ER PO SCH (08:19)
[2017-03-05] MEDS: NYSTAT/DIPHENHY/LIDO MOUTHWASH (Adult) 120ML SWISH-SWAL SCH ×4 (08:20→21:32)
[2017-03-05 09:23] LABS: PLATELET ESTIMATE SMEAR LOW (NORMAL); PLATELET MORPHOLOGY NORMAL (NORMAL); SCAN/DIFF AUTO DIFF CONFIRMED
[2017-03-05] MEDS: PANTOPRAZOLE SODIUM 40 MG VIAL IV PUSH SCH (10:59)
--- NOTE | 2017-03-05 12:25 | HHI.PR ---
Subjective Remarks PATIENT REMAINS ON 5LITERS BY NASAL CANNULA NEEDS TO MOVE NEEDS PT AND OT LESS SOB CONTINUE TO DIURESE AM LABS 03-04 STILL REMAINS ON 5 LITERS DW RN AND PT AND FAMILY NEEDS SNF AT [place] VS INPT REHAB PT, OT 03-05 FAMILY WANTS REHAB AT DC PT NOT MOVING MUCH YET ON 5L BY NC NEEDS SNF VS INPT REHAB DW RN AND PT AND FAMILY Objective Vitals Vital Signs Date Time Temp Pulse Resp B/P (MAP) Pulse Ox O2 Delivery O2 Flow Rate FiO2 03/05/17 08:30 Nasal Cannula 5.00 03/05/17 08:14 97.5 95 16 142/66 (91) 90 03/05/17 06:22 20 03/05/17 04:03 Nasal Cannula 5.00 Humidified 03/05/17 04:00 97.4 89 16 113/66 (82) 90 03/05/17 00:00 97.6 91 16 118/57 (77) 89 03/04/17 20:52 93 03/04/17 20:05 90 Nasal Cannula 5.00 Humidified 03/04/17 20:00 98.3 98 16 125/61 (82) 86 03/04/17 17:54 91 Nasal Cannula 6.00 03/04/17 15:47 95.9 90 21 110/57 (74) 91 I/O 03/04/17 03/04/17 03/04/17 03/05/17 03/05/17 03/05/17 06:59 14:59 22:59 06:59 14:59 22:59 Intake Total 620 ml 1000 ml Output Total 1150 ml 1300 ml 1850 ml Balance -530 ml -300 ml -1850 ml Intake Oral 620 ml 1000 ml Output Urine Total 1150 ml 1300 ml 1850 ml # Bowel Movements 1 Result Diagram: 03/05/17 0616 03/05/17 0616 Other Results Laboratory Tests Test 03/02/17 17:30 03/03/17 16:55 03/04/17 06:30 03/04/17 06:38 Blood Urea Nitrogen 48 MG/DL 43 MG/DL 46 MG/DL Creatinine 0.85 MG/DL 0.81 MG/DL 0.80 MG/DL Random Glucose 157 MG/DL 135 MG/DL 136 MG/DL Calcium Level 8.0 MG/DL 8.0 MG/DL 8.2 MG/DL Sodium Level 141 MEQ/L 142 MEQ/L 142 MEQ/L Potassium Level 2.8 MEQ/L 3.7 MEQ/L 4.7 MEQ/L Chloride Level 107 MEQ/L 109 MEQ/L 108 MEQ/L Carbon Dioxide Level 24.4 MEQ/L 23.9 MEQ/L 24.8 MEQ/L Anion Gap 10 MEQ/L 9 MEQ/L 9 MEQ/L Estimat Glomerular Filtration Rate 88 ML/MIN 93 ML/MIN 94 ML/MIN White Blood Count 6.6 TH/MM3 5.3 TH/MM3 Red Blood Count 3.86 MIL/MM3 3.73 MIL/MM3 Hemoglobin 11.6 GM/DL 11.3 GM/DL Hematocrit 34.7 % 33.5 % Mean Corpuscular Volume 90.0 FL 89.8 FL Mean Corpuscular Hemoglobin 30.1 PG 30.4 PG Mean Corpuscular Hemoglobin Concent 33.4 % 33.9 % Red Cell Distribution Width 19.6 % 20.3 % Platelet Count 72 TH/MM3 66 TH/MM3 Mean Platelet Volume 7.7 FL 8.0 FL Neutrophils (%) (Auto) 94.4 % 95.5 % Lymphocytes (%) (Auto) 4.0 % 3.0 % Monocytes (%) (Auto) 1.4 % 1.5 % Eosinophils (%) (Auto) 0.0 % 0.0 % Basophils (%) (Auto) 0.2 % 0.0 % Neutrophils # (Auto) 6.2 TH/MM3 5.1 TH/MM3 Lymphocytes # (Auto) 0.3 TH/MM3 0.2 TH/MM3 Monocytes # (Auto) 0.1 TH/MM3 0.1 TH/MM3 Eosinophils # (Auto) 0.0 TH/MM3 0.0 TH/MM3 Basophils # (Auto) 0.0 TH/MM3 0.0 TH/MM3 CBC Comment AUTO DIFF AUTO DIFF Differential Total Cells Counted 100 Neutrophils % (Manual) 92 % Band Neutrophils % 2 % Lymphocytes % 2 % Monocytes % 1 % Neutrophils # (Manual) 6.4 TH/MM3 Metamyelocytes 2 % Myelocytes 1 % Differential Comment FINAL DIFF MANUAL AUTO DIFF CONFIRMED Platelet Estimate LOW LOW Platelet Morphology Comment NORMAL ENLARGED Prothrombin Time 19.5 SEC 19.4 SEC Prothromb Time International Ratio 1.7 RATIO 1.7 RATIO Total Protein 5.1 GM/DL 5.1 GM/DL Albumin 1.7 GM/DL 1.7 GM/DL Phosphorus Level 2.2 MG/DL 2.3 MG/DL Magnesium Level 2.1 MG/DL 2.2 MG/DL Alkaline Phosphatase 89 U/L 88 U/L Aspartate Amino Transf (AST/SGOT) 18 U/L 20 U/L Alanine Aminotransferase (ALT/SGPT) 41 U/L 41 U/L Total Bilirubin 0.4 MG/DL 0.5 MG/DL Free Thyroxine 0.85 NG/DL 0.94 NG/DL Thyroid Stimulating Hormone 3rd Gen 10.600 uIU/ML 5.910 uIU/ML Hemoglobin A1c 8.3 % Test 03/05/17 06:16 White Blood Count 6.0 TH/MM3 Red Blood Count 3.74 MIL/MM3 Hemoglobin 11.2 GM/DL Hematocrit 33.7 % Mean Corpuscular Volume 90.1 FL Mean Corpuscular Hemoglobin 29.9 PG Mean Corpuscular Hemoglobin Concent 33.2 % Red Cell Distribution Width 20.5 % Platelet Count 69 TH/MM3 Mean Platelet Volume 7.7 FL Neutrophils (%) (Auto) 94.6 % Lymphocytes (%) (Auto) 3.7 % Monocytes (%) (Auto) 1.4 % Eosinophils (%) (Auto) 0.2 % Basophils (%) (Auto) 0.1 % Neutrophils # (Auto) 5.6 TH/MM3 Lymphocytes # (Auto) 0.2 TH/MM3 Monocytes # (Auto) 0.1 TH/MM3 Eosinophils # (Auto) 0.0 TH/MM3 Basophils # (Auto) 0.0 TH/MM3 CBC Comment AUTO DIFF Differential Comment AUTO DIFF CONFIRMED Platelet Estimate LOW Platelet Morphology Comment NORMAL Prothrombin Time 17.8 SEC Prothromb Time International Ratio 1.6 RATIO Blood Urea Nitrogen 47 MG/DL Creatinine 0.63 MG/DL Random Glucose 89 MG/DL Total Protein 4.4 GM/DL Albumin 1.7 GM/DL Calcium Level 7.7 MG/DL Phosphorus Level 2.9 MG/DL Magnesium Level 2.2 MG/DL Alkaline Phosphatase 84 U/L Aspartate Amino Transf (AST/SGOT) 19 U/L Alanine Aminotransferase (ALT/SGPT) 36 U/L Total Bilirubin 0.5 MG/DL Sodium Level 143 MEQ/L Potassium Level 4.5 MEQ/L Chloride Level 109 MEQ/L Carbon Dioxide Level 24.0 MEQ/L Anion Gap 10 MEQ/L Estimat Glomerular Filtration Rate 124 ML/MIN Imaging Last Impressions Chest X-Ray 03/02/17 0600 Signed Impressions: Service Date/Time: Thursday, March 02, 2017 06:02 - CONCLUSION: 1. Cardiomegaly with minimal positive fluid balance. 2. No new focal consolidation or significant interval change. Greg Moore MD CT Angiography 02/25/17 0731 Signed Impressions: Service Date/Time: Saturday, February 25, 2017 08:08 - CONCLUSION: 1. Study degraded by breathing motion artifact. These were the best obtainable images. 2. No pulmonary embolus observed within the more central pulmonary arteries. Peripheral pulmonary arteries are limited in their evaluation due to the breathing motion artifact. 3. Diffuse interstitial infiltrates more pronounced within the upper lobes. Differential diagnostic considerations are quite broad at this point. The more common etiologies include usual interstitial pneumonitis as well as hypersensitivity pneumonitis. Dennis Gupta Jr., MD Objective Remarks GENERAL: Awake alert oriented talkative and cooperative SKIN: Warm and dry. HEAD: Atraumatic. Normocephalic. EYES: Pupils equal and round. No scleral icterus. No injection or drainage. Extraocular muscles intact ENT: No nasal bleeding or discharge. Mucous membranes pink and moist. Tongue is midline NECK: Trachea midline. No JVD. Neck is supple CARDIOVASCULAR: Regular rate and rhythm. S1-S2 no S3 or S4 no heave or thrill or rub or gallop RESPIRATORY: No accessory muscle use. Some rhonchi and some wheezes bilaterally. Breath sounds equal bilaterally. GASTROINTESTINAL: Abdomen soft, non-tender, nondistended. Hepatic and splenic margins not palpable. Obese MUSCULOSKELETAL: Extremities without clubbing, cyanosis. No obvious deformities. +1 lower extremity edema NEUROLOGICAL: Awake and alert. No obvious cranial nerve deficits. Motor grossly within normal limits. Five out of 5 muscle strength in the arms and legs. Normal speech. PSYCHIATRIC: Appropriate mood and affect; insight and judgment normal. Medications and IVs Current Medications Methylprednisolone Sodium Succinate (SoluMEDROL INJ) 125 mg ONCE ONCE IVP Last administered on 02/25/17 08:06; Start 02/25/17 at 07:45; Stop 02/25/17 at 07: 46; Status DC Albuterol Sulfate (Albuterol Neb) 2.5 mg Q15M INH Last administered on 08:15; Start 02/25/17 at 07:45; Stop 02/25/17 at 08:16; Status DC Magnesium Sulfate/ Dextrose 100 ml @ 100 mls/hr ONCE ONCE IV Last administered on 02/25/17 08:06; Start 02/25/17 at 07:45; Stop 02/25/17 at 08:44; Status DC Piperacillin Sod/ Tazobactam Sod 100 ml @ 200 mls/hr ONCE STAT IV Last administered on 02/25/17 08:28; Start 02/25/17 at 07:40; Stop 02/25/17 at 08:12; Status DC Azithromycin 500 mg/Sodium Chloride 250 ml @ 250 mls/hr ONCE STAT IV Last administered on 02/25/17 09:41; Start 02/25/17 at 07:40; Stop 02/25/17 at 08:39; Status DC Tobramycin Sulfate 100 mg/ Sodium Chloride 102.5 ml @ 100 mls/hr ONCE STAT IV Last administered on 02/25/17 12:09; Start 02/25/17 at 07:40; Stop 02/25/17 at 08:41; Status DC Iohexol (Omnipaque 350 Inj) 73 ml STK-MED ONCE IVCONTRAST Last administered on 02/25/17 07:16; Start 02/25/17 at 07:16; Stop 02/25/17 at 08:12; Status DC Sodium Chloride (NS Flush) 2 ml UNSCH PRN IV FLUSH FLUSH AFTER USING IV ACCESS ; Start 02/25/17 at 09:15 Sodium Chloride (NS Flush) 2 ml BID IV FLUSH Last administered on 03/05/17 08: 19; Start 02/25/17 at 21:00 Acetaminophen (Tylenol) 650 mg Q4H PRN PO TEMP > 100.4; Start 02/25/17 at 09:15 Ondansetron HCl (Zofran Inj) 4 mg Q6H PRN IVP NAUSEA OR VOMITING; Start at 09:15 Zolpidem Tartrate (Ambien) 5 mg HS PRN PO INSOMNIA Last administered on 00:17; Start 02/25/17 at 09:15 Heparin Sodium (Porcine) (Heparin Inj) 5,000 units Q12H SQ ; Start 02/25/17 at 09 :15; Stop 02/25/17 at 09:15; Status DC Naloxone HCl (Narcan Inj) 0.4 mg UNSCH PRN IV SEE LABEL COMMENTS; Start at 09:15 Senna/Docusate Sodium (Maira-Colace) 1 tab BID PO Last administered on 03/01/17 09:00; Start 02/25/17 at 21:00 Magnesium Hydroxide (Milk Of Magnesia Liq) 30 ml Q12H PRN PO MILD - MODERATE CONSTIPATION; Start 02/25/17 at 09:15 Sennosides (Senokot) 17.2 mg Q12H PRN PO MODERATE - SEVERE CONSTIPATION; Start 02/25/17 at 09:15 Bisacodyl (Dulcolax Supp) 10 mg DAILY PRN RECTAL SEVERE CONSITIPATION; Start at 09:15 Lactulose (Lactulose Liq) 30 ml DAILY PRN PO SEVERE CONSITIPATION; Start at 09:15 Albuterol Sulfate (Albuterol Neb) 2.5 mg Q6HR NEB PRN NEB SHORTNESS OF BREATH; Start 02/25/17 at 09:15 Amiodarone HCl (Cordarone) 200 mg DAILY PO Last administered on 03/05/17 08:19 ; Start 02/26/17 at 09:00 Diltiazem HCl (Cardizem Cd) 120 mg DAILY PO Last administered on 03/05/17 08:19 ; Start 02/26/17 at 09:00 Acetaminophen/ Hydrocodone Bitart ([place] 5-325 Mg) 1 tab Q4H PRN PO PAIN GREATER THAN 5 Last administered on 03/05/17 11:02; Start 02/25/17 at 09:15 Lorazepam (Ativan) 0.5 mg Q8H PRN PO SEVERE ANXIETY OR AGITATION Last administered on 02/26/17 13:25; Start 02/25/17 at 09:15 Tamsulosin HCl (Flomax) 0.4 mg HS PO Last administered on 03/04/17 20:05; Start 02/25/17 at 21:00 Warfarin Sodium (Coumadin) 2 mg DAILY@1600 PO ; Start 02/26/17 at 16:00; Stop 03/01/17 at 16:52; Status DC Hydralazine HCl (Apresoline Inj) 20 mg Q4H PRN IV PUSH SYS BP GREATER THAN 180 MMHG; Start 02/25/17 at 09:15 Pharmacy Profile Note 0 ml @ 0 mls/hr UNSCH OTHER ; Start 02/25/17 at 09:15 Furosemide (Lasix Inj) 40 mg BID@09,18 IV PUSH Last administered on 03/01/17 17 :55; Start 02/25/17 at 18:00; Stop 03/01/17 at 18:30; Status DC Methylprednisolone Sodium Succinate (SoluMEDROL INJ) 125 mg Q6H IV PUSH Last administered on 02/25/17 14:06; Start 02/25/17 at 14:00; Stop 02/25/17 at 19:22; Status DC Pantoprazole Sodium (Protonix Inj) 40 mg Q24H IV PUSH Last administered on 10:59; Start 02/25/17 at 10:00 Piperacillin Sod/ Tazobactam Sod 50 ml @ 100 mls/hr Q6H IV Last administered on 02/25/17 15:39; Start 02/25/17 at 15:00; Stop 02/25/17 at 20:55; Status DC Pharmacy Profile Note 0 ml @ 0 mls/hr UNSCH OTHER ; Start 02/25/17 at 09:15; Stop 02/28/17 at 12:07; Status DC Albuterol/ Ipratropium (Duoneb Neb) 1 ampule QID NEB NEB Last administered on 03/01/17 07:55; Start 02/25/17 at 12:00; Stop 03/01/17 at 11:59; Status DC Dextrose/Sodium Chloride 1,000 ml @ 70 mls/hr [id number] IV Last administered on 03/01/17 12:40; Start 02/25/17 at 10:00; Stop 03/01/17 at 18:21; Status DC Vancomycin HCl 2000 mg/Sodium Chloride 520 ml @ 250 mls/hr ONCE ONCE IV Last administered on 02/25/17 13:30; Start 02/25/17 at 11:00; Stop 02/25/17 at 13:04; Status DC Patient Medication Teaching (Coumadin Booklet) 1 ONCE ONCE OTHER ; Start at 16:00; Stop 02/26/17 at 16:01; Status DC Vancomycin HCl 1000 mg/Sodium Chloride 250 ml @ 250 mls/hr Q12H IV Last administered on 02/26/17 13:00; Start 02/26/17 at 01:00; Stop 02/27/17 at 09:40; Status DC Miscellaneous Information SPECIFIC LAB TO BE MARLENY... ONCE ONCE .XX ; Start at 00:45; Stop 02/27/17 at 00:46; Status DC Miscellaneous Information Patient in critical care unit? Ass... [id number] .XX ; Start 02/25/17 at 17:00 Chlorhexidine Gluconate (Chlorhexidine 2% Cloth) 3 pack DAILY@04 TOPICAL Last administered on 03/01/17 03:35; Start 02/26/17 at 04:00; Stop 03/02/17 at 04:01; Status DC Chlorhexidine Gluconate (Chlorhexidine 2% Cloth) 3 pack UNSCH PRN TOPICAL HYGIENIC CARE; Start 02/25/17 at 17:00; Stop 03/02/17 at 16:52; Status DC Methylprednisolone Sodium Succinate (SoluMEDROL INJ) 60 mg Q6H IV PUSH Last administered on 02/26/17 13:24; Start 02/25/17 at 20:00; Stop 02/26/17 at 14:51; Status DC Budesonide/ Formoterol Fumarate (Symbicort 160-4.5 Inh) 1 puff Q12HR INH Last administered on 03/05/17 08:17; Start 02/25/17 at 21:00 Azithromycin (Zithromax) 500 mg DAILY PO Last administered on 03/02/17 08:15; Start 02/26/17 at 09:00; Stop 03/02/17 at 16:43; Status DC Piperacillin Sod/ Tazobactam Sod 100 ml @ 200 mls/hr Q8H IV Last administered on 02/28/17 06:09; Start 02/25/17 at 21:00; Stop 02/28/17 at 12:08; Status DC Insulin Aspart (NovoLOG SUPPLEMENTAL SCALE) 1 ACHS SLIDING SCALE SQ Last administered on 03/01/17 17:53; Start 02/26/17 at 07:00; Stop 03/01/17 at 18:31; Status DC Dextrose (D50w (Vial) Inj) 50 ml UNSCH PRN IV PUSH HYPOGLYCEMIA - SEE COMMENTS ; Start 02/25/17 at 22:45 Glucagon (Glucagon Inj) 1 mg UNSCH PRN OTHER HYPOGLYCEMIA-SEE COMMENTS; Start 02/25/17 at 22:45 Multi-Ingredient Mouthwash/Gargle (Magic Mouthwash Adult Liq) 10 ml QID SWISH- SWAL Last administered on 03/04/17 20:20; Start 02/26/17 at 13:00 Methylprednisolone Sodium Succinate (SoluMEDROL INJ) 40 mg Q6H IV PUSH Last administered on 03/01/17 14:12; Start 02/26/17 at 20:00; Stop 03/01/17 at 18:21; Status DC Vancomycin HCl 1000 mg/Sodium Chloride 250 ml @ 250 mls/hr Q18H IV ; Start 02/27 at 18:00; Status Cancel Vancomycin HCl 1500 mg/Sodium Chloride 515 ml @ 250 mls/hr ONCE ONCE IV Last administered on 02/27/17 12:10; Start 02/27/17 at 13:00; Stop 02/28/17 at 12:07; Status DC Insulin Detemir (Levemir Inj) 5 units HS SQ Last administered on 02/28/17 20:47 ; Start 02/28/17 at 21:00; Stop 03/01/17 at 18:31; Status DC Potassium Chloride (KCl) 40 meq ONCE ONCE PO Last administered on 02/28/17 16: 13; Start 02/28/17 at 15:00; Stop 02/28/17 at 15:01; Status DC Warfarin Sodium (Coumadin) 1 mg DAILY@1600 PO Last administered on 03/03/17 16: 33; Start 03/01/17 at 17:00; Stop 03/04/17 at 09:33; Status DC Methylprednisolone Sodium Succinate (SoluMEDROL INJ) 40 mg Q8HR IV PUSH Last administered on 03/03/17 12:56; Start 03/01/17 at 22:00; Stop 03/03/17 at 13:10; Status DC Furosemide (Lasix Inj) 20 mg BID@0900,1800 IV PUSH Last administered on 08:45; Start 03/02/17 at 09:00; Stop 03/04/17 at 15:21; Status DC Insulin Detemir (Levemir Inj) 10 units HS SQ Last administered on 03/04/17 20: 18; Start 03/01/17 at 21:00 Insulin Aspart (NovoLOG SUPPLEMENTAL SCALE) 1 ACHS SLIDING SCALE SQ Last administered on 03/05/17 11:10; Start 03/01/17 at 21:00 Potassium Chloride 100 ml @ 100 mls/hr Q1H IV Last administered on 03/03/17 05 :06; Start 03/02/17 at 20:15; Stop 03/02/17 at 23:14; Status DC Potassium Bicarb/ Potassium Chloride (K-Lyte Cl Eff) 50 meq ONCE ONCE PO Last administered on 03/02/17 21:57; Start 03/02/17 at 20:15; Stop 03/02/17 at 20: 22; Status DC Sodium Chloride 500 ml @ 20 mls/hr Q24H IV Last administered on 03/02/17 22:03 ; Start 03/02/17 at 20:15; Stop 03/03/17 at 20:14; Status DC Potassium Chloride (KCl) 30 meq Q12HR PO ; Start 03/03/17 at 21:00; Stop 03/03/17 at 21:00; Status DC Methylprednisolone Sodium Succinate (SoluMEDROL INJ) 40 mg BID IV PUSH Last administered on 03/05/17 08:19; Start 03/03/17 at 21:00; Stop 03/05/17 at 20:59 Potassium Chloride (KCl) 40 meq Q8H PO Last administered on 03/05/17 05:38; Start 03/03/17 at 21:00 Warfarin Sodium (Coumadin) 2 mg DAILY@1600 PO Last administered on 03/04/17 17: 17; Start 03/04/17 at 16:00 Furosemide (Lasix Inj) 20 mg DAILY IV PUSH Last administered on 03/05/17 08:19 ; Start 03/05/17 at 09:00 Urinary Catheter: Yes Vascular Central Line Catheter: No A/P Assessment and Plan Respiratory failureSepsis/Health care associated pneumonia/Lactic acidosis, likely due to aspiration and COPD. continue BiPap as needed and florecita pulm following, on symbicort. Appreciate ID recommendations, patient has been swapped over to azithromycin or likely atypical pneumonia.) We reviewed the chest x-ray which shows no effusions but rather chronically scarred bilateral parenchymal lung mcbride COPD exacerbation: continue breathing treatments. on solu-medrol IV taper, pulm following. Lasix IV. has been using acapella and IS. continue to encouraged use - improving Hypoxia: Likely secondary to COPD exacerbation- discuss case with pulmonology, patient is a risky candidate for bronchial alveolar lavage for further deterioration, continue current medical management and observe for treatment - improving hypoxia-- patient does not wish any procedures anyways Sleep apnea: bipap Atrial fibrillation: on amiodarone/cardizem/on coumadin. Close monitoring with INR Chronic kidney disease stage III- monitor. Diabetes: diabetic diet. worsened w/ steroids, Levemir 10 units, - high-dose - improved sugars, monitor and de-escalate insulin Hypertension. stable, prn hydralazine available History of hyperkalemia and hypokalemia monitor, replace as needed Chronic pain syndrome. stable Needs aggressive physical therapy and occupational therapy WEAN OFF OXYGEN TOLERATED GABRIEL RN AND PT AND FAMILY Discharge Planning INCREASE ACTIVITY PT OT REHAB VS SNF AT [place] Mateo Muir DO Mar 05, 2017 12:25
--- NOTE | 2017-03-05 15:32 | HHI.PR ---
Subjective Remarks alert no sob at rest on o2 Objective Vital Signs Date Time Temp Pulse Resp B/P (MAP) Pulse Ox O2 Delivery O2 Flow Rate FiO2 03/05/17 15:23 97.6 93 18 109/60 (76) 86 03/05/17 12:35 101 03/05/17 12:00 97.4 93 20 120/58 (78) 88 03/05/17 08:30 Nasal Cannula 5.00 03/05/17 08:14 97.5 95 16 142/66 (91) 90 03/05/17 06:22 20 03/05/17 04:03 Nasal Cannula 5.00 Humidified 03/05/17 04:00 97.4 89 16 113/66 (82) 90 03/05/17 00:00 97.6 91 16 118/57 (77) 89 03/04/17 20:52 93 03/04/17 20:05 90 Nasal Cannula 5.00 Humidified 03/04/17 20:00 98.3 98 16 125/61 (82) 86 03/04/17 17:54 91 Nasal Cannula 6.00 03/04/17 15:47 95.9 90 21 110/57 (74) 91 I/O 03/04/17 03/04/17 03/04/17 03/05/17 03/05/17 03/05/17 07:00 15:00 23:00 07:00 15:00 23:00 Intake Total 620 ml 1000 ml Output Total 1150 ml 1300 ml 1850 ml Balance -530 ml -300 ml -1850 ml Intake Oral 620 ml 1000 ml Output Urine Total 1150 ml 1300 ml 1850 ml # Bowel Movements 1 Result Diagram: 03/05/17 0616 03/05/17 0616 Objective Remarks GENERAL: SKIN: Warm and dry. HEAD: Atraumatic. Normocephalic. EYES: Pupils equal and round. No scleral icterus. No injection or drainage. ENT: No nasal bleeding or discharge. Mucous membranes pink and moist. NECK: Trachea midline. No JVD. CARDIOVASCULAR: Regular rate and rhythm. RESPIRATORY: No accessory muscle use. Clear to auscultation. Breath sounds equal bilaterally. GASTROINTESTINAL: Abdomen soft, non-tender, nondistended. Hepatic and splenic margins not palpable. MUSCULOSKELETAL: Extremities without clubbing, cyanosis, or edema. No obvious deformities. NEUROLOGICAL: Awake and alert. No obvious cranial nerve deficits. Motor grossly within normal limits. Five out of 5 muscle strength in the arms and legs. Normal speech. PSYCHIATRIC: Appropriate mood and affect; insight and judgment normal. Medications and IVs Laboratory Tests Test 03/02/17 17:30 03/03/17 16:55 03/04/17 06:30 03/04/17 06:38 Blood Urea Nitrogen 48 MG/DL (7-18) 43 MG/DL (7-18) 46 MG/DL (7-18) Random Glucose 157 MG/DL (74-106) 135 MG/DL (74-106) 136 MG/DL (74-106) Calcium Level 8.0 MG/DL (8.5-10.1) 8.0 MG/DL (8.5-10.1) 8.2 MG/DL (8.5-10.1) Potassium Level 2.8 MEQ/L (3.5-5.1) Estimat Glomerular Filtration Rate 88 ML/MIN (>89) Red Blood Count 3.86 MIL/MM3 (4.50-5.90) 3.73 MIL/MM3 (4.50-5.90) Hemoglobin 11.6 GM/DL (13.0-17.0) 11.3 GM/DL (13.0-17.0) Hematocrit 34.7 % (39.0-51.0) 33.5 % (39.0-51.0) Red Cell Distribution Width 19.6 % (11.6-17.2) 20.3 % (11.6-17.2) Platelet Count 72 TH/MM3 (150-450) 66 TH/MM3 (150-450) Neutrophils (%) (Auto) 94.4 % (16.0-70.0) 95.5 % (16.0-70.0) Lymphocytes (%) (Auto) 4.0 % (9.0-44.0) 3.0 % (9.0-44.0) Lymphocytes # (Auto) 0.3 TH/MM3 (1.0-4.8) 0.2 TH/MM3 (1.0-4.8) Neutrophils % (Manual) 92 % (16-70) Lymphocytes % 2 % (9-44) Metamyelocytes 2 % (0-1) Myelocytes 1 % (0-0) Platelet Estimate LOW (NORMAL) LOW (NORMAL) Prothrombin Time 19.5 SEC (9.8-11.6) 19.4 SEC (9.8-11.6) Total Protein 5.1 GM/DL (6.4-8.2) 5.1 GM/DL (6.4-8.2) Albumin 1.7 GM/DL (3.4-5.0) 1.7 GM/DL (3.4-5.0) Phosphorus Level 2.2 MG/DL (2.5-4.9) 2.3 MG/DL (2.5-4.9) Chloride Level 109 MEQ/L (98-107) 108 MEQ/L (98-107) Thyroid Stimulating Hormone 3rd Gen 10.600 uIU/ML (0.358-3.740) 5.910 uIU/ML (0.358-3.740) Platelet Morphology Comment ENLARGED (NORMAL) Hemoglobin A1c 8.3 % (4.3-6.0) Test 03/05/17 06:16 Red Blood Count 3.74 MIL/MM3 (4.50-5.90) Hemoglobin 11.2 GM/DL (13.0-17.0) Hematocrit 33.7 % (39.0-51.0) Red Cell Distribution Width 20.5 % (11.6-17.2) Platelet Count 69 TH/MM3 (150-450) Neutrophils (%) (Auto) 94.6 % (16.0-70.0) Lymphocytes (%) (Auto) 3.7 % (9.0-44.0) Lymphocytes # (Auto) 0.2 TH/MM3 (1.0-4.8) Platelet Estimate LOW (NORMAL) Prothrombin Time 17.8 SEC (9.8-11.6) Blood Urea Nitrogen 47 MG/DL (7-18) Total Protein 4.4 GM/DL (6.4-8.2) Albumin 1.7 GM/DL (3.4-5.0) Calcium Level 7.7 MG/DL (8.5-10.1) Chloride Level 109 MEQ/L (98-107) Assessment and Plan Assessment and Plan repiratory failure chf pleural effusion plan o2 as needed diuresis f/u CXRAY Bernardino Lebron MD Mar 05, 2017 15:32
[2017-03-05] MEDS: WARFARIN SOD 3 MG TAB PO SCH (15:56)
[2017-03-05] MEDS: RESP: ALBUTEROL 2.5 MG/3 ML NEB (PRN) NEB (16:06)
[2017-03-05] MEDS: TAMSULOSIN HCL 0.4 MG CAP PO SCH (21:26)
[2017-03-05] MEDS: INSULIN DETEMIR 100 UNITS/ML VIAL SQ SCH (21:48)
[2017-03-06] VITALS (16 sets, daily range): BP systolic 95–167; BP diastolic 57–88; PULSE 70–118; RESP 16–30; TEMP 97.3–99.5; O2SAT 87–98
[2017-03-06] MEDS: RESP: ALBUTEROL 2.5 MG/3 ML NEB (PRN) NEB ×2 (00:04→05:43)
[2017-03-06] MEDS: ZOLPIDEM TARTRATE 5 MG TAB PO PRN (00:18)
--- NOTE | 2017-03-06 06:33 | RADRPT ---
EXAM DATE/TIME: 03/06/2017 06:01 [facility] COMPARISON: CHEST SINGLE AP, March 02, 2017, 6:02. INDICATIONS : Respiratory failure. MEDICAL HISTORY : Hypertension. Chronic obstructive pulmonary disease. Diabetes SURGICAL HISTORY : None. ENCOUNTER: Subsequent ACUITY: 2 weeks PAIN SCORE: 0/10 LOCATION: Bilateral chest FINDINGS: Bilateral interstitial opacities persist, fairly diffuse but currently upper lobe predominant. No den se or confluent consolidation seen. No pleural effusion or pneumothorax. Mild cardiomegaly is stable. Tortuous thoracic aorta again noted. CONCLUSION: Persistent upper lobe predominant bilateral interstitial opacities. No lobar consolidation demonstrat ed. Vickey Villarreal MD on March 06, 2017 at 6:30 Board Certified Radiologist. This report was verified electronically.
[2017-03-06] MEDS ORDERED: FUROSEMIDE 40 MG/4 ML VIAL IV PUSH ONE (06:45)
[2017-03-06] MEDS ORDERED: methylPREDNISolone SOD SUCC 125 MG/2 ML VIAL IV PUSH ONE (06:45)
[2017-03-06 06:48] LABS: BLOOD GAS BASE EXCESS 0.9 mmol/L (-2-2); BLOOD GAS CARBOXYHEMOGLOBIN 1.8 % (0-4); BLOOD GAS HCO3 23 mmol/L (22-26); BLOOD GAS METHEMOGLOBIN 0.8 % (0-2); BLOOD GAS O2 HGB SATURATION 85 % (90-100); BLOOD GAS OXYGEN CONTENT 15.8 Vol % (12.0-20.0); BLOOD GAS PCO2 26 mmHg (38-42); BLOOD GAS PO2 51 mmHg (61-120); BLOOD GAS TOTAL HGB 13.2 G/DL (12.0-16.0); TEMP CORR TO 98.6
[2017-03-06 06:49] LABS: CRITICAL VALUE YES; DRAW SITE LT RADIAL; LITER FLOW 10 L/M; NUMBER OF ARTERIAL PUNCTURES 1; OXYGEN DEVICE SM; STAT YES; ULNAR PULSE Y
[2017-03-06] MEDS: SODIUM CHLORIDE 0.9% FLUSH 10 ML FLUSH IV FLUSH PRN (06:51)
[2017-03-06] MEDS: POTASSIUM CHLORIDE 10 MEQ CONTROLLED RELEASE TAB PO SCH ×3 (06:52→21:00)
[2017-03-06] MEDS: INSULIN ASPART SUPPLEMENTAL SCALE SQ SCH ×4 (06:55→21:00)
[2017-03-06] MEDS ORDERED: Vancomycin Consult Pharmacy 1 EA OTHER SCH (07:00)
[2017-03-06] MEDS: ACETAMINOPHEN/HYDROcodone 325 MG/5 MG TAB PO PRN ×3 (07:00→20:53)
[2017-03-06] MEDS: LORazepam 0.5 MG TAB PO PRN ×2 (08:13→16:32)
[2017-03-06] MEDS: FUROSEMIDE 20 MG/2 ML VIAL IV PUSH SCH (08:13)
[2017-03-06] MEDS: NYSTAT/DIPHENHY/LIDO MOUTHWASH (Adult) 120ML SWISH-SWAL SCH ×4 (08:14→20:51)
[2017-03-06] MEDS: DOCUSATE SODIUM 50 MG/SENNA 8.6 MG TAB PO SCH ×2 (08:17→20:51)
[2017-03-06] MEDS: SODIUM CHLORIDE 0.9% FLUSH 10 ML FLUSH IV FLUSH SCH (08:33)
[2017-03-06] MEDS: VANCOMYCIN 1,500 MG/NS 500 ML IV SCH ×2 (08:45)
[2017-03-06] MEDS: PANTOPRAZOLE SODIUM 40 MG VIAL IV PUSH SCH (08:46)
[2017-03-06] MEDS: BUDESONIDE-FORMOTEROL 160/4.5 MCG INHALER INH SCH ×2 (09:00→21:18)
[2017-03-06] MEDS: AMIODARONE 200 MG TAB PO SCH (09:10)
[2017-03-06 09:41] LABS: HEMATOCRIT 37.4 % (39.0-51.0); MEAN CELL VOLUME 90.9 FL (80.0-100.0); MEAN CORPUSCULAR HEMOGLOBIN 29.8 PG (27.0-34.0); MEAN CORPUSCULAR HGB CONC 32.8 % (32.0-36.0); PLATELET COUNT 68 TH/MM3 (150-450); RED BLOOD COUNT 4.11 MIL/MM3 (4.50-5.90); RED CELL DISTRIBUTION WIDTH 20.9 % (11.6-17.2); WHITE BLOOD COUNT 6.2 TH/MM3 (4.0-11.0)
[2017-03-06 09:42] LABS: INTERNATIONAL NORMALIZED RATIO 2.1 RATIO; PROTHROMBIN TIME - PATIENT 23.9 SEC (9.8-11.6)
[2017-03-06 09:48] LABS: HEMO FLAGS AUTO DIFF
[2017-03-06] MEDS: CEFEPIME INJ 2,000 MG in SODIUM CHLORIDE 0.9% INJ 100 ML IV SCH ×2 (10:18→16:29)
[2017-03-06 10:26] LABS: ALKALINE PHOSPHATASE 88 U/L (45-117); ALT (GPT) 38 U/L (12-78); ANION GAP 8 MEQ/L (5-15); AST (GOT) 18 U/L (15-37); BICARBONATE 23.8 MEQ/L (21.0-32.0); BLOOD UREA NITROGEN 43 MG/DL (7-18); CHLORIDE 108 MEQ/L (98-107); GLOMERULAR FILTRATION RATE 79 ML/MIN (>89); MAGNESIUM 2.2 MG/DL (1.5-2.5); POTASSIUM 5.4 MEQ/L (3.5-5.1); SODIUM (NA) 140 MEQ/L (136-145); TOTAL BILIRUBIN ADULT 0.7 MG/DL (0.2-1.0)
[2017-03-06] MEDS: DILTIAZEM-CD 120 MG CAP ER PO SCH (10:31)
--- NOTE | 2017-03-06 12:50 | HHI.PR ---
Subjective Remarks PATIENT REMAINS ON 5LITERS BY NASAL CANNULA NEEDS TO MOVE NEEDS PT AND OT LESS SOB CONTINUE TO DIURESE AM LABS 03-04 STILL REMAINS ON 5 LITERS DW RN AND PT AND FAMILY NEEDS SNF AT DC VS INPT REHAB PT, OT 03-05 FAMILY WANTS REHAB AT DC PT NOT MOVING MUCH YET ON 5L BY NC NEEDS SNF VS INPT REHAB DW RN AND PT AND FAMILY 03-06 PATIENT APPEARS WORSE THAN YESTERDAY NOT OXYGENATING WELL UNLESS HE KEEPS MASK ON DESATS INTO THE 70S WHEN HE TAKES IT OFF DW RN AND PT AND FAMILY WILL CONTINUE ON LASIX AND STEROID AND ANTIBIOTICS NEEDS INCENTIVE SPIROMETRY BUT CANNOT DO IT MAY NEED BIPAP/INTUBATION WILL CONSULT CRITICAL CARE TRANSFER TO ICU IF BED AVAILABLE Objective Vitals Vital Signs Date Time Temp Pulse Resp B/P (MAP) Pulse Ox O2 Delivery O2 Flow Rate FiO2 03/06/17 11:48 92 03/06/17 11:32 Venturi Mask 6.00 35 03/06/17 10:30 107 109/61 (77) 03/06/17 09:10 88 35 03/06/17 08:02 99.5 118 20 95/57 (70) 87 03/06/17 05:55 Venturi Mask 50 03/06/17 04:00 Nasal Cannula 6.00 03/06/17 04:00 97.4 115 20 160/81 (107) 89 03/06/17 00:22 98 Nasal Cannula 6.00 03/06/17 00:00 97.9 89 18 119/57 (77) 90 03/06/17 00:00 Nasal Cannula 6.00 03/05/17 20:00 87 03/05/17 20:00 97.3 90 16 124/56 (78) 89 03/05/17 20:00 Nasal Cannula 6.00 03/05/17 15:23 97.6 93 18 109/60 (76) 86 03/05/17 14:30 Nasal Cannula 5.00 03/05/17 12:35 101 I/O 03/05/17 03/05/17 03/05/17 03/06/17 03/06/17 03/06/17 06:59 14:59 22:59 06:59 14:59 22:59 Intake Total 820 ml Output Total 1850 ml 1010 ml 1050 ml Balance -1850 ml -190 ml -1050 ml Intake Oral 820 ml Output Urine Total 1850 ml 1010 ml 1050 ml # Bowel Movements 0 Result Diagram: 03/06/17 0911 03/06/17 0911 Other Results Laboratory Tests Test 03/03/17 16:55 03/04/17 06:30 03/04/17 06:38 03/05/17 06:16 White Blood Count 6.6 TH/MM3 5.3 TH/MM3 6.0 TH/MM3 Red Blood Count 3.86 MIL/MM3 3.73 MIL/MM3 3.74 MIL/MM3 Hemoglobin 11.6 GM/DL 11.3 GM/DL 11.2 GM/DL Hematocrit 34.7 % 33.5 % 33.7 % Mean Corpuscular Volume 90.0 FL 89.8 FL 90.1 FL Mean Corpuscular Hemoglobin 30.1 PG 30.4 PG 29.9 PG Mean Corpuscular Hemoglobin Concent 33.4 % 33.9 % 33.2 % Red Cell Distribution Width 19.6 % 20.3 % 20.5 % Platelet Count 72 TH/MM3 66 TH/MM3 69 TH/MM3 Mean Platelet Volume 7.7 FL 8.0 FL 7.7 FL Neutrophils (%) (Auto) 94.4 % 95.5 % 94.6 % Lymphocytes (%) (Auto) 4.0 % 3.0 % 3.7 % Monocytes (%) (Auto) 1.4 % 1.5 % 1.4 % Eosinophils (%) (Auto) 0.0 % 0.0 % 0.2 % Basophils (%) (Auto) 0.2 % 0.0 % 0.1 % Neutrophils # (Auto) 6.2 TH/MM3 5.1 TH/MM3 5.6 TH/MM3 Lymphocytes # (Auto) 0.3 TH/MM3 0.2 TH/MM3 0.2 TH/MM3 Monocytes # (Auto) 0.1 TH/MM3 0.1 TH/MM3 0.1 TH/MM3 Eosinophils # (Auto) 0.0 TH/MM3 0.0 TH/MM3 0.0 TH/MM3 Basophils # (Auto) 0.0 TH/MM3 0.0 TH/MM3 0.0 TH/MM3 CBC Comment AUTO DIFF AUTO DIFF AUTO DIFF Differential Total Cells Counted 100 Neutrophils % (Manual) 92 % Band Neutrophils % 2 % Lymphocytes % 2 % Monocytes % 1 % Neutrophils # (Manual) 6.4 TH/MM3 Metamyelocytes 2 % Myelocytes 1 % Differential Comment FINAL DIFF MANUAL AUTO DIFF CONFIRMED AUTO DIFF CONFIRMED Platelet Estimate LOW LOW LOW Platelet Morphology Comment NORMAL ENLARGED NORMAL Prothrombin Time 19.5 SEC 19.4 SEC 17.8 SEC Prothromb Time International Ratio 1.7 RATIO 1.7 RATIO 1.6 RATIO Blood Urea Nitrogen 43 MG/DL 46 MG/DL 47 MG/DL Creatinine 0.81 MG/DL 0.80 MG/DL 0.63 MG/DL Random Glucose 135 MG/DL 136 MG/DL 89 MG/DL Total Protein 5.1 GM/DL 5.1 GM/DL 4.4 GM/DL Albumin 1.7 GM/DL 1.7 GM/DL 1.7 GM/DL Calcium Level 8.0 MG/DL 8.2 MG/DL 7.7 MG/DL Phosphorus Level 2.2 MG/DL 2.3 MG/DL 2.9 MG/DL Magnesium Level 2.1 MG/DL 2.2 MG/DL 2.2 MG/DL Alkaline Phosphatase 89 U/L 88 U/L 84 U/L Aspartate Amino Transf (AST/SGOT) 18 U/L 20 U/L 19 U/L Alanine Aminotransferase (ALT/SGPT) 41 U/L 41 U/L 36 U/L Total Bilirubin 0.4 MG/DL 0.5 MG/DL 0.5 MG/DL Sodium Level 142 MEQ/L 142 MEQ/L 143 MEQ/L Potassium Level 3.7 MEQ/L 4.7 MEQ/L 4.5 MEQ/L Chloride Level 109 MEQ/L 108 MEQ/L 109 MEQ/L Carbon Dioxide Level 23.9 MEQ/L 24.8 MEQ/L 24.0 MEQ/L Anion Gap 9 MEQ/L 9 MEQ/L 10 MEQ/L Estimat Glomerular Filtration Rate 93 ML/MIN 94 ML/MIN 124 ML/MIN Free Thyroxine 0.85 NG/DL 0.94 NG/DL Thyroid Stimulating Hormone 3rd Gen 10.600 uIU/ML 5.910 uIU/ML Hemoglobin A1c 8.3 % Test 03/06/17 06:16 03/06/17 09:11 Blood Gas Puncture Site LT RADIAL Blood Gas Patient Temperature 98.6 Blood Gas HCO3 23 mmol/L Blood Gas Base Excess 0.9 mmol/L Blood Gas Oxygen Saturation 85 % Arterial Blood pH 7.55 Arterial Blood Partial Pressure CO2 26 mmHg Arterial Blood Partial Pressure O2 51 mmHg Arterial Blood Oxygen Content 15.8 Vol % Arterial Blood Carboxyhemoglobin 1.8 % Arterial Blood Methemoglobin 0.8 % Blood Gas Hemoglobin 13.2 G/DL Oxygen Delivery Device SM Blood Gas Liter Flow 10 L/M White Blood Count 6.2 TH/MM3 Red Blood Count 4.11 MIL/MM3 Hemoglobin 12.3 GM/DL Hematocrit 37.4 % Mean Corpuscular Volume 90.9 FL Mean Corpuscular Hemoglobin 29.8 PG Mean Corpuscular Hemoglobin Concent 32.8 % Red Cell Distribution Width 20.9 % Platelet Count 68 TH/MM3 Mean Platelet Volume 7.2 FL CBC Comment AUTO DIFF Prothrombin Time 23.9 SEC Prothromb Time International Ratio 2.1 RATIO Blood Urea Nitrogen 43 MG/DL Creatinine 0.93 MG/DL Random Glucose 109 MG/DL Total Protein 5.1 GM/DL Albumin 1.8 GM/DL Calcium Level 9.0 MG/DL Phosphorus Level 2.3 MG/DL Magnesium Level 2.2 MG/DL Alkaline Phosphatase 88 U/L Aspartate Amino Transf (AST/SGOT) 18 U/L Alanine Aminotransferase (ALT/SGPT) 38 U/L Total Bilirubin 0.7 MG/DL Sodium Level 140 MEQ/L Potassium Level 5.4 MEQ/L Chloride Level 108 MEQ/L Carbon Dioxide Level 23.8 MEQ/L Anion Gap 8 MEQ/L Estimat Glomerular Filtration Rate 79 ML/MIN Imaging Last Impressions Chest X-Ray 03/06/17 0000 Signed Impressions: Service Date/Time: Monday, March 06, 2017 06:01 - CONCLUSION: Persistent upper lobe predominant bilateral interstitial opacities. No lobar consolidation demonstrated. Vickey Villarreal MD CT Angiography 02/25/17 0731 Signed Impressions: Service Date/Time: Saturday, February 25, 2017 08:08 - CONCLUSION: 1. Study degraded by breathing motion artifact. These were the best obtainable images. 2. No pulmonary embolus observed within the more central pulmonary arteries. Peripheral pulmonary arteries are limited in their evaluation due to the breathing motion artifact. 3. Diffuse interstitial infiltrates more pronounced within the upper lobes. Differential diagnostic considerations are quite broad at this point. The more common etiologies include usual interstitial pneumonitis as well as hypersensitivity pneumonitis. Dennis Gupta Jr., MD Objective Remarks GENERAL: Awake alert LETHARGIC AT THIS TIME SKIN: Warm and dry. HEAD: Atraumatic. Normocephalic. EYES: Pupils equal and round. No scleral icterus. No injection or drainage. Extraocular muscles intact ENT: No nasal bleeding or discharge. Mucous membranes pink and moist. Tongue is midline WEARING FACIAL MASK NECK: Trachea midline. No JVD. Neck is supple CARDIOVASCULAR: Regular rate and rhythm. S1-S2 no S3 or S4 no heave or thrill or rub or gallop RESPIRATORY: SOME accessory muscle use. Some rhonchi and some wheezes bilaterally. Breath sounds equal bilaterally. COARSE BREATH SOUNDS GASTROINTESTINAL: Abdomen soft, non-tender, nondistended. Hepatic and splenic margins not palpable. Obese MUSCULOSKELETAL: Extremities without clubbing, cyanosis. No obvious deformities. +1 TO 2 lower extremity edema NEUROLOGICAL: Awake and AROUSABLE. No obvious cranial nerve deficits. Motor grossly within normal limits. 4 out of 5 muscle strength in the arms and legs. PSYCHIATRIC: INAppropriate mood and affect; insight and judgment ABnormal. VERY LETHARGIC Medications and IVs Current Medications Methylprednisolone Sodium Succinate (SoluMEDROL INJ) 125 mg ONCE ONCE IVP Last administered on 02/25/17 08:06; Start 02/25/17 at 07:45; Stop 02/25/17 at 07: 46; Status DC Albuterol Sulfate (Albuterol Neb) 2.5 mg Q15M INH Last administered on 08:15; Start 02/25/17 at 07:45; Stop 02/25/17 at 08:16; Status DC Magnesium Sulfate/ Dextrose 100 ml @ 100 mls/hr ONCE ONCE IV Last administered on 02/25/17 08:06; Start 02/25/17 at 07:45; Stop 02/25/17 at 08:44; Status DC Piperacillin Sod/ Tazobactam Sod 100 ml @ 200 mls/hr ONCE STAT IV Last administered on 02/25/17 08:28; Start 02/25/17 at 07:40; Stop 02/25/17 at 08:12; Status DC Azithromycin 500 mg/Sodium Chloride 250 ml @ 250 mls/hr ONCE STAT IV Last administered on 02/25/17 09:41; Start 02/25/17 at 07:40; Stop 02/25/17 at 08:39; Status DC Tobramycin Sulfate 100 mg/ Sodium Chloride 102.5 ml @ 100 mls/hr ONCE STAT IV Last administered on 02/25/17 12:09; Start 02/25/17 at 07:40; Stop 02/25/17 at 08:41; Status DC Iohexol (Omnipaque 350 Inj) 73 ml STK-MED ONCE IVCONTRAST Last administered on 02/25/17 07:16; Start 02/25/17 at 07:16; Stop 02/25/17 at 08:12; Status DC Sodium Chloride (NS Flush) 2 ml UNSCH PRN IV FLUSH FLUSH AFTER USING IV ACCESS Last administered on 03/06/17 06:51; Start 02/25/17 at 09:15 Sodium Chloride (NS Flush) 2 ml BID IV FLUSH Last administered on 03/06/17 08: 33; Start 02/25/17 at 21:00 Acetaminophen (Tylenol) 650 mg Q4H PRN PO TEMP > 100.4; Start 02/25/17 at 09:15 Ondansetron HCl (Zofran Inj) 4 mg Q6H PRN IVP NAUSEA OR VOMITING; Start at 09:15 Zolpidem Tartrate (Ambien) 5 mg HS PRN PO INSOMNIA Last administered on 00:18; Start 02/25/17 at 09:15 Heparin Sodium (Porcine) (Heparin Inj) 5,000 units Q12H SQ ; Start 02/25/17 at 09 :15; Stop 02/25/17 at 09:15; Status DC Naloxone HCl (Narcan Inj) 0.4 mg UNSCH PRN IV SEE LABEL COMMENTS; Start at 09:15 Senna/Docusate Sodium (Maira-Colace) 1 tab BID PO Last administered on 03/01/17 09:00; Start 02/25/17 at 21:00 Magnesium Hydroxide (Milk Of Magnesia Liq) 30 ml Q12H PRN PO MILD - MODERATE CONSTIPATION; Start 02/25/17 at 09:15 Sennosides (Senokot) 17.2 mg Q12H PRN PO MODERATE - SEVERE CONSTIPATION; Start 02/25/17 at 09:15 Bisacodyl (Dulcolax Supp) 10 mg DAILY PRN RECTAL SEVERE CONSITIPATION; Start at 09:15 Lactulose (Lactulose Liq) 30 ml DAILY PRN PO SEVERE CONSITIPATION; Start at 09:15 Albuterol Sulfate (Albuterol Neb) 2.5 mg Q6HR NEB PRN NEB SHORTNESS OF BREATH Last administered on 03/06/17 05:43; Start 02/25/17 at 09:15 Amiodarone HCl (Cordarone) 200 mg DAILY PO Last administered on 03/06/17 09:10 ; Start 02/26/17 at 09:00 Diltiazem HCl (Cardizem Cd) 120 mg DAILY PO Last administered on 03/06/17 10: 31; Start 02/26/17 at 09:00 Acetaminophen/ Hydrocodone Bitart (Yoder 5-325 Mg) 1 tab Q4H PRN PO PAIN GREATER THAN 5 Last administered on 03/06/17 07:00; Start 02/25/17 at 09:15 Lorazepam (Ativan) 0.5 mg Q8H PRN PO SEVERE ANXIETY OR AGITATION Last administered on 03/06/17 08:13; Start 02/25/17 at 09:15 Tamsulosin HCl (Flomax) 0.4 mg HS PO Last administered on 03/05/17 21:26; Start 02/25/17 at 21:00 Warfarin Sodium (Coumadin) 2 mg DAILY@1600 PO ; Start 02/26/17 at 16:00; Stop 03/01/17 at 16:52; Status DC Hydralazine HCl (Apresoline Inj) 20 mg Q4H PRN IV PUSH SYS BP GREATER THAN 180 MMHG; Start 02/25/17 at 09:15 Pharmacy Profile Note 0 ml @ 0 mls/hr UNSCH OTHER ; Start 02/25/17 at 09:15 Furosemide (Lasix Inj) 40 mg BID@09,18 IV PUSH Last administered on 03/01/17 17 :55; Start 02/25/17 at 18:00; Stop 03/01/17 at 18:30; Status DC Methylprednisolone Sodium Succinate (SoluMEDROL INJ) 125 mg Q6H IV PUSH Last administered on 02/25/17 14:06; Start 02/25/17 at 14:00; Stop 02/25/17 at 19:22; Status DC Pantoprazole Sodium (Protonix Inj) 40 mg Q24H IV PUSH Last administered on 03/06 08:46; Start 02/25/17 at 10:00 Piperacillin Sod/ Tazobactam Sod 50 ml @ 100 mls/hr Q6H IV Last administered on 02/25/17 15:39; Start 02/25/17 at 15:00; Stop 02/25/17 at 20:55; Status DC Pharmacy Profile Note 0 ml @ 0 mls/hr UNSCH OTHER ; Start 02/25/17 at 09:15; Stop 02/28/17 at 12:07; Status DC Albuterol/ Ipratropium (Duoneb Neb) 1 ampule QID NEB NEB Last administered on 03/01/17 07:55; Start 02/25/17 at 12:00; Stop 03/01/17 at 11:59; Status DC Dextrose/Sodium Chloride 1,000 ml @ 70 mls/hr [id number] IV Last administered on 03/01/17 12:40; Start 02/25/17 at 10:00; Stop 03/01/17 at 18:21; Status DC Vancomycin HCl 2000 mg/Sodium Chloride 520 ml @ 250 mls/hr ONCE ONCE IV Last administered on 02/25/17 13:30; Start 02/25/17 at 11:00; Stop 02/25/17 at 13:04; Status DC Patient Medication Teaching (Coumadin Booklet) 1 ONCE ONCE OTHER ; Start at 16:00; Stop 02/26/17 at 16:01; Status DC Vancomycin HCl 1000 mg/Sodium Chloride 250 ml @ 250 mls/hr Q12H IV Last administered on 02/26/17 13:00; Start 02/26/17 at 01:00; Stop 02/27/17 at 09:40; Status DC Miscellaneous Information SPECIFIC LAB TO BE MARLENY... ONCE ONCE .XX ; Start at 00:45; Stop 02/27/17 at 00:46; Status DC Miscellaneous Information Patient in critical care unit? Ass... Q361D .XX ; Start 02/25/17 at 17:00 Chlorhexidine Gluconate (Chlorhexidine 2% Cloth) 3 pack DAILY@04 TOPICAL Last administered on 03/01/17 03:35; Start 02/26/17 at 04:00; Stop 03/02/17 at 04:01; Status DC Chlorhexidine Gluconate (Chlorhexidine 2% Cloth) 3 pack UNSCH PRN TOPICAL HYGIENIC CARE; Start 02/25/17 at 17:00; Stop 03/02/17 at 16:52; Status DC Methylprednisolone Sodium Succinate (SoluMEDROL INJ) 60 mg Q6H IV PUSH Last administered on 02/26/17 13:24; Start 02/25/17 at 20:00; Stop 02/26/17 at 14:51; Status DC Budesonide/ Formoterol Fumarate (Symbicort 160-4.5 Inh) 1 puff Q12HR INH Last administered on 03/06/17 09:00; Start 02/25/17 at 21:00 Azithromycin (Zithromax) 500 mg DAILY PO Last administered on 03/02/17 08:15; Start 02/26/17 at 09:00; Stop 03/02/17 at 16:43; Status DC Piperacillin Sod/ Tazobactam Sod 100 ml @ 200 mls/hr Q8H IV Last administered on 02/28/17 06:09; Start 02/25/17 at 21:00; Stop 02/28/17 at 12:08; Status DC Insulin Aspart (NovoLOG SUPPLEMENTAL SCALE) 1 ACHS SLIDING SCALE SQ Last administered on 03/01/17 17:53; Start 02/26/17 at 07:00; Stop 03/01/17 at 18:31; Status DC Dextrose (D50w (Vial) Inj) 50 ml UNSCH PRN IV PUSH HYPOGLYCEMIA - SEE COMMENTS ; Start 02/25/17 at 22:45 Glucagon (Glucagon Inj) 1 mg UNSCH PRN OTHER HYPOGLYCEMIA-SEE COMMENTS; Start 02/25/17 at 22:45 Multi-Ingredient Mouthwash/Gargle (Magic Mouthwash Adult Liq) 10 ml QID SWISH- SWAL Last administered on 03/06/17 08:14; Start 02/26/17 at 13:00 Methylprednisolone Sodium Succinate (SoluMEDROL INJ) 40 mg Q6H IV PUSH Last administered on 03/01/17 14:12; Start 02/26/17 at 20:00; Stop 03/01/17 at 18:21; Status DC Vancomycin HCl 1000 mg/Sodium Chloride 250 ml @ 250 mls/hr Q18H IV ; Start 02/27 at 18:00; Status Cancel Vancomycin HCl 1500 mg/Sodium Chloride 515 ml @ 250 mls/hr ONCE ONCE IV Last administered on 02/27/17 12:10; Start 02/27/17 at 13:00; Stop 02/28/17 at 12:07; Status DC Insulin Detemir (Levemir Inj) 5 units HS SQ Last administered on 02/28/17 20:47 ; Start 02/28/17 at 21:00; Stop 03/01/17 at 18:31; Status DC Potassium Chloride (KCl) 40 meq ONCE ONCE PO Last administered on 02/28/17 16: 13; Start 02/28/17 at 15:00; Stop 02/28/17 at 15:01; Status DC Warfarin Sodium (Coumadin) 1 mg DAILY@1600 PO Last administered on 03/03/17 16: 33; Start 03/01/17 at 17:00; Stop 03/04/17 at 09:33; Status DC Methylprednisolone Sodium Succinate (SoluMEDROL INJ) 40 mg Q8HR IV PUSH Last administered on 03/03/17 12:56; Start 03/01/17 at 22:00; Stop 03/03/17 at 13:10; Status DC Furosemide (Lasix Inj) 20 mg BID@0900,1800 IV PUSH Last administered on 08:45; Start 03/02/17 at 09:00; Stop 03/04/17 at 15:21; Status DC Insulin Detemir (Levemir Inj) 10 units HS SQ Last administered on 03/05/17 21: 48; Start 03/01/17 at 21:00 Insulin Aspart (NovoLOG SUPPLEMENTAL SCALE) 1 ACHS SLIDING SCALE SQ Last administered on 03/05/17 21:43; Start 03/01/17 at 21:00 Potassium Chloride 100 ml @ 100 mls/hr Q1H IV Last administered on 03/03/17 05 :06; Start 03/02/17 at 20:15; Stop 03/02/17 at 23:14; Status DC Potassium Bicarb/ Potassium Chloride (K-Lyte Cl Eff) 50 meq ONCE ONCE PO Last administered on 03/02/17 21:57; Start 03/02/17 at 20:15; Stop 03/02/17 at 20: 22; Status DC Sodium Chloride 500 ml @ 20 mls/hr Q24H IV Last administered on 03/02/17 22:03 ; Start 03/02/17 at 20:15; Stop 03/03/17 at 20:14; Status DC Potassium Chloride (KCl) 30 meq Q12HR PO ; Start 03/03/17 at 21:00; Stop 03/03/17 at 21:00; Status DC Methylprednisolone Sodium Succinate (SoluMEDROL INJ) 40 mg BID IV PUSH Last administered on 03/05/17 08:19; Start 03/03/17 at 21:00; Stop 03/05/17 at 20:59; Status DC Potassium Chloride (KCl) 40 meq Q8H PO Last administered on 03/06/17 06:52; Start 03/03/17 at 21:00 Warfarin Sodium (Coumadin) 2 mg DAILY@1600 PO Last administered on 03/04/17 17: 17; Start 03/04/17 at 16:00; Stop 03/05/17 at 12:27; Status DC Furosemide (Lasix Inj) 20 mg DAILY IV PUSH Last administered on 03/05/17 08:19 ; Start 03/05/17 at 09:00 Warfarin Sodium (Coumadin) 3 mg DAILY@1600 PO Last administered on 03/05/17 15: 56; Start 03/05/17 at 16:00 Furosemide (Lasix Inj) 40 mg ONCE ONCE IV PUSH Last administered on 03/06/17 06:48; Start 03/06/17 at 06:45; Stop 03/06/17 at 06:46; Status DC Methylprednisolone Sodium Succinate (SoluMEDROL INJ) 125 mg ONCE ONCE IV PUSH Last administered on 03/06/17 06:50; Start 03/06/17 at 06:45; Stop 03/06/17 at 06:46; Status DC Pharmacy Profile Note 0 ml @ 0 mls/hr UNSCH OTHER ; Start 03/06/17 at 07:00 Cefepime HCl 2000 mg/Sodium Chloride 100 ml @ 200 mls/hr Q8H IV Last administered on 03/06/17 10:18; Start 03/06/17 at 08:00 Vancomycin HCl 1500 mg/Sodium Chloride 515 ml @ 257.5 mls/ hr Q24H IV Last administered on 03/06/17 08:45; Start 03/06/17 at 09:00 Miscellaneous Information SPECIFIC LAB TO BE ... ONCE ONCE .XX ; Start 03/09 at 08:45; Stop 03/09/17 at 08:46 Urinary Catheter: Yes A/P Assessment and Plan Respiratory failureSepsis/Health care associated pneumonia/Lactic acidosis, likely due to aspiration and COPD. continue BiPap as needed and charly bernabe following, on symbicort. Appreciate ID recommendations, patient has been swapped over to [facility]) chronically scarred bilateral parenchymal lung mcbride COPD exacerbation: continue breathing treatments. WILL PULSE DOSE STEROIDS AGAIN ,. Lasix IV. has NOT been using acapella and IS. continue to encouraged use- DOES NOT Hypoxia: Likely secondary to COPD exacerbation- APPEARS WORSE patient is a risky candidate for bronchial alveolar lavage for further deterioration, continue current medical management and WORSENING- WILL TRANSFER TO ICU SERVICE- - patient does not wish any procedures anyways Sleep apnea: bipap Atrial fibrillation: on amiodarone/cardizem/on coumadin. Close monitoring with INR Chronic kidney disease stage III- monitor. Diabetes: diabetic diet. worsened w/ steroids, Levemir 10 units, - high-dose - improved sugars, monitor and de-escalate insulin Hypertension. stable, prn hydralazine available History of hyperkalemia and hypokalemia monitor, replace as needed Chronic pain syndrome. stable Needs aggressive physical therapy and occupational therapy APPEARS WORSE WILL TRANSFER TO ICU DW RN AND PT AND FAMILY Discharge Planning LTAC VS SNF IN FUTURE Mateo Muir DO Mar 06, 2017 12:50
[2017-03-06 13:30] LABS: BANDS 8 % (0-6); OVALOCYTES 1+ (NORMAL); PLATELET ESTIMATE SMEAR LOW (NORMAL); PLATELET MORPHOLOGY NORMAL (NORMAL); POLYS (SEG NEUTROPHILS) 88 % (16-70); SCAN/DIFF FINAL DIFF MANUAL; WBC DIFF SAMPLE 100
--- NOTE | 2017-03-06 14:06 | HHI.PR ---
Subjective Remarks alert increase SOB on o2, REFUSED CPAP Objective Vital Signs Date Time Temp Pulse Resp B/P (MAP) Pulse Ox O2 Delivery O2 Flow Rate FiO2 03/06/17 12:02 98.5 105 20 107/62 (77) 90 03/06/17 11:48 92 03/06/17 11:32 Venturi Mask 6.00 35 03/06/17 10:30 107 109/61 (77) 03/06/17 09:10 88 35 03/06/17 08:02 99.5 118 20 95/57 (70) 87 03/06/17 05:55 Venturi Mask 50 03/06/17 04:00 Nasal Cannula 6.00 03/06/17 04:00 97.4 115 20 160/81 (107) 89 03/06/17 00:22 98 Nasal Cannula 6.00 03/06/17 00:00 97.9 89 18 119/57 (77) 90 03/06/17 00:00 Nasal Cannula 6.00 03/05/17 20:00 87 03/05/17 20:00 97.3 90 16 124/56 (78) 89 03/05/17 20:00 Nasal Cannula 6.00 03/05/17 15:23 97.6 93 18 109/60 (76) 86 03/05/17 14:30 Nasal Cannula 5.00 I/O 03/05/17 03/05/17 03/05/17 03/06/17 03/06/17 03/06/17 06:59 14:59 22:59 06:59 14:59 22:59 Intake Total 820 ml Output Total 1850 ml 1010 ml 1050 ml Balance -1850 ml -190 ml -1050 ml Intake Oral 820 ml Output Urine Total 1850 ml 1010 ml 1050 ml # Bowel Movements 0 Result Diagram: 03/06/17 0911 03/06/17910 Objective Remarks GENERAL: SKIN: Warm and dry. HEAD: Atraumatic. Normocephalic. EYES: Pupils equal and round. No scleral icterus. No injection or drainage. ENT: No nasal bleeding or discharge. Mucous membranes pink and moist. NECK: Trachea midline. No JVD. CARDIOVASCULAR: Regular rate and rhythm. RESPIRATORY: No accessory muscle use. Clear to auscultation. Breath sounds equal bilaterally. GASTROINTESTINAL: Abdomen soft, non-tender, nondistended. Hepatic and splenic margins not palpable. MUSCULOSKELETAL: Extremities without clubbing, cyanosis, or edema. No obvious deformities. NEUROLOGICAL: Awake and alert. No obvious cranial nerve deficits. Motor grossly within normal limits. Five out of 5 muscle strength in the arms and legs. Normal speech. PSYCHIATRIC: Appropriate mood and affect; insight and judgment normal. Assessment and Plan Assessment and Plan repiratory failure chf pleural effusion plan TRANFER TO ICU o2 as needed diuresis f/u CXRAY BIPAP if tolerated vent support if necessary Bernardino Lebron MD Mar 06, 2017 14:06
--- NOTE | 2017-03-06 15:54 | PD.CONS ---
[facility] Critical Care Medicine Consult Requested By Hospitalist Service Reason for Consult respiratory distress Primary Care Physician Frederic Reddy MD History of Present Illness This is a 77yM with history of chronic lung disease on 5L o2 by NC at home who originally presented with combined COPD/CHF exacerbation but over the course of the last 24h has become more tachypneic and feeling more in distress. His family states that at baseline, his spo2 is 85-91% on 5L NC, and he has difficulty doing any ADLs due to dyspnea. The patient was placed on BiPAP earlier, but refuses to wear it, and his family is supporting his decision to refuse BiPAP. On my exam he is labored and tachypneic, spo2 is 93% on 6L o2 by [place]. His family does state that he does want to be full code and intubated if necessary, though the are not sure if he would be ok with a permanent ventilator dependence. Critical Care medicine is consulted to evaluate and manage his worsening respiratory distress. Of note the patient is too dyspneic to complete a full ROS and only endorses SOB. The remainder of the history is obtained by the family, discussion with consultants, and review of the medical record. Review of Systems ROS Limitations: Clinical Condition ROS poor historian and respiratory distress. Past Family Social History Allergies: Coded Allergies: No Known Allergies (Unverified , 01/19/17) Past Medical History Coronary artery disease COPD Hyperkalemia Recurrent cellulitis lower extremities Home O2 use Diabetes Atrial fibrillation Hypertension Chronic pain syndrome Anemia of chronic disease From cytopenia Past Surgical History None Reported Medications Coumadin Amiodarone Albuterol Diltiazem Lasix Flomax Ambien Ativan Levaquin Spiriva Advair Active Ordered Medications See MAR Family History Reviewed in the chart and found to be noncontributory to his acute illness Social History Unobtainable due to the patient's clinical condition Physical Exam Vital Signs Vital Signs Date Time Temp Pulse Resp B/P (MAP) Pulse Ox O2 Delivery O2 Flow Rate FiO2 03/06/17 15:22 92 40 03/06/17 14:06 92 BiPAP 40 03/06/17 14:03 92 40 03/06/17 14:00 104 03/06/17 12:02 98.5 105 20 107/62 (77) 90 03/06/17 11:48 92 03/06/17 11:32 Venturi Mask 6.00 35 03/06/17 10:30 107 109/61 (77) 03/06/17 09:10 88 35 03/06/17 08:02 99.5 118 20 95/57 (70) 87 03/06/17 05:55 Venturi Mask 50 03/06/17 04:00 Nasal Cannula 6.00 03/06/17 04:00 97.4 115 20 160/81 (107) 89 03/06/17 00:22 98 Nasal Cannula 6.00 03/06/17 00:00 97.9 89 18 119/57 (77) 90 03/06/17 00:00 Nasal Cannula 6.00 03/05/17 20:00 87 03/05/17 20:00 97.3 90 16 124/56 (78) 89 03/05/17 20:00 Nasal Cannula 6.00 Physical Exam GENERAL: Elderly frail man, lying in bed, in respiratory distress HEENT: Normocephalic. Atraumatic. Pupils equal, round, reactive, conjugate. Mucous membranes are moist NECK: Trachea is midline. There is no JVD. Face mask in place CHEST: Labored. Tachypneic. Very distant almost absent breath sounds. Scant expiratory wheezes. CARDIOVASCULAR: Tachycardic, irregular rhythm. A. fib by telemetry ABDOMEN: Soft, nontender, nondistended. No guarding. MUSCULOSKELETAL: Pulses 2+. No peripheral edema. NEUROLOGICAL: RASS +1. Anxious. Follows commands. Nonfocal. Laboratory Laboratory Tests Test 03/06/17 06:16 03/06/17 09:11 Blood Gas Puncture Site LT RADIAL Blood Gas Patient Temperature 98.6 Blood Gas HCO3 23 Blood Gas Base Excess 0.9 Blood Gas Oxygen Saturation 85 Arterial Blood pH 7.55 Arterial Blood Partial Pressure CO2 26 Arterial Blood Partial Pressure O2 51 Arterial Blood Oxygen Content 15.8 Arterial Blood Carboxyhemoglobin 1.8 Arterial Blood Methemoglobin 0.8 Blood Gas Hemoglobin 13.2 Oxygen Delivery Device SM Blood Gas Liter Flow 10 White Blood Count 6.2 Red Blood Count 4.11 Hemoglobin 12.3 Hematocrit 37.4 Mean Corpuscular Volume 90.9 Mean Corpuscular Hemoglobin 29.8 Mean Corpuscular Hemoglobin Concent 32.8 Red Cell Distribution Width 20.9 Platelet Count 68 Mean Platelet Volume 7.2 CBC Comment AUTO DIFF Differential Total Cells Counted 100 Neutrophils % (Manual) 88 Band Neutrophils % 8 Lymphocytes % 2 Monocytes % 2 Neutrophils # (Manual) 6.0 Differential Comment FINAL DIFF MANUAL Platelet Estimate LOW Platelet Morphology Comment NORMAL Ovalocytes 1+ Prothrombin Time 23.9 Prothromb Time International Ratio 2.1 Blood Urea Nitrogen 43 Creatinine 0.93 Random Glucose 109 Total Protein 5.1 Albumin 1.8 Calcium Level 9.0 Phosphorus Level 2.3 Magnesium Level 2.2 Alkaline Phosphatase 88 Aspartate Amino Transf (AST/SGOT) 18 Alanine Aminotransferase (ALT/SGPT) 38 Total Bilirubin 0.7 Sodium Level 140 Potassium Level 5.4 Chloride Level 108 Carbon Dioxide Level 23.8 Anion Gap 8 Estimat Glomerular Filtration Rate 79 Date/Time Source Procedure Growth Status 02/25/17 07:41 Blood Peripheral Aerobic Blood Culture - Final NO GROWTH IN 5 DAYS Complete 02/25/17 07:41 Blood Peripheral Anaerobic Blood Culture - Final NO GROWTH IN 5 DAYS Complete 02/25/17 08:00 Nasal Washing Influenza Types A,B Antigen ([facility]) - Final NEGATIVE FOR FLU A AND B ANTIGEN.... Complete 02/25/17 07:44 Urine Random Urine Legionella Antigen - Final PRESUMPTIVE NEGATIVE FOR LEGIONELLA P... Complete 02/25/17 07:44 Urine Random Urine Streptococcus pneumoniae Antigen (M - Final PRESUMPTIVE NEGATIVE FOR STREPTOCOCCU... Complete Result Diagram: 03/06/17 0911 03/06/17 0911 Imaging Last Impressions Chest X-Ray 03/06/17 0000 Signed Impressions: Service Date/Time: Monday, March 06, 2017 06:01 - CONCLUSION: Persistent upper lobe predominant bilateral interstitial opacities. No lobar consolidation demonstrated. Vickey Villarreal MD CT Angiography 02/25/17 0731 Signed Impressions: Service Date/Time: Saturday, February 25, 2017 08:08 - CONCLUSION: 1. Study degraded by breathing motion artifact. These were the best obtainable images. 2. No pulmonary embolus observed within the more central pulmonary arteries. Peripheral pulmonary arteries are limited in their evaluation due to the breathing motion artifact. 3. Diffuse interstitial infiltrates more pronounced within the upper lobes. Differential diagnostic considerations are quite broad at this point. The more common etiologies include usual interstitial pneumonitis as well as hypersensitivity pneumonitis. Dennis Gupta Jr., MD Assessment and Plan Assessment and Plan Assessment: 77yM with severe and worsening respiratory distress likely combination of possible HCAP with COPD exacerbation and possible persistent CHF exacerbation. I agree with transfer to ICU as patient clearly is in distress. I stressed how important wearing BiPAP mask is. I also stressed that given the patient's home oxygen use at home saturations, that if he were to require intubation mechanical ventilation, it is unlikely that he will never separate from mechanical ventilation and likely would be vent dependent. Despite this, the patient and his family continue on aggressive care. We will continue BiPAP for now, and may be forced to pursue intubation, but at this point the risks of intubation outweigh its proposed benefits, and we will try to be as conservative as we can with noninvasive positive pressure ventilation. Clearly he remains critically ill and is actively deteriorating over the last 24 hours. Recommendations: Acute hypoxic and Hypercarbic respiratory failure COPD Exacerbation Possible HCAP -- agree with BiPAP -- admit to ICU -- agree with empiric abx -- agree with net negative fluid balance, although does not appear clinically to be volume overloaded -- nebs -- may require intubation -- agree with palliative care consult. -- AM ABG This patient remains critically ill with one or more organ systems which are or may become a threat to life. I have spent in excess of 31 minutes discontinuously in the care and management of this patient. This time is exclusive of procedures, and includes, but is not limited to, evaluation of the patient, review of the medical record, discussions with family, consultants, nursing staff, or respiratory therapy, and documentation in the medical record. Code Status Full code Antoine Davies MD Mar 06, 2017 15:54
--- NOTE | 2017-03-06 15:57 | HHI.IDPN ---
Subjective Subjective Remarks Reconsulted 2/2 change in condition chart was reviewed Chart reviewed Patient is a 77-year-old male, has had recurrent admissions and treated for COPD exacerbation, pneumonia, and cellulitis, readmitted again for possible pneumonia, and sepsis. He has pretty advanced COPD and is oon 5 L of O2 at home He was off abx sice 03/02 and was failrly stable untill the last 12 hrs when he was slolly deterirating resp pryor He was transferred to ICU, placed on BIPA Started on broad spectruma abx (zosyn, vanco) + occ cough, dry NO fever or leukocytosis Afebrile on BIPAP, sats are in low-mid 90s on 40% FiO2 Antibiotics zosyn vanco Lines PIV Past Medical History afib COPD CKD DM skin CA LLE Past Surgical History skin ca LLE Allergies: Coded Allergies: No Known Allergies (Unverified , 01/19/17) Objective . Vital Signs Date Time Temp Pulse Resp B/P (MAP) Pulse Ox O2 Delivery O2 Flow Rate FiO2 03/06/17 15:22 92 40 03/06/17 14:06 92 BiPAP 40 03/06/17 14:03 92 40 03/06/17 14:00 104 03/06/17 12:02 98.5 105 20 107/62 (77) 90 03/06/17 11:48 92 03/06/17 11:32 Venturi Mask 6.00 35 03/06/17 10:30 107 109/61 (77) 03/06/17 09:10 88 35 03/06/17 08:02 99.5 118 20 95/57 (70) 87 03/06/17 05:55 Venturi Mask 50 03/06/17 04:00 Nasal Cannula 6.00 03/06/17 04:00 97.4 115 20 160/81 (107) 89 03/06/17 00:22 98 Nasal Cannula 6.00 03/06/17 00:00 97.9 89 18 119/57 (77) 90 03/06/17 00:00 Nasal Cannula 6.00 03/05/17 20:00 87 03/05/17 20:00 97.3 90 16 124/56 (78) 89 03/05/17 20:00 Nasal Cannula 6.00 . Laboratory Tests Test 03/05/17 06:16 03/06/17 09:11 White Blood Count 6.0 TH/MM3 6.2 TH/MM3 Red Blood Count 3.74 MIL/MM3 4.11 MIL/MM3 Hemoglobin 11.2 GM/DL 12.3 GM/DL Hematocrit 33.7 % 37.4 % Mean Corpuscular Volume 90.1 FL 90.9 FL Mean Corpuscular Hemoglobin 29.9 PG 29.8 PG Mean Corpuscular Hemoglobin Concent 33.2 % 32.8 % Red Cell Distribution Width 20.5 % 20.9 % Platelet Count 69 TH/MM3 68 TH/MM3 Mean Platelet Volume 7.7 FL 7.2 FL Neutrophils (%) (Auto) 94.6 % Lymphocytes (%) (Auto) 3.7 % Monocytes (%) (Auto) 1.4 % Eosinophils (%) (Auto) 0.2 % Basophils (%) (Auto) 0.1 % Neutrophils # (Auto) 5.6 TH/MM3 Lymphocytes # (Auto) 0.2 TH/MM3 Monocytes # (Auto) 0.1 TH/MM3 Eosinophils # (Auto) 0.0 TH/MM3 Basophils # (Auto) 0.0 TH/MM3 CBC Comment AUTO DIFF AUTO DIFF Differential Comment AUTO DIFF CONFIRMED FINAL DIFF MANUAL Platelet Estimate LOW LOW Platelet Morphology Comment NORMAL NORMAL Differential Total Cells Counted 100 Neutrophils % (Manual) 88 % Band Neutrophils % 8 % Lymphocytes % 2 % Monocytes % 2 % Neutrophils # (Manual) 6.0 TH/MM3 Ovalocytes 1+ Laboratory Tests Test 03/05/17 06:16 03/06/17 09:11 Blood Urea Nitrogen 47 MG/DL 43 MG/DL Creatinine 0.63 MG/DL 0.93 MG/DL Random Glucose 89 MG/DL 109 MG/DL Total Protein 4.4 GM/DL 5.1 GM/DL Albumin 1.7 GM/DL 1.8 GM/DL Calcium Level 7.7 MG/DL 9.0 MG/DL Phosphorus Level 2.9 MG/DL 2.3 MG/DL Magnesium Level 2.2 MG/DL 2.2 MG/DL Alkaline Phosphatase 84 U/L 88 U/L Aspartate Amino Transf (AST/SGOT) 19 U/L 18 U/L Alanine Aminotransferase (ALT/SGPT) 36 U/L 38 U/L Total Bilirubin 0.5 MG/DL 0.7 MG/DL Sodium Level 143 MEQ/L 140 MEQ/L Potassium Level 4.5 MEQ/L 5.4 MEQ/L Chloride Level 109 MEQ/L 108 MEQ/L Carbon Dioxide Level 24.0 MEQ/L 23.8 MEQ/L Anion Gap 10 MEQ/L 8 MEQ/L Estimat Glomerular Filtration Rate 124 ML/MIN 79 ML/MIN Imaging Last Impressions Chest X-Ray 03/06/17 0000 Signed Impressions: Service Date/Time: Monday, March 06, 2017 06:01 - CONCLUSION: Persistent upper lobe predominant bilateral interstitial opacities. No lobar consolidation demonstrated. Vickey Villarreal MD CT Angiography 02/25/17 0731 Signed Impressions: Service Date/Time: Saturday, February 25, 2017 08:08 - CONCLUSION: 1. Study degraded by breathing motion artifact. These were the best obtainable images. 2. No pulmonary embolus observed within the more central pulmonary arteries. Peripheral pulmonary arteries are limited in their evaluation due to the breathing motion artifact. 3. Diffuse interstitial infiltrates more pronounced within the upper lobes. Differential diagnostic considerations are quite broad at this point. The more common etiologies include usual interstitial pneumonitis as well as hypersensitivity pneumonitis. Dennis Gupta Jr., MD Physical Exam GENERAL: Awake, communicates with jesture, on BIPAP SKIN: No rashes, ecchymoses or lesions. Cool and dry. HEAD: Atraumatic. Normocephalic. No temporal or scalp tenderness. EYES: Pupils equal round and reactive. No scleral icterus. No injection or drainage. ENT: Nose without bleeding, purulent drainage. Very oral mucosa, with some ulcers on his tongue NECK: Trachea midline. Supple, nontender, no meningeal signs. CARDIOVASCULAR: Regular rate and rhythm without murmurs, gallops, or rubs. RESPIRATORY: Very decreased BS nash GASTROINTESTINAL: Abdomen soft, non-tender, nondistended. No guarding. MUSCULOSKELETAL: Extremities without clubbing, cyanosis, or edema. No calf tenderness. Chronic skin changes, stasis related discoloration. NEUROLOGICAL: Awake and alert. Grossly non focal Psych: cooperative IV line sites with no evidence of infection. Assessment & Plan Remarks Assessment and Plan severe COPD COPD exacerbation, now on BIPAP Possible PNA MIld bandemia Recs cont broad spectruma abx for now will try to obtain sputum if remains afebrile, with nl WBC and no other e/o infx will dc abx promptly dw Mary Hernandez MD Mar 06, 2017 15:57
[2017-03-06] MEDS ORDERED: RESP: ALBUTEROL 2.5 MG/3 ML NEB (PRN) NEB (16:00)
[2017-03-06 16:23] LABS: BLOOD GAS BASE EXCESS -0.6 mmol/L (-2-2); BLOOD GAS CARBOXYHEMOGLOBIN 1.8 % (0-4); BLOOD GAS HCO3 22 mmol/L (22-26); BLOOD GAS METHEMOGLOBIN 1.2 % (0-2); BLOOD GAS O2 HGB SATURATION 89 % (90-100); BLOOD GAS OXYGEN CONTENT 15.2 Vol % (12.0-20.0); BLOOD GAS PCO2 28 mmHg (38-42); BLOOD GAS PO2 61 mmHg (61-120); BLOOD GAS TOTAL HGB 12.1 G/DL (12.0-16.0); TEMP CORR TO 98.6
[2017-03-06 16:24] LABS: CRITICAL VALUE YES; DRAW SITE LT RADIAL; FIO2 40 %; NUMBER OF ARTERIAL PUNCTURES 1; OXYGEN DEVICE BiPAP; STAT YES; ULNAR PULSE PRESENT; VENT SETTINGS IPAP 12/EPAP 5
[2017-03-06] MEDS: WARFARIN SOD 3 MG TAB PO SCH (16:29)
--- NOTE | 2017-03-06 17:14 | PD.CONS ---
Consult Service Palliative Care . Consult Requested By . Primary Care Physician Frederic Reddy MD . Reason for Consultation a. To assist with evaluation and management of symptoms including: weakness , dyspnea, pain. b. To assist medical decision maker(s) with: better understanding of current medical conditions; weighing benefits/burdens of medical treatment options; making medical treatment decisions. . (Tere Hernandez) HPI History of Present Illness Mr. 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 This is the patient's 3rd acute-care hospitalization since January 21, 2017. Patient presented to [facility] emergency department on 02/25/17 with COPD/ CHF exacerbation. Despite continued aggressive measures, patient has remained weak with recent decline. Patient has been refusing to wear oxygen, desaturates into the 70s.Over the past 24 hours he has become more tachypneic, short of breath. Patient was transferred to intensive care on 03/06/17 for worsening hypoxia. Infectious disease, Dr. Rubi was consulted for possible HCAP, broad-spectrum antibiotics Zosyn and vancomycin have been started. Patient remains afebrile, no leukocytosis. Discussed with nurse, Dr. Rubi and Dr. Davies. Malka Gupta, ZULEIMA and I met with daughter at bedside. She and her son, Frederic ([facility]) via text messaging endorse desire for continued aggressive care including FULL CODE. They seem to understand given patient's underlying COPD/CHF that it is unlikely he will be able to be medically extubated should he go on mechanical ventilation. Daughter reports that she had to make these decisions for her mother and would be prepared to do so for her father should that be necessary. . Function/Cognitive Trajectory Prior to admission patient was on oxygen 5 L at home. 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 Family reports that he had had frequent falls in the days leading up to hospitalization. . (Tere Hernandez) Review of Systems ROS Limitations: Altered Mental Status (lethargic) Constitutional: COMPLAINS OF: Fatigue, Weight loss, Change in appetite ( decreased appetite), Generalized weakness (recent falls) Respiratory: COMPLAINS OF: Cough, Shortness of breath Cardiovascular: COMPLAINS OF: Dyspnea on Exertion, Lower Extremity Edema Musculoskeletal: COMPLAINS OF: Joint pain, Back pain (chronic back pain) Integumentary: COMPLAINS OF: Non-healing sores (bilateral lower extremity recurrent cellulitis) Hematologic/Lymphatics: COMPLAINS OF: Bruising Neurologic: COMPLAINS OF: Poor Balance (frequent recent falls) Psychiatric: COMPLAINS OF: Confusion (lethargic) Other ROS: ROS per daughters report (Tere Hernandez) Past Family Social History Coded Allergies: No Known Allergies (Unverified , 01/19/17) Past Medical History Coronary artery disease COPD, oxygen dependent 5 L at home Hyperkalemia Recurrent cellulitis lower extremities Diabetes Atrial fibrillation Hypertension Chronic pain syndrome Anemia of chronic disease chronic renal insufficiency . Past Surgical History No prior surgeries. . Reported Medications Reported Meds & Active Scripts Active Ambien (Zolpidem Tartrate) 5 Mg Tab 5 Mg PO HS PRN Ativan (Lorazepam) 0.5 Mg Tab 0.5 Mg PO Q8H PRN Eq Acetaminophen (Acetaminophen) 325 Mg Tab 650 Mg PO Q4H PRN 30 Days Hydrocodone-Acetaminophen 5-325 mg Tab 1 Tab PO Q4H PRN Albuterol Neb (Albuterol Sulfate) 2.5 Mg/3 Ml Neb 2.5 Mg NEB Q6HR NEB PRN 60 Days Levaquin (Levofloxacin) 500 Mg Tablet 500 Mg PO DAILY 3 Days Lancets 1 Mis Mis 1 Ea .ROUTE DIRECTED Blood Glucose Test Strips Strips Strip 1 Ea .ROUTE DIRECTED Blood Glucose Test Strips Strips Strip 1 Ea .ROUTE DIRECTED Blood Glucose Monitor (Blood-Glucose Meter) 1 Each Kit Bottle Oxygen tank (Oxygen) 1 Ea Tank 2 Liter LITA.CANULA CONTINUOUS Oxygen Concentrator Portable Gaseous 2 L/min via Nasal Cannula Continuous For 99 months Oxygen (O2) Device 2 Liter LITA.CANULA CONTINUOUS Oxygen Concentrator Portable Gaseous 2 L/min via Nasal Canula Continuous For 99 months Warfarin 2 Mg Tab 2 Mg PO DAILY Reported Spiriva Handihaler (Tiotropium Inh) 18 Mcg Cap 18 Mcg INH DAILY 1 capsule = 18 mcg Flomax (Tamsulosin HCl) 0.4 Mg Cap 0.4 Mg PO HS Diltiazem CD 24 HR 120 Mg Caper 120 Mg PO DAILY Amiodarone (Amiodarone HCl) 200 Mg Tab 200 Mg PO DAILY Advair Diskus Inh (Fluticasone-Salmeterol Inh) 250-50 Mcg/Blist Aer 1 Puff INH BID Rinse mouth after use. . Current Medications Medications (Trade) Dose Ordered Sig/Lucas Route Start Time Stop Time Status Last Admin (NS Flush) 2 ml UNSCH PRN IV FLUSH 02/25/17 09:15 03/06/17 06:51 (NS Flush) 2 ml BID IV FLUSH 02/25/17 21:00 03/06/17 08:33 (Tylenol) 650 mg Q4H PRN PO 02/25/17 09:15 (Zofran Inj) 4 mg Q6H PRN IVP 02/25/17 09:15 (Narcan Inj) 0.4 mg UNSCH PRN IV 02/25/17 09:15 (Maira-Colace) 1 tab BID PO 02/25/17 21:00 03/01/17 09:00 (Milk Of Magnesia Liq) 30 ml Q12H PRN PO 02/25/17 09:15 (Senokot) 17.2 mg Q12H PRN PO 02/25/17 09:15 (Dulcolax Supp) 10 mg DAILY PRN RECTAL 02/25/17 09:15 (Lactulose Liq) 30 ml DAILY PRN PO 02/25/17 09:15 (Cordarone) 200 mg DAILY PO 02/26/17 09:00 03/06/17 09:10 (Cardizem Cd) 120 mg DAILY PO 02/26/17 09:00 03/06/17 10:31 ([place] 5-325 Mg) 1 tab Q4H PRN PO 02/25/17 09:15 03/06/17 16:32 (Ativan) 0.5 mg Q8H PRN PO 02/25/17 09:15 03/06/17 16:32 (Flomax) 0.4 mg HS PO 02/25/17 21:00 03/05/17 21:26 (Apresoline Inj) 20 mg Q4H PRN IV PUSH 02/25/17 09:15 Pharmacy Profile Note 0 ml @ 0 mls/hr UNSCH OTHER 02/25/17 09:15 (Protonix Inj) 40 mg Q24H IV PUSH 02/25/17 10:00 03/06/17 08:46 Miscellaneous Information Patient in critical care unit? Ass... Q361D .XX 02/25/17 17:00 (Symbicort 160-4.5 Inh) 1 puff Q12HR INH 02/25/17 21:00 03/06/17 09:00 (D50w (Vial) Inj) 50 ml UNSCH PRN IV PUSH 02/25/17 22:45 (Glucagon Inj) 1 mg UNSCH PRN OTHER 02/25/17 22:45 (Magic Mouthwash Adult Liq) 10 ml QID SWISH-SWAL 02/26/17 13:00 03/06/17 13:05 (Levemir Inj) 10 units HS SQ 03/01/17 21:00 03/05/17 21:48 (NovoLOG SUPPLEMENTAL SCALE) 1 ACHS SLIDING SCALE SQ 03/01/17 21:00 03/05/17 21:43 (KCl) 40 meq Q8H PO 03/03/17 21:00 03/06/17 13:04 (Lasix Inj) 20 mg DAILY IV PUSH 03/05/17 09:00 03/05/17 08:19 (Coumadin) 3 mg DAILY@1600 PO 03/05/17 16:00 03/06/17 16:29 Pharmacy Profile Note 0 ml @ 0 mls/hr UNSCH OTHER 03/06/17 07:00 Cefepime HCl 2000 mg/Sodium Chloride 100 ml @ 200 mls/hr Q8H IV 03/06/17 08:00 03/06/17 16:29 Vancomycin HCl 1500 mg/Sodium Chloride 515 ml @ 257.5 mls/ hr Q24H IV 03/06/17 09:00 03/06/17 08:45 Miscellaneous Information SPECIFIC LAB TO BE MARLENY... ONCE ONCE .XX 03/09/17 08:45 03/09/17 08:46 (Albuterol Neb) 2.5 mg Q2HR NEB PRN NEB 03/06/17 16:00 (SoluMEDROL INJ) 60 mg Q12HR IV PUSH 03/06/17 21:00 Family History Father questionable heart disease. Mother had no known significant illnesses. . Substance Use Tobacco: smoked for 50 years, quit a few years ago Alcohol: no alcohol use for 15 years, used to drink heavily. Prescription med abuse: none. Illicits: none. . Psychosocial History . Lives with his daughter, Melyssa and aurelia De La Garza. 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 . Spiritual/Cultural Factors None. . (Tere Hernandez) Living Will: Copy in medical record Health Care Surrogate: Copy in medical record Durable Power of Stacker Driver: Copy in medical record Health Care Surrogate(s): Designated healthcare surrogate, aurelia Borges. . Today's verbally stated goals: Patient lethargic, not answering many questions today. Family/friends goals: DaughterMelyssa and aurelia De La Garza ([facility]) endorse continued aggressive care including FULL CODE and intubation if needed. . Ethical and Legal Issues Designated healthcare surrogate, aurelia De La Garza Jony. . (Tere Hernandez) Physical Exam Vital Signs Date Time Temp Pulse Resp B/P (MAP) Pulse Ox O2 Delivery O2 Flow Rate FiO2 03/06/17 15:22 92 40 03/06/17 14:06 92 BiPAP 40 03/06/17 14:03 92 40 03/06/17 14:00 104 03/06/17 12:02 98.5 105 20 107/62 (77) 90 03/06/17 11:48 92 03/06/17 11:32 Venturi Mask 6.00 35 03/06/17 10:30 107 109/61 (77) 03/06/17 09:10 88 35 03/06/17 08:02 99.5 118 20 95/57 (70) 87 03/06/17 05:55 Venturi Mask 50 03/06/17 04:00 Nasal Cannula 6.00 03/06/17 04:00 97.4 115 20 160/81 (107) 89 03/06/17 00:22 98 Nasal Cannula 6.00 03/06/17 00:00 97.9 89 18 119/57 (77) 90 03/06/17 00:00 Nasal Cannula 6.00 03/05/17 20:00 87 03/05/17 20:00 97.3 90 16 124/56 (78) 89 03/05/17 20:00 Nasal Cannula 6.00 Exam CONSTITUTIONAL/GENERAL: This is an elderly, frail patient in respiratory distress on BiPAP. TUBES/LINES/DRAINS: BiPAP, PIV, Arredondo. SKIN: No jaundice, rashes, or lesions. Ecchymoses on upper extremities. Skin temperature appropriate. Not diaphoretic. HEAD: Atraumatic. Normocephalic. EYES: Pupils equal and round and reactive. ENT: Hearing grossly normal. Nose without bleeding or purulent drainage. Throat difficult to visualize due to BiPAP. NECK: Trachea midline. CARDIOVASCULAR: tachycardic, irregular rhythm. Atrial fibrillation by telemetry. RESPIRATORY/CHEST: tachypnea, labored respirations on BiPAP. Distant, almost absent breath sounds. GASTROINTESTINAL: Abdomen soft, non-tender, nondistended. No guarding. Bowel sounds present. GENITOURINARY: Without palpable bladder distension. Arredondo catheter in place. MUSCULOSKELETAL: Extremities without clubbing, cyanosis, or edema. Bilateral lower extremity venous stasis changes. LYMPHATICS: No palpable cervical or supraclavicular adenopathy. NEUROLOGICAL: Awakens briefly. Follows commands. PSYCHIATRIC: self-report anxiety. . (Tere Hernandez) Diagnostic Tests Laboratory Laboratory Tests Test 03/03/17 16:55 03/04/17 06:30 03/04/17 06:38 03/05/17 06:16 White Blood Count 6.6 TH/MM3 (4.0-11.0) 5.3 TH/MM3 (4.0-11.0) 6.0 TH/MM3 (4.0-11.0) Red Blood Count 3.86 MIL/MM3 (4.50-5.90) 3.73 MIL/MM3 (4.50-5.90) 3.74 MIL/MM3 (4.50-5.90) Hemoglobin 11.6 GM/DL (13.0-17.0) 11.3 GM/DL (13.0-17.0) 11.2 GM/DL (13.0-17.0) Hematocrit 34.7 % (39.0-51.0) 33.5 % (39.0-51.0) 33.7 % (39.0-51.0) Mean Corpuscular Volume 90.0 FL (80.0-100.0) 89.8 FL (80.0-100.0) 90.1 FL (80.0-100.0) Mean Corpuscular Hemoglobin 30.1 PG (27.0-34.0) 30.4 PG (27.0-34.0) 29.9 PG (27.0-34.0) Mean Corpuscular Hemoglobin Concent 33.4 % (32.0-36.0) 33.9 % (32.0-36.0) 33.2 % (32.0-36.0) Red Cell Distribution Width 19.6 % (11.6-17.2) 20.3 % (11.6-17.2) 20.5 % (11.6-17.2) Platelet Count 72 TH/MM3 (150-450) 66 TH/MM3 (150-450) 69 TH/MM3 (150-450) Mean Platelet Volume 7.7 FL (7.0-11.0) 8.0 FL (7.0-11.0) 7.7 FL (7.0-11.0) Neutrophils (%) (Auto) 94.4 % (16.0-70.0) 95.5 % (16.0-70.0) 94.6 % (16.0-70.0) Lymphocytes (%) (Auto) 4.0 % (9.0-44.0) 3.0 % (9.0-44.0) 3.7 % (9.0-44.0) Monocytes (%) (Auto) 1.4 % (0.0-8.0) 1.5 % (0.0-8.0) 1.4 % (0.0-8.0) Eosinophils (%) (Auto) 0.0 % (0.0-4.0) 0.0 % (0.0-4.0) 0.2 % (0.0-4.0) Basophils (%) (Auto) 0.2 % (0.0-2.0) 0.0 % (0.0-2.0) 0.1 % (0.0-2.0) Neutrophils # (Auto) 6.2 TH/MM3 (1.8-7.7) 5.1 TH/MM3 (1.8-7.7) 5.6 TH/MM3 (1.8-7.7) Lymphocytes # (Auto) 0.3 TH/MM3 (1.0-4.8) 0.2 TH/MM3 (1.0-4.8) 0.2 TH/MM3 (1.0-4.8) Monocytes # (Auto) 0.1 TH/MM3 (0-0.9) 0.1 TH/MM3 (0-0.9) 0.1 TH/MM3 (0-0.9) Eosinophils # (Auto) 0.0 TH/MM3 (0-0.4) 0.0 TH/MM3 (0-0.4) 0.0 TH/MM3 (0-0.4) Basophils # (Auto) 0.0 TH/MM3 (0-0.2) 0.0 TH/MM3 (0-0.2) 0.0 TH/MM3 (0-0.2) CBC Comment AUTO DIFF AUTO DIFF AUTO DIFF Differential Total Cells Counted 100 Neutrophils % (Manual) 92 % (16-70) Band Neutrophils % 2 % (0-6) Lymphocytes % 2 % (9-44) Monocytes % 1 % (0-8) Neutrophils # (Manual) 6.4 TH/MM3 (1.8-7.7) Metamyelocytes 2 % (0-1) Myelocytes 1 % (0-0) Differential Comment FINAL DIFF MANUAL AUTO DIFF CONFIRMED AUTO DIFF CONFIRMED Platelet Estimate LOW (NORMAL) LOW (NORMAL) LOW (NORMAL) Platelet Morphology Comment NORMAL (NORMAL) ENLARGED (NORMAL) NORMAL (NORMAL) Prothrombin Time 19.5 SEC (9.8-11.6) 19.4 SEC (9.8-11.6) 17.8 SEC (9.8-11.6) Prothromb Time International Ratio 1.7 RATIO 1.7 RATIO 1.6 RATIO Blood Urea Nitrogen 43 MG/DL (7-18) 46 MG/DL (7-18) 47 MG/DL (7-18) Creatinine 0.81 MG/DL (0.60-1.30) 0.80 MG/DL (0.60-1.30) 0.63 MG/DL (0.60-1.30) Random Glucose 135 MG/DL (74-106) 136 MG/DL (74-106) 89 MG/DL (74-106) Total Protein 5.1 GM/DL (6.4-8.2) 5.1 GM/DL (6.4-8.2) 4.4 GM/DL (6.4-8.2) Albumin 1.7 GM/DL (3.4-5.0) 1.7 GM/DL (3.4-5.0) 1.7 GM/DL (3.4-5.0) Calcium Level 8.0 MG/DL (8.5-10.1) 8.2 MG/DL (8.5-10.1) 7.7 MG/DL (8.5-10.1) Phosphorus Level 2.2 MG/DL (2.5-4.9) 2.3 MG/DL (2.5-4.9) 2.9 MG/DL (2.5-4.9) Magnesium Level 2.1 MG/DL (1.5-2.5) 2.2 MG/DL (1.5-2.5) 2.2 MG/DL (1.5-2.5) Alkaline Phosphatase 89 U/L (45-117) 88 U/L (45-117) 84 U/L (45-117) Aspartate Amino Transf (AST/SGOT) 18 U/L (15-37) 20 U/L (15-37) 19 U/L (15-37) Alanine Aminotransferase (ALT/SGPT) 41 U/L (12-78) 41 U/L (12-78) 36 U/L (12-78) Total Bilirubin 0.4 MG/DL (0.2-1.0) 0.5 MG/DL (0.2-1.0) 0.5 MG/DL (0.2-1.0) Sodium Level 142 MEQ/L (136-145) 142 MEQ/L (136-145) 143 MEQ/L (136-145) Potassium Level 3.7 MEQ/L (3.5-5.1) 4.7 MEQ/L (3.5-5.1) 4.5 MEQ/L (3.5-5.1) Chloride Level 109 MEQ/L (98-107) 108 MEQ/L (98-107) 109 MEQ/L (98-107) Carbon Dioxide Level 23.9 MEQ/L (21.0-32.0) 24.8 MEQ/L (21.0-32.0) 24.0 MEQ/L (21.0-32.0) Anion Gap 9 MEQ/L (5-15) 9 MEQ/L (5-15) 10 MEQ/L (5-15) Estimat Glomerular Filtration Rate 93 ML/MIN (>89) 94 ML/MIN (>89) 124 ML/MIN (>89) Free Thyroxine 0.85 NG/DL (0.76-1.46) 0.94 NG/DL (0.76-1.46) Thyroid Stimulating Hormone 3rd Gen 10.600 uIU/ML (0.358-3.740) 5.910 uIU/ML (0.358-3.740) Hemoglobin A1c 8.3 % (4.3-6.0) Test 03/06/17 06:16 03/06/17 09:11 03/06/17 16:16 Blood Gas Puncture Site LT RADIAL LT RADIAL Blood Gas Patient Temperature 98.6 98.6 Blood Gas HCO3 23 mmol/L (22-26) 22 mmol/L (22-26) Blood Gas Base Excess 0.9 mmol/L (-2-2) -0.6 mmol/L (-2-2) Blood Gas Oxygen Saturation 85 % (90-100) 89 % (90-100) Arterial Blood pH 7.55 (7.380-7.420) 7.51 (7.380-7.420) Arterial Blood Partial Pressure CO2 26 mmHg (38-42) 28 mmHg (38-42) Arterial Blood Partial Pressure O2 51 mmHg (61-120) 61 mmHg (61-120) Arterial Blood Oxygen Content 15.8 Vol % (12.0-20.0) 15.2 Vol % (12.0-20.0) Arterial Blood Carboxyhemoglobin 1.8 % (0-4) 1.8 % (0-4) Arterial Blood Methemoglobin 0.8 % (0-2) 1.2 % (0-2) Blood Gas Hemoglobin 13.2 G/DL (12.0-16.0) 12.1 G/DL (12.0-16.0) Oxygen Delivery Device SM BiPAP Blood Gas Liter Flow 10 L/M White Blood Count 6.2 TH/MM3 (4.0-11.0) Red Blood Count 4.11 MIL/MM3 (4.50-5.90) Hemoglobin 12.3 GM/DL (13.0-17.0) Hematocrit 37.4 % (39.0-51.0) Mean Corpuscular Volume 90.9 FL (80.0-100.0) Mean Corpuscular Hemoglobin 29.8 PG (27.0-34.0) Mean Corpuscular Hemoglobin Concent 32.8 % (32.0-36.0) Red Cell Distribution Width 20.9 % (11.6-17.2) Platelet Count 68 TH/MM3 (150-450) Mean Platelet Volume 7.2 FL (7.0-11.0) CBC Comment AUTO DIFF Differential Total Cells Counted 100 Neutrophils % (Manual) 88 % (16-70) Band Neutrophils % 8 % (0-6) Lymphocytes % 2 % (9-44) Monocytes % 2 % (0-8) Neutrophils # (Manual) 6.0 TH/MM3 (1.8-7.7) Differential Comment FINAL DIFF MANUAL Platelet Estimate LOW (NORMAL) Platelet Morphology Comment NORMAL (NORMAL) Ovalocytes 1+ (NORMAL) Prothrombin Time 23.9 SEC (9.8-11.6) Prothromb Time International Ratio 2.1 RATIO Blood Urea Nitrogen 43 MG/DL (7-18) Creatinine 0.93 MG/DL (0.60-1.30) Random Glucose 109 MG/DL (74-106) Total Protein 5.1 GM/DL (6.4-8.2) Albumin 1.8 GM/DL (3.4-5.0) Calcium Level 9.0 MG/DL (8.5-10.1) Phosphorus Level 2.3 MG/DL (2.5-4.9) Magnesium Level 2.2 MG/DL (1.5-2.5) Alkaline Phosphatase 88 U/L (45-117) Aspartate Amino Transf (AST/SGOT) 18 U/L (15-37) Alanine Aminotransferase (ALT/SGPT) 38 U/L (12-78) Total Bilirubin 0.7 MG/DL (0.2-1.0) Sodium Level 140 MEQ/L (136-145) Potassium Level 5.4 MEQ/L (3.5-5.1) Chloride Level 108 MEQ/L (98-107) Carbon Dioxide Level 23.8 MEQ/L (21.0-32.0) Anion Gap 8 MEQ/L (5-15) Estimat Glomerular Filtration Rate 79 ML/MIN (>89) Blood Gas Ventilator Setting IPAP 12/EPAP 5 Blood Gas Inspired Oxygen 40 % (Tere Hernandez) Result Diagram: 03/06/17 0911 03/06/17 0911 Microbiology Microbiology Date/Time Source Procedure Growth Status 02/25/17 07:41 Blood Peripheral Aerobic Blood Culture - Final NO GROWTH IN 5 DAYS Complete 02/25/17 07:41 Blood Peripheral Anaerobic Blood Culture - Final NO GROWTH IN 5 DAYS Complete 02/25/17 08:00 Nasal Washing Influenza Types A,B Antigen (EDILSON) - Final NEGATIVE FOR FLU A AND B ANTIGEN.... Complete 02/25/17 07:44 Urine Random Urine Legionella Antigen - Final PRESUMPTIVE NEGATIVE FOR LEGIONELLA P... Complete 02/25/17 07:44 Urine Random Urine Streptococcus pneumoniae Antigen (M - Final PRESUMPTIVE NEGATIVE FOR STREPTOCOCCU... Complete Imaging Last Impressions Chest X-Ray 03/06/17 0000 Signed Impressions: Service Date/Time: Monday, March 06, 2017 06:01 - CONCLUSION: Persistent upper lobe predominant bilateral interstitial opacities. No lobar consolidation demonstrated. Vickey Villarreal MD CT Angiography 02/25/17 0731 Signed Impressions: Service Date/Time: Saturday, February 25, 2017 08:08 - CONCLUSION: 1. Study degraded by breathing motion artifact. These were the best obtainable images. 2. No pulmonary embolus observed within the more central pulmonary arteries. Peripheral pulmonary arteries are limited in their evaluation due to the breathing motion artifact. 3. Diffuse interstitial infiltrates more pronounced within the upper lobes. Differential diagnostic considerations are quite broad at this point. The more common etiologies include usual interstitial pneumonitis as well as hypersensitivity pneumonitis. Dennis Gupta Jr., MD (Tere Hernandez) Patient/Family Conference Present at Family Conference: Spoke with daughter at bedside. Read text messages from Frederic moses. Family Conference Time (mins): 45 Family Conference Location: Bedside Issues Discussed: * Palliative care role, purpose, approach * Additional medical, psychosocial, and spiritual history * Patients general health, functional status, and cognitive changes in the months leading up to the current hospitalization * Patient/family understanding of the current medical problems * Patient/family understanding of prognosis * Patients goals of care as best understood from advance directives and/or conversations and/or values * Current medical treatment options and benefits/burdens of those options * Likely scenarios comparing ongoing aggressive care with a transition to comfort measures only * Questions answered to the best of my ability * Palliative care contact information provided family desires continued aggressive care including FULL CODE and intubation if needed. (Tere Hernandez) Assessment and Plan Disease Oriented Problem List: (1) Acute respiratory failure with hypoxemia (2) COPD (chronic obstructive pulmonary disease) (3) Cellulitis and abscess of lower extremity (4) Chronic nonmalignant pain (5) DM (diabetes mellitus) Symptom Scale: (1) Dyspnea 0-10 Scale: Unable to quantify Comment: On BiPAP (2) Chronic nonmalignant pain 0-10 Scale: Unable to quantify Comment: Chronic back pain, increase pain secondary to generalized weakness and bedbound status Pertinent Non-Medical Issues Psychosocial: . Lives with daughter and grandson. Spiritual: None. Legal:Designated healthcare surrogate, Frederic Borges. Sent to HIM to be scanned , copy on chart. Ethical issues impacting care: No known concerns at this time. . Important Contacts * aurelia Pappas/[facility]: [phone] * Jessica Tripathi, daughter: [phone] or [phone] . Prognosis Given patient's underlying COPD, possible HCAP, CHF and multiple medical comorbidities in addition to ongoing/worsening hypoxia and likely need for mechanical ventilation, overall prognosis appears poor as it appears the patient would likely be ventilator dependent should he get intubated. . Plan * Decision Maker: Designated healthcare surrogate, Frederic Borges. Sent to HIM to be scanned, copy on chart. * FULL CODE * Palliative care met with patient/ family: Patient is not participating in conversation during most of my visit. DaughterMelyssa and aurelia De La Garza ([facility]) endorse continued aggressive care including FULL CODE and intubation if needed. * Discussed with nursing staff and Dr. Davies. * SYMPTOMS: Pain: chronic back and joint pain per daughter report. Has PRN hydrocodone/325 every 4 hours PRN pain available. Has had 3 doses in the past 24 hours, will monitor need. Dyspnea: on BiPAP, PRN hydrocodone and lorazepam available. Patient will likely require intubation, no new medication recommendations at this time. * Palliative care number provided. * Palliative care will continue to follow throughout hospital course to assist with symptom management and clarification of goals as needed. . (Tere Hernandez) Time Spent Total Floor Time (mins): 60 Face to Face Time (mins): 45 >50% Counseling/Coord of Care: Yes (Tere Hernandez) Thank you for the opportunity to participate in the care of Mr. Tripathi. (Tere Hernandez) Attestation To help prompt me to consider important information that might be impacting today's encounter and assessment, information from prior notes written by myself or my colleagues may have been "brought forward" into today's note. My signature on this note, however, is an attestation that I personally performed the exam, history, and/or decision-making noted today, and, unless otherwise indicated, the interactions with patient, family, and staff as well as the review of records all occurred today. I also attest that the listed assessment and stated plan reflect my best clinical judgment today based on the combination of historical information, prior notes, and today's exam/ interactions. When time spent is documented, it refers only to time spent today by the signer, or if indicated, combined time spent today by collaborating physician/nurse practitioner. (Tere Hernandez) Collaborating MD Comments Chart reviewed. Case discussed with palliative care COMB FIXER. Above note reviewed and I concur. . (Eriberto Rainey MD) Tere Hernandez Mar 06, 2017 17:14 Eriberto Rainey MD Apr 03, 2017 11:27
[2017-03-06] MEDS: TAMSULOSIN HCL 0.4 MG CAP PO SCH (20:53)
[2017-03-06] MEDS: methylPREDNISolone SOD SUCC 125 MG/2 ML VIAL IV PUSH SCH (20:53)
[2017-03-06] MEDS: INSULIN DETEMIR 100 UNITS/ML VIAL SQ SCH (21:15)
[2017-03-07] VITALS (16 sets, daily range): BP systolic 111–126; BP diastolic 57–64; PULSE 78–95; RESP 16–23; TEMP 97.8–98.9; O2SAT 86–94
[2017-03-07] MEDS: CEFEPIME INJ 2,000 MG in SODIUM CHLORIDE 0.9% INJ 100 ML IV SCH ×2 (01:25→07:48)
[2017-03-07] MEDS: ACETAMINOPHEN/HYDROcodone 325 MG/5 MG TAB PO PRN ×4 (01:26→20:42)
[2017-03-07] MEDS: SODIUM CHLORIDE 0.9% FLUSH 10 ML FLUSH IV FLUSH SCH ×3 (01:31→20:41)
[2017-03-07] MEDS: POTASSIUM CHLORIDE 10 MEQ CONTROLLED RELEASE TAB PO SCH ×3 (05:00→20:22)
[2017-03-07 05:54] LABS: BLOOD GAS BASE EXCESS 0.5 mmol/L (-2-2); BLOOD GAS CARBOXYHEMOGLOBIN 1.3 % (0-4); BLOOD GAS HCO3 24 mmol/L (22-26); BLOOD GAS METHEMOGLOBIN 0.8 % (0-2); BLOOD GAS O2 HGB SATURATION 91 % (90-100); BLOOD GAS OXYGEN CONTENT 19.3 Vol % (12.0-20.0); BLOOD GAS PCO2 31 mmHg (38-42); BLOOD GAS PO2 63 mmHG (61-120); BLOOD GAS TOTAL HGB 15.1 G/DL (12.0-16.0); CRITICAL VALUE NO; TEMP CORR TO 98.6
[2017-03-07 05:55] LABS: DRAW SITE LT RADIAL; FIO2 70 %; LITER FLOW 10 L/M; NUMBER OF ARTERIAL PUNCTURES 1; OXYGEN DEVICE PRB; STAT NO; ULNAR PULSE PRESENT
[2017-03-07] MEDS: INSULIN ASPART SUPPLEMENTAL SCALE SQ SCH ×4 (07:00→20:40)
[2017-03-07] MEDS: DOCUSATE SODIUM 50 MG/SENNA 8.6 MG TAB PO SCH ×2 (07:48→20:41)
[2017-03-07] MEDS: SODIUM CHLORIDE 0.9% FLUSH 10 ML FLUSH IV FLUSH PRN (07:48)
[2017-03-07] MEDS: LORazepam 0.5 MG TAB PO PRN ×3 (07:48→23:43)
[2017-03-07] MEDS: NYSTAT/DIPHENHY/LIDO MOUTHWASH (Adult) 120ML SWISH-SWAL SCH ×4 (07:48→20:41)
[2017-03-07] MEDS: DILTIAZEM-CD 120 MG CAP ER PO SCH (07:48)
[2017-03-07] MEDS: AMIODARONE 200 MG TAB PO SCH (07:48)
[2017-03-07] MEDS: methylPREDNISolone SOD SUCC 125 MG/2 ML VIAL IV PUSH SCH ×2 (07:49→20:41)
[2017-03-07] MEDS: FUROSEMIDE 20 MG/2 ML VIAL IV PUSH SCH (07:49)
[2017-03-07] MEDS: BUDESONIDE-FORMOTEROL 160/4.5 MCG INHALER INH SCH ×2 (07:50→21:00)
[2017-03-07] MEDS: VANCOMYCIN 1,500 MG/NS 500 ML IV SCH ×2 (07:55)
[2017-03-07 08:56] LABS: AUTOMATED NEUTROPHIL # 5.3 TH/MM3 (1.8-7.7); BASOPHIL % 0.1 % (0.0-2.0); EOSINOPHIL % 0.3 % (0.0-4.0); HEMATOCRIT 40.3 % (39.0-51.0); LYMPH % 2.9 % (9.0-44.0); LYMPHOCYTE # 0.2 TH/MM3 (1.0-4.8); MEAN CELL VOLUME 96.7 FL (80.0-100.0); MEAN CORPUSCULAR HEMOGLOBIN 30.3 PG (27.0-34.0); MEAN CORPUSCULAR HGB CONC 31.3 % (32.0-36.0); MONO % 2.4 % (0.0-8.0); NEUT % 94.3 % (16.0-70.0); PLATELET COUNT 54 TH/MM3 (150-450); RED BLOOD COUNT 4.17 MIL/MM3 (4.50-5.90); RED CELL DISTRIBUTION WIDTH 22.6 % (11.6-17.2); WHITE BLOOD COUNT 5.6 TH/MM3 (4.0-11.0)
[2017-03-07 09:06] LABS: HEMO FLAGS AUTO DIFF
[2017-03-07] MEDS: PANTOPRAZOLE SODIUM 40 MG VIAL IV PUSH SCH (09:08)
--- NOTE | 2017-03-07 10:58 | HHI.CCPN ---
Subjective Remarks/Hospital Course Subjective: 03/07: remains on partial NRB with spo2 88-89%. patient still noncompliant and refusing certain aspects of care. refusing BiPAP. refusing ABG this AM. labs pending because patient refused multiple earlier attempts to draw labs. Palliative care evaluated patient yesterday and patient wants to be full code and intubated if needed, and he expressed understanding that he may never separate from mechanical ventilation. Objective Vital Signs Date Time Temp Pulse Resp B/P (MAP) Pulse Ox O2 Delivery O2 Flow Rate FiO2 03/07/17 08:00 93 03/07/17 08:00 98.1 23 126/60 (82) 90 03/07/17 07:00 Partial Non-Rebreather 10.00 03/06/17 15:22 40 Intake and Output 03/07/17 03/07/17 03/08/17 08:00 16:00 00:00 Output Total 350 ml Balance -350 ml Result Diagram: 03/07/17 0645 03/06/17 0911 Other Results Laboratory Tests Test 03/06/17 16:16 03/07/17 05:37 Blood Gas Puncture Site LT RADIAL LT RADIAL Blood Gas Patient Temperature 98.6 98.6 Blood Gas HCO3 22 mmol/L (22-26) 24 mmol/L (22-26) Blood Gas Base Excess -0.6 mmol/L (-2-2) 0.5 mmol/L (-2-2) Blood Gas Oxygen Saturation 89 % (90-100) 91 % (90-100) Arterial Blood pH 7.51 (7.380-7.420) 7.50 (7.380-7.420) Arterial Blood Partial Pressure CO2 28 mmHg (38-42) 31 mmHg (38-42) Arterial Blood Partial Pressure O2 61 mmHg (61-120) 63 mmHG (61-120) Arterial Blood Oxygen Content 15.2 Vol % (12.0-20.0) 19.3 Vol % (12.0-20.0) Arterial Blood Carboxyhemoglobin 1.8 % (0-4) 1.3 % (0-4) Arterial Blood Methemoglobin 1.2 % (0-2) 0.8 % (0-2) Blood Gas Hemoglobin 12.1 G/DL (12.0-16.0) 15.1 G/DL (12.0-16.0) Oxygen Delivery Device BiPAP PRB Blood Gas Ventilator Setting IPAP 12/EPAP 5 Blood Gas Inspired Oxygen 40 % 70 % Blood Gas Liter Flow 10 L/M Imaging Last Impressions Chest X-Ray 03/06/17 0000 Signed Impressions: Service Date/Time: Monday, March 06, 2017 06:01 - CONCLUSION: Persistent upper lobe predominant bilateral interstitial opacities. No lobar consolidation demonstrated. Vickey Villarreal MD CT Angiography 02/25/17 0731 Signed Impressions: Service Date/Time: Saturday, February 25, 2017 08:08 - CONCLUSION: 1. Study degraded by breathing motion artifact. These were the best obtainable images. 2. No pulmonary embolus observed within the more central pulmonary arteries. Peripheral pulmonary arteries are limited in their evaluation due to the breathing motion artifact. 3. Diffuse interstitial infiltrates more pronounced within the upper lobes. Differential diagnostic considerations are quite broad at this point. The more common etiologies include usual interstitial pneumonitis as well as hypersensitivity pneumonitis. Dennis Gupta Jr., MD Objective Remarks GENERAL: Elderly frail man, lying in bed, in respiratory distress HEENT: Normocephalic. Atraumatic. Pupils equal, round, reactive, conjugate. Mucous membranes are moist NECK: Trachea is midline. There is no JVD. Face mask in place CHEST: Labored. Tachypneic. Very distant almost absent breath sounds. Scant expiratory wheezes. CARDIOVASCULAR: Tachycardic, irregular rhythm. A. fib by telemetry ABDOMEN: Soft, nontender, nondistended. No guarding. MUSCULOSKELETAL: Pulses 2+. No peripheral edema. NEUROLOGICAL: RASS +1. Anxious. Follows commands. Nonfocal. A/P Assessment and Plan Assessment: 77yM with severe and worsening respiratory distress likely combination of possible HCAP with COPD exacerbation and possible persistent CHF exacerbation. Continue ro recommend BiPAP for now, and may be forced to pursue intubation, but at this point the risks of intubation outweigh its proposed benefits, and we will try to be as conservative as we can with noninvasive positive pressure ventilation. Could try high flow NC if he will allow it. patient is currently obstructing his own care to clinical improvement, and we have discussed this with him. Appreciate palliative care involvement. Recommendations: Acute hypoxic and Hypercarbic respiratory failure COPD Exacerbation Possible HCAP -- agree with BiPAP/high flow NC. -- remain in ICU -- agree with empiric abx -- agree with net negative fluid balance, although does not appear clinically to be volume overloaded -- nebs -- may require intubation -- agree with palliative care consult. Critical Care medicine will continue to follow along as long as patient remains in [facility] [place], [place]. Antoine Davies MD Mar 07, 2017 10:58
[2017-03-07 11:04] LABS: INTERNATIONAL NORMALIZED RATIO 2.2 RATIO; PROTHROMBIN TIME - PATIENT 25.4 SEC (9.8-11.6)
[2017-03-07 11:10] LABS: ANION GAP 9 MEQ/L (5-15); AST (GOT) 21 U/L (15-37); BLOOD UREA NITROGEN 50 MG/DL (7-18); CHLORIDE 109 MEQ/L (98-107); GLOMERULAR FILTRATION RATE 86 ML/MIN (>89); MAGNESIUM 2.5 MG/DL (1.5-2.5); SODIUM (NA) 141 MEQ/L (136-145)
[2017-03-07 11:45] LABS: ALKALINE PHOSPHATASE 78 U/L (45-117); ALT (GPT) 37 U/L (12-78); TOTAL BILIRUBIN ADULT 0.6 MG/DL (0.2-1.0)
[2017-03-07 11:46] LABS: BANDS 9 % (0-6); NEUTROPHIL # MANUAL DIFF 5.4 TH/MM3 (1.8-7.7); POLYS (SEG NEUTROPHILS) 88 % (16-70); WBC DIFF SAMPLE 100
[2017-03-07 11:47] LABS: OVALOCYTES 1+ (NORMAL); PLATELET ESTIMATE SMEAR LOW (NORMAL); PLATELET MORPHOLOGY NORMAL (NORMAL); SCAN/DIFF FINAL DIFF MANUAL
--- NOTE | 2017-03-07 12:39 | HHI.IDPN ---
Subjective Subjective Remarks Off BIPAP on simple mask, but taking it off afebrile reports cough, but unable to expectorate Antibiotics cefepime vanco Lines PIV Past Medical History afib COPD CKD DM skin CA LLE Past Surgical History skin ca LLE Allergies: Coded Allergies: No Known Allergies (Unverified , 01/19/17) Objective . Vital Signs Date Time Temp Pulse Resp B/P (MAP) Pulse Ox O2 Delivery O2 Flow Rate FiO2 03/07/17 12:00 90 03/07/17 12:00 98.7 90 16 118/61 (80) 94 03/07/17 11:00 92 03/07/17 11:00 92 20 121/58 (79) 90 03/07/17 10:00 95 03/07/17 09:00 95 03/07/17 08:00 93 03/07/17 08:00 98.1 93 23 126/60 (82) 90 03/07/17 07:00 92 Partial Non-Rebreather 10.00 03/07/17 06:00 95 03/07/17 04:00 98.8 92 19 116/63 (80) 86 03/07/17 04:00 92 03/07/17 02:00 98.9 91 20 115/57 (76) 89 03/07/17 02:00 91 03/07/17 00:00 98.5 89 21 111/64 (80) 88 03/07/17 00:00 89 03/06/17 22:00 86 03/06/17 20:00 99.0 92 30 115/60 (78) 95 03/06/17 20:00 92 03/06/17 19:00 91 Partial Non-Rebreather 10.00 03/06/17 18:00 95 03/06/17 18:00 89 Partial Non-Rebreather 10.00 03/06/17 16:00 99.1 100 23 121/70 (87) 90 03/06/17 16:00 100 03/06/17 15:22 92 40 03/06/17 14:06 92 BiPAP 40 03/06/17 14:03 92 40 03/06/17 14:00 104 . Laboratory Tests Test 03/06/17 09:11 03/07/17 06:45 White Blood Count 6.2 TH/MM3 5.6 TH/MM3 Red Blood Count 4.11 MIL/MM3 4.17 MIL/MM3 Hemoglobin 12.3 GM/DL 12.6 GM/DL Hematocrit 37.4 % 40.3 % Mean Corpuscular Volume 90.9 FL 96.7 FL Mean Corpuscular Hemoglobin 29.8 PG 30.3 PG Mean Corpuscular Hemoglobin Concent 32.8 % 31.3 % Red Cell Distribution Width 20.9 % 22.6 % Platelet Count 68 TH/MM3 54 TH/MM3 Mean Platelet Volume 7.2 FL 7.9 FL CBC Comment AUTO DIFF AUTO DIFF Differential Total Cells Counted 100 100 Neutrophils % (Manual) 88 % 88 % Band Neutrophils % 8 % 9 % Lymphocytes % 2 % 3 % Monocytes % 2 % Neutrophils # (Manual) 6.0 TH/MM3 5.4 TH/MM3 Differential Comment FINAL DIFF MANUAL FINAL DIFF MANUAL Platelet Estimate LOW LOW Platelet Morphology Comment NORMAL NORMAL Ovalocytes 1+ 1+ Neutrophils (%) (Auto) 94.3 % Lymphocytes (%) (Auto) 2.9 % Monocytes (%) (Auto) 2.4 % Eosinophils (%) (Auto) 0.3 % Basophils (%) (Auto) 0.1 % Neutrophils # (Auto) 5.3 TH/MM3 Lymphocytes # (Auto) 0.2 TH/MM3 Monocytes # (Auto) 0.1 TH/MM3 Eosinophils # (Auto) 0.0 TH/MM3 Basophils # (Auto) 0.0 TH/MM3 Laboratory Tests Test 03/06/17 09:11 03/06/17 17:20 03/06/17 23:46 03/07/17 09:41 Blood Urea Nitrogen 43 MG/DL 50 MG/DL Creatinine 0.93 MG/DL 0.87 MG/DL Random Glucose 109 MG/DL 93 MG/DL Total Protein 5.1 GM/DL 5.2 GM/DL Albumin 1.8 GM/DL 1.8 GM/DL Calcium Level 9.0 MG/DL 8.7 MG/DL Phosphorus Level 2.3 MG/DL 3.6 MG/DL Magnesium Level 2.2 MG/DL 2.5 MG/DL Alkaline Phosphatase 88 U/L 78 U/L Aspartate Amino Transf (AST/SGOT) 18 U/L 21 U/L Alanine Aminotransferase (ALT/SGPT) 38 U/L 37 U/L Total Bilirubin 0.7 MG/DL 0.6 MG/DL Sodium Level 140 MEQ/L 141 MEQ/L Potassium Level 5.4 MEQ/L 5.0 MEQ/L Chloride Level 108 MEQ/L 109 MEQ/L Carbon Dioxide Level 23.8 MEQ/L 23.0 MEQ/L Anion Gap 8 MEQ/L 9 MEQ/L Estimat Glomerular Filtration Rate 79 ML/MIN 86 ML/MIN Troponin I 0.03 NG/ML 0.03 NG/ML 0.04 NG/ML Imaging Last Impressions Chest X-Ray 03/06/17 0000 Signed Impressions: Service Date/Time: Monday, March 06, 2017 06:01 - CONCLUSION: Persistent upper lobe predominant bilateral interstitial opacities. No lobar consolidation demonstrated. Vickey Villarreal MD CT Angiography 02/25/17 0731 Signed Impressions: Service Date/Time: Saturday, February 25, 2017 08:08 - CONCLUSION: 1. Study degraded by breathing motion artifact. These were the best obtainable images. 2. No pulmonary embolus observed within the more central pulmonary arteries. Peripheral pulmonary arteries are limited in their evaluation due to the breathing motion artifact. 3. Diffuse interstitial infiltrates more pronounced within the upper lobes. Differential diagnostic considerations are quite broad at this point. The more common etiologies include usual interstitial pneumonitis as well as hypersensitivity pneumonitis. Dennis Gupta Jr., MD Physical Exam GENERAL: Awake, alert, comfortable SKIN: No rashes, ecchymoses or lesions. Cool and dry. HEAD: Atraumatic. Normocephalic. No temporal or scalp tenderness. EYES: Pupils equal round and reactive. No scleral icterus. No injection or drainage. ENT: dry oral mucosa, with some ulcers on his tongue NECK: Trachea midline. Supple, nontender, no meningeal signs. CARDIOVASCULAR: Regular rate and rhythm without murmurs, gallops, or rubs. RESPIRATORY: Very decreased BS nash, biut o/w clear GASTROINTESTINAL: Abdomen soft, non-tender, nondistended. No guarding. MUSCULOSKELETAL: Extremities without clubbing, cyanosis, or edema. No calf tenderness. Chronic skin changes, stasis related discoloration. NEUROLOGICAL: Awake and alert. Grossly non focal Psych: cooperative IV line sites with no evidence of infection. Assessment & Plan Remarks Assessment and Plan severe COPD COPD exacerbation, now on BIPAP Doubtful PNA, interstitial changes on CXR appear stable MIld bandemia Recs dc spectrum abx lira start axithro for COPD exacerbation will try to obtain sputum if remains afebrile, with nl WBC and no other e/o infx will cont off abx Mary Rubi MD Mar 07, 2017 12:39
[2017-03-07] MEDS: AZITHROMYCIN INJ 500 MG in SODIUM CHLOR 0.9% 250 ML INJ 250 ML IV SCH (14:00)
--- NOTE | 2017-03-07 14:51 | HHI.PR ---
Subjective Remarks He is worse and on a NRB mask . Refused Bipap. On O2 at 60 % . K+ level was low. No fever. Has wheezing . Needs PT Has refused Bronchoscopy. Objective Vital Signs Date Time Temp Pulse Resp B/P (MAP) Pulse Ox O2 Delivery O2 Flow Rate FiO2 03/07/17 14:00 92 03/07/17 13:00 87 03/07/17 12:00 90 03/07/17 12:00 98.7 90 16 118/61 (80) 94 03/07/17 11:00 92 03/07/17 11:00 92 20 121/58 (79) 90 03/07/17 10:00 95 03/07/17 09:00 95 03/07/17 08:00 93 03/07/17 08:00 98.1 93 23 126/60 (82) 90 03/07/17 07:00 92 Partial Non-Rebreather 10.00 03/07/17 06:00 95 03/07/17 04:00 98.8 92 19 116/63 (80) 86 03/07/17 04:00 92 03/07/17 02:00 98.9 91 20 115/57 (76) 89 03/07/17 02:00 91 03/07/17 00:00 98.5 89 21 111/64 (80) 88 03/07/17 00:00 89 03/06/17 22:00 86 03/06/17 20:00 99.0 92 30 115/60 (78) 95 03/06/17 20:00 92 03/06/17 19:00 91 Partial Non-Rebreather 10.00 03/06/17 18:00 95 03/06/17 18:00 89 Partial Non-Rebreather 10.00 03/06/17 16:00 99.1 100 23 121/70 (87) 90 03/06/17 16:00 100 03/06/17 15:22 92 40 I/O 03/06/17 03/06/17 03/06/17 03/07/17 03/07/17 03/07/17 07:00 15:00 23:00 07:00 15:00 23:00 Intake Total 1011 ml 600 ml Output Total 1050 ml 200 ml 350 ml Balance -1050 ml 811 ml -350 ml 600 ml Intake Oral 240 ml IV Total 771 ml 600 ml Output Urine Total 1050 ml 200 ml 350 ml # Bowel Movements 0 Result Diagram: 03/07/17 0645 03/07/17 0941 Objective Remarks GENERAL: This moderately obese elderly man who is awake No distress HEENT: Head normocephalic. Pupils are reactive and equal. Tongue is moist. Throat is injected. Nasal mucosae clear. NECK: No bruits or thyroid enlargement or lymphadenopathy. CHEST: Distant breath sounds with expiratory wheezes bilaterally, prolonged expirations with Occ crackles at the lung bases. HEART: The heart sounds irregular S1-S2 with no murmur or S3. ABDOMEN: Obese, protuberant without masses. No organomegaly or tenderness. Bowel sounds are active. EXTREMITIES: Mild edema and decreased peripheral pulses. No calf tenderness or swelling. Reflexes 1+ with no gross motor deficits. The patient does move all his extremities well. NEURO: no Focal deficit RECTAL: Exam is deferred. Assessment and Plan Assessment and Plan IMPRESSION 1. Acute respiratory failure. 2. Probable aspiration pneumonia. 3. Pulmonary edema 4. Chronic bronchitis and emphysema. 5. Interstitial lung disease. 6. Atrial fibrillation. 7. Hypertension and diabetes. 8. Anemia of chronic disease. Plan : 1. Cont Antibiotics per ID 2. Wean O2 to 4L 3. Cont solumedrol 60 mg IV BID 4. CBC,CXR BMP ,in am 5. Duonebs Neb qid. 6. Continue Lasix 20 mg daily. 7. Replace potassium 8. Will add EzPAP with nebs 9. IS at bedside q3h Corinne Vieyra MD Mar 07, 2017 14:51
[2017-03-07] MEDS ORDERED: WARFARIN SOD 2.5 MG TAB PO SCH (16:00)
--- NOTE | 2017-03-07 19:37 | HHI.HCPN ---
Reason for visit a. To assist with evaluation and management of symptoms including: weakness , dyspnea, pain. b. To assist medical decision maker(s) with: better understanding of current medical conditions; weighing benefits/burdens of medical treatment options; making medical treatment decisions. . (Tere Hernandez) Subjective/Interval History Patient seen and examined in ICU. Daughter at bedside. Patient remains lethargic. On NRB oxygen. Tmax 99.7. Labs stable. No new imaging. Goals remain aggressive. . Family/friend interactions See interval note. (Tere Hernandez) Advance Directives Living Will: Copy in medical record Health Care Surrogate: Copy in medical record Durable Power of Tape Recorder Mechanic: Copy in medical record (Tere Hernandez) Advance Directive Specifics Health Care Surrogate(s): Designated healthcare surrogate, aurelia De La Garza Jony. . Significant change in goals: FULL CODE. Goals remain aggressive. . (Tere Hernandez) Objective Vital Signs Date Time Temp Pulse Resp B/P (MAP) Pulse Ox O2 Delivery O2 Flow Rate FiO2 03/07/17 19:00 Partial Non-Rebreather 10.00 03/07/17 18:00 79 03/07/17 16:00 97.8 82 23 119/64 (82) 90 03/07/17 16:00 82 03/07/17 14:00 92 03/07/17 13:00 87 03/07/17 12:00 90 03/07/17 12:00 98.7 90 16 118/61 (80) 94 03/07/17 11:00 92 03/07/17 11:00 92 20 121/58 (79) 90 03/07/17 10:00 95 03/07/17 09:00 95 03/07/17 08:00 93 03/07/17 08:00 98.1 93 23 126/60 (82) 90 03/07/17 07:00 92 Partial Non-Rebreather 10.00 03/07/17 06:00 95 03/07/17 04:00 98.8 92 19 116/63 (80) 86 03/07/17 04:00 92 03/07/17 02:00 98.9 91 20 115/57 (76) 89 03/07/17 02:00 91 03/07/17 00:00 98.5 89 21 111/64 (80) 88 03/07/17 00:00 89 03/06/17 22:00 86 03/06/17 20:00 99.0 92 30 115/60 (78) 95 03/06/17 20:00 92 Physical Exam CONSTITUTIONAL/GENERAL: This is an elderly, frail patient in respiratory distress on BiPAP. TUBES/LINES/DRAINS: BiPAP, PIV, Arredondo. SKIN: No jaundice, rashes, or lesions. Ecchymoses on upper extremities. Skin temperature appropriate. Not diaphoretic. CARDIOVASCULAR: tachycardic, irregular rhythm. Atrial fibrillation by telemetry. RESPIRATORY/CHEST: tachypnea, labored respirations on NRB. Distant, almost absent breath sounds. GASTROINTESTINAL: Abdomen soft, non-tender, nondistended. No guarding. Bowel sounds present. GENITOURINARY: Without palpable bladder distension. Arredondo catheter in place. MUSCULOSKELETAL: Extremities without clubbing, cyanosis, or edema. Bilateral lower extremity venous stasis changes. NEUROLOGICAL: Awakens briefly. PSYCHIATRIC: lethargic. . (Tere Hernandez) Diagnostic Tests Laboratory Laboratory Tests Test 03/05/17 06:16 03/06/17 06:16 03/06/17 09:11 03/06/17 13:40 White Blood Count 6.0 TH/MM3 (4.0-11.0) 6.2 TH/MM3 (4.0-11.0) Red Blood Count 3.74 MIL/MM3 (4.50-5.90) 4.11 MIL/MM3 (4.50-5.90) Hemoglobin 11.2 GM/DL (13.0-17.0) 12.3 GM/DL (13.0-17.0) Hematocrit 33.7 % (39.0-51.0) 37.4 % (39.0-51.0) Mean Corpuscular Volume 90.1 FL (80.0-100.0) 90.9 FL (80.0-100.0) Mean Corpuscular Hemoglobin 29.9 PG (27.0-34.0) 29.8 PG (27.0-34.0) Mean Corpuscular Hemoglobin Concent 33.2 % (32.0-36.0) 32.8 % (32.0-36.0) Red Cell Distribution Width 20.5 % (11.6-17.2) 20.9 % (11.6-17.2) Platelet Count 69 TH/MM3 (150-450) 68 TH/MM3 (150-450) Mean Platelet Volume 7.7 FL (7.0-11.0) 7.2 FL (7.0-11.0) Neutrophils (%) (Auto) 94.6 % (16.0-70.0) Lymphocytes (%) (Auto) 3.7 % (9.0-44.0) Monocytes (%) (Auto) 1.4 % (0.0-8.0) Eosinophils (%) (Auto) 0.2 % (0.0-4.0) Basophils (%) (Auto) 0.1 % (0.0-2.0) Neutrophils # (Auto) 5.6 TH/MM3 (1.8-7.7) Lymphocytes # (Auto) 0.2 TH/MM3 (1.0-4.8) Monocytes # (Auto) 0.1 TH/MM3 (0-0.9) Eosinophils # (Auto) 0.0 TH/MM3 (0-0.4) Basophils # (Auto) 0.0 TH/MM3 (0-0.2) CBC Comment AUTO DIFF AUTO DIFF Differential Comment AUTO DIFF CONFIRMED FINAL DIFF MANUAL Platelet Estimate LOW (NORMAL) LOW (NORMAL) Platelet Morphology Comment NORMAL (NORMAL) NORMAL (NORMAL) Prothrombin Time 17.8 SEC (9.8-11.6) 23.9 SEC (9.8-11.6) Prothromb Time International Ratio 1.6 RATIO 2.1 RATIO Blood Urea Nitrogen 47 MG/DL (7-18) 43 MG/DL (7-18) Creatinine 0.63 MG/DL (0.60-1.30) 0.93 MG/DL (0.60-1.30) Random Glucose 89 MG/DL (74-106) 109 MG/DL (74-106) Total Protein 4.4 GM/DL (6.4-8.2) 5.1 GM/DL (6.4-8.2) Albumin 1.7 GM/DL (3.4-5.0) 1.8 GM/DL (3.4-5.0) Calcium Level 7.7 MG/DL (8.5-10.1) 9.0 MG/DL (8.5-10.1) Phosphorus Level 2.9 MG/DL (2.5-4.9) 2.3 MG/DL (2.5-4.9) Magnesium Level 2.2 MG/DL (1.5-2.5) 2.2 MG/DL (1.5-2.5) Alkaline Phosphatase 84 U/L (45-117) 88 U/L (45-117) Aspartate Amino Transf (AST/SGOT) 19 U/L (15-37) 18 U/L (15-37) Alanine Aminotransferase (ALT/SGPT) 36 U/L (12-78) 38 U/L (12-78) Total Bilirubin 0.5 MG/DL (0.2-1.0) 0.7 MG/DL (0.2-1.0) Sodium Level 143 MEQ/L (136-145) 140 MEQ/L (136-145) Potassium Level 4.5 MEQ/L (3.5-5.1) 5.4 MEQ/L (3.5-5.1) Chloride Level 109 MEQ/L (98-107) 108 MEQ/L (98-107) Carbon Dioxide Level 24.0 MEQ/L (21.0-32.0) 23.8 MEQ/L (21.0-32.0) Anion Gap 10 MEQ/L (5-15) 8 MEQ/L (5-15) Estimat Glomerular Filtration Rate 124 ML/MIN (>89) 79 ML/MIN (>89) Blood Gas Puncture Site LT RADIAL Blood Gas Patient Temperature 98.6 Blood Gas HCO3 23 mmol/L (22-26) Blood Gas Base Excess 0.9 mmol/L (-2-2) Blood Gas Oxygen Saturation 85 % (90-100) Arterial Blood pH 7.55 (7.380-7.420) Arterial Blood Partial Pressure CO2 26 mmHg (38-42) Arterial Blood Partial Pressure O2 51 mmHg (61-120) Arterial Blood Oxygen Content 15.8 Vol % (12.0-20.0) Arterial Blood Carboxyhemoglobin 1.8 % (0-4) Arterial Blood Methemoglobin 0.8 % (0-2) Blood Gas Hemoglobin 13.2 G/DL (12.0-16.0) Oxygen Delivery Device SM Blood Gas Liter Flow 10 L/M Differential Total Cells Counted 100 Neutrophils % (Manual) 88 % (16-70) Band Neutrophils % 8 % (0-6) Lymphocytes % 2 % (9-44) Monocytes % 2 % (0-8) Neutrophils # (Manual) 6.0 TH/MM3 (1.8-7.7) Ovalocytes 1+ (NORMAL) Nasal Screen MRSA (PCR) MRSA NOT DETECTED (NOT Test 03/06/17 16:16 03/06/17 17:20 03/06/17 23:46 03/07/17 05:37 Blood Gas Puncture Site LT RADIAL LT RADIAL Blood Gas Patient Temperature 98.6 98.6 Blood Gas HCO3 22 mmol/L (22-26) 24 mmol/L (22-26) Blood Gas Base Excess -0.6 mmol/L (-2-2) 0.5 mmol/L (-2-2) Blood Gas Oxygen Saturation 89 % (90-100) 91 % (90-100) Arterial Blood pH 7.51 (7.380-7.420) 7.50 (7.380-7.420) Arterial Blood Partial Pressure CO2 28 mmHg (38-42) 31 mmHg (38-42) Arterial Blood Partial Pressure O2 61 mmHg (61-120) 63 mmHG (61-120) Arterial Blood Oxygen Content 15.2 Vol % (12.0-20.0) 19.3 Vol % (12.0-20.0) Arterial Blood Carboxyhemoglobin 1.8 % (0-4) 1.3 % (0-4) Arterial Blood Methemoglobin 1.2 % (0-2) 0.8 % (0-2) Blood Gas Hemoglobin 12.1 G/DL (12.0-16.0) 15.1 G/DL (12.0-16.0) Oxygen Delivery Device BiPAP PRB Blood Gas Ventilator Setting IPAP 12/EPAP 5 Blood Gas Inspired Oxygen 40 % 70 % Troponin I 0.03 NG/ML (0.02-0.05) 0.03 NG/ML (0.02-0.05) Blood Gas Liter Flow 10 L/M Test 03/07/17 06:45 03/07/17 09:31 03/07/17 09:41 White Blood Count 5.6 TH/MM3 (4.0-11.0) Red Blood Count 4.17 MIL/MM3 (4.50-5.90) Hemoglobin 12.6 GM/DL (13.0-17.0) Hematocrit 40.3 % (39.0-51.0) Mean Corpuscular Volume 96.7 FL (80.0-100.0) Mean Corpuscular Hemoglobin 30.3 PG (27.0-34.0) Mean Corpuscular Hemoglobin Concent 31.3 % (32.0-36.0) Red Cell Distribution Width 22.6 % (11.6-17.2) Platelet Count 54 TH/MM3 (150-450) Mean Platelet Volume 7.9 FL (7.0-11.0) Neutrophils (%) (Auto) 94.3 % (16.0-70.0) Lymphocytes (%) (Auto) 2.9 % (9.0-44.0) Monocytes (%) (Auto) 2.4 % (0.0-8.0) Eosinophils (%) (Auto) 0.3 % (0.0-4.0) Basophils (%) (Auto) 0.1 % (0.0-2.0) Neutrophils # (Auto) 5.3 TH/MM3 (1.8-7.7) Lymphocytes # (Auto) 0.2 TH/MM3 (1.0-4.8) Monocytes # (Auto) 0.1 TH/MM3 (0-0.9) Eosinophils # (Auto) 0.0 TH/MM3 (0-0.4) Basophils # (Auto) 0.0 TH/MM3 (0-0.2) CBC Comment AUTO DIFF Differential Total Cells Counted 100 Neutrophils % (Manual) 88 % (16-70) Band Neutrophils % 9 % (0-6) Lymphocytes % 3 % (9-44) Neutrophils # (Manual) 5.4 TH/MM3 (1.8-7.7) Differential Comment FINAL DIFF MANUAL Platelet Estimate LOW (NORMAL) Platelet Morphology Comment NORMAL (NORMAL) Ovalocytes 1+ (NORMAL) Prothrombin Time 25.4 SEC (9.8-11.6) Prothromb Time International Ratio 2.2 RATIO Blood Urea Nitrogen 50 MG/DL (7-18) Creatinine 0.87 MG/DL (0.60-1.30) Random Glucose 93 MG/DL (74-106) Total Protein 5.2 GM/DL (6.4-8.2) Albumin 1.8 GM/DL (3.4-5.0) Calcium Level 8.7 MG/DL (8.5-10.1) Phosphorus Level 3.6 MG/DL (2.5-4.9) Magnesium Level 2.5 MG/DL (1.5-2.5) Alkaline Phosphatase 78 U/L (45-117) Aspartate Amino Transf (AST/SGOT) 21 U/L (15-37) Alanine Aminotransferase (ALT/SGPT) 37 U/L (12-78) Total Bilirubin 0.6 MG/DL (0.2-1.0) Sodium Level 141 MEQ/L (136-145) Potassium Level 5.0 MEQ/L (3.5-5.1) Chloride Level 109 MEQ/L (98-107) Carbon Dioxide Level 23.0 MEQ/L (21.0-32.0) Anion Gap 9 MEQ/L (5-15) Estimat Glomerular Filtration Rate 86 ML/MIN (>89) Troponin I 0.04 NG/ML (0.02-0.05) (Tere Hernandez) Result Diagram: 03/07/17 0645 03/07/17 0941 Microbiology Microbiology Date/Time Source Procedure Growth Status 02/25/17 07:41 Blood Peripheral Aerobic Blood Culture - Final NO GROWTH IN 5 DAYS Complete 02/25/17 07:41 Blood Peripheral Anaerobic Blood Culture - Final NO GROWTH IN 5 DAYS Complete 02/25/17 08:00 Nasal Washing Influenza Types A,B Antigen ([facility]) - Final NEGATIVE FOR FLU A AND B ANTIGEN.... Complete 02/25/17 07:44 Urine Random Urine Legionella Antigen - Final PRESUMPTIVE NEGATIVE FOR LEGIONELLA P... Complete 02/25/17 07:44 Urine Random Urine Streptococcus pneumoniae Antigen (M - Final PRESUMPTIVE NEGATIVE FOR STREPTOCOCCU... Complete Imaging Last Impressions Chest X-Ray 03/06/17 0000 Signed Impressions: Service Date/Time: Monday, March 06, 2017 06:01 - CONCLUSION: Persistent upper lobe predominant bilateral interstitial opacities. No lobar consolidation demonstrated. Vickey Villarreal MD CT Angiography 02/25/17 0731 Signed Impressions: Service Date/Time: Saturday, February 25, 2017 08:08 - CONCLUSION: 1. Study degraded by breathing motion artifact. These were the best obtainable images. 2. No pulmonary embolus observed within the more central pulmonary arteries. Peripheral pulmonary arteries are limited in their evaluation due to the breathing motion artifact. 3. Diffuse interstitial infiltrates more pronounced within the upper lobes. Differential diagnostic considerations are quite broad at this point. The more common etiologies include usual interstitial pneumonitis as well as hypersensitivity pneumonitis. Dennis Gupta Jr., MD ([place]) Assessment and Plan Disease Oriented Problem List: (1) Acute respiratory failure with hypoxemia (2) COPD (chronic obstructive pulmonary disease) (3) Cellulitis and abscess of lower extremity (4) Chronic nonmalignant pain (5) DM (diabetes mellitus) Symptom Scale: (1) Dyspnea 0-10 Scale: Unable to quantify Comment: On BiPAP (2) Chronic nonmalignant pain 0-10 Scale: Unable to quantify Comment: Chronic back pain, increase pain secondary to generalized weakness and bedbound status Pertinent Non-Medical Issues Psychosocial: . Lives with daughter and grandson. Spiritual: None. Legal:Designated healthcare surrogate, Frederic Borges. Sent to HIM to be scanned , copy on chart. Ethical issues impacting care: No known concerns at this time. . Important Contacts * aurelia Pappas/[facility]: [phone] * Jessica Tripathi, daughter: [phone] or [phone] . Prognosis Given patient's underlying COPD, possible HCAP, CHF and multiple medical comorbidities in addition to ongoing/worsening hypoxia and likely need for mechanical ventilation, overall prognosis appears poor as it appears the patient would likely be ventilator dependent should he get intubated. . Plan * Decision Maker: Designated healthcare surrogate, Frederic Borges. Sent to HIM to be scanned, copy on chart. * FULL CODE * Palliative care met with patient/ family: Patient is not participating in conversation during most of my visit. DaughterMelyssa and aurelia De La Garza ([facility]) endorse continued aggressive care including FULL CODE and intubation if needed. * Discussed with nursing staff and Dr. Davies. * SYMPTOMS: Pain: chronic back and joint pain per daughter report. Has PRN hydrocodone/325 every 4 hours PRN pain available. Has had 3 doses in the past 24 hours, will monitor need. Dyspnea: on BiPAP, PRN hydrocodone and lorazepam available. Patient will likely require intubation, no new medication recommendations at this time. * Palliative care will continue to follow throughout hospital course to assist with symptom management and clarification of goals as needed. . (Tere Hernandez) Attestation To help prompt me to consider important information that might be impacting today's encounter and assessment, information from prior notes written by myself or my colleagues may have been "brought forward" into today's note. My signature on this note, however, is an attestation that I personally performed the exam, history, and/or decision-making noted today, and, unless otherwise indicated, the interactions with patient, family, and staff as well as the review of records all occurred today. I also attest that the listed assessment and stated plan reflect my best clinical judgment today based on the combination of historical information, prior notes, and today's exam/ interactions. When time spent is documented, it refers only to time spent today by the signer, or if indicated, combined time spent today by collaborating physician/nurse practitioner. (Tere Hernandez) Collaborating MD Comments Chart reviewed. Case discussed with palliative care DEALER RELATIONSHIP MANAGER. Above note reviewed and I concur. . (Eriberto Rainey MD) Tere Hernandez Mar 07, 2017 19:37 Eriberto Rainey MD Apr 03, 2017 11:29
[2017-03-07] MEDS: INSULIN DETEMIR 100 UNITS/ML VIAL SQ SCH (20:40)
[2017-03-07] MEDS: TAMSULOSIN HCL 0.4 MG CAP PO SCH (20:42)
[2017-03-08] VITALS (16 sets, daily range): BP systolic 113–143; BP diastolic 54–69; PULSE 65–87; RESP 14–29; TEMP 97.7–98.9; O2SAT 93–98
[2017-03-08] MEDS: POTASSIUM CHLORIDE 10 MEQ CONTROLLED RELEASE TAB PO SCH ×3 (05:00→21:44)
[2017-03-08] MEDS: ACETAMINOPHEN/HYDROcodone 325 MG/5 MG TAB PO PRN ×3 (05:15→23:21)
[2017-03-08 05:34] LABS: INTERNATIONAL NORMALIZED RATIO 2.8 RATIO; PROTHROMBIN TIME - PATIENT 32.2 SEC (9.8-11.6)
--- NOTE | 2017-03-08 06:34 | RADRPT ---
EXAM DATE/TIME: 03/08/2017 05:05 [place] COMPARISON: CHEST SINGLE AP, March 06, 2017, 6:01. INDICATIONS : Short of breath. MEDICAL HISTORY : None. SURGICAL HISTORY : None. ENCOUNTER: Subsequent ACUITY: 1 week PAIN SCORE: 0/10 LOCATION: Bilateral chest FINDINGS: A single view of the chest demonstrates a interstitial prominence in the lungs similar to prior exam. No new consolidation or effusion. Heart increased in size. Tortuous aorta. CONCLUSION: 1. Stable exam with interstitial prominence. No new consolidation or effusion. Abhilash Stover MD on March 08, 2017 at 6:31 Board Certified Radiologist. This report was verified electronically.
--- NOTE | 2017-03-08 07:57 | HHI.CCPN ---
Subjective Remarks/Hospital Course Subjective: 03/07: remains on partial NRB with spo2 88-89%. patient still noncompliant and refusing certain aspects of care. refusing BiPAP. refusing ABG this AM. labs pending because patient refused multiple earlier attempts to draw labs. Palliative care evaluated patient yesterday and patient wants to be full code and intubated if needed, and he expressed understanding that he may never separate from mechanical ventilation. 03/08: Currently on high flow nasal cannula 50% oxygen, oxygen saturation 95%. Chest x-ray with some interstitial prominence otherwise no acute findings. Daughter is at the bedside Objective Vital Signs Date Time Temp Pulse Resp B/P (MAP) Pulse Ox O2 Delivery O2 Flow Rate FiO2 03/08/17 06:00 74 03/08/17 04:00 98.9 22 134/62 (86) 96 03/08/17 03:30 High Flow Nasal Cannula 40.00 50 Intake and Output 03/08/17 03/08/17 03/09/17 08:00 16:00 00:00 Output Total 450 ml Balance -450 ml Result Diagram: 03/07/17 0645 03/08/17 0431 Imaging Last Impressions Chest X-Ray 03/06/17 0000 Signed Impressions: Service Date/Time: Monday, March 06, 2017 06:01 - CONCLUSION: Persistent upper lobe predominant bilateral interstitial opacities. No lobar consolidation demonstrated. Vickey Villarreal MD CT Angiography 02/25/17 0731 Signed Impressions: Service Date/Time: Saturday, February 25, 2017 08:08 - CONCLUSION: 1. Study degraded by breathing motion artifact. These were the best obtainable images. 2. No pulmonary embolus observed within the more central pulmonary arteries. Peripheral pulmonary arteries are limited in their evaluation due to the breathing motion artifact. 3. Diffuse interstitial infiltrates more pronounced within the upper lobes. Differential diagnostic considerations are quite broad at this point. The more common etiologies include usual interstitial pneumonitis as well as hypersensitivity pneumonitis. Dennis Gupta Jr., MD Objective Remarks GENERAL: Elderly frail man, lying in bed, in mild respiratory distress HEENT: Normocephalic. Atraumatic. Pupils equal, round, reactive, conjugate. Mucous membranes are moist. Heart flow nasal cannula in place NECK: Trachea is midline. There is no JVD. CHEST: Air entry equal but diminished bilaterally scattered wheezes CARDIOVASCULAR: Tachycardic, irregular rhythm. A. fib by telemetry ABDOMEN: Soft, nontender, nondistended. No guarding. MUSCULOSKELETAL: Pulses 2+. No peripheral edema. NEUROLOGICAL: Alert awake. Follows commands. Nonfocal. A/P Assessment and Plan Assessment: 77yM with severe and worsening respiratory distress likely combination of possible HCAP with COPD exacerbation and possible persistent CHF exacerbation. Clinically showing some improvement currently on high flow nasal cannula.. Appreciate palliative care involvement. Recommendations: Acute hypoxic and Hypercarbic respiratory failure COPD Exacerbation Possible HCAP -- Continue high flow NC. -- Continue ICU -- Continue empiric abx -- IV Lasix 20 mg daily -- Continue nebs. Increase Solu-Medrol to 60 mg IV every 8 hours. Continue budesonide. Add Spiriva -- agree with palliative care consult. Consult [facility] to assume care in am . Transfer out of [facility] in 24 hours Marleny Hurd MD Mar 08, 2017 07:57
[2017-03-08] MEDS: AMIODARONE 200 MG TAB PO SCH (08:31)
[2017-03-08] MEDS: DILTIAZEM-CD 120 MG CAP ER PO SCH (08:33)
[2017-03-08] MEDS: DOCUSATE SODIUM 50 MG/SENNA 8.6 MG TAB PO SCH ×2 (08:33→21:44)
[2017-03-08] MEDS: FUROSEMIDE 20 MG/2 ML VIAL IV PUSH SCH (08:34)
[2017-03-08] MEDS: PANTOPRAZOLE SODIUM 40 MG VIAL IV PUSH SCH (08:34)
[2017-03-08] MEDS: NYSTAT/DIPHENHY/LIDO MOUTHWASH (Adult) 120ML SWISH-SWAL SCH ×4 (08:35→21:00)
[2017-03-08] MEDS: SODIUM CHLORIDE 0.9% FLUSH 10 ML FLUSH IV FLUSH SCH (08:35)
[2017-03-08] MEDS: BUDESONIDE-FORMOTEROL 160/4.5 MCG INHALER INH SCH ×2 (08:35→21:45)
[2017-03-08] MEDS: RESP: ALBUTEROL 2.5 MG/IPRATROPIUM 0.5 MG NEB (SCH) NEB ×3 (10:00→19:54)
[2017-03-08] MEDS: TIOTROPIUM BROMIDE 18 MCG INH INH SCH (10:50)
[2017-03-08] MEDS: INSULIN ASPART SUPPLEMENTAL SCALE SQ SCH ×3 (11:00→21:00)
[2017-03-08] MEDS: AZITHROMYCIN INJ 500 MG in SODIUM CHLOR 0.9% 250 ML INJ 250 ML IV SCH (14:03)
[2017-03-08] MEDS: methylPREDNISolone SOD SUCC 125 MG/2 ML VIAL IV PUSH SCH ×2 (14:06→21:45)
--- NOTE | 2017-03-08 14:15 | HHI.IDPN ---
Subjective Subjective Remarks Patient is a 77-year-old male, has had recurrent admissions and treated for COPD exacerbation, pneumonia, and cellulitis, readmitted again for possible pneumonia, and sepsis. On high flow Oxygen afebrile reports cough, but unable to expectorate Not aspiration risk per RN Tolerating crushed tablets. No rash No diarrhea Antibiotics Azithro Lines PIV Past Medical History afib COPD CKD DM skin CA LLE Past Surgical History skin ca LLE Allergies: Coded Allergies: No Known Allergies (Unverified , 01/19/17) Objective . Vital Signs Date Time Temp Pulse Resp B/P (MAP) Pulse Ox O2 Delivery O2 Flow Rate FiO2 03/08/17 12:00 73 03/08/17 10:00 73 03/08/17 08:00 73 03/08/17 08:00 97.7 73 22 117/67 (84) 98 03/08/17 07:00 95 Nasal Cannula 50 Degreaser Operator 03/08/17 06:00 74 03/08/17 04:00 87 03/08/17 04:00 98.9 77 22 134/62 (86) 96 03/08/17 03:30 98 High Flow Nasal Cannula 40.00 50 03/08/17 02:00 79 03/08/17 00:30 94 High Flow Nasal Cannula 40.00 60 03/08/17 00:00 97.7 78 15 143/69 (93) 93 03/08/17 00:00 78 03/07/17 22:00 78 03/07/17 20:30 89 Non-Rebreather 15.00 100 03/07/17 20:00 82 03/07/17 20:00 97.9 82 16 122/61 (81) 90 03/07/17 19:00 Partial Non-Rebreather 10.00 03/07/17 18:00 79 03/07/17 16:00 97.8 82 23 119/64 (82) 90 03/07/17 16:00 82 . Laboratory Tests Test 03/07/17 06:45 White Blood Count 5.6 TH/MM3 Red Blood Count 4.17 MIL/MM3 Hemoglobin 12.6 GM/DL Hematocrit 40.3 % Mean Corpuscular Volume 96.7 FL Mean Corpuscular Hemoglobin 30.3 PG Mean Corpuscular Hemoglobin Concent 31.3 % Red Cell Distribution Width 22.6 % Platelet Count 54 TH/MM3 Mean Platelet Volume 7.9 FL Neutrophils (%) (Auto) 94.3 % Lymphocytes (%) (Auto) 2.9 % Monocytes (%) (Auto) 2.4 % Eosinophils (%) (Auto) 0.3 % Basophils (%) (Auto) 0.1 % Neutrophils # (Auto) 5.3 TH/MM3 Lymphocytes # (Auto) 0.2 TH/MM3 Monocytes # (Auto) 0.1 TH/MM3 Eosinophils # (Auto) 0.0 TH/MM3 Basophils # (Auto) 0.0 TH/MM3 CBC Comment AUTO DIFF Differential Total Cells Counted 100 Neutrophils % (Manual) 88 % Band Neutrophils % 9 % Lymphocytes % 3 % Neutrophils # (Manual) 5.4 TH/MM3 Differential Comment FINAL DIFF MANUAL Platelet Estimate LOW Platelet Morphology Comment NORMAL Ovalocytes 1+ Laboratory Tests Test 03/06/17 17:20 03/06/17 23:46 03/07/17 09:41 03/08/17 04:31 Troponin I 0.03 NG/ML 0.03 NG/ML 0.04 NG/ML Blood Urea Nitrogen 50 MG/DL Creatinine 0.87 MG/DL 0.81 MG/DL Random Glucose 93 MG/DL Total Protein 5.2 GM/DL Albumin 1.8 GM/DL Calcium Level 8.7 MG/DL Phosphorus Level 3.6 MG/DL Magnesium Level 2.5 MG/DL Alkaline Phosphatase 78 U/L Aspartate Amino Transf (AST/SGOT) 21 U/L Alanine Aminotransferase (ALT/SGPT) 37 U/L Total Bilirubin 0.6 MG/DL Sodium Level 141 MEQ/L Potassium Level 5.0 MEQ/L Chloride Level 109 MEQ/L Carbon Dioxide Level 23.0 MEQ/L Anion Gap 9 MEQ/L Estimat Glomerular Filtration Rate 86 ML/MIN 93 ML/MIN Imaging Last Impressions Chest X-Ray 03/06/17 0000 Signed Impressions: Service Date/Time: Monday, March 06, 2017 06:01 - CONCLUSION: Persistent upper lobe predominant bilateral interstitial opacities. No lobar consolidation demonstrated. Vickey Villarreal MD CT Angiography 02/25/17 0731 Signed Impressions: Service Date/Time: Saturday, February 25, 2017 08:08 - CONCLUSION: 1. Study degraded by breathing motion artifact. These were the best obtainable images. 2. No pulmonary embolus observed within the more central pulmonary arteries. Peripheral pulmonary arteries are limited in their evaluation due to the breathing motion artifact. 3. Diffuse interstitial infiltrates more pronounced within the upper lobes. Differential diagnostic considerations are quite broad at this point. The more common etiologies include usual interstitial pneumonitis as well as hypersensitivity pneumonitis. Dennis Gupta Jr., MD Physical Exam GENERAL: Awake, alert, comfortable SKIN: No rashes, ecchymoses or lesions. Cool and dry. HEAD: Atraumatic. Normocephalic. No temporal or scalp tenderness. EYES: Pupils equal round and reactive. No scleral icterus. No injection or drainage. ENT: dry oral mucosa, with some ulcers on his tongue NECK: Trachea midline. Supple, nontender, no meningeal signs. CARDIOVASCULAR: Regular rate and rhythm without murmurs, gallops, or rubs. RESPIRATORY: Very decreased BS nash, biut o/w clear GASTROINTESTINAL: Abdomen soft, non-tender, nondistended. No guarding. MUSCULOSKELETAL: Extremities without clubbing, cyanosis, or edema. No calf tenderness. Chronic skin changes, stasis related discoloration. NEUROLOGICAL: Awake and alert. Grossly non focal Psych: cooperative IV line sites with no evidence of infection. Assessment & Plan Remarks Assessment and Plan severe COPD COPD exacerbation, now on BIPAP Doubtful PNA, interstitial changes on CXR appear stable MIld bandemia Recs Continue azithro for COPD exacerbation. Recommend a short 5 day course. If remains afebrile, with nl WBC and no other e/o infx no need for broad spectrum antibiotics. Will sign off please call back if any change in clinical condition or questions. Darline Gallardo MD Mar 08, 2017 14:15
--- NOTE | 2017-03-08 15:39 | HHI.PR ---
Subjective Remarks He is awake and on High flow O2 at 40 %. Refused Bipap. . K+ level was low. No fever. Has some wheezing . On PT Has refused Bronchoscopy. Objective Vital Signs Date Time Temp Pulse Resp B/P (MAP) Pulse Ox O2 Delivery O2 Flow Rate FiO2 03/08/17 14:00 78 03/08/17 12:00 97.9 73 29 113/54 (73) 93 03/08/17 12:00 73 03/08/17 10:00 73 03/08/17 08:00 73 03/08/17 08:00 97.7 73 22 117/67 (84) 98 03/08/17 07:00 95 Nasal Cannula 50 Manager Business Systems 03/08/17 06:00 74 03/08/17 04:00 87 03/08/17 04:00 98.9 77 22 134/62 (86) 96 03/08/17 03:30 98 High Flow Nasal Cannula 40.00 50 03/08/17 02:00 79 03/08/17 00:30 94 High Flow Nasal Cannula 40.00 60 03/08/17 00:00 97.7 78 15 143/69 (93) 93 03/08/17 00:00 78 03/07/17 22:00 78 03/07/17 20:30 89 Non-Rebreather 15.00 100 03/07/17 20:00 82 03/07/17 20:00 97.9 82 16 122/61 (81) 90 03/07/17 19:00 Partial Non-Rebreather 10.00 03/07/17 18:00 79 03/07/17 16:00 97.8 82 23 119/64 (82) 90 03/07/17 16:00 82 I/O 03/07/17 03/07/17 03/07/17 03/08/17 03/08/17 03/08/17 07:00 15:00 23:00 07:00 15:00 23:00 Intake Total 600 ml 400 ml Output Total 350 ml 1125 ml 450 ml Balance -350 ml 600 ml -725 ml -450 ml Intake Oral 400 ml IV Total 600 ml Output Urine Total 350 ml 1125 ml 450 ml Result Diagram: 03/07/17 0645 03/08/17 0431 Objective Remarks GENERAL: This moderately obese elderly man who is awake No distress HEENT: Head normocephalic. Pupils are reactive and equal. Tongue is moist. Throat is injected. Nasal mucosae clear. NECK: No bruits or thyroid enlargement or lymphadenopathy. CHEST: Distant breath sounds with expiratory wheezes bilaterally, prolonged expirations with crackles at the lung bases. HEART: The heart sounds irregular S1-S2 with no murmur or S3. ABDOMEN: Obese, protuberant without masses. No organomegaly or tenderness. Bowel sounds are active. EXTREMITIES: Mild edema and decreased peripheral pulses. No calf tenderness or swelling. Reflexes 1+ with no gross motor deficits. The patient does move all his extremities well. NEURO: Lethargic. RECTAL: Exam is deferred. Assessment and Plan Assessment and Plan IMPRESSION 1. Acute respiratory failure. 2. Probable aspiration pneumonia. 3. Pulmonary edema 4. Chronic bronchitis and emphysema. 5. Interstitial lung disease. 6. Atrial fibrillation. 7. Hypertension and diabetes. 8. Anemia of chronic disease. Plan : 1. Cont Antibiotics per ID 2. Wean O2 to 4L 3. Cont solumedrol 60 mg IV Q8H 4. CBC, BMP ,in am 5. Duonebs Neb qid. 6. Continue Lasix 20 mg daily. 7. Replace potassium 8. Will Cont EzPAP with nebs 9. IS at bedside q3h Corinne Vieyra MD Mar 08, 2017 15:39
[2017-03-08] MEDS: INSULIN DETEMIR 100 UNITS/ML VIAL SQ SCH (21:00)
[2017-03-08] MEDS: TAMSULOSIN HCL 0.4 MG CAP PO SCH (21:44)
[2017-03-09] VITALS (14 sets, daily range): BP systolic 108–128; BP diastolic 56–65; PULSE 74–94; RESP 15–27; TEMP 97.7–98.2; O2SAT 90–96
[2017-03-09] MEDS: RESP: ALBUTEROL 2.5 MG/IPRATROPIUM 0.5 MG NEB (SCH) NEB ×4 (03:15→19:11)
[2017-03-09] MEDS: methylPREDNISolone SOD SUCC 125 MG/2 ML VIAL IV PUSH SCH ×3 (05:49→23:03)
[2017-03-09] MEDS: ACETAMINOPHEN/HYDROcodone 325 MG/5 MG TAB PO PRN ×2 (05:49→23:03)
[2017-03-09] MEDS: POTASSIUM CHLORIDE 10 MEQ CONTROLLED RELEASE TAB PO SCH ×3 (05:49→23:02)
[2017-03-09 07:40] LABS: INTERNATIONAL NORMALIZED RATIO 3.5 RATIO; PROTHROMBIN TIME - PATIENT 40.5 SEC (9.8-11.6)
[2017-03-09] MEDS: INSULIN ASPART SUPPLEMENTAL SCALE SQ SCH ×4 (08:00→21:00)
[2017-03-09] MEDS ORDERED: PHARMACY ORDERED LAB ONE (08:45)
--- NOTE | 2017-03-09 08:48 | HHI.PR ---
Subjective Remarks Pt states that SOB is about the same w no improvement. No CP, nausea or vomiting reported. Pt still on high flow NC 50% w 30L. No other concerns from RN at this time. Objective Vitals Vital Signs Date Time Temp Pulse Resp B/P (MAP) Pulse Ox O2 Delivery O2 Flow Rate FiO2 03/09/17 08:00 Nasal Cannula 30.00 50 03/09/17 08:00 77 03/09/17 06:00 Nasal Cannula 30.00 50 03/09/17 06:00 86 03/09/17 04:00 77 03/09/17 04:00 78 18 109/59 (76) 96 03/09/17 02:00 82 03/09/17 00:00 97.7 74 15 117/56 (76) 96 03/09/17 00:00 82 03/08/17 22:00 87 03/08/17 20:00 97.7 74 16 114/56 (75) 95 03/08/17 20:00 87 03/08/17 20:00 94 Nasal Cannula 03/08/17 19:50 97 High Flow Nasal Cannula 30.00 50 03/08/17 18:41 95 High Flow Nasal Cannula 30.00 50 03/08/17 18:00 68 03/08/17 16:00 97.7 65 14 113/61 (78) 96 03/08/17 16:00 65 03/08/17 14:00 78 03/08/17 12:00 97.9 73 29 113/54 (73) 93 03/08/17 12:00 73 03/08/17 10:00 73 I/O 03/08/17 03/08/17 03/08/17 03/09/17 03/09/17 03/09/17 07:00 15:00 23:00 07:00 15:00 23:00 Intake Total 765 ml 359 ml Output Total 450 ml 950 ml 400 ml Balance -450 ml -185 ml -41 ml Intake Oral 515 ml 150 ml IV Total 250 ml 209 ml Output Urine Total 450 ml 950 ml 400 ml # Bowel Movements 0 Result Diagram: 03/07/17 0645 03/08/17 0431 Imaging Last Impressions Chest X-Ray 03/08/17 0600 Signed Impressions: Service Date/Time: Wednesday, March 08, 2017 05:05 - CONCLUSION: 1. Stable exam with interstitial prominence. No new consolidation or effusion. Abhilash Stover MD CT Angiography 02/25/17 0731 Signed Impressions: Service Date/Time: Saturday, February 25, 2017 08:08 - CONCLUSION: 1. Study degraded by breathing motion artifact. These were the best obtainable images. 2. No pulmonary embolus observed within the more central pulmonary arteries. Peripheral pulmonary arteries are limited in their evaluation due to the breathing motion artifact. 3. Diffuse interstitial infiltrates more pronounced within the upper lobes. Differential diagnostic considerations are quite broad at this point. The more common etiologies include usual interstitial pneumonitis as well as hypersensitivity pneumonitis. Dennis Gupta Jr., MD Objective Remarks GENERAL: Elderly frail man, lying in bed,high flow NC in place HEENT: EOMI NECK: Trachea is midline. CHEST: Air entry equal but diminished bilaterally no wheezing at this time. CARDIOVASCULAR: Irregularly irregular no murmurs. ABDOMEN: Soft, nontender, nondistended. No guarding. MUSCULOSKELETAL:trace edema in lower extremities NEUROLOGICAL: Alert awake. Follows commands. Nonfocal. Appears weak A/P Assessment and Plan Acute hypoxic and Hypercarbic respiratory failure COPD Exacerbation Possible HCAP on high flow NC. Continue to monitor in ICU. Recs from ID is to continue Azithromycin for total of 5 days. Pt remains afebrile. Continue IV lasix, duonebs, solu-medrol, budesonide and spiriva. Palliative care following. Encourage IS use. Sleep apnea: bipap but pt refusing. Atrial fibrillation: on amiodarone/cardizem/on coumadin which is on hold due to INR being 3.5. pharmacy following for coumadin management. Monitor INR Chronic kidney disease stage III- monitor. Diabetes: diabetic diet. ISS, monitor BS. caution as pt is on steroids. on levemir 10 units at bedtime, slowly titrate up as needed. Hypertension. stable, prn hydralazine available History of hyperkalemia and hypokalemia recurrently. replace as needed Chronic pain syndrome. still having pain, adjusted pain meds. PT/OT/ST following. Discharge Planning Encourage pt to continue working w therapy, encourage use of IS. Pt still requiring high flow NC. Pt to remain in ICU for close monitoring. continue to wean oxygen. ID has signed off, palliative and pulm following. Appreciate assistance. Jeni Lazo MD Mar 09, 2017 08:48
[2017-03-09] MEDS: DOCUSATE SODIUM 50 MG/SENNA 8.6 MG TAB PO SCH ×2 (09:00→23:02)
[2017-03-09] MEDS: FUROSEMIDE 20 MG/2 ML VIAL IV PUSH SCH (09:00)
[2017-03-09] MEDS: DILTIAZEM-CD 120 MG CAP ER PO SCH (09:00)
[2017-03-09] MEDS: AMIODARONE 200 MG TAB PO SCH (09:00)
[2017-03-09] MEDS: NYSTAT/DIPHENHY/LIDO MOUTHWASH (Adult) 120ML SWISH-SWAL SCH ×3 (09:00→17:58)
[2017-03-09] MEDS: SODIUM CHLORIDE 0.9% FLUSH 10 ML FLUSH IV FLUSH SCH (09:00)
[2017-03-09] MEDS: TIOTROPIUM BROMIDE 18 MCG INH INH SCH (09:00)
[2017-03-09] MEDS: BUDESONIDE-FORMOTEROL 160/4.5 MCG INHALER INH SCH ×2 (09:00→23:03)
[2017-03-09] MEDS: PANTOPRAZOLE SODIUM 40 MG VIAL IV PUSH SCH (10:00)
[2017-03-09] MEDS: ACETAMINOPHEN/HYDROcodone 325 MG/7.5 MG TAB PO PRN ×2 (11:05→17:59)
--- NOTE | 2017-03-09 12:06 | HHI.HCPN ---
Reason for visit a. To assist with evaluation and management of symptoms including: weakness , dyspnea, pain. b. To assist medical decision maker(s) with: better understanding of current medical conditions; weighing benefits/burdens of medical treatment options; making medical treatment decisions. . (Tere Hernandez) Subjective/Interval History Patient seen and examined in ICU. No family at bedside. Patient is awake and alert. He is answering questions appropriately. We had a long talk about hospital course and underlying COPD. He verbalizes some frustration about prolonged hospital course. He endorses desire for FULL CODE and intubation at this time. He says he has not really thought about it, I encouraged conversation with family. I explained if he was intubated he would not likely be able to be extubated given severity of underlying COPD. He welcomes continued palliative care visits. Remains on high flow oxygen, flow rate 30. Tmax 98.1. No new labs. No new imaging. Goals remain aggressive. . Family/friend interactions No family at bedside. . (Tere Hernandez) Advance Directives Living Will: Copy in medical record Health Care Surrogate: Copy in medical record Durable Power of Disaster Recovery Coordinator: Copy in medical record (Tere Hernandez) Advance Directive Specifics Health Care Surrogate(s): Designated healthcare surrogate, aurelia De La Garza Jony. . Significant change in goals: FULL CODE. Desires continued aggressive care including intubation if needed. . (Tere Hernandez) Objective Vital Signs Date Time Temp Pulse Resp B/P (MAP) Pulse Ox O2 Delivery O2 Flow Rate FiO2 03/09/17 10:00 94 03/09/17 08:50 93 High Flow Nasal Cannula 30.00 60 03/09/17 08:00 98.1 80 27 120/60 (80) 90 03/09/17 08:00 Nasal Cannula 30.00 50 03/09/17 08:00 77 03/09/17 06:00 Nasal Cannula 30.00 50 03/09/17 06:00 86 03/09/17 04:00 77 03/09/17 04:00 78 18 109/59 (76) 96 03/09/17 02:00 82 03/09/17 00:00 97.7 74 15 117/56 (76) 96 03/09/17 00:00 82 03/08/17 22:00 87 03/08/17 20:00 97.7 74 16 114/56 (75) 95 03/08/17 20:00 87 03/08/17 20:00 94 Nasal Cannula 03/08/17 19:50 97 High Flow Nasal Cannula 30.00 50 03/08/17 18:41 95 High Flow Nasal Cannula 30.00 50 03/08/17 18:00 68 03/08/17 16:00 97.7 65 14 113/61 (78) 96 03/08/17 16:00 65 03/08/17 14:00 78 03/08/17 12:00 97.9 73 29 113/54 (73) 93 03/08/17 12:00 73 Intake & Output 03/09/17 03/09/17 07:00 19:00 Intake Total 359 ml Output Total 400 ml Balance -41 ml Intake Oral 150 ml IV Total 209 ml Output Urine Total 400 ml Physical Exam CONSTITUTIONAL/GENERAL: This is an elderly, frail patient in respiratory distress on BiPAP. TUBES/LINES/DRAINS: High flow NC, PIV, Arredondo. SKIN: No jaundice, rashes, or lesions. Ecchymoses on upper extremities. Skin temperature appropriate. Not diaphoretic. CARDIOVASCULAR: tachycardic, irregular rhythm. Atrial fibrillation by telemetry. RESPIRATORY/CHEST: tachypnea, unlabored respirations, Distant, almost absent breath sounds. GASTROINTESTINAL: Abdomen soft, non-tender, nondistended. No guarding. Bowel sounds present. GENITOURINARY: Without palpable bladder distension. Arredondo catheter in place. MUSCULOSKELETAL: Extremities without clubbing, cyanosis, or edema. Bilateral lower extremity venous stasis changes. NEUROLOGICAL: Awake and conversant today. Follows commands. PSYCHIATRIC: Calm. . (Tere Hernandez) Diagnostic Tests Laboratory Laboratory Tests Test 03/06/17 13:40 03/06/17 16:16 03/06/17 17:20 03/06/17 23:46 Nasal Screen MRSA (PCR) MRSA NOT DETECTED (NOT Blood Gas Puncture Site LT RADIAL Blood Gas Patient Temperature 98.6 Blood Gas HCO3 22 mmol/L (22-26) Blood Gas Base Excess -0.6 mmol/L (-2-2) Blood Gas Oxygen Saturation 89 % (90-100) Arterial Blood pH 7.51 (7.380-7.420) Arterial Blood Partial Pressure CO2 28 mmHg (38-42) Arterial Blood Partial Pressure O2 61 mmHg (61-120) Arterial Blood Oxygen Content 15.2 Vol % (12.0-20.0) Arterial Blood Carboxyhemoglobin 1.8 % (0-4) Arterial Blood Methemoglobin 1.2 % (0-2) Blood Gas Hemoglobin 12.1 G/DL (12.0-16.0) Oxygen Delivery Device BiPAP Blood Gas Ventilator Setting IPAP 12/EPAP 5 Blood Gas Inspired Oxygen 40 % Troponin I 0.03 NG/ML (0.02-0.05) 0.03 NG/ML (0.02-0.05) Test 03/07/17 05:37 03/07/17 06:45 03/07/17 09:31 03/07/17 09:41 Blood Gas Puncture Site LT RADIAL Blood Gas Patient Temperature 98.6 Blood Gas HCO3 24 mmol/L (22-26) Blood Gas Base Excess 0.5 mmol/L (-2-2) Blood Gas Oxygen Saturation 91 % (90-100) Arterial Blood pH 7.50 (7.380-7.420) Arterial Blood Partial Pressure CO2 31 mmHg (38-42) Arterial Blood Partial Pressure O2 63 mmHG (61-120) Arterial Blood Oxygen Content 19.3 Vol % (12.0-20.0) Arterial Blood Carboxyhemoglobin 1.3 % (0-4) Arterial Blood Methemoglobin 0.8 % (0-2) Blood Gas Hemoglobin 15.1 G/DL (12.0-16.0) Oxygen Delivery Device PRB Blood Gas Liter Flow 10 L/M Blood Gas Inspired Oxygen 70 % White Blood Count 5.6 TH/MM3 (4.0-11.0) Red Blood Count 4.17 MIL/MM3 (4.50-5.90) Hemoglobin 12.6 GM/DL (13.0-17.0) Hematocrit 40.3 % (39.0-51.0) Mean Corpuscular Volume 96.7 FL (80.0-100.0) Mean Corpuscular Hemoglobin 30.3 PG (27.0-34.0) Mean Corpuscular Hemoglobin Concent 31.3 % (32.0-36.0) Red Cell Distribution Width 22.6 % (11.6-17.2) Platelet Count 54 TH/MM3 (150-450) Mean Platelet Volume 7.9 FL (7.0-11.0) Neutrophils (%) (Auto) 94.3 % (16.0-70.0) Lymphocytes (%) (Auto) 2.9 % (9.0-44.0) Monocytes (%) (Auto) 2.4 % (0.0-8.0) Eosinophils (%) (Auto) 0.3 % (0.0-4.0) Basophils (%) (Auto) 0.1 % (0.0-2.0) Neutrophils # (Auto) 5.3 TH/MM3 (1.8-7.7) Lymphocytes # (Auto) 0.2 TH/MM3 (1.0-4.8) Monocytes # (Auto) 0.1 TH/MM3 (0-0.9) Eosinophils # (Auto) 0.0 TH/MM3 (0-0.4) Basophils # (Auto) 0.0 TH/MM3 (0-0.2) CBC Comment AUTO DIFF Differential Total Cells Counted 100 Neutrophils % (Manual) 88 % (16-70) Band Neutrophils % 9 % (0-6) Lymphocytes % 3 % (9-44) Neutrophils # (Manual) 5.4 TH/MM3 (1.8-7.7) Differential Comment FINAL DIFF MANUAL Platelet Estimate LOW (NORMAL) Platelet Morphology Comment NORMAL (NORMAL) Ovalocytes 1+ (NORMAL) Prothrombin Time 25.4 SEC (9.8-11.6) Prothromb Time International Ratio 2.2 RATIO Blood Urea Nitrogen 50 MG/DL (7-18) Creatinine 0.87 MG/DL (0.60-1.30) Random Glucose 93 MG/DL (74-106) Total Protein 5.2 GM/DL (6.4-8.2) Albumin 1.8 GM/DL (3.4-5.0) Calcium Level 8.7 MG/DL (8.5-10.1) Phosphorus Level 3.6 MG/DL (2.5-4.9) Magnesium Level 2.5 MG/DL (1.5-2.5) Alkaline Phosphatase 78 U/L (45-117) Aspartate Amino Transf (AST/SGOT) 21 U/L (15-37) Alanine Aminotransferase (ALT/SGPT) 37 U/L (12-78) Total Bilirubin 0.6 MG/DL (0.2-1.0) Sodium Level 141 MEQ/L (136-145) Potassium Level 5.0 MEQ/L (3.5-5.1) Chloride Level 109 MEQ/L (98-107) Carbon Dioxide Level 23.0 MEQ/L (21.0-32.0) Anion Gap 9 MEQ/L (5-15) Estimat Glomerular Filtration Rate 86 ML/MIN (>89) Troponin I 0.04 NG/ML (0.02-0.05) Test 03/08/17 04:31 03/09/17 05:37 Prothrombin Time 32.2 SEC (9.8-11.6) 40.5 SEC (9.8-11.6) Prothromb Time International Ratio 2.8 RATIO 3.5 RATIO Creatinine 0.81 MG/DL (0.60-1.30) Estimat Glomerular Filtration Rate 93 ML/MIN (>89) (Tere Hernandez) Result Diagram: 03/07/17 0645 03/08/17 0431 Microbiology Microbiology Date/Time Source Procedure Growth Status 02/25/17 07:41 Blood Peripheral Aerobic Blood Culture - Final NO GROWTH IN 5 DAYS Complete 02/25/17 07:41 Blood Peripheral Anaerobic Blood Culture - Final NO GROWTH IN 5 DAYS Complete 02/25/17 08:00 Nasal Washing Influenza Types A,B Antigen ([facility]) - Final NEGATIVE FOR FLU A AND B ANTIGEN.... Complete 02/25/17 07:44 Urine Random Urine Legionella Antigen - Final PRESUMPTIVE NEGATIVE FOR LEGIONELLA P... Complete 02/25/17 07:44 Urine Random Urine Streptococcus pneumoniae Antigen (M - Final PRESUMPTIVE NEGATIVE FOR STREPTOCOCCU... Complete Imaging Last Impressions Chest X-Ray 03/08/17 0600 Signed Impressions: Service Date/Time: Wednesday, March 08, 2017 05:05 - CONCLUSION: 1. Stable exam with interstitial prominence. No new consolidation or effusion. Abhilash Stover MD CT Angiography 02/25/17 0731 Signed Impressions: Service Date/Time: Saturday, February 25, 2017 08:08 - CONCLUSION: 1. Study degraded by breathing motion artifact. These were the best obtainable images. 2. No pulmonary embolus observed within the more central pulmonary arteries. Peripheral pulmonary arteries are limited in their evaluation due to the breathing motion artifact. 3. Diffuse interstitial infiltrates more pronounced within the upper lobes. Differential diagnostic considerations are quite broad at this point. The more common etiologies include usual interstitial pneumonitis as well as hypersensitivity pneumonitis. Dennis Gupta Jr., MD (Tere Hernandez) Assessment and Plan Disease Oriented Problem List: (1) Acute respiratory failure with hypoxemia (2) COPD (chronic obstructive pulmonary disease) (3) Cellulitis and abscess of lower extremity (4) Chronic nonmalignant pain (5) DM (diabetes mellitus) Symptom Scale: (1) Dyspnea 0-10 Scale: Unable to quantify Comment: On High flow O2. (2) Chronic nonmalignant pain 0-10 Scale: 0 Comment: Chronic back pain, increase pain secondary to generalized weakness and bedbound status Pertinent Non-Medical Issues Psychosocial: . Lives with daughter and grandson. Spiritual: None. Legal:Designated healthcare surrogate, Frederic Borges. Sent to HIM to be scanned , copy on chart. Ethical issues impacting care: No known concerns at this time. . Important Contacts * Frederic Borges, grandson/[facility]: [phone] * Jessica Tripathi, daughter: [phone] or [phone] . Prognosis Given patient's underlying COPD, possible HCAP, CHF and multiple medical comorbidities in addition to ongoing/worsening hypoxia and likely need for mechanical ventilation, overall prognosis appears poor as it appears the patient would likely be ventilator dependent should he get intubated. . Plan * Decision Maker: Designated healthcare surrogate, Frederic Borges. Sent to HIM to be scanned, copy on chart. * FULL CODE * Palliative care spoke with patient regarding hospital course, severe COPD, prognosis. He endorses desires for FULL CODE including intubation if needed. Encouraged conversation with family regarding what his wishes might be if he needs to be intubated. He agrees. Welcomes continued palliative care visits. * Discussed with nursing staff. * SYMPTOMS: Pain: chronic back and joint pain per daughter report. Has PRN hydrocodone/325 every 4 hours PRN pain available. Has had 3 doses in the past 24 hours, will monitor need. Dyspnea: on BiPAP, PRN hydrocodone and lorazepam available. Patient will likely require intubation, no new medication recommendations at this time. * Palliative care will continue to follow throughout hospital course to assist with symptom management and clarification of goals as needed. . (Tere Hernandez) Attestation To help prompt me to consider important information that might be impacting today's encounter and assessment, information from prior notes written by myself or my colleagues may have been "brought forward" into today's note. My signature on this note, however, is an attestation that I personally performed the exam, history, and/or decision-making noted today, and, unless otherwise indicated, the interactions with patient, family, and staff as well as the review of records all occurred today. I also attest that the listed assessment and stated plan reflect my best clinical judgment today based on the combination of historical information, prior notes, and today's exam/ interactions. When time spent is documented, it refers only to time spent today by the signer, or if indicated, combined time spent today by collaborating physician/nurse practitioner. (Tere Hernandez) Collaborating MD Comments Chart reviewed. Case discussed with palliative care EXTERMINATOR HELPER TERM[employer]. Above note reviewed and I concur. . (Eriberto Rainey MD) Tere Hernandez Mar 09, 2017 12:05 Eriberto Rainey MD Apr 03, 2017 11:49
[2017-03-09] MEDS: AZITHROMYCIN INJ 500 MG in SODIUM CHLOR 0.9% 250 ML INJ 250 ML IV SCH (14:38)
--- NOTE | 2017-03-09 16:52 | HHI.PR ---
Subjective Remarks He is awake and on High flow O2 at 40 %. Refused Bipap. . K+ level was low. No fever. Has some wheezing . On PT Has refused Bronchoscopy. Objective Vital Signs Date Time Temp Pulse Resp B/P (MAP) Pulse Ox O2 Delivery O2 Flow Rate FiO2 03/09/17 14:00 85 03/09/17 12:00 86 03/09/17 10:00 94 03/09/17 08:50 93 High Flow Nasal Cannula 30.00 60 03/09/17 08:00 98.1 80 27 120/60 (80) 90 03/09/17 08:00 Nasal Cannula 30.00 50 03/09/17 08:00 77 03/09/17 06:00 Nasal Cannula 30.00 50 03/09/17 06:00 86 03/09/17 04:00 77 03/09/17 04:00 78 18 109/59 (76) 96 03/09/17 02:00 82 03/09/17 00:00 97.7 74 15 117/56 (76) 96 03/09/17 00:00 82 03/08/17 22:00 87 03/08/17 20:00 97.7 74 16 114/56 (75) 95 03/08/17 20:00 87 03/08/17 20:00 94 Nasal Cannula 03/08/17 19:50 97 High Flow Nasal Cannula 30.00 50 03/08/17 18:41 95 High Flow Nasal Cannula 30.00 50 03/08/17 18:00 68 I/O 03/08/17 03/08/17 03/08/17 03/09/17 03/09/17 03/09/17 07:00 15:00 23:00 07:00 15:00 23:00 Intake Total 765 ml 359 ml Output Total 450 ml 950 ml 400 ml Balance -450 ml -185 ml -41 ml Intake Oral 515 ml 150 ml IV Total 250 ml 209 ml Output Urine Total 450 ml 950 ml 400 ml # Bowel Movements 0 Result Diagram: 03/07/17 0645 03/08/17 0431 Objective Remarks GENERAL: This moderately obese elderly man who is awake No distress HEENT: Head normocephalic. Pupils are reactive and equal. Tongue is moist. Throat is injected. Nasal mucosae clear. NECK: No bruits or thyroid enlargement or lymphadenopathy. CHEST: Distant breath sounds with expiratory wheezes bilaterally, prolonged expirations with occ crackles at the lung bases. HEART: The heart sounds irregular S1-S2 with no murmur or S3. ABDOMEN: Obese, protuberant without masses. No organomegaly or tenderness. Bowel sounds are active. EXTREMITIES: Mild edema and decreased peripheral pulses. No calf tenderness or swelling. Reflexes 1+ with no gross motor deficits. The patient does move all his extremities well. NEURO: alert and oriented. RECTAL: Exam is deferred. Assessment and Plan Assessment and Plan IMPRESSION 1. Acute respiratory failure. 2. Probable aspiration pneumonia. 3. Pulmonary edema 4. Chronic bronchitis and emphysema. 5. Interstitial lung disease. 6. Atrial fibrillation. 7. Hypertension and diabetes. 8. Anemia of chronic disease. Plan : 1. Cont Antibiotics per ID 2. Wean O2 to 4L 3. Solumedrol 40 mg IV Q8H 4. CBC, BMP ,in am 5. Duonebs Neb qid. 6. Continue Lasix 20 mg daily. 7. Refused Bipap. 8. Will Cont EzPAP with nebs 9. IS at bedside q3h Corinne Vieyra MD Mar 09, 2017 16:52
[2017-03-09] MEDS: INSULIN DETEMIR 100 UNITS/ML VIAL SQ SCH (21:00)
[2017-03-09] MEDS: TAMSULOSIN HCL 0.4 MG CAP PO SCH (23:02)
[2017-03-10] VITALS (13 sets, daily range): BP systolic 123–136; BP diastolic 60–74; PULSE 15–96; RESP 16–32; TEMP 97.8–98.4; O2SAT 90–99
[2017-03-10] MEDS: RESP: ALBUTEROL 2.5 MG/IPRATROPIUM 0.5 MG NEB (SCH) NEB ×4 (02:36→20:22)
[2017-03-10] MEDS: ACETAMINOPHEN/HYDROcodone 325 MG/5 MG TAB PO PRN ×2 (02:49→20:32)
[2017-03-10 06:04] LABS: INTERNATIONAL NORMALIZED RATIO 3.5 RATIO; PROTHROMBIN TIME - PATIENT 41.1 SEC (9.8-11.6)
[2017-03-10 06:24] LABS: BICARBONATE 22.6 MEQ/L (21.0-32.0)
[2017-03-10] MEDS: methylPREDNISolone SOD SUCC 125 MG/2 ML VIAL IV PUSH SCH ×3 (06:27→21:56)
[2017-03-10] MEDS: POTASSIUM CHLORIDE 10 MEQ CONTROLLED RELEASE TAB PO SCH (06:32)
[2017-03-10] MEDS: DILTIAZEM-CD 120 MG CAP ER PO SCH (07:39)
[2017-03-10] MEDS: INSULIN ASPART SUPPLEMENTAL SCALE SQ SCH ×4 (07:39→20:35)
[2017-03-10] MEDS: TIOTROPIUM BROMIDE 18 MCG INH INH SCH (07:39)
[2017-03-10] MEDS: SODIUM CHLORIDE 0.9% FLUSH 10 ML FLUSH IV FLUSH SCH ×2 (07:39→20:35)
[2017-03-10] MEDS: BUDESONIDE-FORMOTEROL 160/4.5 MCG INHALER INH SCH ×2 (07:39→20:33)
[2017-03-10] MEDS: FUROSEMIDE 20 MG/2 ML VIAL IV PUSH SCH (07:40)
[2017-03-10] MEDS: DOCUSATE SODIUM 50 MG/SENNA 8.6 MG TAB PO SCH ×2 (07:40→20:33)
[2017-03-10] MEDS: AMIODARONE 200 MG TAB PO SCH (07:40)
[2017-03-10] MEDS: NYSTAT/DIPHENHY/LIDO MOUTHWASH (Adult) 120ML SWISH-SWAL SCH ×4 (09:00→20:51)
[2017-03-10] MEDS: PANTOPRAZOLE SODIUM 40 MG VIAL IV PUSH SCH (10:00)
[2017-03-10] MEDS: AZITHROMYCIN INJ 500 MG in SODIUM CHLOR 0.9% 250 ML INJ 250 ML IV SCH (12:00)
[2017-03-10] MEDS ORDERED: FUROSEMIDE 20 MG/2 ML VIAL IV PUSH ONE (14:00)
[2017-03-10] MEDS ORDERED: SODIUM POLYSTYRENE SULFONATE SUSP 15 GM/60 ML CUP PO ONE (14:00)
--- NOTE | 2017-03-10 16:33 | HHI.FPPN ---
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 Objective Vitals Vital Signs Date Time Temp Pulse Resp B/P (MAP) Pulse Ox O2 Delivery O2 Flow Rate FiO2 03/10/17 16:00 83 03/10/17 14:00 80 03/10/17 12:00 98.0 92 32 127/74 (91) 91 03/10/17 12:00 92 03/10/17 10:00 93 03/10/17 09:45 92 High Flow Nasal Cannula 50 03/10/17 08:00 90 Nasal Cannula 03/10/17 08:00 98.2 83 22 123/62 (82) 90 03/10/17 08:00 83 03/10/17 06:00 74 03/10/17 04:00 98.0 15 16 129/60 (83) 98 03/10/17 01:15 16 03/10/17 00:00 78 03/10/17 00:00 97.8 74 16 128/60 (82) 90 03/10/17 00:00 73 03/09/17 22:00 74 03/09/17 20:00 97.9 81 16 111/60 (77) 92 03/09/17 20:00 92 50 03/09/17 20:00 74 03/09/17 19:11 96 High Flow Nasal Cannula 30.00 50 03/09/17 18:00 80 I/O 03/09/17 03/09/17 03/09/17 03/10/17 03/10/17 03/10/17 07:00 15:00 23:00 07:00 15:00 23:00 Intake Total 359 ml 757 ml 285 ml Output Total 400 ml 1000 ml 450 ml Balance -41 ml -243 ml -165 ml Intake Oral 150 ml 240 ml 250 ml IV Total 209 ml 517 ml Tube Feeding 35 ml Output Urine Total 400 ml 1000 ml 450 ml # Bowel Movements 1 Result Diagram: 03/07/17 0645 03/10/17 1143 Objective Remarks GENERAL: SKIN: Warm and dry. HEAD: Atraumatic. Normocephalic. EYES: Pupils equal and round. No scleral icterus. No injection or drainage. ENT: No nasal bleeding or discharge. Mucous membranes pink and moist. NECK: Trachea midline. No JVD. CARDIOVASCULAR: Regular rate and rhythm. RESPIRATORY: No accessory muscle use. Bilateral rales and ronchi. Breath sounds equal bilaterally. GASTROINTESTINAL: Abdomen soft, non-tender, nondistended. Hepatic and splenic margins not palpable. MUSCULOSKELETAL: Extremities without clubbing, cyanosis, or edema. No obvious deformities. NEUROLOGICAL: Awake and alert. No obvious cranial nerve deficits. Motor grossly within normal limits. 1 out of 5 muscle strength in the arms and legs. Normal speech. PSYCHIATRIC: Appropriate mood and affect; insight and judgment normal. Medications and IVs Current Medications Medications (Trade) Dose Ordered Sig/Lucas Route Start Time Stop Time Status Last Admin (NS Flush) 2 ml UNSCH PRN IV FLUSH 02/25/17 09:15 03/07/17 07:48 (NS Flush) 2 ml BID IV FLUSH 02/25/17 21:00 03/10/17 07:39 (Tylenol) 650 mg Q4H PRN PO 02/25/17 09:15 (Zofran Inj) 4 mg Q6H PRN IVP 02/25/17 09:15 (Narcan Inj) 0.4 mg UNSCH PRN IV 02/25/17 09:15 (Maira-Colace) 1 tab BID PO 02/25/17 21:00 03/10/17 07:40 (Milk Of Magnesia Liq) 30 ml Q12H PRN PO 02/25/17 09:15 (Senokot) 17.2 mg Q12H PRN PO 02/25/17 09:15 (Dulcolax Supp) 10 mg DAILY PRN RECTAL 02/25/17 09:15 (Lactulose Liq) 30 ml DAILY PRN PO 02/25/17 09:15 (Cordarone) 200 mg DAILY PO 02/26/17 09:00 03/10/17 07:40 (Cardizem Cd) 120 mg DAILY PO 02/26/17 09:00 03/10/17 07:39 (Ativan) 0.5 mg Q8H PRN PO 02/25/17 09:15 03/07/17 23:43 (Flomax) 0.4 mg HS PO 02/25/17 21:00 03/09/17 23:02 (Apresoline Inj) 20 mg Q4H PRN IV PUSH 02/25/17 09:15 Pharmacy Profile Note 0 ml @ 0 mls/hr UNSCH OTHER 02/25/17 09:15 (Protonix Inj) 40 mg Q24H IV PUSH 02/25/17 10:00 03/10/17 10:00 Miscellaneous Information Patient in critical care unit? Ass... Q361D .XX 02/25/17 17:00 (Symbicort 160-4.5 Inh) 1 puff Q12HR INH 02/25/17 21:00 03/10/17 07:39 (D50w (Vial) Inj) 50 ml UNSCH PRN IV PUSH 02/25/17 22:45 (Glucagon Inj) 1 mg UNSCH PRN OTHER 02/25/17 22:45 (Magic Mouthwash Adult Liq) 10 ml QID SWISH-SWAL 02/26/17 13:00 03/10/17 14:04 (Levemir Inj) 10 units HS SQ 03/01/17 21:00 03/09/17 21:00 (NovoLOG SUPPLEMENTAL SCALE) 1 ACHS SLIDING SCALE SQ 03/01/17 21:00 03/10/17 11:59 (Lasix Inj) 20 mg DAILY IV PUSH 03/05/17 09:00 03/10/17 07:40 (Albuterol Neb) 2.5 mg Q2HR NEB PRN NEB 03/06/17 16:00 Azithromycin 500 mg/Sodium Chloride 250 ml @ 250 mls/hr Q24H IV 03/07/17 14:00 03/10/17 12:00 (Coumadin) 2.5 mg DAILY@1600 PO 03/07/17 16:00 Future Hold 03/07/17 15:52 (SoluMEDROL INJ) 60 mg Q8HR IV PUSH 03/08/17 14:00 03/10/17 12:00 (Duoneb Neb) 1 ampule Q6HR NEB NEB 03/08/17 10:00 03/10/17 09:45 (Spiriva Inh) 18 mcg DAILY INH 03/08/17 09:00 03/10/17 07:39 ([place] 7.5-325 Mg) 1 tab Q6H PRN PO 03/09/17 09:00 03/09/17 17:59 ([place] 5-325 Mg) 1 tab Q4H PRN PO 03/09/17 09:00 03/10/17 02:49 A/P Assessment and Plan Assessment and Plan- Acute hypoxic and Hypercarbic respiratory failure COPD Exacerbation HCAP- on high flow NC. Continue to monitor in ICU. Recs from ID is to continue Azithromycin for total of 5 days. Pt remains afebrile. Continue IV lasix, duonebs, solu-medrol, budesonide and spiriva. Palliative care following. Encourage IS use. Sleep apnea: bipap but pt refusing. Atrial fibrillation: on amiodarone/cardizem/on coumadin which is on hold due to INR being 3.5. pharmacy following for coumadin management. Monitor INR Chronic kidney disease stage III- monitor. Diabetes: diabetic diet. ISS, monitor BS. caution as pt is on steroids. on levemir at bedtime, slowly titrate up as needed. Hypertension. stable, prn hydralazine available History of hyperkalemia and hypokalemia - kayexelate and iv lasix x one now. recurrent. replace as needed Chronic pain syndrome. still having pain, adjusted pain meds. PT/OT/ST following. ID has signed off, palliative and pulm following. Discharge Planning Encourage pt to continue working w therapy, encourage use of IS. Pt still requiring high flow NC. Pt to remain in ICU for close monitoring. continue to wean oxygen. Frederic Reddy MD Mar 10, 2017 16:33
--- NOTE | 2017-03-10 19:37 | HHI.PR ---
Subjective Remarks He is awake and on High flow O2 at 40 %. Refused Bipap. . K+ level is better. No fever. Has less wheezing . On PT Taking a po diet . Objective Vital Signs Date Time Temp Pulse Resp B/P (MAP) Pulse Ox O2 Delivery O2 Flow Rate FiO2 03/10/17 18:00 81 03/10/17 16:00 83 03/10/17 16:00 98.4 83 16 126/64 (84) 91 03/10/17 14:00 80 03/10/17 12:00 98.0 92 32 127/74 (91) 91 03/10/17 12:00 92 03/10/17 10:00 93 03/10/17 09:45 92 High Flow Nasal Cannula 50 03/10/17 08:00 90 Nasal Cannula 03/10/17 08:00 98.2 83 22 123/62 (82) 90 03/10/17 08:00 83 03/10/17 06:00 74 03/10/17 04:00 98.0 15 16 129/60 (83) 98 03/10/17 01:15 16 03/10/17 00:00 78 03/10/17 00:00 97.8 74 16 128/60 (82) 90 03/10/17 00:00 73 03/09/17 22:00 74 03/09/17 20:00 97.9 81 16 111/60 (77) 92 03/09/17 20:00 92 50 03/09/17 20:00 74 I/O 03/09/17 03/09/17 03/09/17 03/10/17 03/10/17 03/10/17 07:00 15:00 23:00 07:00 15:00 23:00 Intake Total 359 ml 757 ml 285 ml 732 ml Output Total 400 ml 1000 ml 450 ml 950 ml Balance -41 ml -243 ml -165 ml -218 ml Intake Oral 150 ml 240 ml 250 ml 480 ml IV Total 209 ml 517 ml 252 ml Tube Feeding 35 ml Output Urine Total 400 ml 1000 ml 450 ml 950 ml # Bowel Movements 1 0 Result Diagram: 03/07/17 0645 03/10/17 1143 Objective Remarks GENERAL: This moderately obese elderly man who is awake No distress. On O2 at 50 % HEENT: Head normocephalic. Pupils are reactive and equal. Tongue is moist. Throat is injected. Nasal mucosae clear. NECK: No bruits or thyroid enlargement or lymphadenopathy. CHEST: Distant breath sounds with expiratory wheezes bilaterally, prolonged expirations with crackles at the lung bases. HEART: The heart sounds irregular S1-S2 with no murmur or S3. ABDOMEN: Obese, protuberant without masses. No organomegaly or tenderness. Bowel sounds are active. EXTREMITIES: Mild edema and decreased peripheral pulses. No calf tenderness or swelling. Reflexes 1+ . The patient does move all his extremities well. NEURO: alert and oriented. RECTAL: Exam is deferred. Assessment and Plan Assessment and Plan IMPRESSION 1. Acute respiratory failure. 2. Probable aspiration pneumonia. 3. Pulmonary edema 4. Chronic bronchitis and emphysema. 5. Interstitial lung disease. 6. Atrial fibrillation. 7. Hypertension and diabetes. 8. Anemia of chronic disease. Plan : 1. Cont Antibiotics per ID 2. Wean O2 to 5 L 3. Solumedrol 40 mg IV Q8H 4. CBC, CXR ,in am 5. Duonebs Neb qid. 6. Continue Lasix 20 mg daily. 7. PT and OT 8. Will Cont EzPAP with nebs 9. IS at bedside q3h Corinne Vieyra MD Mar 10, 2017 19:37
[2017-03-10] MEDS: TAMSULOSIN HCL 0.4 MG CAP PO SCH (20:29)
[2017-03-10] MEDS: LORazepam 0.5 MG TAB PO PRN (20:29)
[2017-03-10] MEDS: INSULIN DETEMIR 100 UNITS/ML VIAL SQ SCH (20:35)
[2017-03-11] VITALS (15 sets, daily range): BP systolic 107–134; BP diastolic 59–77; PULSE 88–101; RESP 20–26; TEMP 97.8–98.9; O2SAT 90–95
[2017-03-11] MEDS: ACETAMINOPHEN/HYDROcodone 325 MG/5 MG TAB PO PRN ×3 (02:25→20:48)
[2017-03-11] MEDS: RESP: ALBUTEROL 2.5 MG/IPRATROPIUM 0.5 MG NEB (SCH) NEB ×4 (03:15→20:36)
[2017-03-11 06:35] LABS: AUTOMATED NEUTROPHIL # 5.7 TH/MM3 (1.8-7.7); BASOPHIL % 0.1 % (0.0-2.0); HEMATOCRIT 35.3 % (39.0-51.0); LYMPH % 2.4 % (9.0-44.0); LYMPHOCYTE # 0.1 TH/MM3 (1.0-4.8); MEAN CELL VOLUME 91.7 FL (80.0-100.0); MEAN CORPUSCULAR HEMOGLOBIN 29.9 PG (27.0-34.0); MEAN CORPUSCULAR HGB CONC 32.6 % (32.0-36.0); MONO % 1.8 % (0.0-8.0); NEUT % 95.7 % (16.0-70.0); PLATELET COUNT 76 TH/MM3 (150-450); RED BLOOD COUNT 3.85 MIL/MM3 (4.50-5.90)
[2017-03-11] MEDS: methylPREDNISolone SOD SUCC 125 MG/2 ML VIAL IV PUSH SCH ×3 (06:38→20:45)
[2017-03-11 06:42] LABS: HEMO FLAGS AUTO DIFF
[2017-03-11 06:44] LABS: INTERNATIONAL NORMALIZED RATIO 2.8 RATIO; PROTHROMBIN TIME - PATIENT 32.9 SEC (9.8-11.6)
[2017-03-11 07:06] LABS: BICARBONATE 23.9 MEQ/L (21.0-32.0); POTASSIUM 4.9 MEQ/L (3.5-5.1)
[2017-03-11] MEDS: INSULIN ASPART SUPPLEMENTAL SCALE SQ SCH ×4 (08:00→20:43)
[2017-03-11] MEDS: DOCUSATE SODIUM 50 MG/SENNA 8.6 MG TAB PO SCH ×2 (08:35→20:42)
[2017-03-11] MEDS: DILTIAZEM-CD 120 MG CAP ER PO SCH (08:35)
[2017-03-11] MEDS: AMIODARONE 200 MG TAB PO SCH (08:35)
[2017-03-11] MEDS: PANTOPRAZOLE SODIUM 40 MG VIAL IV PUSH SCH (08:35)
[2017-03-11] MEDS: NYSTAT/DIPHENHY/LIDO MOUTHWASH (Adult) 120ML SWISH-SWAL SCH ×4 (08:35→20:45)
[2017-03-11] MEDS: FUROSEMIDE 20 MG/2 ML VIAL IV PUSH SCH (08:35)
[2017-03-11] MEDS: TIOTROPIUM BROMIDE 18 MCG INH INH SCH (08:36)
[2017-03-11] MEDS: BUDESONIDE-FORMOTEROL 160/4.5 MCG INHALER INH SCH ×2 (08:36→20:42)
[2017-03-11] MEDS: SODIUM CHLORIDE 0.9% FLUSH 10 ML FLUSH IV FLUSH SCH ×2 (08:37→20:42)
[2017-03-11 08:44] LABS: BANDS 9 % (0-6); MYELOCYTES 1 % (0-0); NEUTROPHIL # MANUAL DIFF 5.8 TH/MM3 (1.8-7.7); POLYS (SEG NEUTROPHILS) 86 % (16-70); WBC DIFF SAMPLE 100
[2017-03-11 08:46] LABS: SCAN/DIFF FINAL DIFF MANUAL
[2017-03-11 08:48] LABS: PLATELET ESTIMATE SMEAR LOW (NORMAL); PLATELET MORPHOLOGY NORMAL (NORMAL)
--- NOTE | 2017-03-11 09:20 | HHI.FPPN ---
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 REVIEWED TELE REVIEWED LABS REVIEWED Objective Vitals Vital Signs Date Time Temp Pulse Resp B/P (MAP) Pulse Ox O2 Delivery O2 Flow Rate FiO2 03/11/17 07:00 95 Venturi Mask 50 03/11/17 06:00 88 03/11/17 04:00 98.0 96 25 134/77 (96) 93 03/11/17 04:00 89 03/11/17 03:50 93 Venturi Mask 50 03/11/17 02:00 92 03/11/17 00:00 98.1 90 20 119/62 (81) 90 03/11/17 00:00 90 03/10/17 22:00 96 03/10/17 20:00 97.8 85 23 136/72 (93) 99 03/10/17 20:00 85 03/10/17 19:51 94 High Flow Nasal Cannula 30.00 50 03/10/17 19:00 90 Nasal Cannula 30.00 50 03/10/17 18:00 81 03/10/17 16:00 83 03/10/17 16:00 98.4 83 16 126/64 (84) 91 03/10/17 14:00 80 03/10/17 12:00 98.0 92 32 127/74 (91) 91 03/10/17 12:00 92 03/10/17 10:00 93 03/10/17 09:45 92 High Flow Nasal Cannula 50 I/O 03/10/17 03/10/17 03/10/17 03/11/17 03/11/17 03/11/17 07:00 15:00 23:00 07:00 15:00 23:00 Intake Total 285 ml 732 ml 120 ml Output Total 450 ml 950 ml 525 ml Balance -165 ml -218 ml -405 ml Intake Oral 250 ml 480 ml 120 ml IV Total 252 ml Tube Feeding 35 ml Output Urine Total 450 ml 950 ml 525 ml # Bowel Movements 0 0 Result Diagram: 03/11/1752203/11/17522 Objective Remarks GENERAL: SKIN: Warm and dry. HEAD: Atraumatic. Normocephalic. EYES: Pupils equal and round. No scleral icterus. No injection or drainage. ENT: No nasal bleeding or discharge. Mucous membranes pink and moist. NECK: Trachea midline. No JVD. CARDIOVASCULAR: Regular rate and rhythm. RESPIRATORY: No accessory muscle use. Bilateral rales and ronchi. Breath sounds equal bilaterally. GASTROINTESTINAL: Abdomen soft, non-tender, nondistended. Hepatic and splenic margins not palpable. MUSCULOSKELETAL: Extremities without clubbing, cyanosis, or edema. No obvious deformities. NEUROLOGICAL: Awake and alert. No obvious cranial nerve deficits. Motor grossly within normal limits. 1 out of 5 muscle strength in the arms and legs. Normal speech. PSYCHIATRIC: Appropriate mood and affect; insight and judgment normal. Medications and IVs Current Medications Medications (Trade) Dose Ordered Sig/Lucas Route Start Time Stop Time Status Last Admin (NS Flush) 2 ml UNSCH PRN IV FLUSH 02/25/17 09:15 03/07/17 07:48 (NS Flush) 2 ml BID IV FLUSH 02/25/17 21:00 03/11/17 08:37 (Tylenol) 650 mg Q4H PRN PO 02/25/17 09:15 (Zofran Inj) 4 mg Q6H PRN IVP 02/25/17 09:15 (Narcan Inj) 0.4 mg UNSCH PRN IV 02/25/17 09:15 (Maira-Colace) 1 tab BID PO 02/25/17 21:00 03/11/17 08:35 (Milk Of Magnesia Liq) 30 ml Q12H PRN PO 02/25/17 09:15 (Senokot) 17.2 mg Q12H PRN PO 02/25/17 09:15 (Dulcolax Supp) 10 mg DAILY PRN RECTAL 02/25/17 09:15 (Lactulose Liq) 30 ml DAILY PRN PO 02/25/17 09:15 (Cordarone) 200 mg DAILY PO 02/26/17 09:00 03/11/17 08:35 (Cardizem Cd) 120 mg DAILY PO 02/26/17 09:00 03/11/17 08:35 (Ativan) 0.5 mg Q8H PRN PO 02/25/17 09:15 03/10/17 20:29 (Flomax) 0.4 mg HS PO 02/25/17 21:00 03/10/17 20:29 (Apresoline Inj) 20 mg Q4H PRN IV PUSH 02/25/17 09:15 Pharmacy Profile Note 0 ml @ 0 mls/hr UNSCH OTHER 02/25/17 09:15 (Protonix Inj) 40 mg Q24H IV PUSH 02/25/17 10:00 03/11/17 08:35 Miscellaneous Information Patient in critical care unit? Ass... Q361D .XX 02/25/17 17:00 (Symbicort 160-4.5 Inh) 1 puff Q12HR INH 02/25/17 21:00 03/11/17 08:36 (D50w (Vial) Inj) 50 ml UNSCH PRN IV PUSH 02/25/17 22:45 (Glucagon Inj) 1 mg UNSCH PRN OTHER 02/25/17 22:45 (Magic Mouthwash Adult Liq) 10 ml QID SWISH-SWAL 02/26/17 13:00 03/11/17 08:35 (Levemir Inj) 10 units HS SQ 03/01/17 21:00 03/10/17 20:35 (NovoLOG SUPPLEMENTAL SCALE) 1 ACHS SLIDING SCALE SQ 03/01/17 21:00 03/10/17 20:35 (Lasix Inj) 20 mg DAILY IV PUSH 03/05/17 09:00 03/11/17 08:35 (Albuterol Neb) 2.5 mg Q2HR NEB PRN NEB 03/06/17 16:00 Azithromycin 500 mg/Sodium Chloride 250 ml @ 250 mls/hr Q24H IV 03/07/17 14:00 03/10/17 12:00 (Coumadin) 2.5 mg DAILY@1600 PO 03/07/17 16:00 Future Hold 03/07/17 15:52 (Duoneb Neb) 1 ampule Q6HR NEB NEB 03/08/17 10:00 03/11/17 03:15 (Spiriva Inh) 18 mcg DAILY INH 03/08/17 09:00 03/11/17 08:36 ([place] 7.5-325 Mg) 1 tab Q6H PRN PO 03/09/17 09:00 03/09/17 17:59 ([place] 5-325 Mg) 1 tab Q4H PRN PO 03/09/17 09:00 03/11/17 08:44 (SoluMEDROL INJ) 40 mg Q8HR IV PUSH 03/10/17 22:00 03/11/17 06:38 Urinary Catheter: Yes Assessment to: Continue A/P Assessment and Plan Assessment and Plan- Acute hypoxic and Hypercarbic respiratory failure- on venti mask COPD Exacerbation HCAP- on high flow NC. Continue to monitor in ICU. Recs from ID is to continue Azithromycin for total of 5 days. Pt remains afebrile. Continue IV lasix, duonebs, solu-medrol, budesonide and spiriva. Palliative care following. Encourage IS use. Sleep apnea: bipap but pt refusing. Atrial fibrillation: on amiodarone/cardizem/on coumadin which is on hold due to INR being 3.5. pharmacy following for coumadin management. Monitor INR Chronic kidney disease stage III- monitor. Diabetes: diabetic diet. ISS, monitor BS. caution as pt is on steroids. on levemir at bedtime, slowly titrate up as needed. Hypertension. stable, prn hydralazine available History of hyperkalemia and hypokalemia - kayexelate and iv lasix x one Yesterday. recurrent. replace as needed Chronic pain syndrome. still having pain, adjusted pain meds. PT/OT/ST following. ID has signed off, palliative and pulm following. Discharge Planning Encourage pt to continue working w therapy, encourage use of IS. Pt still requiring high flow NC. Pt to remain in ICU for close monitoring. continue to wean oxygen. Frederic Reddy MD Mar 11, 2017 09:19
[2017-03-11] MEDS: AZITHROMYCIN INJ 500 MG in SODIUM CHLOR 0.9% 250 ML INJ 250 ML IV SCH (12:29)
[2017-03-11] MEDS: WARFARIN SOD 1 MG TAB PO SCH (16:33)
--- NOTE | 2017-03-11 19:21 | HHI.PR ---
Subjective Remarks He is awake and still on High flow O2 at 40 %. Refused Bipap. . No fever. Has less wheezing . On PT Taking his diet well. On PT. Objective Vital Signs Date Time Temp Pulse Resp B/P (MAP) Pulse Ox O2 Delivery O2 Flow Rate FiO2 03/11/17 18:00 101 03/11/17 16:00 98 03/11/17 16:00 98.7 98 22 107/ 95 03/11/17 14:00 93 03/11/17 12:00 98.9 96 20 114/67 (83) 95 03/11/17 12:00 96 03/11/17 10:00 96 03/11/17 09:52 22 03/11/17 09:35 94 Venturi Mask 6.00 50 03/11/17 08:00 89 03/11/17 08:00 97.8 89 22 128/62 (84) 92 03/11/17 07:00 95 Venturi Mask 50 03/11/17 06:00 88 03/11/17 04:00 98.0 96 25 134/77 (96) 93 03/11/17 04:00 89 03/11/17 03:50 93 Venturi Mask 50 03/11/17 02:00 92 03/11/17 00:00 98.1 90 20 119/62 (81) 90 03/11/17 00:00 90 03/10/17 22:00 96 03/10/17 20:00 97.8 85 23 136/72 (93) 99 03/10/17 20:00 85 03/10/17 19:51 94 High Flow Nasal Cannula 30.00 50 I/O 03/10/17 03/10/17 03/10/17 03/11/17 03/11/17 03/11/17 07:00 15:00 23:00 07:00 15:00 23:00 Intake Total 285 ml 732 ml 120 ml 1210 ml Output Total 450 ml 950 ml 525 ml 100 ml Balance -165 ml -218 ml -405 ml 1110 ml Intake Oral 250 ml 480 ml 120 ml 960 ml IV Total 252 ml 250 ml Tube Feeding 35 ml Output Urine Total 450 ml 950 ml 525 ml 100 ml # Bowel Movements 0 0 4 Result Diagram: 03/11/1752203/11/17522 Objective Remarks GENERAL: This moderately obese elderly man who is awake No distress. HEENT: Head normocephalic. Pupils are reactive and equal. Tongue is moist. Throat is clear Nasal mucosae clear. NECK: No bruits or thyroid enlargement or lymphadenopathy. CHEST: Distant breath sounds with expiratory wheezes bilaterally, prolonged expirations with crackles at the lung bases. HEART: The heart sounds irregular S1-S2 with no murmur or S3. ABDOMEN: Obese, protuberant without masses. No organomegaly or tenderness. Bowel sounds are active. EXTREMITIES: No edema and decreased peripheral pulses. No calf tenderness or swelling. Reflexes 1+ . The patient does move all his extremities well. NEURO: alert and oriented. RECTAL: Exam is deferred. Assessment and Plan Assessment and Plan IMPRESSION 1. Acute respiratory failure. 2. Probable aspiration pneumonia. 3. Pulmonary edema 4. Chronic bronchitis and emphysema. 5. Interstitial lung disease. 6. Atrial fibrillation. 7. Hypertension and diabetes. 8. Anemia of chronic disease. Plan : 1. Cont Antibiotics per ID 2. Wean O2 to 5 L 3. Solumedrol 40 mg IV Q8H 4. CBC, BMP ,in am 5. Duonebs Neb qid. 6. Continue Lasix 20 mg daily. 7. PT and OT 8. Will Cont EzPAP with Corinne Garduno MD Mar 11, 2017 19:20
[2017-03-11] MEDS: TAMSULOSIN HCL 0.4 MG CAP PO SCH (20:42)
[2017-03-11] MEDS: INSULIN DETEMIR 100 UNITS/ML VIAL SQ SCH (20:42)
[2017-03-11] MEDS: LORazepam 0.5 MG TAB PO PRN (20:42)
[2017-03-12] VITALS (12 sets, daily range): BP systolic 99–143; BP diastolic 56–69; PULSE 86–98; RESP 16–25; TEMP 97.3–98.9; O2SAT 90–95
[2017-03-12] MEDS: LORazepam 0.5 MG TAB PO PRN ×2 (01:53→20:43)
[2017-03-12] MEDS: ACETAMINOPHEN/HYDROcodone 325 MG/5 MG TAB PO PRN ×3 (01:54→20:00)
[2017-03-12] MEDS: RESP: ALBUTEROL 2.5 MG/IPRATROPIUM 0.5 MG NEB (SCH) NEB ×2 (03:05→09:24)
[2017-03-12] MEDS: methylPREDNISolone SOD SUCC 125 MG/2 ML VIAL IV PUSH SCH ×3 (05:29→19:37)
--- NOTE | 2017-03-12 05:43 | RADRPT ---
EXAM DATE/TIME: 03/12/2017 05:01 [facility] COMPARISON: CHEST SINGLE AP, March 08, 2017, 5:05. INDICATIONS : Edema. Respiratory failure. MEDICAL HISTORY : None. SURGICAL HISTORY : None. ENCOUNTER: Subsequent ACUITY: 4 - 6 days PAIN SCORE: Non-responsive. LOCATION: Bilateral chest FINDINGS: A single view of the chest demonstrates the lungs to be symmetrically aerated with stable interstitia l prominence most prominent in the apices. No superimposed acute infiltrate. Heart size is normal. Os seous structures are intact. CONCLUSION: 1. Stable interstitial prominence, most evident in the apices may be chronic. 2. No superimposed acute infiltrate. Wil Edward MD on March 12, 2017 at 5:41 Board Certified Radiologist. This report was verified electronically.
[2017-03-12 06:41] LABS: AUTOMATED NEUTROPHIL # 4.2 TH/MM3 (1.8-7.7); BASOPHIL % 0.1 % (0.0-2.0); HEMATOCRIT 34.7 % (39.0-51.0); LYMPH % 3.5 % (9.0-44.0); LYMPHOCYTE # 0.2 TH/MM3 (1.0-4.8); MEAN CELL VOLUME 91.6 FL (80.0-100.0); MEAN CORPUSCULAR HEMOGLOBIN 30.2 PG (27.0-34.0); MEAN CORPUSCULAR HGB CONC 32.9 % (32.0-36.0); MONO % 2.5 % (0.0-8.0); NEUT % 93.9 % (16.0-70.0); PLATELET COUNT 71 TH/MM3 (150-450); RED BLOOD COUNT 3.78 MIL/MM3 (4.50-5.90); RED CELL DISTRIBUTION WIDTH 21.7 % (11.6-17.2); WHITE BLOOD COUNT 4.5 TH/MM3 (4.0-11.0)
[2017-03-12 06:43] LABS: INTERNATIONAL NORMALIZED RATIO 2.3 RATIO; PROTHROMBIN TIME - PATIENT 26.4 SEC (9.8-11.6)
[2017-03-12 06:57] LABS: HEMO FLAGS AUTO DIFF
[2017-03-12 07:07] LABS: POTASSIUM 4.1 MEQ/L (3.5-5.1)
[2017-03-12] MEDS: DILTIAZEM-CD 120 MG CAP ER PO SCH (07:47)
[2017-03-12] MEDS: AMIODARONE 200 MG TAB PO SCH (07:47)
[2017-03-12] MEDS: DOCUSATE SODIUM 50 MG/SENNA 8.6 MG TAB PO SCH ×2 (07:47→19:37)
[2017-03-12] MEDS: FUROSEMIDE 20 MG/2 ML VIAL IV PUSH SCH ×2 (07:48→16:43)
[2017-03-12] MEDS: SODIUM CHLORIDE 0.9% FLUSH 10 ML FLUSH IV FLUSH SCH ×2 (07:48→19:37)
[2017-03-12] MEDS: NYSTAT/DIPHENHY/LIDO MOUTHWASH (Adult) 120ML SWISH-SWAL SCH ×4 (07:48→20:21)
[2017-03-12] MEDS: INSULIN ASPART SUPPLEMENTAL SCALE SQ SCH ×4 (07:49→20:21)
[2017-03-12] MEDS: BUDESONIDE-FORMOTEROL 160/4.5 MCG INHALER INH SCH ×2 (08:00→19:36)
[2017-03-12] MEDS: TIOTROPIUM BROMIDE 18 MCG INH INH SCH (08:17)
[2017-03-12] MEDS: PANTOPRAZOLE SODIUM 40 MG VIAL IV PUSH SCH (08:17)
[2017-03-12 08:46] LABS: ACANTHOCYTES OCC (NORMAL); OVALOCYTES 1+ (NORMAL); PLATELET ESTIMATE SMEAR LOW (NORMAL); PLATELET MORPHOLOGY NORMAL (NORMAL); SCAN/DIFF AUTO DIFF CONFIRMED
--- NOTE | 2017-03-12 09:57 | HHI.PR ---
Subjective Remarks Follow-up for acute respirator failure secondary to COPD exacerbation [place] with therapist and patient's daughters at the bedside during the interview. Patient stated that breathing has improved a little bit. Per patient's daughter she feels like his breathing has improved. Daughter concerned that patient not able to walk. She stated that 2 months ago patient fell about 10 times which brought him to the hospital initially. She stated that she feels like she did not get an answer why her father could not walk. Patient has chronic lower extremity pain most likely secondary to peripheral arterial disease. Patient's daughter also stated that she feels like he needs to be on chronic steroids. She stated that once he took him off steroids he went to respiratory failure again. Respiratory therapist stated that patient is doing better and that he is trying to wean patient onto nasal cannula. Objective Vitals Vital Signs Date Time Temp Pulse Resp B/P (MAP) Pulse Ox O2 Delivery O2 Flow Rate FiO2 03/12/17 06:00 88 03/12/17 04:00 87 03/12/17 04:00 98.5 87 25 126/65 (85) 95 03/12/17 02:54 30 03/12/17 02:00 88 03/12/17 00:00 91 03/12/17 00:00 98.9 91 25 105/57 (73) 91 03/11/17 22:00 91 03/11/17 20:36 95 Venturi Mask 40 03/11/17 20:00 98.7 96 26 114/59 (77) 92 03/11/17 20:00 96 03/11/17 19:00 93 Venturi Mask 50 03/11/17 19:00 91 Venturi Mask 50 03/11/17 18:00 101 03/11/17 16:00 98 03/11/17 16:00 98.7 98 22 107/ 95 03/11/17 14:00 93 03/11/17 12:00 98.9 96 20 114/67 (83) 95 03/11/17 12:00 96 03/11/17 10:00 96 I/O 03/11/17 03/11/17 03/11/17 03/12/17 03/12/17 03/12/17 07:00 15:00 23:00 07:00 15:00 23:00 Intake Total 120 ml 1210 ml 400 ml Output Total 525 ml 100 ml 300 ml Balance -405 ml 1110 ml 100 ml Intake Oral 120 ml 960 ml 400 ml IV Total 250 ml Output Urine Total 525 ml 100 ml 300 ml # Bowel Movements 0 4 1 Result Diagram: 03/12/1754203/12/17542 Objective Remarks GENERAL: In no acute distress but looks chronically ill CARDIOVASCULAR: Regular rate and rhythm without murmurs, gallops, or rubs. RESPIRATORY: Distant lung sounds with poor radiation. No wheezing noted. No accessory muscle use. GASTROINTESTINAL: Abdomen soft, non-tender, nondistended. MUSCULOSKELETAL: Patient will not move his lower extremity for me. Positive tenderness to palpation of the lower extremity. +2 pitting edema. Medications and IVs Current Medications Methylprednisolone Sodium Succinate (SoluMEDROL INJ) 125 mg ONCE ONCE IVP Last administered on 02/25/17 08:06; Start 02/25/17 at 07:45; Stop 02/25/17 at 07: 46; Status DC Albuterol Sulfate (Albuterol Neb) 2.5 mg Q15M INH Last administered on 08:15; Start 02/25/17 at 07:45; Stop 02/25/17 at 08:16; Status DC Magnesium Sulfate/ Dextrose 100 ml @ 100 mls/hr ONCE ONCE IV Last administered on 02/25/17 08:06; Start 02/25/17 at 07:45; Stop 02/25/17 at 08:44; Status DC Piperacillin Sod/ Tazobactam Sod 100 ml @ 200 mls/hr ONCE STAT IV Last administered on 02/25/17 08:28; Start 02/25/17 at 07:40; Stop 02/25/17 at 08:12; Status DC Azithromycin 500 mg/Sodium Chloride 250 ml @ 250 mls/hr ONCE STAT IV Last administered on 02/25/17 09:41; Start 02/25/17 at 07:40; Stop 02/25/17 at 08:39; Status DC Tobramycin Sulfate 100 mg/ Sodium Chloride 102.5 ml @ 100 mls/hr ONCE STAT IV Last administered on 02/25/17 12:09; Start 02/25/17 at 07:40; Stop 02/25/17 at 08:41; Status DC Iohexol (Omnipaque 350 Inj) 73 ml STK-MED ONCE IVCONTRAST Last administered on 02/25/17 07:16; Start 02/25/17 at 07:16; Stop 02/25/17 at 08:12; Status DC Sodium Chloride (NS Flush) 2 ml UNSCH PRN IV FLUSH FLUSH AFTER USING IV ACCESS Last administered on 03/07/17 07:48; Start 02/25/17 at 09:15 Sodium Chloride (NS Flush) 2 ml BID IV FLUSH Last administered on 03/12/17 07: 48; Start 02/25/17 at 21:00 Acetaminophen (Tylenol) 650 mg Q4H PRN PO TEMP > 100.4; Start 02/25/17 at 09:15 Ondansetron HCl (Zofran Inj) 4 mg Q6H PRN IVP NAUSEA OR VOMITING; Start at 09:15 Zolpidem Tartrate (Ambien) 5 mg HS PRN PO INSOMNIA Last administered on 00:18; Start 02/25/17 at 09:15; Stop 03/06/17 at 15:57; Status DC Heparin Sodium (Porcine) (Heparin Inj) 5,000 units Q12H SQ ; Start 02/25/17 at 09 :15; Stop 02/25/17 at 09:15; Status DC Naloxone HCl (Narcan Inj) 0.4 mg UNSCH PRN IV SEE LABEL COMMENTS; Start at 09:15 Senna/Docusate Sodium (Maira-Colace) 1 tab BID PO Last administered on 07:47; Start 02/25/17 at 21:00 Magnesium Hydroxide (Milk Of Magnesia Liq) 30 ml Q12H PRN PO MILD - MODERATE CONSTIPATION; Start 02/25/17 at 09:15 Sennosides (Senokot) 17.2 mg Q12H PRN PO MODERATE - SEVERE CONSTIPATION; Start 02/25/17 at 09:15 Bisacodyl (Dulcolax Supp) 10 mg DAILY PRN RECTAL SEVERE CONSITIPATION; Start at 09:15 Lactulose (Lactulose Liq) 30 ml DAILY PRN PO SEVERE CONSITIPATION; Start at 09:15 Albuterol Sulfate (Albuterol Neb) 2.5 mg Q6HR NEB PRN NEB SHORTNESS OF BREATH Last administered on 03/06/17 05:43; Start 02/25/17 at 09:15; Stop 03/06/17 at 15:57; Status DC Amiodarone HCl (Cordarone) 200 mg DAILY PO Last administered on 03/12/17 07:47 ; Start 02/26/17 at 09:00 Diltiazem HCl (Cardizem Cd) 120 mg DAILY PO Last administered on 03/12/17 07: 47; Start 02/26/17 at 09:00 Acetaminophen/ Hydrocodone Bitart (Coin 5-325 Mg) 1 tab Q4H PRN PO PAIN GREATER THAN 5 Last administered on 03/09/17 05:49; Start 02/25/17 at 09:15; Stop 03/09/17 at 08:57; Status DC Lorazepam (Ativan) 0.5 mg Q8H PRN PO SEVERE ANXIETY OR AGITATION Last administered on 03/12/17 01:53; Start 02/25/17 at 09:15 Tamsulosin HCl (Flomax) 0.4 mg HS PO Last administered on 03/11/17 20:42; Start 02/25/17 at 21:00 Warfarin Sodium (Coumadin) 2 mg DAILY@1600 PO ; Start 02/26/17 at 16:00; Stop 03/01/17 at 16:52; Status DC Hydralazine HCl (Apresoline Inj) 20 mg Q4H PRN IV PUSH SYS BP GREATER THAN 180 MMHG; Start 02/25/17 at 09:15 Pharmacy Profile Note 0 ml @ 0 mls/hr UNSCH OTHER ; Start 02/25/17 at 09:15 Furosemide (Lasix Inj) 40 mg BID@09,18 IV PUSH Last administered on 03/01/17 17 :55; Start 02/25/17 at 18:00; Stop 03/01/17 at 18:30; Status DC Methylprednisolone Sodium Succinate (SoluMEDROL INJ) 125 mg Q6H IV PUSH Last administered on 02/25/17 14:06; Start 02/25/17 at 14:00; Stop 02/25/17 at 19:22; Status DC Pantoprazole Sodium (Protonix Inj) 40 mg Q24H IV PUSH Last administered on 03/12 08:17; Start 02/25/17 at 10:00 Piperacillin Sod/ Tazobactam Sod 50 ml @ 100 mls/hr Q6H IV Last administered on 02/25/17 15:39; Start 02/25/17 at 15:00; Stop 02/25/17 at 20:55; Status DC Pharmacy Profile Note 0 ml @ 0 mls/hr UNSCH OTHER ; Start 02/25/17 at 09:15; Stop 02/28/17 at 12:07; Status DC Albuterol/ Ipratropium (Duoneb Neb) 1 ampule QID NEB NEB Last administered on 03/01/17 07:55; Start 02/25/17 at 12:00; Stop 03/01/17 at 11:59; Status DC Dextrose/Sodium Chloride 1,000 ml @ 70 mls/hr [id number] IV Last administered on 03/01/17 12:40; Start 02/25/17 at 10:00; Stop 03/01/17 at 18:21; Status DC Vancomycin HCl 2000 mg/Sodium Chloride 520 ml @ 250 mls/hr ONCE ONCE IV Last administered on 02/25/17 13:30; Start 02/25/17 at 11:00; Stop 02/25/17 at 13:04; Status DC Patient Medication Teaching (Coumadin Booklet) 1 ONCE ONCE OTHER ; Start at 16:00; Stop 02/26/17 at 16:01; Status DC Vancomycin HCl 1000 mg/Sodium Chloride 250 ml @ 250 mls/hr Q12H IV Last administered on 02/26/17 13:00; Start 02/26/17 at 01:00; Stop 02/27/17 at 09:40; Status DC Miscellaneous Information SPECIFIC LAB TO BE MARLENY... ONCE ONCE .XX ; Start at 00:45; Stop 02/27/17 at 00:46; Status DC Miscellaneous Information Patient in critical care unit? Ass... Q361D .XX ; Start 02/25/17 at 17:00 Chlorhexidine Gluconate (Chlorhexidine 2% Cloth) 3 pack DAILY@04 TOPICAL Last administered on 03/01/17 03:35; Start 02/26/17 at 04:00; Stop 03/02/17 at 04:01; Status DC Chlorhexidine Gluconate (Chlorhexidine 2% Cloth) 3 pack UNSCH PRN TOPICAL HYGIENIC CARE; Start 02/25/17 at 17:00; Stop 03/02/17 at 16:52; Status DC Methylprednisolone Sodium Succinate (SoluMEDROL INJ) 60 mg Q6H IV PUSH Last administered on 02/26/17 13:24; Start 02/25/17 at 20:00; Stop 02/26/17 at 14:51; Status DC Budesonide/ Formoterol Fumarate (Symbicort 160-4.5 Inh) 1 puff Q12HR INH Last administered on 03/12/17 08:00; Start 02/25/17 at 21:00 Azithromycin (Zithromax) 500 mg DAILY PO Last administered on 03/02/17 08:15; Start 02/26/17 at 09:00; Stop 03/02/17 at 16:43; Status DC Piperacillin Sod/ Tazobactam Sod 100 ml @ 200 mls/hr Q8H IV Last administered on 02/28/17 06:09; Start 02/25/17 at 21:00; Stop 02/28/17 at 12:08; Status DC Insulin Aspart (NovoLOG SUPPLEMENTAL SCALE) 1 ACHS SLIDING SCALE SQ Last administered on 03/01/17 17:53; Start 02/26/17 at 07:00; Stop 03/01/17 at 18:31; Status DC Dextrose (D50w (Vial) Inj) 50 ml UNSCH PRN IV PUSH HYPOGLYCEMIA - SEE COMMENTS ; Start 02/25/17 at 22:45 Glucagon (Glucagon Inj) 1 mg UNSCH PRN OTHER HYPOGLYCEMIA-SEE COMMENTS; Start 02/25/17 at 22:45 Multi-Ingredient Mouthwash/Gargle (Magic Mouthwash Adult Liq) 10 ml QID SWISH- SWAL Last administered on 03/12/17 07:48; Start 02/26/17 at 13:00 Methylprednisolone Sodium Succinate (SoluMEDROL INJ) 40 mg Q6H IV PUSH Last administered on 03/01/17 14:12; Start 02/26/17 at 20:00; Stop 03/01/17 at 18:21; Status DC Vancomycin HCl 1000 mg/Sodium Chloride 250 ml @ 250 mls/hr Q18H IV ; Start 02/27 at 18:00; Status Cancel Vancomycin HCl 1500 mg/Sodium Chloride 515 ml @ 250 mls/hr ONCE ONCE IV Last administered on 02/27/17 12:10; Start 02/27/17 at 13:00; Stop 02/28/17 at 12:07; Status DC Insulin Detemir (Levemir Inj) 5 units HS SQ Last administered on 02/28/17 20:47 ; Start 02/28/17 at 21:00; Stop 03/01/17 at 18:31; Status DC Potassium Chloride (KCl) 40 meq ONCE ONCE PO Last administered on 02/28/17 16: 13; Start 02/28/17 at 15:00; Stop 02/28/17 at 15:01; Status DC Warfarin Sodium (Coumadin) 1 mg DAILY@1600 PO Last administered on 03/03/17 16: 33; Start 03/01/17 at 17:00; Stop 03/04/17 at 09:33; Status DC Methylprednisolone Sodium Succinate (SoluMEDROL INJ) 40 mg Q8HR IV PUSH Last administered on 03/03/17 12:56; Start 03/01/17 at 22:00; Stop 03/03/17 at 13:10; Status DC Furosemide (Lasix Inj) 20 mg BID@0900,1800 IV PUSH Last administered on 08:45; Start 03/02/17 at 09:00; Stop 03/04/17 at 15:21; Status DC Insulin Detemir (Levemir Inj) 10 units HS SQ Last administered on 03/11/17 20: 42; Start 03/01/17 at 21:00 Insulin Aspart (NovoLOG SUPPLEMENTAL SCALE) 1 ACHS SLIDING SCALE SQ Last administered on 03/11/17 20:43; Start 03/01/17 at 21:00 Potassium Chloride 100 ml @ 100 mls/hr Q1H IV Last administered on 03/03/17 05 :06; Start 03/02/17 at 20:15; Stop 03/02/17 at 23:14; Status DC Potassium Bicarb/ Potassium Chloride (K-Lyte Cl Eff) 50 meq ONCE ONCE PO Last administered on 03/02/17 21:57; Start 03/02/17 at 20:15; Stop 03/02/17 at 20: 22; Status DC Sodium Chloride 500 ml @ 20 mls/hr Q24H IV Last administered on 03/02/17 22:03 ; Start 03/02/17 at 20:15; Stop 03/03/17 at 20:14; Status DC Potassium Chloride (KCl) 30 meq Q12HR PO ; Start 03/03/17 at 21:00; Stop 03/03/17 at 21:00; Status DC Methylprednisolone Sodium Succinate (SoluMEDROL INJ) 40 mg BID IV PUSH Last administered on 03/05/17 08:19; Start 03/03/17 at 21:00; Stop 03/05/17 at 20:59; Status DC Potassium Chloride (KCl) 40 meq Q8H PO Last administered on 03/10/17 06:32; Start 03/03/17 at 21:00; Stop 03/10/17 at 08:12; Status DC Warfarin Sodium (Coumadin) 2 mg DAILY@1600 PO Last administered on 03/04/17 17: 17; Start 03/04/17 at 16:00; Stop 03/05/17 at 12:27; Status DC Furosemide (Lasix Inj) 20 mg DAILY IV PUSH Last administered on 03/12/17 07:48 ; Start 03/05/17 at 09:00 Warfarin Sodium (Coumadin) 3 mg DAILY@1600 PO Last administered on 03/06/17 16 :29; Start 03/05/17 at 16:00; Stop 03/07/17 at 14:39; Status DC Furosemide (Lasix Inj) 40 mg ONCE ONCE IV PUSH Last administered on 03/06/17 06:48; Start 03/06/17 at 06:45; Stop 03/06/17 at 06:46; Status DC Methylprednisolone Sodium Succinate (SoluMEDROL INJ) 125 mg ONCE ONCE IV PUSH Last administered on 03/06/17 06:50; Start 03/06/17 at 06:45; Stop 03/06/17 at 06:46; Status DC Pharmacy Profile Note 0 ml @ 0 mls/hr UNSCH OTHER ; Start 03/06/17 at 07:00; Stop 03/07/17 at 12:39; Status DC Cefepime HCl 2000 mg/Sodium Chloride 100 ml @ 200 mls/hr Q8H IV Last administered on 03/07/17 07:48; Start 03/06/17 at 08:00; Stop 03/07/17 at 12:39 ; Status DC Vancomycin HCl 1500 mg/Sodium Chloride 515 ml @ 257.5 mls/ hr Q24H IV Last administered on 03/07/17 07:55; Start 03/06/17 at 09:00; Stop 03/07/17 at 12:39 ; Status DC Miscellaneous Information SPECIFIC LAB TO BE ... ONCE ONCE .XX ; Start 03/09 at 08:45; Stop 03/09/17 at 08:45; Status DC Albuterol Sulfate (Albuterol Neb) 2.5 mg Q2HR NEB PRN NEB SHORTNESS OF BREATH; Start 03/06/17 at 16:00 Methylprednisolone Sodium Succinate (SoluMEDROL INJ) 60 mg Q12HR IV PUSH Last administered on 03/07/17 20:41; Start 03/06/17 at 21:00; Stop 03/08/17 at 07:55 ; Status DC Azithromycin 500 mg/Sodium Chloride 250 ml @ 250 mls/hr Q24H IV Last administered on 03/11/17 12:29; Start 03/07/17 at 14:00 Warfarin Sodium (Coumadin) 2.5 mg DAILY@1600 PO Last administered on 03/07/17 15:52; Start 03/07/17 at 16:00; Stop 03/11/17 at 10:58; Status DC Methylprednisolone Sodium Succinate (SoluMEDROL INJ) 60 mg Q8HR IV PUSH Last administered on 03/10/17 12:00; Start 03/08/17 at 14:00; Stop 03/10/17 at 19:39 ; Status DC Albuterol/ Ipratropium (Duoneb Neb) 1 ampule Q6HR NEB NEB Last administered on 03/12/17 09:24; Start 03/08/17 at 10:00 Tiotropium [place] (Spiriva Inh) 18 mcg DAILY INH Last administered on 08:17; Start 03/08/17 at 09:00 Acetaminophen/ Hydrocodone Bitart (Coin 7.5-325 Mg) 1 tab Q6H PRN PO PAIN>7 Last administered on 03/09/17 17:59; Start 03/09/17 at 09:00 Acetaminophen/ Hydrocodone Bitart (Coin 5-325 Mg) 1 tab Q4H PRN PO PAIN SCALE 3 TO 6 Last administered on 03/12/17 08:17; Start 03/09/17 at 09:00 Sodium Polystyrene Sulfonate (Kayexalate Liq) 15 gm NOW ONCE PO Last administered on 03/10/17 14:04; Start 03/10/17 at 14:00; Stop 03/10/17 at 14:01 ; Status DC Furosemide (Lasix Inj) 20 mg NOW ONCE IV PUSH Last administered on 03/10/17 14:03; Start 03/10/17 at 14:00; Stop 03/10/17 at 14:01; Status DC Methylprednisolone Sodium Succinate (SoluMEDROL INJ) 40 mg Q8HR IV PUSH Last administered on 03/12/17 05:29; Start 03/10/17 at 22:00 Warfarin Sodium (Coumadin) 1 mg DAILY@1600 PO Last administered on 03/11/17 16 :33; Start 03/11/17 at 16:00 A/P Assessment and Plan Acute hypoxic and Hypercarbic respiratory failure most likely secondary to severe COPD exacerbation COPD Exacerbation -Pony Ride Operator following. Per infectious disease complete 5 day course of azithromycin. Highly unlikely this is pneumonia. Continue with DuoNeb nebs, Solu-Medrol, budesonide and Spiriva per job change crew member. Lower extremity edema, +2 pitting edema -Patient on Lasix. Will increase to 20 mg IV twice a day. Continue to monitor. Lower extremity weakness -Occurred 2 months ago in which patient was evaluated. Per medical records most likely secondary to peripheral vascular disease and cellulitis. Patient and his daughter concerned that patient is not able to walk. Most likely secondary to deconditioning. -Will get an MRI of the lumbar and sacrum to further evaluation. Sleep apnea: -bipap but pt refusing. Atrial fibrillation: -on amiodarone/cardizem/on coumadin. INR 2.3. Pharmacy managing. Chronic kidney disease stage III -Stable. Diabetes: -diabetic diet. ISS, monitor BS. caution as pt is on steroids. on levemir at bedtime, slowly titrate up as needed. Hypertension. -stable, prn hydralazine available History of hyperkalemia and hypokalemia -Status post kayexelate. -Treat as needed. Resolved. Chronic pain syndrome. -Continue her current regimen PT/OT/ST following. Discharge Planning Once medically stable most likely patient will need go to rehabilitation center. Rea Ellis MD Mar 12, 2017 09:57
[2017-03-12] MEDS: ACETAMINOPHEN/HYDROcodone 325 MG/7.5 MG TAB PO PRN ×2 (12:35→17:12)
[2017-03-12] MEDS: AZITHROMYCIN INJ 500 MG in SODIUM CHLOR 0.9% 250 ML INJ 250 ML IV SCH (12:36)
--- NOTE | 2017-03-12 16:11 | HHI.PR ---
Subjective Remarks 77 YOWM with COPD, RF, Was on High flow Weaned to NC Mild sob Cough, congestion no fever Objective Vital Signs Vital Signs Date Time Temp Pulse Resp B/P (MAP) Pulse Ox O2 Delivery O2 Flow Rate FiO2 03/12/17 14:00 92 03/12/17 12:00 88 03/12/17 12:00 97.6 98 24 99/69 (79) 94 03/12/17 10:00 88 03/12/17 08:00 98.3 88 24 143/69 (93) 90 03/12/17 08:00 88 03/12/17 07:00 94 Nasal Cannula 4.00 03/12/17 06:00 88 03/12/17 04:00 87 03/12/17 04:00 98.5 87 25 126/65 (85) 95 03/12/17 02:54 30 03/12/17 02:00 88 03/12/17 00:00 91 03/12/17 00:00 98.9 91 25 105/57 (73) 91 03/11/17 22:00 91 03/11/17 20:36 95 Venturi Mask 40 03/11/17 20:00 98.7 96 26 114/59 (77) 92 03/11/17 20:00 96 03/11/17 19:00 93 Venturi Mask 50 03/11/17 19:00 91 Venturi Mask 50 03/11/17 18:00 101 I/O 03/11/17 03/11/17 03/11/17 03/12/17 03/12/17 03/12/17 07:00 15:00 23:00 07:00 15:00 23:00 Intake Total 120 ml 1210 ml 400 ml Output Total 525 ml 100 ml 300 ml Balance -405 ml 1110 ml 100 ml Intake Oral 120 ml 960 ml 400 ml IV Total 250 ml Output Urine Total 525 ml 100 ml 300 ml # Bowel Movements 0 4 1 Result Diagram: 03/12/1743 03/12/17542 Objective Remarks GENERAL: Eldely male, mild sob SKIN: Warm and dry. HEAD: Normocephalic. EYES: No scleral icterus. No injection or drainage. NECK: Supple, trachea midline. No JVD or lymphadenopathy. CARDIOVASCULAR: Regular rate and rhythm without murmurs, gallops, or rubs. RESPIRATORY: Breath sounds equal bilaterally. No accessory muscle use. GASTROINTESTINAL: Abdomen soft, non-tender, nondistended. MUSCULOSKELETAL: No cyanosis, ++ edema. BACK: Nontender without obvious deformity. No CVA tenderness. A/P Assessment and Plan Resp insuff improved COPD DM HTN ILD PLAN: DW Pt and his family Aerosol nebs Cont abx IV Solumedrol Symbicort 2 puffs bid Wean 02 to keep sat >90% Franky Zapata MD Mar 12, 2017 16:11
[2017-03-12] MEDS: WARFARIN SOD 1 MG TAB PO SCH (16:42)
[2017-03-12] MEDS: TAMSULOSIN HCL 0.4 MG CAP PO SCH (19:36)
[2017-03-12] MEDS: INSULIN DETEMIR 100 UNITS/ML VIAL SQ SCH (20:21)
[2017-03-13] VITALS (7 sets, daily range): BP systolic 107–121; BP diastolic 60–84; PULSE 85–142; RESP 16–28; TEMP 96.7–98; O2SAT 88–92
[2017-03-13] MEDS: ACETAMINOPHEN/HYDROcodone 325 MG/7.5 MG TAB PO PRN ×2 (00:36→07:42)
[2017-03-13] MEDS: ACETAMINOPHEN/HYDROcodone 325 MG/5 MG TAB PO PRN (03:37)
[2017-03-13] MEDS: methylPREDNISolone SOD SUCC 125 MG/2 ML VIAL IV PUSH SCH (04:28)
[2017-03-13 05:03] LABS: HEMATOCRIT 33.8 % (39.0-51.0); MEAN CELL VOLUME 92.5 FL (80.0-100.0); MEAN CORPUSCULAR HEMOGLOBIN 30.8 PG (27.0-34.0); MEAN CORPUSCULAR HGB CONC 33.3 % (32.0-36.0); PLATELET COUNT 71 TH/MM3 (150-450); RED BLOOD COUNT 3.65 MIL/MM3 (4.50-5.90); RED CELL DISTRIBUTION WIDTH 21.3 % (11.6-17.2); WHITE BLOOD COUNT 3.8 TH/MM3 (4.0-11.0)
[2017-03-13 05:09] LABS: REVIEW FLAG FINAL
[2017-03-13 05:11] LABS: INTERNATIONAL NORMALIZED RATIO 2.4 RATIO; PROTHROMBIN TIME - PATIENT 27.8 SEC (9.8-11.6)
[2017-03-13 05:27] LABS: BICARBONATE 26.2 MEQ/L (21.0-32.0); POTASSIUM 3.7 MEQ/L (3.5-5.1)
[2017-03-13] MEDS: DILTIAZEM-CD 120 MG CAP ER PO SCH (07:42)
[2017-03-13] MEDS: AMIODARONE 200 MG TAB PO SCH (07:42)
[2017-03-13] MEDS: DOCUSATE SODIUM 50 MG/SENNA 8.6 MG TAB PO SCH (07:42)
[2017-03-13] MEDS: NYSTAT/DIPHENHY/LIDO MOUTHWASH (Adult) 120ML SWISH-SWAL SCH (07:43)
[2017-03-13] MEDS: PANTOPRAZOLE SODIUM 40 MG VIAL IV PUSH SCH (07:43)
[2017-03-13] MEDS: FUROSEMIDE 20 MG/2 ML VIAL IV PUSH SCH (07:43)
[2017-03-13] MEDS: BUDESONIDE-FORMOTEROL 160/4.5 MCG INHALER INH SCH (07:44)
[2017-03-13] MEDS: SODIUM CHLORIDE 0.9% FLUSH 10 ML FLUSH IV FLUSH SCH (07:44)
[2017-03-13] MEDS: TIOTROPIUM BROMIDE 18 MCG INH INH SCH (07:45)
[2017-03-13] MEDS: INSULIN ASPART SUPPLEMENTAL SCALE SQ SCH (08:00)
[2017-03-13] MEDS: LORazepam 0.5 MG TAB PO PRN (08:37)
[2017-03-13] MEDS ORDERED: DILTIAZEM HCL 25 MG/5 ML VIAL ONE (09:27)
[2017-03-13] MEDS ORDERED: LORazepam 2 MG/ML VIAL IV PUSH ONE (09:30)
[2017-03-13] MEDS ORDERED: DILTIAZEM HCL 25 MG/5 ML VIAL IV ONE (09:30)
[2017-03-13 09:38] LABS: BLOOD GAS CARBOXYHEMOGLOBIN 1.8 % (0-4); BLOOD GAS HCO3 21 mmol/L (22-26); BLOOD GAS METHEMOGLOBIN 1.2 % (0-2); BLOOD GAS O2 HGB SATURATION 62 % (90-100); BLOOD GAS OXYGEN CONTENT 10.7 Vol % (12.0-20.0); BLOOD GAS PCO2 26 mmHg (38-42); BLOOD GAS PO2 34 mmHg (61-120); BLOOD GAS TOTAL HGB 12.3 G/DL (12.0-16.0); TEMP CORR TO 98.6
[2017-03-13 09:39] LABS: CRITICAL VALUE YES; DRAW SITE RT RADIAL; LITER FLOW 6 L/M; NUMBER OF ARTERIAL PUNCTURES 1; OXYGEN DEVICE NASAL CANNULA; STAT YES; ULNAR PULSE PRESENT
--- NOTE | 2017-03-13 09:49 | HHI.PR ---
Subjective Remarks Follow-up for acute on chronic hypoxia and COPD exacerbation Patient was doing well this morning then all of a sudden acutely became hypoxic as low as 65%. Daughter is at the bedside during event. Nurse and respiratory therapist also are present. ABG and chest was done stat. Patient went in and out of atrial fibrillation with RVR up to 170s, d/w Dr. Julian. BiPAP place which improved hypoxia in the 80s. EKG placed due to paroxysmal atrial fibrillation and patient was ordered Cardizem IV. Patient's son later was present during the event and updated. Objective Vitals Vital Signs Date Time Temp Pulse Resp B/P (MAP) Pulse Ox O2 Delivery O2 Flow Rate FiO2 03/13/17 06:00 92 03/13/17 04:00 97.8 87 16 121/84 (96) 92 03/13/17 04:00 87 03/13/17 02:00 85 03/13/17 00:00 98.0 87 18 110/60 (77) 91 03/13/17 00:00 87 03/12/17 22:00 86 03/12/17 20:00 88 03/12/17 20:00 92 Nasal Cannula 4.00 03/12/17 20:00 97.9 88 22 108/60 (76) 92 03/12/17 18:00 90 03/12/17 16:00 86 03/12/17 16:00 97.3 86 16 100/56 (71) 92 03/12/17 14:00 92 03/12/17 12:00 88 03/12/17 12:00 97.6 98 24 99/69 (79) 94 03/12/17 10:00 88 I/O 03/12/17 03/12/17 03/12/17 03/13/17 03/13/17 03/13/17 07:00 15:00 23:00 07:00 15:00 23:00 Intake Total 400 ml 250 ml 480 ml 550 ml Output Total 300 ml 650 ml 300 ml Balance 100 ml 250 ml -170 ml 250 ml Intake Oral 400 ml 480 ml 550 ml IV Total 250 ml 0 ml Output Urine Total 300 ml 650 ml 300 ml # Bowel Movements 1 0 Result Diagram: 03/13/1743003/13/17430 Objective Remarks GENERAL: Chronically ill-appearing male in acute respiratory distress. CARDIOVASCULAR: Regular rate and rhythm + tachycardia without murmurs, gallops, or rubs. Patient does, atrial fibrillation intermittently. RESPIRATORY: Distant lung sounds with poor radiation. No wheezing noted. No accessory muscle use. GASTROINTESTINAL: Abdomen soft, non-tender, nondistended. MUSCULOSKELETAL:Positive tenderness to palpation of the lower extremity. +2 pitting edema. Medications and IVs Current Medications Methylprednisolone Sodium Succinate (SoluMEDROL INJ) 125 mg ONCE ONCE IVP Last administered on 02/25/17 08:06; Start 02/25/17 at 07:45; Stop 02/25/17 at 07: 46; Status DC Albuterol Sulfate (Albuterol Neb) 2.5 mg Q15M INH Last administered on 08:15; Start 02/25/17 at 07:45; Stop 02/25/17 at 08:16; Status DC Magnesium Sulfate/ Dextrose 100 ml @ 100 mls/hr ONCE ONCE IV Last administered on 02/25/17 08:06; Start 02/25/17 at 07:45; Stop 02/25/17 at 08:44; Status DC Piperacillin Sod/ Tazobactam Sod 100 ml @ 200 mls/hr ONCE STAT IV Last administered on 02/25/17 08:28; Start 02/25/17 at 07:40; Stop 02/25/17 at 08:12; Status DC Azithromycin 500 mg/Sodium Chloride 250 ml @ 250 mls/hr ONCE STAT IV Last administered on 02/25/17 09:41; Start 02/25/17 at 07:40; Stop 02/25/17 at 08:39; Status DC Tobramycin Sulfate 100 mg/ Sodium Chloride 102.5 ml @ 100 mls/hr ONCE STAT IV Last administered on 02/25/17 12:09; Start 02/25/17 at 07:40; Stop 02/25/17 at 08:41; Status DC Iohexol (Omnipaque 350 Inj) 73 ml STK-MED ONCE IVCONTRAST Last administered on 02/25/17 07:16; Start 02/25/17 at 07:16; Stop 02/25/17 at 08:12; Status DC Sodium Chloride (NS Flush) 2 ml UNSCH PRN IV FLUSH FLUSH AFTER USING IV ACCESS Last administered on 03/07/17 07:48; Start 02/25/17 at 09:15 Sodium Chloride (NS Flush) 2 ml BID IV FLUSH Last administered on 03/13/17 07: 44; Start 02/25/17 at 21:00 Acetaminophen (Tylenol) 650 mg Q4H PRN PO TEMP > 100.4; Start 02/25/17 at 09:15 Ondansetron HCl (Zofran Inj) 4 mg Q6H PRN IVP NAUSEA OR VOMITING; Start at 09:15 Zolpidem Tartrate (Ambien) 5 mg HS PRN PO INSOMNIA Last administered on 00:18; Start 02/25/17 at 09:15; Stop 03/06/17 at 15:57; Status DC Heparin Sodium (Porcine) (Heparin Inj) 5,000 units Q12H SQ ; Start 02/25/17 at 09 :15; Stop 02/25/17 at 09:15; Status DC Naloxone HCl (Narcan Inj) 0.4 mg UNSCH PRN IV SEE LABEL COMMENTS; Start at 09:15 Senna/Docusate Sodium (Maira-Colace) 1 tab BID PO Last administered on 07:42; Start 02/25/17 at 21:00 Magnesium Hydroxide (Milk Of Magnesia Liq) 30 ml Q12H PRN PO MILD - MODERATE CONSTIPATION; Start 02/25/17 at 09:15 Sennosides (Senokot) 17.2 mg Q12H PRN PO MODERATE - SEVERE CONSTIPATION; Start 02/25/17 at 09:15 Bisacodyl (Dulcolax Supp) 10 mg DAILY PRN RECTAL SEVERE CONSITIPATION; Start at 09:15 Lactulose (Lactulose Liq) 30 ml DAILY PRN PO SEVERE CONSITIPATION; Start at 09:15 Albuterol Sulfate (Albuterol Neb) 2.5 mg Q6HR NEB PRN NEB SHORTNESS OF BREATH Last administered on 03/06/17 05:43; Start 02/25/17 at 09:15; Stop 03/06/17 at 15:57; Status DC Amiodarone HCl (Cordarone) 200 mg DAILY PO Last administered on 03/13/17 07:42 ; Start 02/26/17 at 09:00 Diltiazem HCl (Cardizem Cd) 120 mg DAILY PO Last administered on 03/13/17 07: 42; Start 02/26/17 at 09:00 Acetaminophen/ Hydrocodone Bitart ([place] 5-325 Mg) 1 tab Q4H PRN PO PAIN GREATER THAN 5 Last administered on 03/09/17 05:49; Start 02/25/17 at 09:15; Stop 03/09/17 at 08:57; Status DC Lorazepam (Ativan) 0.5 mg Q8H PRN PO SEVERE ANXIETY OR AGITATION Last administered on 03/13/17 08:37; Start 02/25/17 at 09:15 Tamsulosin HCl (Flomax) 0.4 mg HS PO Last administered on 03/12/17 19:36; Start 02/25/17 at 21:00 Warfarin Sodium (Coumadin) 2 mg DAILY@1600 PO ; Start 02/26/17 at 16:00; Stop 03/01/17 at 16:52; Status DC Hydralazine HCl (Apresoline Inj) 20 mg Q4H PRN IV PUSH SYS BP GREATER THAN 180 MMHG; Start 02/25/17 at 09:15 Pharmacy Profile Note 0 ml @ 0 mls/hr UNSCH OTHER ; Start 02/25/17 at 09:15 Furosemide (Lasix Inj) 40 mg BID@09,18 IV PUSH Last administered on 03/01/17 17 :55; Start 02/25/17 at 18:00; Stop 03/01/17 at 18:30; Status DC Methylprednisolone Sodium Succinate (SoluMEDROL INJ) 125 mg Q6H IV PUSH Last administered on 02/25/17 14:06; Start 02/25/17 at 14:00; Stop 02/25/17 at 19:22; Status DC Pantoprazole Sodium (Protonix Inj) 40 mg Q24H IV PUSH Last administered on 03/13 07:43; Start 02/25/17 at 10:00 Piperacillin Sod/ Tazobactam Sod 50 ml @ 100 mls/hr Q6H IV Last administered on 02/25/17 15:39; Start 02/25/17 at 15:00; Stop 02/25/17 at 20:55; Status DC Pharmacy Profile Note 0 ml @ 0 mls/hr UNSCH OTHER ; Start 02/25/17 at 09:15; Stop 02/28/17 at 12:07; Status DC Albuterol/ Ipratropium (Duoneb Neb) 1 ampule QID NEB NEB Last administered on 03/01/17 07:55; Start 02/25/17 at 12:00; Stop 03/01/17 at 11:59; Status DC Dextrose/Sodium Chloride 1,000 ml @ 70 mls/hr [id number] IV Last administered on 03/01/17 12:40; Start 02/25/17 at 10:00; Stop 03/01/17 at 18:21; Status DC Vancomycin HCl 2000 mg/Sodium Chloride 520 ml @ 250 mls/hr ONCE ONCE IV Last administered on 02/25/17 13:30; Start 02/25/17 at 11:00; Stop 02/25/17 at 13:04; Status DC Patient Medication Teaching (Coumadin Booklet) 1 ONCE ONCE OTHER ; Start at 16:00; Stop 02/26/17 at 16:01; Status DC Vancomycin HCl 1000 mg/Sodium Chloride 250 ml @ 250 mls/hr Q12H IV Last administered on 02/26/17 13:00; Start 02/26/17 at 01:00; Stop 02/27/17 at 09:40; Status DC Miscellaneous Information SPECIFIC LAB TO BE MARLENY... ONCE ONCE .XX ; Start at 00:45; Stop 02/27/17 at 00:46; Status DC Miscellaneous Information Patient in critical care unit? Ass... Q361D .XX ; Start 02/25/17 at 17:00 Chlorhexidine Gluconate (Chlorhexidine 2% Cloth) 3 pack DAILY@04 TOPICAL Last administered on 03/01/17 03:35; Start 02/26/17 at 04:00; Stop 03/02/17 at 04:01; Status DC Chlorhexidine Gluconate (Chlorhexidine 2% Cloth) 3 pack UNSCH PRN TOPICAL HYGIENIC CARE; Start 02/25/17 at 17:00; Stop 03/02/17 at 16:52; Status DC Methylprednisolone Sodium Succinate (SoluMEDROL INJ) 60 mg Q6H IV PUSH Last administered on 02/26/17 13:24; Start 02/25/17 at 20:00; Stop 02/26/17 at 14:51; Status DC Budesonide/ Formoterol Fumarate (Symbicort 160-4.5 Inh) 1 puff Q12HR INH Last administered on 03/13/17 07:44; Start 02/25/17 at 21:00 Azithromycin (Zithromax) 500 mg DAILY PO Last administered on 03/02/17 08:15; Start 02/26/17 at 09:00; Stop 03/02/17 at 16:43; Status DC Piperacillin Sod/ Tazobactam Sod 100 ml @ 200 mls/hr Q8H IV Last administered on 02/28/17 06:09; Start 02/25/17 at 21:00; Stop 02/28/17 at 12:08; Status DC Insulin Aspart (NovoLOG SUPPLEMENTAL SCALE) 1 ACHS SLIDING SCALE SQ Last administered on 03/01/17 17:53; Start 02/26/17 at 07:00; Stop 03/01/17 at 18:31; Status DC Dextrose (D50w (Vial) Inj) 50 ml UNSCH PRN IV PUSH HYPOGLYCEMIA - SEE COMMENTS ; Start 02/25/17 at 22:45 Glucagon (Glucagon Inj) 1 mg UNSCH PRN OTHER HYPOGLYCEMIA-SEE COMMENTS; Start 02/25/17 at 22:45 Multi-Ingredient Mouthwash/Gargle (Magic Mouthwash Adult Liq) 10 ml QID SWISH- SWAL Last administered on 03/13/17 07:43; Start 02/26/17 at 13:00 Methylprednisolone Sodium Succinate (SoluMEDROL INJ) 40 mg Q6H IV PUSH Last administered on 03/01/17 14:12; Start 02/26/17 at 20:00; Stop 03/01/17 at 18:21; Status DC Vancomycin HCl 1000 mg/Sodium Chloride 250 ml @ 250 mls/hr Q18H IV ; Start 02/27 at 18:00; Status Cancel Vancomycin HCl 1500 mg/Sodium Chloride 515 ml @ 250 mls/hr ONCE ONCE IV Last administered on 02/27/17 12:10; Start 02/27/17 at 13:00; Stop 02/28/17 at 12:07; Status DC Insulin Detemir (Levemir Inj) 5 units HS SQ Last administered on 02/28/17 20:47 ; Start 02/28/17 at 21:00; Stop 03/01/17 at 18:31; Status DC Potassium Chloride (KCl) 40 meq ONCE ONCE PO Last administered on 02/28/17 16: 13; Start 02/28/17 at 15:00; Stop 02/28/17 at 15:01; Status DC Warfarin Sodium (Coumadin) 1 mg DAILY@1600 PO Last administered on 03/03/17 16: 33; Start 03/01/17 at 17:00; Stop 03/04/17 at 09:33; Status DC Methylprednisolone Sodium Succinate (SoluMEDROL INJ) 40 mg Q8HR IV PUSH Last administered on 03/03/17 12:56; Start 03/01/17 at 22:00; Stop 03/03/17 at 13:10; Status DC Furosemide (Lasix Inj) 20 mg BID@0900,1800 IV PUSH Last administered on 08:45; Start 03/02/17 at 09:00; Stop 03/04/17 at 15:21; Status DC Insulin Detemir (Levemir Inj) 10 units HS SQ Last administered on 03/12/17 20: 21; Start 03/01/17 at 21:00 Insulin Aspart (NovoLOG SUPPLEMENTAL SCALE) 1 ACHS SLIDING SCALE SQ Last administered on 03/12/17 20:21; Start 03/01/17 at 21:00 Potassium Chloride 100 ml @ 100 mls/hr Q1H IV Last administered on 03/03/17 05 :06; Start 03/02/17 at 20:15; Stop 03/02/17 at 23:14; Status DC Potassium Bicarb/ Potassium Chloride (K-Lyte Cl Eff) 50 meq ONCE ONCE PO Last administered on 03/02/17 21:57; Start 03/02/17 at 20:15; Stop 03/02/17 at 20: 22; Status DC Sodium Chloride 500 ml @ 20 mls/hr Q24H IV Last administered on 03/02/17 22:03 ; Start 03/02/17 at 20:15; Stop 03/03/17 at 20:14; Status DC Potassium Chloride (KCl) 30 meq Q12HR PO ; Start 03/03/17 at 21:00; Stop 03/03/17 at 21:00; Status DC Methylprednisolone Sodium Succinate (SoluMEDROL INJ) 40 mg BID IV PUSH Last administered on 03/05/17 08:19; Start 03/03/17 at 21:00; Stop 03/05/17 at 20:59; Status DC Potassium Chloride (KCl) 40 meq Q8H PO Last administered on 03/10/17 06:32; Start 03/03/17 at 21:00; Stop 03/10/17 at 08:12; Status DC Warfarin Sodium (Coumadin) 2 mg DAILY@1600 PO Last administered on 03/04/17 17: 17; Start 03/04/17 at 16:00; Stop 03/05/17 at 12:27; Status DC Furosemide (Lasix Inj) 20 mg DAILY IV PUSH Last administered on 03/12/17 07:48 ; Start 03/05/17 at 09:00; Stop 03/12/17 at 09:50; Status DC Warfarin Sodium (Coumadin) 3 mg DAILY@1600 PO Last administered on 03/06/17 16 :29; Start 03/05/17 at 16:00; Stop 03/07/17 at 14:39; Status DC Furosemide (Lasix Inj) 40 mg ONCE ONCE IV PUSH Last administered on 03/06/17 06:48; Start 03/06/17 at 06:45; Stop 03/06/17 at 06:46; Status DC Methylprednisolone Sodium Succinate (SoluMEDROL INJ) 125 mg ONCE ONCE IV PUSH Last administered on 03/06/17 06:50; Start 03/06/17 at 06:45; Stop 03/06/17 at 06:46; Status DC Pharmacy Profile Note 0 ml @ 0 mls/hr UNSCH OTHER ; Start 03/06/17 at 07:00; Stop 03/07/17 at 12:39; Status DC Cefepime HCl 2000 mg/Sodium Chloride 100 ml @ 200 mls/hr Q8H IV Last administered on 03/07/17 07:48; Start 03/06/17 at 08:00; Stop 03/07/17 at 12:39 ; Status DC Vancomycin HCl 1500 mg/Sodium Chloride 515 ml @ 257.5 mls/ hr Q24H IV Last administered on 03/07/17 07:55; Start 03/06/17 at 09:00; Stop 03/07/17 at 12:39 ; Status DC Miscellaneous Information SPECIFIC LAB TO BE ... ONCE ONCE .XX ; Start 03/09 at 08:45; Stop 03/09/17 at 08:45; Status DC Albuterol Sulfate (Albuterol Neb) 2.5 mg Q2HR NEB PRN NEB SHORTNESS OF BREATH; Start 03/06/17 at 16:00 Methylprednisolone Sodium Succinate (SoluMEDROL INJ) 60 mg Q12HR IV PUSH Last administered on 03/07/17 20:41; Start 03/06/17 at 21:00; Stop 03/08/17 at 07:55 ; Status DC Azithromycin 500 mg/Sodium Chloride 250 ml @ 250 mls/hr Q24H IV Last administered on 03/12/17 12:36; Start 03/07/17 at 14:00 Warfarin Sodium (Coumadin) 2.5 mg DAILY@1600 PO Last administered on 03/07/17 15:52; Start 03/07/17 at 16:00; Stop 03/11/17 at 10:58; Status DC Methylprednisolone Sodium Succinate (SoluMEDROL INJ) 60 mg Q8HR IV PUSH Last administered on 03/10/17 12:00; Start 03/08/17 at 14:00; Stop 03/10/17 at 19:39 ; Status DC Albuterol/ Ipratropium (Duoneb Neb) 1 ampule Q6HR NEB NEB Last administered on 03/12/17 09:24; Start 03/08/17 at 10:00; Stop 03/12/17 at 09:59; Status DC Tiotropium [place] (Spiriva Inh) 18 mcg DAILY INH Last administered on 07:45; Start 03/08/17 at 09:00 Acetaminophen/ Hydrocodone Bitart ([place] 7.5-325 Mg) 1 tab Q6H PRN PO PAIN>7 Last administered on 03/13/17 07:42; Start 03/09/17 at 09:00 Acetaminophen/ Hydrocodone Bitart ([place] 5-325 Mg) 1 tab Q4H PRN PO PAIN SCALE 3 TO 6 Last administered on 03/13/17 03:37; Start 03/09/17 at 09:00 Sodium Polystyrene Sulfonate (Kayexalate Liq) 15 gm NOW ONCE PO Last administered on 03/10/17 14:04; Start 03/10/17 at 14:00; Stop 03/10/17 at 14:01 ; Status DC Furosemide (Lasix Inj) 20 mg NOW ONCE IV PUSH Last administered on 03/10/17 14:03; Start 03/10/17 at 14:00; Stop 03/10/17 at 14:01; Status DC Methylprednisolone Sodium Succinate (SoluMEDROL INJ) 40 mg Q8HR IV PUSH Last administered on 03/13/17 04:28; Start 03/10/17 at 22:00 Warfarin Sodium (Coumadin) 1 mg DAILY@1600 PO Last administered on 03/12/17 16 :42; Start 03/11/17 at 16:00 Furosemide (Lasix Inj) 20 mg BID@09,18 IV PUSH Last administered on 03/13/17 07:43; Start 03/12/17 at 18:00 Diltiazem HCl (Cardizem Inj) 10 mg ONCE ONCE IV ; Start 03/13/17 at 09:30; Stop 03/13/17 at 09:31; Status DC Diltiazem HCl (Cardizem Inj) 25 mg STK-MED ONCE .ROUTE ; Start 03/13/17 at 09:27 ; Stop 03/13/17 at 09:28; Status DC Lorazepam (Ativan Inj) 1 mg ONCE ONCE IV PUSH ; Start 03/13/17 at 09:30; Stop 03/13/17 at 09:32; Status DC A/P Assessment and Plan Acute hypoxic and Hypercarbic respiratory failure with recurrence on 03/13/2017 may be secondary to mucous plug COPD Exacerbation -Stat chest x-ray and ABG ordered. BiPAP placed. Dealt with spinning frame cleaner Dr. Julian. Patient is a full code. -ABG reviewed suggesting hypoxia. -Pending stat chest x-ray. -Transfer care to spinning frame cleaner Dr. Julian. Lower extremity edema, +2 pitting edema -Patient on Lasix. continue lasix 20 mg IV twice a day. Continue to monitor. Lower extremity weakness -Occurred 2 months ago in which patient was evaluated. Per medical records most likely secondary to peripheral vascular disease and cellulitis. Patient and his daughter concerned that patient is not able to walk. Most likely secondary to deconditioning. -Will get an MRI of the lumbar and sacrum to further evaluation. Sleep apnea: -bipap but pt refusing. Paroxysmal Atrial fibrillation: -on amiodarone/cardizem/on coumadin. INR 2.4. Pharmacy managing. Right range from 130 to 170. will give IV Cardizem and most likely will need to be on cardizem gtt. Management per spinning frame cleaner. Chronic kidney disease stage III -Stable. Diabetes: -diabetic diet. ISS, monitor BS. caution as pt is on steroids. on levemir at bedtime, slowly titrate up as needed. Hypertension. -stable, prn hydralazine available History of hyperkalemia and hypokalemia -Status post kayexelate. -Treat as needed. Resolved. Chronic pain syndrome. -Continue her current regimen PT/OT/ST following. Discharge Planning Patient acutely became severely hypoxic care transfer to the spinning frame cleaner. Rea Ellis MD Mar 13, 2017 09:49
--- NOTE | 2017-03-13 09:57 | RADRPT ---
EXAM DATE/TIME: 03/13/2017 09:35 [facility] COMPARISON: CHEST SINGLE AP, March 12, 2017, 5:01. INDICATIONS : Short of Breath MEDICAL HISTORY : None. SURGICAL HISTORY : None. ENCOUNTER: Subsequent ACUITY: 1 week PAIN SCORE: Non-responsive. LOCATION: Bilateral chest FINDINGS: The heart size is normal. There is increased density at the left base with air bronchograms. The righ t lung is grossly clear. There is silhouetting of the left hemidiaphragm. CONCLUSION: Left lower lobe consolidation. Some degree of effusion cannot be excluded on the left. Vickey Zavala MD on March 13, 2017 at 9:55 Board Certified Radiologist. This report was verified electronically.
[2017-03-13] MEDS ORDERED: BUMETANIDE INJ 1 MG/4 ML VIAL IV PUSH ONE (10:30)
[2017-03-13] MEDS ORDERED: INSULIN NovoLIN REGULAR SUPPLEMENTAL SCALE SQ SCH (10:30)
[2017-03-13] MEDS ORDERED: PIPERACIL-TAZO 4.5 GM PREMIX 100 ML IV SCH (10:30)
[2017-03-13] MEDS ORDERED: DEXTROSE 50% IN WATER 50 ML VIAL(D50) IV PRN (10:30)
[2017-03-13] MEDS ORDERED: BUMETANIDE INJ 1 MG/4 ML VIAL ONE (10:30)
[2017-03-13] MEDS ORDERED: GLUCAGON 1 MG/ML VIAL OTHER PRN (10:30)
[2017-03-13] MEDS ORDERED: RESP: ALBUTEROL 2.5 MG/IPRATROPIUM 0.5 MG NEB (PRN) NEB (10:30)
[2017-03-13] MEDS ORDERED: methylPREDNISolone SOD SUCC 125 MG/2 ML VIAL IV PUSH SCH (10:30)
--- NOTE | 2017-03-13 10:39 | HHI.CCPN ---
Subjective Remarks/Hospital Course Subjective: 03/07: remains on partial NRB with spo2 88-89%. patient still noncompliant and refusing certain aspects of care. refusing BiPAP. refusing ABG this AM. labs pending because patient refused multiple earlier attempts to draw labs. Palliative care evaluated patient yesterday and patient wants to be full code and intubated if needed, and he expressed understanding that he may never separate from mechanical ventilation. 03/08: Currently on high flow nasal cannula 50% oxygen, oxygen saturation 95%. Chest x-ray with some interstitial prominence otherwise no acute findings. Daughter is at the bedside 03/13 Reconsult: Patient was found in resp distress, tachycardic with HR 130'w, tachypneic and with increase work of breathing. He was placed on BIPAP 03/31 with 100% FIO2. Discussed with patient's daughter at bedside about need for intubation however she would like to talk to her son first first. CXR showed LLL consolidation. Objective Vital Signs Date Time Temp Pulse Resp B/P (MAP) Pulse Ox O2 Delivery O2 Flow Rate FiO2 03/13/17 06:00 92 03/13/17 04:00 97.8 16 121/84 (96) 92 03/12/17 20:00 Nasal Cannula 4.00 03/11/17 20:36 40 Intake and Output 03/13/17 03/13/17 03/14/17 08:00 16:00 00:00 Intake Total 550 ml Output Total 300 ml Balance 250 ml Result Diagram: 03/13/17 0431 03/13/17 0431 Other Results Laboratory Tests Test 03/13/17 04:31 03/13/17 09:15 White Blood Count 3.8 TH/MM3 Red Blood Count 3.65 MIL/MM3 Hemoglobin 11.3 GM/DL Hematocrit 33.8 % Mean Corpuscular Volume 92.5 FL Mean Corpuscular Hemoglobin 30.8 PG Mean Corpuscular Hemoglobin Concent 33.3 % Red Cell Distribution Width 21.3 % Platelet Count 71 TH/MM3 Mean Platelet Volume 8.0 FL Prothrombin Time 27.8 SEC Prothromb Time International Ratio 2.4 RATIO Blood Urea Nitrogen 44 MG/DL Creatinine 0.81 MG/DL Random Glucose 150 MG/DL Calcium Level 8.2 MG/DL Sodium Level 142 MEQ/L Potassium Level 3.7 MEQ/L Chloride Level 107 MEQ/L Carbon Dioxide Level 26.2 MEQ/L Anion Gap 9 MEQ/L Estimat Glomerular Filtration Rate 93 ML/MIN Blood Gas Puncture Site RT RADIAL Blood Gas Patient Temperature 98.6 Blood Gas HCO3 21 mmol/L Blood Gas Base Excess -2.0 mmol/L Blood Gas Oxygen Saturation 62 % Arterial Blood pH 7.51 Arterial Blood Partial Pressure CO2 26 mmHg Arterial Blood Partial Pressure O2 34 mmHg Arterial Blood Oxygen Content 10.7 Vol % Arterial Blood Carboxyhemoglobin 1.8 % Arterial Blood Methemoglobin 1.2 % Blood Gas Hemoglobin 12.3 G/DL Oxygen Delivery Device NASAL CANNULA Blood Gas Liter Flow 6 L/M Imaging Last Impressions Chest X-Ray 03/13/17 0000 Signed Impressions: Service Date/Time: Monday, March 13, 2017 09:35 - CONCLUSION: Left lower lobe consolidation. Some degree of effusion cannot be excluded on the left. Vickey Zavala MD CT Angiography 02/25/17 0731 Signed Impressions: Service Date/Time: Saturday, February 25, 2017 08:08 - CONCLUSION: 1. Study degraded by breathing motion artifact. These were the best obtainable images. 2. No pulmonary embolus observed within the more central pulmonary arteries. Peripheral pulmonary arteries are limited in their evaluation due to the breathing motion artifact. 3. Diffuse interstitial infiltrates more pronounced within the upper lobes. Differential diagnostic considerations are quite broad at this point. The more common etiologies include usual interstitial pneumonitis as well as hypersensitivity pneumonitis. Dennis Gupta Jr., MD Objective Remarks GENERAL: Patient is 77 yo on BIPAP in mod resp distress SKIN: Warm and dry. HEAD: Normocephalic. EYES: No scleral icterus. No injection or drainage. NECK: Supple, trachea midline. No JVD or lymphadenopathy. CARDIOVASCULAR:Tachycardic without murmurs, gallops, or rubs. RESPIRATORY: Breath sounds equal bilaterally. No accessory muscle use. GASTROINTESTINAL: Abdomen soft, non-tender, nondistended. MUSCULOSKELETAL: No cyanosis, or edema. Neuro: Awake.. A/P Assessment and Plan Assessment: 77yM with severe and worsening respiratory distress likely combination of possible HCAP with COPD exacerbation and possible persistent CHF exacerbation. Recommendations: Neuro: Awake, avoid sedatives Pulm Acute hypoxic respiratory failure COPD Exacerbation Possible HCAP -- Continue with oxygen keep sat >92% -- Given increase work of breathing and poor gas exchange patient will need intubation however patient's daughter and her son are refusing . I explained to daughter that if patient does not get intubated there is high likelihood of cardiac arrest 2nd severe hypoxemia. She still refused and stated if patient's code then will resuscitate him. -- Continue with BIPAP for now. -- Increase Solu-Medrol to 60 mg IV every 8 hours. -Bronchodilators (DuoNeb, budesonide, Spiriva) -CTA chest 02/25: No PE, diffuse interstitial infiltrates -Pulm is following CV: Monitor HR and BP keep MAP>65mmHg On Amiodarone 200mg daily, Cardizem CD 120mg daily Check 2D echo to eval LV function : Monitor renal function, I/O's, electrolytes replacement as needed. Diurese with Bumex 1mg x1, on Lasix 20mg BID GI: Keep NPO for now. On Protonix 40mg IV daily for GI prophylaxis ID: Place on Zosyn for COPD exac and LLL consolidation on CXR. Monitor for signs of infections ( fever, WBC) Check sputum cx Endo: SSI with accuchecks, hold Levemir insulin Heme: Monitor CBC, INR/KS- INR 2.4 today- on Coumadin GI prophylaxis-on Protonix 40mg daily DVT prophylaxis- On Coumadin with INR 2.4 today Palliative care is following Discussed with patient's daughter at bedside and updated her on patient's condition Addendum: Rei blue was called as patient was found in Vfib arrest/asystole. ACLS protocol was initiated and patient was shocked given epi, bicarb and calcium. Patient's daughter was present in the room. Approx 10 mins in code patient called her son who is the proxy and both requested to stop code. Patient . Level 3 Gordon Lujan MD Mar 13, 2017 10:39
[2017-03-13] MEDS ORDERED: MORPHINE SULFATE 4 MG/ML INJ IV PUSH ONE (10:45)
[2017-03-13] MEDS ORDERED: EPINEPHrine HCL (1:10,000) 1 MG/10 ML SYRINGE ONE (11:43)
[2017-03-13] MEDS ORDERED: CALCIUM CHLORIDE 10% SOLN 1 GRAM/10 ML SYR IV ONE (11:59)
[2017-03-13] MEDS ORDERED: EPINEPHrine HCL (1:10,000) 1 MG/10 ML SYRINGE IV ONE (11:59)
[2017-03-13] MEDS ORDERED: SODIUM BICARBONATE 8.4% INJ 50 MEQ/50 ML SYR IV ONE (11:59)
[2017-03-13] MEDS ORDERED: RESP: ALBUTEROL 2.5 MG/IPRATROPIUM 0.5 MG NEB (SCH) NEB (12:00)
--- NOTE | 2017-03-26 23:27 | MD ---
cc: TOMY JOHNS ADMISSION DATE: 02/25/2017 DISCHARGE DATE: 03/13/2017 DATE OF 1940 The patient is a 77-year-old male with past medical history of COPD, interstitial lung disease, hypertension, atrial fibrillation, diabetes mellitus, cellulitis of lower extremity, chronic pain, anemia and coronary artery disease. He was admitted to [facility] under hospitalist service from local nursing facility for respiratory distress, coughing, wheezing and hypoxemia. He had a CT scan of the chest in the ER which showed extensive interstitial disease with no evidence of pulmonary emboli. The patient was started on broad-spectrum antibiotics, noninvasive positive pressure ventilation. During his hospital course, he was seen by pulmonary service and palliative care and infectious disease service. On March 06, the patient was evaluated by critical care medicine and was transferred to ICU for acute hypoxemic and hypercapneic respiratory failure, COPD exacerbation and likely healthcare associated pneumonia. The patient has been noncompliant and was refusing certain aspects of care including BiPAP, ABGs and blood work. After he agreed to treatment, the patient was stabilized and hospitalist service took over the care on March 08, however, on March 13 critical care medicine was reconsulted for respiratory distress, tachycardiac, tachypneic and increased work of breathing. The patient was placed on a BiPap at 10/5 with 100% FIO2. Chest x-ray showed left lower lobe consolidation. Given his poor gas exchange, intubation was recommended. However, the patient's daughter and her son refused and the patient remained on BiPap. He was also receiving bronchodilators, IV steroids. The patient was also on Amiodarone and Cardizem 120 mg daily. The patient was on anticoagulation in the form of Coumadin with INR of 2.4 on March 13. Shortly after code blue was called as the patient was found in V-fib arrest/asystole, ACLS protocol was initiated. The patient was shocked and given epi, bicarb and calcium. His daughter was present in the room and approximately 10 minutes in the code the patient's daughter called her son who is the proxy and both requested to stop the code. The patient and the daughter was present in the room. MD JACKSON Razo/ /10:54 AM /11:12 PM
[2017-03-28 09:18] LABS: CRITICAL VALUE YES
== END 2017-03-13 12:00 | disposition expired | DRG 871 ==
LOC: NEPE 07:15 → NEDA 09:11 → HIME 13:20 → N04B 02-27 23:44 → HIMW 03-06 13:35
PROVIDERS: ADMIT Family Medicine; ATTEND Family Medicine
PROC: 5A09457 Assistance with Respiratory Ventilation, 24-96 Consecutive Hours, Continuous Positive Airway Pressure (ICD-10-PCS; principal; 2017-02-25)
PROC: 0T9B70Z Drainage of Bladder with Drainage Device, Via Natural or Artificial Opening (ICD-10-PCS; 2017-02-25)
DX: A41.9 Sepsis, unspecified organism (principal); J96.01 Acute respiratory failure with hypoxia; J69.0 Pneumonitis due to inhalation of food and vomit; E87.2 Acidosis; J96.02 Acute respiratory failure with hypercapnia; D69.6 Thrombocytopenia, unspecified; I13.0 Hypertensive heart and chronic kidney disease with heart failure and stage 1 through stage 4 chronic kidney disease, or unspecified chronic kidney disease; E11.22 Type 2 diabetes mellitus with diabetic chronic kidney disease; I50.9 Heart failure, unspecified; J44.0 Chronic obstructive pulmonary disease with (acute) lower respiratory infection; N18.3 Chronic kidney disease, stage 3 (moderate); J44.1 Chronic obstructive pulmonary disease with (acute) exacerbation; L03.119 Cellulitis of unspecified part of limb; E11.65 Type 2 diabetes mellitus with hyperglycemia; I48.0 Paroxysmal atrial fibrillation; G47.30 Sleep apnea, unspecified; I25.10 Atherosclerotic heart disease of native coronary artery without angina pectoris; Z79.01 Long term (current) use of anticoagulants; D63.8 Anemia in other chronic diseases classified elsewhere; Z85.828 Personal history of other malignant neoplasm of skin; Z99.81 Dependence on supplemental oxygen; Z87.01 Personal history of pneumonia (recurrent); Y95 Nosocomial condition; G89.4 Chronic pain syndrome; E87.5 Hyperkalemia; E87.6 Hypokalemia; I87.2 Venous insufficiency (chronic) (peripheral); Z87.891 Personal history of nicotine dependence; Z51.5 Encounter for palliative care; K14.0 Glossitis; Z91.19 Patient's noncompliance with other medical treatment and regimen; I73.9 Peripheral vascular disease, unspecified; R29.6 Repeated falls
CPT/HCPCS: 36600; 71010; 71275; 76937; 80048; 80053; 80202; 81001; 81002; 82550; 82565; 82805; 82948; 83036; 83605; 83735; 83880; 84100; 84132; 84145; 84439; 84443; 84484; 85007; 85025; 85027; 85610; 85730; 87040; 87086; 87449; 87641; 87804; 93005; 94002; 94003; 94150; 94640; 94664; 94667; 94668; 96365; 96375; C9113; J0171; J0456; J0692; J1815; J1940; J2060; J2270; J2543; J2920; J2930; J3260; J3370; J3475; J3480; J7040; J7050; J7613; Q9967